=== PATIENT | female | born 1975 | race Caucasian/White ===

== ENCOUNTER → 2020-08-24 09:12 | Outpatient (BNVA) | payer BC, SELFPAY | PROVIDERS: PCP Internal Medicine Medical Oncology; Visit Provider Surgery | DX: Z76.89 Persons encountering health services in other specified circumstances (principal) ==

== ENCOUNTER 2023-03-19 15:58 | Outpatient (REF) | payer BC, SELFPAY | END 2023-03-19 15:59 | disposition home or self-care (01) | LOC: HO.MAMMO 15:58 | PROVIDERS: PCP Internal Medicine Medical Oncology; Visit Provider Internal Medicine Medical Oncology | DX: Z13.89 Encounter for screening for other disorder (principal) ==

== ENCOUNTER → 2023-04-03 15:00 | Outpatient (BNV) | payer OTHER, SELFPAY | PROVIDERS: PCP Internal Medicine Medical Oncology; Visit Provider Radiology Diagnostic Radiology | DX: R22.32 Localized swelling, mass and lump, left upper limb (principal) | CPT/HCPCS: 76642; 77066 ==

== ENCOUNTER 2023-04-03 15:02 | Outpatient (REF) | payer OTHER, SELFPAY ==
--- NOTE | ~2023-04-03 | MM_ITS ---
EXAMINATION: MM DIAGNOSTIC DIGITAL BREAST TOMOSYNTHESIS, BILATERAL US BREAST LIMITED, LEFT MAMMOGRAPHY: CLINICAL INFORMATION: Palpable left axillary mass. History of left axillary lipoma removed in the past. The lifetime risk of breast cancer based on the Tyrer-Cuzick Model is 11.2%. COMPARISON: Mammography: This study is compared with multiple prior exams dating back to 2016. TECHNIQUE: Digital breast tomosynthesis is performed in both the craniocaudal and mediolateral oblique views along with computer-aided detection (CAD). Synthesized 2D images are generated from the tomosynthesis. A full lateral view of the left breast and spot compression of the lung in the MLO and CC projections. FINDINGS: There are scattered areas of fibroglandular density (ACR BI-RADS breast composition Category b). In the area of clinical concern lower left axilla, laterally, there is a low-density focal asymmetry which is the appearance of contiguous lymph nodes. It is well-circumscribed and has no associated suspicious mammographic findings. There are no mammographic signs of malignancy breast. ULTRASOUND: CLINICAL INFORMATION: Palpable left axillary mass. COMPARISON: This study is compared with prior exams dating back to 2016. TECHNIQUE: Targeted sonographic evaluation was performed using a high frequency linear transducer. Selected archived documentation. FINDINGS: LEFT BREAST: In the area of clinical concern, in the 2:00 region 12 cm from the nipple in the left axilla, there is a 23 mm x 8 mm x 23 mm area of lymphoid tissue. This has the appearance of a few contiguous lymph nodes. The cortical echotexture is normal. The cortical thickness is also normal. The fatty hilum the node is preserved. The patient denies recent vaccination or any other systemic acute or chronic illness. THE PATIENT HAS In prior ultrasounds of this region, there were no suspicious findings. MM/MM tomosynthesis diagnostic BI IMPRESSION: Mammographic signs of malignancy in either breast. Palpable left axillary esther tissue which does not appear pathologic by mammography or sonography. Nonetheless, since this is a newly palpable finding, it would be most helpful to evaluate the patient again with left axillary sonography 3 months to document lack of significant change. The patient was also informed to return to her referring physician should she perceive this lump to enlarge in the future. The findings and recommendations have been relayed to the patient by the interpreting radiologist. OVERALL ASSESSMENT: Mammography: BI-RADS 3 - Probably benign finding(s) - 6 month follow-up suggested Ultrasound: BI-RADS 3 - Probably benign finding(s) - 6 month follow-up suggested RECOMMENDATION: 1-3 Months F/U A 3 MONTH FOLLOW-UP ULTRASOUND OF THE LEFT AXILLA IS RECOMMENDED. This patient's information was entered into a reminder system with a target due date for their next mammogram.
== END 2023-04-03 15:03 | disposition home or self-care (01) ==
LOC: HO.MAMMO 15:02
PROVIDERS: PCP Internal Medicine Medical Oncology; Visit Provider Internal Medicine Medical Oncology
DX: N63.32 Unspecified lump in axillary tail of the left breast (principal)
CPT/HCPCS: 76642; 77062; 77066

== ENCOUNTER 2023-05-24 13:32 | Outpatient (AMB) | payer OTHER, SELFPAY ==
--- NOTE | 2023-05-24 13:34 | A.OFFVIS_ITS ---
Intake Vital Signs 3 05/24/23 13:46 Height 5 ft 4 in Weight 115 lb BMI 19.7 BP 108/70 Blood Pressure Location Lt brachial Position Sitting Intake Visit Reasons: Black pigmented lesion left ankle-discuss brst MR Intake Note: Patient is seen in office for evaluation and treatment of left breast and left ankle pigmentation. Patient c/o: had breast MRI and was told her lymph nodes are inflamed, has a left breast lump near the axilla, no pain, tender comes and goes, had lump in the past bx (benign), no prior breast surgeries, yes to breast feeding no complications, fm hx breast cancer. Left ankle lump dark color increase/decrease, denies pain, discharge, onset 6 months Synthetic Department Supervisor Required: No Accompanied by: Self / Same As Patient Allergies trazodone Allergy (Unknown, Verified 05/24/23 13:42) insomnia, nightmares Medication List - Last Reconciled 05/24/23 by Tristen Serna MD bupropion HCl mg PO HPI HPI Comments 2 History of Present Illness0 Details 47-year-old female patient presenting fo r evaluation of a palpable mass in the left axilla. She reports a previous history of an excisional biopsy of a palpable mass by Dr. Martinez several years ago which was a lipoma. The lump is occasionally tender especially during her menstrual cycle. A recent mammogram and ultrasound performed on 04/03/2023 revealed axillary esther tissue corresponding to the palpable lesion. This was felt to be low suspicion for malignancy and a follow-up in 6 months recommended (BI-RADS 3). Subsequent breast MRI performed at [facility] on 05/01/2023 revealed thickened skin within the axilla corresponding to the site of clinical interest and most consistent with cellulitis. There were several underlying lymph nodes demonstrating increased enhancement but with normal size and morphology. Their appearance is suspicious for inflammatory reaction. (BI-RADS 2). She reports a family history of breast cancer in a paternal aunt. [facility] Medical History GERD (gastroesophageal reflux disease) Surgical History History of cervical discectomy (~2010) H/O left breast biopsy (~08/2016) Family History Maternal Aunt History of lung cancer Paternal Aunt History of breast cancer Paternal Grandfather History of lung cancer Social History Alcohol intake: current Alcohol intake frequency: holidays/special occasions only Alcohol type: wine Patient Tobacco Use Status: Never used Tobacco Review of Systems Const All systems reviewed & are unremarkable except as noted in HPI and below Denies chills, Denies fever(s), Denies headache(s), Denies poor appetite and Denies weakness ENT Denies headache(s) Card Denies chest pain, Denies irregular heart rhythm, Denies palpitations and Denies dyspnea Resp Denies cough, Denies excessive phlegm production and Denies dyspnea GI Denies abdominal pain, Denies bloating, Denies change in bowel habits, Denies constipation, Denies heartburn, Denies diarrhea, Denies nausea and Denies vomiting Denies urinary frequency and Reports nipple discharge Musc Denies back pain, Denies muscle weakness and Denies numbness Skin/Breast Denies breast skin changes, Reports breast pain, Reports breast mass, Denies changing lesions, Reports nipple discharge and Denies unusual bruising Neuro Denies headache(s), Denies numbness, Denies paresthesias and Denies weakness Psych Denies anxiety and Denies depression Endo Denies palpitations Humberto/Lymph Denies lymphadenopathy Physical Exam Vital Signs: Last Vital Signs BP 108/70 05/24/23 13:46 BMI result Body Mass Index 19.7 Const General: cooperative and no acute distress Nutritional Appearance: well nourished Orientation/consciousness: patient oriented x3 Limitations: no limitations HEENT Head: Yes normocephalic and Yes atraumatic Ears: hearing grossly normal bilaterally Chest Other: Left breast: No skin change, no nipple retraction, no nipple discharge, no palpable mass, axilla as noted below. Right breast: No skin change, no nipple retraction, no nipple discharge, no palpable mass, no enlarged lymph nodes Chest/axillae images: 2 1. Palpable nodule, possibly lymph node measuring approximately 1.5-2 cm in diameter. No overlying skin changes appreciated. Nontender to palpation. No other adenopathy is appreciated. Resp Effort & Inspection: normal respiratory effort, no audible wheezes, no cough and no respiratory distress Cardio Jugular venous distension: no JVD GI Inspection: Yes normal to inspection Skin Other: Warm, dry, no rash Neuro General: patient oriented x3 Extrem Other: Left medial lower leg with a 3 mm black and slightly raised cutaneous lesion, with symmetrical margins, no ulceration or bleeding identified. General: Yes no clubbing, cyanosis or edema Ankle/foot/toe images: 2 1. Site of melanotic lesion left leg Assessment & Plan Assessment & Plan (1) Left breast mass: Code(s): N63.20 - Unspecified lump in the left breast, unspecified quadrant Qualifiers: Breast mass location: axillary tail Qualified Code(s): N63.32 - Unspecified lump in axillary tail of the left breast (2) Nevus of left lower leg: Code(s): D22.72 - Melanocytic nevi of left lower limb, including hip Plan 47-year-old female patient presenting with a palpable mass in the left axilla with imaging suggestive of lymph nodes in the left axilla. On examination the patient is found to have a 2 cm mobile mass extending into the axilla possibly due to a breast mass or enlarged lymph node. I recommended excision of the palpable breast mass as the safest option given the size of the lesion. In addition she has a melanotic lesion located in the lower left leg just above the medial malleolus. The lesion seems to have increased in size, albeit slowly. I recommended excision of this lesion as well. This could be performed at the same time of her breast surgery. After discussion of the procedure, risks and alternatives, she consents to the left breast lumpectomy and excision of melanotic lesion of left leg. She will be scheduled as a short-stay surgery. Coding Level of Care Code New Pt Level 4 (41006) Diagnoses Mass of axillary tail of left breast N63.32 Breast mass location: axillary tail Nevus of left lower leg D22.72
[2023-05-24 13:46] VITALS: BP 108/70; BMI 19.7
== END 2023-05-24 14:04 | disposition home or self-care (01) ==
PROVIDERS: PCP Internal Medicine Medical Oncology; Referring Provider Internal Medicine Medical Oncology; Visit Provider Surgery
DX: N63.32 Unspecified lump in axillary tail of the left breast (principal); D22.72 Melanocytic nevi of left lower limb, including hip
CPT/HCPCS: 99204

== ENCOUNTER → 2023-05-24 13:32 | Outpatient (BNVA) | payer OTHER, SELFPAY | PROVIDERS: PCP Internal Medicine Medical Oncology; Referring Provider Internal Medicine Medical Oncology; Visit Provider Surgery ==

== ENCOUNTER 2023-06-25 07:05 | Outpatient (REF) | payer OTHER, SELFPAY ==
[2023-06-25 07:13] LABS: MANUAL DIFF FLAG NO
[2023-06-25 08:43] LABS: Basophils Absolute Auto 0.1 X10*3/uL (0.0-0.2); Basophils Percent Auto 1.3 % (0-2); Eosinophils Absolute Auto 0.2 X10*3/uL (0.0-0.4); Eosinophils Percent Auto 2.4 % (0-4); Hematocrit 43.5 % (37.0-47.0); Hemoglobin 14.8 g/dl (12.0-16.0); Imm Gran Abs Auto 0.02 X10*3/uL (0.00-0.03); Imm Gran Pct Auto 0.3 % (0.0-0.4); Lymphocytes Absolute Auto 2.1 X10*3/uL (1.2-4.9); Lymphocytes Percent Auto 34.5 % (20-40); Mean Corpuscular Hemoglobin 31.8 pg (27.0-33.0); Mean Corpuscular Volume 93.3 fL (80.0-98.0); Monocytes Absolute Auto 0.5 X10*3/uL (0.1-1.2); Monocytes Percent Auto 7.6 % (2-11); Neutrophils Absolute Auto 3.3 x10*3/uL (2.0-8.3); Neutrophils Percent Auto 53.9 % (45-73); Platelet Count 277 X10*3/uL (160-400); Red Blood Count 4.66 X10*6/uL (4.20-5.50); Red Cell Distribution Width 12.2 % (11.0-16.0); White Blood Count 6.2 X10*3/uL (4.8-10.8)
[2023-06-25 09:18] LABS: Erythrocyte Sedimentation Rate 2 MM/HR (0-20)
[2023-06-25 09:19] LABS: Alanine Aminotransferase 18 U/L (0-31); Alkaline Phosphatase 44 U/L (39-117); Anion Gap 13 (12-20); Aspartate Amino Transferase 18 U/L (5-31); Bilirubin Total 0.6 mg/dL (0.0-1.0); Blood Urea Nitrogen 6 mg/dL (9-16); Calcium 8.8 mg/dL (8.4-10.2); Carbon Dioxide 24 mmol/L (22-29); Chloride 109 mmol/L (96-108); Cholesterol 156 mg/dL (<200); Estimated Glomerular Filt Rate > 60; Glucose Fasting 121 mg/dL (60-99); HDL Cholesterol 63 mg/dL (>40); LDL Cholesterol Calculated 81 mg/dL (<100); Potassium 3.9 mmol/L (3.3-5.1); Sodium 142 mmol/L (135-145); Total Protein 6.3 g/dL (6.5-8.0); Triglycerides 63 mg/dL (<150)
[2023-06-25 09:25] LABS: Vitamin D 25-OH Total 43.8 ng/mL (>30)
== END 2023-06-25 07:06 | disposition home or self-care (01) ==
LOC: HO.LAB 07:05
PROVIDERS: PCP Internal Medicine Medical Oncology; Visit Provider Internal Medicine Medical Oncology
DX: G47.00 Insomnia, unspecified (principal); E55.9 Vitamin D deficiency, unspecified; R73.03 Prediabetes; R73.9 Hyperglycemia, unspecified
CPT/HCPCS: 36415; 80053; 80061; 82306; 85025; 85652

== ENCOUNTER 2023-06-25 07:17 | Day surgery (SDC) | payer OTHER, SELFPAY ==
[2023-06-21 07:42] VITALS: BMI 20.9
[2023-06-25] VITALS (8 sets, daily range): BP systolic 99–111; BP diastolic 67–79; PULSE 67–74; RESP 15–22; TEMP 36.6–37.1; O2SAT 98–100
[2023-06-25 08:01] LABS: UPreg QC Valid YES; Urine Pregnancy NEGATIVE (NEGATIVE)
[2023-06-25] MEDS: Lactated Ringers 1,000 ML 100 ML IVCONT (08:19)
--- NOTE | 2023-06-25 08:30 | HO.ANESPROP2 ---
HPI - Anesthesia Eval Consult details Narrative: Breast mass PMFSH Active Problems Active Problems: All Active Problems (Updated 06/25/23 @ 07:54 by Denae Chacon, RN) Nevus of left lower leg (Acute) Left breast mass (Acute) Past Medical History Medical History (Updated 06/25/23 @ 07:54 by Dneae Chacon, RN) Depression Uterine polyp Venous insufficiency of both lower extremities Peripheral venous insufficiency Varicose vein of leg 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, cervical History of torn meniscus of left knee IBS (irritable bowel syndrome) GERD (gastroesophageal reflux disease) Family History Family History Maternal Aunt History of lung cancer Paternal Aunt History of breast cancer Paternal Grandfather History of lung cancer Family history of problems with anesthesia: No Surgical History Surgical History History of cervical discectomy (~2010) H/O left breast biopsy (~08/2016) History of Problems with Anesthesia: No Social History Social History Alcohol intake: current Alcohol intake frequency: holidays/special occasions only Alcohol type: wine Patient Tobacco Use Status: Never used Tobacco Use of substances other than those prescribed or required for medical reasons: No Are you DNR?: No Advance Directives: No Advance Directives Information Provided: Yes Meds Allergies Allergy/AdvReac Type Severity Reaction Status Date / Time trazodone AdvReac Unknown insomnia, Verified 06/25/23 07:55 nightmares tramadol AdvReac Nausea and Verified 06/25/23 07:55 Vomiting Active Medications: Current Medications Lactated Ringer's (Lr) 1,000 mls @ 100 mls/hr IVCONT .Q10H NAOMI Last Admin: 06/25/23 08:19 Dose: 100 mls/hr Home Medications Medication Instructions Recorded Confirmed Last Taken Type bupropion HCl 100 mg tablet,12 hr 100 mg PO BID 08/24/20 06/21/23 06/25/23 05:00 History sustained-release coenzyme Q10 30 mg capsule (Co mg PO DAILY 06/21/23 Unknown History Q-10) multivitamin 1 tab PO DAILY 06/21/23 06/21/23 Unknown History omega 4-zgk-wvo-fish oil 60 mg-90 1 cap PO DAILY 06/21/23 06/21/23 06/17/23 History mg-500 mg capsule (Fish Oil) Exam Exam Date and Time: June 25, 2023 0830 Height,Weight and Vital Signs: Height 5 ft 3 in Weight 53.524 kg Last Vital Signs Temp 98.7 F 06/25/23 08:10 Pulse 74 06/25/23 08:10 Resp 15 06/25/23 08:10 BP 111/72 06/25/23 08:10 Pulse Ox 100 06/25/23 08:10 O2 Del Method Room Air 06/25/23 08:10 Pertinent Lab Results Pertinent Lab Results: Laboratory Tests 06/25/23 07:50 Urine Test NEGATIVE Airway Mallampati Class: II Neck ROM: Full Heart: rrr Lungs: cta Assessment and Plan Assessment Anesthesia Assessment: Anesthesia Plan Discussed and Chart Reviewed Final Anesthetic Review Family History of Problems with Anesthesia: No History of Problems with Anesthesia: No NPO: Yes ASA Class: II Final Preanesthetic Review: No Changes in Pt Med Stat, Meds/Allgs Chart Reviewed, Consent Obtained/Reviewed and Anes Risks/Benef Reviewed Patient Risk: Low Procedure Risk: Intermediate Anesthetic Plan Anesthetic Plan: GA (PONV) and Agree w/ Assess. and Plan Disposition: Standard PACU
--- NOTE | 2023-06-25 08:53 | P.HPSUR_ITS ---
Pre-Procedural Eval Section A Date of Service: 06/25/23 The patient is an INPATIENT: No Changes since office visit: Yes Patient answered all questions; No Cold of Flu in the past 2 weeks, No New Medical Problems and No Changes in Medication The History & Physical has been completed within 30 days and I have reviewed it.: No Section B Chief Complaint: Unspecified lump in axillary tail of the left pam Details of Present Illness: No changes from previous evaluation. Relevant Family History (Specify if Yes): No Relevant Social History: None Present Medications: see Short Stay Collaborative assessment Medical History: No relevant PMH History of Previous Operations: Relevant previous surgery/procedure and date(s) ( Previous right axillary lipoma excision) Allergies: Allergies Allergy/AdvReac Type Severity Reaction Status Date / Time trazodone AdvReac Unknown insomnia, Verified 06/25/23 07:55 nightmares tramadol AdvReac Nausea and Verified 06/25/23 07:55 Vomiting Review of Systems Sugical H&P ROS: Negative: Constitution, Cardiovascular, Respiratory, Neurological, Psychiatric, Hem-Onc, Allergic/Immunologic, Gastrointestinal, Genitourinary, Musculoskeletal, Integumentary, Endocrine and Eyes/Ears/Nose/Throat Exam Surgical H&P Exam: Normal: HEENT, Normal: Heart, Normal: Lungs, Normal: Ex tremities, Normal: Abdomen, Normal: Skin and Normal: Neurological Plan Diagnosis/Plan: Unchanged I have reviewed the history and physical and performed a pertinent physical examination on my patient. No changes have occurred unless specified. Time Spent With Patient Time: Total time managing care of this patient today ____ minutes.
--- NOTE | 2023-06-25 09:37 | W.PM.OPN ---
Operative Note Operative Note Date of Service: 06/25/23 Narrative: Preoperative diagnosis: left breast lump, melanotic lesion left lower leg Postoperative diagnosis: same Procedure: left breast lumpectomy, excision melanotic lesion left lower leg Surgeon: Tristen Serna MD Computer Game Designer: Bette Mendez PA-C Anesthesia: general LMA Indications for procedure: 48-year-old female patient with a previous history of a lipoma in the left axilla now presenting with a palpable mass possible lymphadenopathy in the left axilla. She was also noted to have a melanotic lesion measuring approximately 4 mm in diameter in the medial left lower leg just above the ankle. She has requested excision of both lesions. Operative findings: Mass measuring approximately 2 cm at the tail of the left breast extending into the axilla, possible fibroadenoma, no lymphadenopathy Specimen: left breast mass, melanotic lesion left leg Estimated blood loss: 2 mL Complications: none Procedure details: The patient was brought to the OR placed in a supine position. After administering general anesthesia the patient's left breast and axilla were prepped with ChloraPrep and draped in a sterile fashion. A surgical time-out was called the consent confirmed. Patient received preoperative antibiotics and Venodyne boots were in place. Local anesthesia was then infiltrated transverse fashion over the palpable mass. Incision was then created with a scalpel carried out through subcutaneous tissue. The mass was then grasped with an Allis clamp. Electrocautery was then used to dissect the mass from the surrounding breast tissue. The lesion was passed off the table and sent to pathology for further examination. Hemostasis was assured using electrocautery. The breast tissue was then reapproximated using interrupted 3-0 Polysorb sutures. Dermis was reapproximated using interrupted 3-0 Polysorb sutures. Skin was closed using a running subcuticular 4-0 Polysorb suture. Steri-Strips, 2 x 2 gauze and Tegaderm were then applied. Attention was then directed to the left medial lower leg were a melanotic lesion was identified by the patient in excision requested. Skin was prepped with Betadine and draped in a sterile fashion. Local anesthesia was then infiltrated around the lesion. Elliptical incision was then created around the lesion with 2 mm margins. This carried out through subcutaneous tissue and around the entire lesion. Lesion was passed off the table sent to pathology for further examination. After assuring adequate hemostasis the skin was closed using a 4-0 nylon suture. Sterile dressings consisting of 2 x 2 gauze and Tegaderm were then applied. The patient tolerated the procedure well. Sponge, instrument, and needle counts reported as correct. The patient was transferred to PACU in stable condition.
== END 2023-06-25 12:13 | disposition home or self-care (01) ==
PROVIDERS: Nurse Practitioner; PCP Internal Medicine Medical Oncology; Visit Provider Surgery
PROC: (CPT 19301; principal; 2023-06-25 09:10)
PROC: (CPT 19301; 2023-06-25 09:10)
DX: N63.32 Unspecified lump in axillary tail of the left breast (principal); N64.89 Other specified disorders of breast; N60.32 Fibrosclerosis of left breast; N60.82 Other benign mammary dysplasias of left breast; D22.72 Melanocytic nevi of left lower limb, including hip; I87.2 Venous insufficiency (chronic) (peripheral); G93.5 Compression of brain; Z79.899 Other long term (current) drug therapy; Z88.8 Allergy status to other drugs, medicaments and biological substances
CPT/HCPCS: 19301; 11406; 81025; 88305; 88307; J0131; J0690; J1100; J2405; J2795; J3010

== ENCOUNTER → 2023-06-25 07:17 | Outpatient (BNV) | payer OTHER, SELFPAY | PROVIDERS: PCP Internal Medicine Medical Oncology; Visit Provider Surgery | DX: N63.32 Unspecified lump in axillary tail of the left breast (principal); D22.72 Melanocytic nevi of left lower limb, including hip | CPT/HCPCS: 11401; 19301 ==

== ENCOUNTER 2023-07-03 08:21 | Outpatient (AMB) | payer OTHER, SELFPAY ==
--- NOTE | 2023-07-03 08:41 | A.OFFVIS_ITS ---
Intake Vital Signs 07/03/23 08:52 Height 5 ft 4 in Weight 115 lb BMI 19.7 BP 108/70 Blood Pressure Location Lt brachial Position Sitting Intake Visit Reasons: S/P Lt axillary lumpectomy, Lt ankle lesion exc. Intake Note: Patient is seen in office for post op assessment post left breast lumpectomy & excision melanotic lesion left lower leg. Patient c/o: denies any concerns healing as expected Applications Development Analyst Required: No Accompanied by: Self / Same As Patient Allergies trazodone Adverse Reaction (Unknown, Verified 07/03/23 08:55) insomnia, nightmares tramadol Adverse Reaction (Verified 07/03/23 08:55) Nausea and Vomiting Medication List - Last Reconciled 07/03/23 by Tristen Serna MD bupropion HCl 100 mg PO BID coenzyme Q10 (Co Q-10) mg PO DAILY multivitamin 1 tab PO DAILY omega 1-krq-tmp-fish oil 60-90-500 mg (Fish Oil) 1 cap PO DAILY oxycodone 5 mg PO Q6H PRN HPI HPI Comments History of Present Illness Details Patient returns 1 week following excision of a left breast mass and left leg lesion. She tolerated the procedure well his returning for wound cora ck. She reports some thickness in the incision in the left axilla with a small amount of pain when pressed. She denies any redness or discharge. She denies any symptoms from the leg lesion excision site. [facility] Medical History (Updated 06/25/23 @ 07:54 by Denae Chacon RN) Depression Uterine polyp Venous insufficiency of both lower extremities Peripheral venous insufficiency Varicose vein of leg 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, cervical History of torn meniscus of left knee IBS (irritable bowel syndrome) GERD (gastroesophageal reflux disease) Surgical History History of surgery on lower extremity (06/25/23) History of lumpectomy of left breast (06/25/23) History of cervical discectomy (~2010) H/O left breast biopsy (~08/2016) Family History Maternal Aunt History of lung cancer Paternal Aunt History of breast cancer Paternal Grandfather History of lung cancer Social History Alcohol intake: current Alcohol intake frequency: holidays/special occasions only Alcohol type: wine Patient Tobacco Use Status: Never used Tobacco Physical Exam Vital Signs: Last Vital Signs BP 108/70 07/03/23 08:52 BMI result Body Mass Index 19.7 Chest Other: Excision site in left axilla is clean, dry, and intact without redness or discharge. There is an underlying healing ridge which is mildly tender to palpation. No other suspicious findings identified. Skin Other: Excision site left lower leg is clean and intact. A single suture was removed and the wounds found to be well healed. Assessment & Plan Assessment & Plan (1) Nevus of left lower leg: Code(s): D22.72 - Melanocytic nevi of left lower limb, including hip (2) Left breast mass: Code(s): N63.20 - Unspecified lump in the left breast, unspecified quadrant Qualifiers: Breast mass location: axillary tail Qualified Code(s): N63.32 - Unspec ified lump in axillary tail of the left breast Plan 40-year-old female status post excision of a left breast mass in the axilla and excision of a skin lesion left leg both of which were benign. She tolerated the procedure well and wounds are healing nicely. She should follow up as needed. Coding Level of Care Code Global (89397) Diagnoses Nevus of left lower leg D22.72 Mass of axillary tail of left breast N63.32 Breast mass location: axillary tail
[2023-07-03 08:52] VITALS: BP 108/70; BMI 19.7
== END 2023-07-03 08:56 | disposition home or self-care (01) ==
PROVIDERS: PCP Internal Medicine Medical Oncology; Visit Provider Surgery
DX: D22.72 Melanocytic nevi of left lower limb, including hip (principal); N63.32 Unspecified lump in axillary tail of the left breast
CPT/HCPCS: 99024

== ENCOUNTER → 2023-07-03 08:21 | Outpatient (BNVA) | payer OTHER, SELFPAY | PROVIDERS: PCP Internal Medicine Medical Oncology; Visit Provider Surgery ==

== ENCOUNTER 2023-07-20 17:34 | Outpatient (REF) | payer OTHER, SELFPAY ==
--- NOTE | ~2023-07-20 | MR_ITS ---
EXAMINATION: MR CERVICAL SPINE WITHOUT CONTRAST CLINICAL INFORMATION: Right neck pain with radiation into the right upper extremity, prior surgery. COMPARISON: MRI cervical spine 06/10/2018 TECHNIQUE: MRI of the cervical spine was obtained using routine sequences without contrast. FINDINGS: Straightening of the normal cervical lordosis with grade 1 anterolisthesis of C3-C4 and trace retrolisthesis of C4-C5. Cervical vertebral body heights are maintained. No expansile or destructive osseous lesion. There is prominence of the central canal extending from approximately the level of C4-C5 through C7-T1, not significantly changed compared to the prior examination. Partially visualized thoracic spinal cord syrinx on sagittal sequences measuring up to 3 mm in AP diameter of the partially visualized aspect. Prior anterior cervical discectomy and fusion at C5-C6. Again seen are low-lying cerebellar tonsils, terminating up to 7 mm below the foramen magnum. C2-C3: No significant spinal canal or neural foraminal stenosis. C3-C4: Small disc osteophyte complex without significant spinal canal stenosis. Right greater than left uncovertebral arthropathy with mild to moderate right neural foraminal narrowing. The left neural foramen is patent. C4-C5: Disc osteophyte complex indents the ventral thecal sac without significant associated spinal canal stenosis. There is uncovertebral arthropathy with mild narrowing of the right neural foramen. C5-C6: Anterior cervical discectomy and fusion. No significant spinal canal or neural foraminal stenosis. C6-C7: Eccentric right disc osteophyte complex without significant spinal canal stenosis. There is mild narrowing of the right neural foramen appears comparable to the prior examination. C7-T1: Facet arthropathy. No significant spinal canal or neural foraminal stenosis. MR/MR cervical spine wo con IMPRESSION: There is a partially visualized thoracic spinal cord syrinx beginning at the level of T5 and extending outside the [id number] of this examination. Dedicated thoracic spine MRI with and without contrast is recommended to evaluate syrinx extent. Stable trace dilatation of the central canal in the cervical spine. Redemonstrated low-lying cerebellar tonsils terminating approximately 7 mm below the foramen magnum. Prior anterior cervical discectomy and fusion at C5-C6 with no significant interval change in multilevel degenerative disc disease of the cervical spine as described above. No high-grade spinal canal or neural foraminal stenosis. Findings to be called to the ordering clinician by a [facility] Physician Aids Nurse.
== END 2023-07-20 17:35 | disposition home or self-care (01) ==
LOC: HO.MRI 17:34
PROVIDERS: PCP Internal Medicine Medical Oncology; Visit Provider Student in an Organized Health Care Education/Training Program
DX: M54.12 Radiculopathy, cervical region (principal)
CPT/HCPCS: 72141

== ENCOUNTER 2023-08-08 09:32 | Outpatient (REF) | payer OTHER, SELFPAY ==
--- NOTE | ~2023-08-08 | MR_ITS ---
EXAMINATION: MR THORACIC SPINE WITHOUT AND WITH CONTRAST CLINICAL INFORMATION: Delineate extent of spinal cord syrinx. COMPARISON: MRI scans of the cervical spine 07/20/2023 and 06/10/2018. TECHNIQUE: MRI of the thoracic spine was obtained using routine sequences with and without contrast. Intravenous contrast: Gadavist 5 mL. FINDINGS: VERTEBRAL BODIES AND PARASPINAL STRUCTURES: There is mild dextroscoliosis with the apex at T10. There is multilevel narrowing of intervertebral disc height which is most prominent at T9-T10 and T10-T11. There are Schmorl's nodes in the superior endplate of T11 and at L1-L2. Vertebral body heights are maintained, and no fractures are demonstrated. There is a small focus of increased T1 and T2 signal in the superior body of T12, most consistent with a hemangioma. There is no abnormal osseous enhancement, and marrow signal is homogenous. On the localizer images the study redemonstrates sequelae of the ACDF at C5-C6 with reversal of the normal cervical lordosis. The paravertebral and visualized posterior thoracic and superior retroperitoneal structures are unremarkable. The conus is at the level of T12-L1. The study redemonstrates a septated syrinx extending from the mid body of T5 caudad to the mid body of T9. It is most prominent at the level of T7 with caliber of 5 mm. Elsewhere, spinal cord signal appears normal and there is no abnormal enhancement of the cord or leptomeninges. SPINAL LEVELS: C7-T1 through T8-T9: Posterior disc contours are normal and there is no compression of the spinal cord or central stenosis. The neural foramina appear patent. T9-T10: There is mild bilateral facet arthropathy. There is a small left paracentral disc protrusion without mass effect on the thecal sac and there is no central stenosis, cord compression or foraminal narrowing. T10-T11: There is mild bilateral facet arthropathy. There is a posterior disc protrusion in the midline with minimal distortion the ventral thecal sac. There is no central stenosis or cord compression, and the neural foramina are patent bilaterally. T11-T12 and T12-L1: Posterior disc contours are normal and there is no compression of the spinal cord or central stenosis. The neural foramina appear patent. MR/MR thoracic spine wo/w con IMPRESSION: 1. The study redemonstrates a septated syrinx in the mid thoracic spinal cord as described above, most prominent at the level of T7. 2. There are no acute fractures or subluxations. There is no abnormal osseous enhancement. 3. There are mild spondylitic and facet arthropathic changes as described above. There is no spinal cord compression or central stenosis. There are no masses within the spinal cord and there is no abnormal enhancement.
[2023-08-08] MEDS: gadobutroL 7.5 ML VIAL IVPUSH (10:38)
== END 2023-08-08 09:33 | disposition home or self-care (01) ==
LOC: HO.MRI 09:32
PROVIDERS: PCP Internal Medicine Medical Oncology; Visit Provider Student in an Organized Health Care Education/Training Program
DX: M54.6 Pain in thoracic spine (principal); G95.0 Syringomyelia and syringobulbia
CPT/HCPCS: 72157; A9585

== ENCOUNTER 2023-09-28 09:19 | Outpatient (REF) | payer OTHER, SELFPAY ==
[2023-09-28 10:45] LABS: Alanine Aminotransferase 17 U/L (0-31); Albumin Level 4.1 g/dL (3.5-5.0); Alkaline Phosphatase 47 U/L (39-117); Anion Gap 11 (12-20); Aspartate Amino Transferase 17 U/L (5-31); Bilirubin Total 0.7 mg/dL (0.0-1.0); Blood Urea Nitrogen 10 mg/dL (9-16); Calcium 8.6 mg/dL (8.4-10.2); Carbon Dioxide 28 mmol/L (22-29); Chloride 104 mmol/L (96-108); Cholesterol 167 mg/dL (<200); Estimated Glomerular Filt Rate > 60; Glucose Fasting 103 mg/dL (60-99); HDL Cholesterol 65 mg/dL (>40); LDL Cholesterol Calculated 85 mg/dL (<100); Potassium 4.3 mmol/L (3.3-5.1); Sodium 139 mmol/L (135-145); Total Protein 6.4 g/dL (6.5-8.0); Triglycerides 89 mg/dL (<150)
[2023-09-28 10:56] LABS: Estimated Average Glucose 105 mg/dL; Hemoglobin A1c % 5.3 % (<6.0)
== END 2023-09-28 09:20 | disposition home or self-care (01) ==
LOC: HO.LAB 09:19
PROVIDERS: PCP Internal Medicine Medical Oncology; Visit Provider Internal Medicine Medical Oncology
DX: R73.03 Prediabetes (principal); R63.4 Abnormal weight loss
CPT/HCPCS: 36415; 80053; 80061; 83036

== ENCOUNTER → 2024-02-12 10:31 | Outpatient (REF) | payer OTHER, SELFPAY ==
--- NOTE | 2024-02-12 10:40 | CA_ITS ---
Acquisition Time: 2024-02-12 11:16:25 Total Exercise Time: 00:12:00 Test Indications: HTN Medications: SEE H Protocol: FACUNDO Max HR: 162 BPM 94% of Pred: 172 BPM Max BP: 172/094 mmHG Max Work Load: 13.4 METS Exercise stress test with exercise 12 min of Facundo protocol, achieving 87% MPHR, without anginal symptoms, with one PVC, with normotensive response to exercise, without EKG changes meeting criteria for ischemia. Test reviewed with Dr Haile. Referred By: Seun Edwards Overread By: SAMARIA JONES
--- NOTE | 2024-02-12 10:41 | HM_ITS ---
Conclusion: 1. Patient was monitored for total period of 6 days and 23 hours 2. Baseline was normal sinus rhythm with average heart rate of 84 beats per minute 3. Rare PACs noted 4. Patient marked the counter 7 times with reported symptoms of dizziness or palpitations correlating with sinus rhythm and sinus tachycardia MTDD
== END ==
LOC: HO.CARD 10:31
PROVIDERS: PCP Internal Medicine Medical Oncology; Visit Provider Internal Medicine Medical Oncology
DX: I10 Essential (primary) hypertension (principal); R07.9 Chest pain, unspecified
CPT/HCPCS: 93017; 93242

== ENCOUNTER → 2024-02-12 10:40 | Outpatient (BNV) | payer OTHER, SELFPAY | PROVIDERS: PCP Internal Medicine Medical Oncology; Visit Provider Nurse Practitioner Family | DX: I49.1 Atrial premature depolarization (principal); R00.0 Tachycardia, unspecified | CPT/HCPCS: 93016; 93018; 93244 ==

== ENCOUNTER 2024-03-11 08:59 | Outpatient (REF) | payer OTHER, SELFPAY ==
--- NOTE | ~2024-03-11 | US_ITS ---
EXAMINATION: US ABDOMEN COMPLETE CLINICAL INFORMATION: 28-year-old female with abdominal pain. COMPARISON: CT abdomen from 10/15/2014 and ultrasound from 08/12/2013 TECHNIQUE: Real-time imaging of the abdominal viscera. FINDINGS: PANCREAS: Normal. ABDOMINAL AORTA: The proximal, mid, and distal segments are normal in caliber. INFERIOR VENA CAVA: Visualized portions are normal. LIVER: Normal. The liver is normal in size. The liver contour is normal. Parenchymal echogenicity is normal. No focal hepatic lesion. There is no intrahepatic biliary duct dilatation seen. GALLBLADDER: Normal. The gallbladder is physiologically distended without evidence of stones, sludge, polyps, wall thickening or pericholecystic fluid. COMMON BILE DUCT: Normal in caliber measuring 0.2 cm in diameter. RIGHT KIDNEY: Normal. No hydronephrosis. No renal calculi or focal parenchymal lesions. The kidney measures 10.8 cm in maximum dimension. LEFT KIDNEY: Normal. No hydronephrosis. No renal calculi or focal parenchymal lesions. The kidney measures 11.8 cm in maximum dimension. SPLEEN: Normal. The spleen measures 10.0 cm in maximum dimension. FREE FLUID: None. US/US abdomen complete IMPRESSION: Normal study.
== END 2024-03-11 09:00 | disposition home or self-care (01) ==
LOC: HO.US 08:59
PROVIDERS: PCP Internal Medicine Medical Oncology; Visit Provider Internal Medicine Medical Oncology
DX: R10.9 Unspecified abdominal pain (principal)
CPT/HCPCS: 76700

== ENCOUNTER 2024-04-21 08:08 | Day surgery (SDC) | payer OTHER, SELFPAY ==
--- NOTE | 2024-04-21 07:47 | MHC.SHP ---
Pre-Procedural Eval Section A - 24 Hr Update-Section A only Date of Service: 04/21/24 The patient is an INPATIENT: No The patient has been examined within 24 hours of the surgical procedure. The History & Physical has been completed within 30 days and I have reviewed it.: No Section B - Complete if H&P > 30 days Chief Complaint: Colon cancer screening, IBS Relevant Family History (Specify if Yes): No Relevant Social History: None Present Medications: see Short Stay Collaborative assessment Medical History: Significant History (GERD, left breast mass, GERD, IBS, Chiari malformation) History of Previous Operations: Relevant previous surgery/procedure and date(s) (H/O left breast biopsy History of cervical discectomy (~2010)) Allergies: Allergies Allergy/AdvReac Type Severity Reaction Status Date / Time trazodone AdvReac Unknown insomnia, Verified 07/03/23 08:55 nightmares tramadol AdvReac Nausea and Verified 07/03/23 08:55 Vomiting Review of Systems Sugical H&P ROS: Negative: Constitution, Cardiovascular and Respiratory and Yes, Specify: Gastrointestinal (IBS) Exam Surgical H&P Exam: Normal: Heart and Normal: Lungs Plan Diagnosis/Plan: Change (Proceed with colonoscopy - direct access) I have reviewed the history and physical and performed a pertinent physical examination on my patient. No changes have occurred unless specified. Time Spent With Patient Time: Total time managing care of this patient today ____ minutes.
--- NOTE | 2024-04-21 08:47 | HO.ANESPROP2 ---
[facility] Active Problems Active Problems: All Active Problems Nevus of left lower leg (Acute) Left breast mass (Acute) Past Medical History Medical History (Updated 06/25/23 @ 07:54 by Denae Chacon RN) Depression Uterine polyp Venous insufficiency of both lower extremities Peripheral venous insufficiency Varicose vein of leg 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, cervical History of torn meniscus of left knee IBS (irritable bowel syndrome) GERD (gastroesophageal reflux disease) Family History Family History Maternal Aunt History of lung cancer Paternal Aunt History of breast cancer Paternal Grandfather History of lung cancer Family history of problems with anesthesia: No Surgical History Surgical History History of surgery on lower extremity (06/25/23) History of lumpectomy of left breast (06/25/23) History of cervical discectomy (~2010) H/O left breast biopsy (~08/2016) History of Problems with Anesthesia: No Social History Social History Alcohol intake: current Alcohol intake frequency: holidays/special occasions only Alcohol type: wine Patient Tobacco Use Status: Never used Tobacco Meds Allergies Allergy/AdvReac Type Severity Reaction Status Date / Time trazodone AdvReac Unknown insomnia, Verified 07/03/23 08:55 nightmares tramadol AdvReac Nausea and Verified 07/03/23 08:55 Vomiting Active Medications: Current Medications Lactated Ringer's (Lr) 1,000 mls @ 50 mls/hr IVCONT .Q20H [facility] Home Medications ?Medication ?Instructions ?Recorded ?Confirmed ?Last Taken ?Type bupropion HCl 100 mg tablet,12 hr 100 mg PO BID 08/24/20 07/03/23 06/25/23 05:00 History sustained-release coenzyme Q10 30 mg capsule (Co mg PO DAILY 06/21/23 07/03/23 Unknown History Q-10) multivitamin 1 tab PO DAILY 06/21/23 07/03/23 Unknown History omega 0-fzw-dhk-fish oil 60 mg-90 1 cap PO DAILY 06/21/23 07/03/23 06/17/23 History mg-500 mg capsule (Fish Oil) Exam Airway Mallampati Class: II TM Dist: >3cm Neck ROM: Full Heart: rrr Lungs: cta Assessment and Plan Assessment Anesthesia Assessment: Anesthesia Plan Discussed and Chart Reviewed Final Anesthetic Review Family History of Problems with Anesthesia: No History of Problems with Anesthesia: No NPO: Yes ASA Class: II Final Preanesthetic Review: No Changes in Pt Med Stat, Meds/Allgs Chart Reviewed and Consent Obtained/Reviewed Patient Risk: Low Procedure Risk: Low Anesthetic Plan Anesthetic Plan: MAC: Disposition: Standard PACU
[2024-04-21 08:58] LABS: UPreg QC Valid YES; Urine Pregnancy NEGATIVE (NEGATIVE)
[2024-04-21 09:03] VITALS: BMI 18.9
[2024-04-21 09:05] VITALS: BP 127/90; PULSE 81; RESP 18; TEMP 36.4; O2SAT 100
[2024-04-21] MEDS: Lactated Ringers 1,000 ML 50 ML IVCONT (09:18)
[2024-04-21 10:00] VITALS: BP 120/84; PULSE 79; RESP 16; TEMP 36.1; O2SAT 100
--- NOTE | 2024-04-21 10:03 | HO.OPN-COLON ---
Colonoscopy Operative Note Operative Note Date of Service: 04/21/24 Narrative: COLONOSCOPY TILL CECUM WITH BIOPSIES AND SNARE POLYPECTOMY Pre-op diagnosis: Colon cancer screening (First colonoscopy). Post-op diagnosis:? colon polyps, melanosis coli Endoscopist:? Abraham Barraza MD Anesthesia:?MAC Consent: Indications for the procedure and potential complications of bleeding, perforation, reaction to medications and missed diagnosis were discussed with the patient and informed consent was obtained. Instrument: Olympus PCF H 190 L variable stiffness pediatric colonoscope Monitoring: Vital signs and clinical assessment, intermittent blood pressure monitoring, continuous EKG monitoring, Pulse oximetry and Carbon Dioxide monitoring were done throughout the procedure. Please see anesthesia flowsheet. Colon withdrawl time was 22 minutes. Procedure: The patient was placed in the left lateral decubitis position and pre-procedure medications were administered. After a digital rectal examination of the ano-rectum, the video colonoscope was inserted into the rectum and advanced through the colon to the cecum. The colonoscope was slowly withdrawn in a retrograde panoramic fashion and the colon mucosa was carefully examined including a retroflexed view of the rectum. Findings and interventions are described below. Procedure Difficulty: Colon was long and tortuous and there was some loop formation Findings: Terminal Ileum: Not evaluated Cecum: Mild diffuse melanosis coli throughout the entire colon Ascending Colon: A 2-3 mm diminutive appearing polyp in the distal ascending colon - removed with a cold biopsy. Mild diffuse melanosis coli throughout the entire colon Random biopsies were obtained from the right colon. Transverse Colon: Mild diffuse melanosis coli throughout the entire colon Descending Colon: Mild diffuse melanosis coli throughout the entire colon Sigmoid Colon: A 6-7 mm sessile polyp - removed with a cold snare. Mild diffuse melanosis coli throughout the entire colon Rectum: A 7-8 mm diminutive appearing polyp - removed with a cold snare. Ano-rectum: Normal Colon preparation: Excellent, after some irrigation. [place] Bowel Preparation Scale Right colon; 3 Transverse colon: 3 Left colon; 3 (0 = Unprepared colon segment with mucosa not seen due to solid stool that cannot be cleared. 1 = Portion of mucosa of the colon segment seen, but other areas of the colon segment not well seen due to staining, residual stool and/or opaque liquid. 2 = Minor amount of residual staining, small fragments of stool and/or opaque liquid, but mucosa of colon segment seen well. 3 = Entire mucosa of colon segment seen well with no residual staining, small fragments of stool or opaque liquid) Impression and Post Procedure Diagnosis: Colonoscopy Findings: Three small polyps were removed Mild diffuse melanosis coli throughout the entire colon Random biopsies were obtained from the right colon. Plan: I will send a letter with biopsy results. Repeat Colonoscopy in 3 - 5 years if polyps are adenomatous and 10 year if polyps are hyperplastic. Above findings were reviewed with the patient and relevant handouts were given and the discharge area.
[2024-04-21 10:15] VITALS: BP 109/74; PULSE 71; RESP 18; TEMP 36.7; O2SAT 99
[2024-04-21 10:30] VITALS: BP 118/88; PULSE 66; RESP 18; TEMP 36.6; O2SAT 100
== END 2024-04-21 11:04 | disposition home or self-care (01) ==
PROVIDERS: Anesthesiology; PCP Internal Medicine Medical Oncology; Visit Provider Internal Medicine Gastroenterology
PROC: 0DJD8ZZ Inspection of Lower Intestinal Tract, Via Natural or Artificial Opening Endoscopic (ICD-10-PCS; CPT 45378; principal; 2024-04-21 09:20)
DX: Z12.11 Encounter for screening for malignant neoplasm of colon (principal); D12.5 Benign neoplasm of sigmoid colon; K63.5 Polyp of colon; K62.1 Rectal polyp; K58.9 Irritable bowel syndrome, unspecified; K63.89 Other specified diseases of intestine; G93.5 Compression of brain; K21.9 Gastro-esophageal reflux disease without esophagitis; Z79.899 Other long term (current) drug therapy; Z88.8 Allergy status to other drugs, medicaments and biological substances; Z98.890 Other specified postprocedural states
CPT/HCPCS: 45385; 45380; 81025; 88305; J2704

== ENCOUNTER → 2024-04-21 08:08 | Outpatient (BNV) | payer OTHER, SELFPAY | PROVIDERS: PCP Internal Medicine Medical Oncology; Visit Provider Internal Medicine Gastroenterology | DX: Z12.11 Encounter for screening for malignant neoplasm of colon (principal); K63.89 Other specified diseases of intestine; K63.5 Polyp of colon | CPT/HCPCS: 45380; 45385 ==

== ENCOUNTER 2024-05-06 15:10 | Outpatient (AMB) | payer OTHER, SELFPAY ==
--- NOTE | 2024-05-06 15:17 | MHC.OFFVIS ---
Intake Visit Reasons: renal pelvic stone Allergies trazodone Adverse Reaction (Unknown, Verified 07/03/23 08:55) insomnia, nightmares tramadol Adverse Reaction (Verified 07/03/23 08:55) Nausea and Vomiting HPI Comments Details: Feeling of incomplete bladder emptying Occasional leakage [facility] Medical History Depression Uterine polyp Venous insufficiency of both lower extremities Peripheral venous insufficiency Varicose vein of leg 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, cervical History of torn meniscus of left knee IBS (irritable bowel syndrome) GERD (gastroesophageal reflux disease) Surgical History History of surgery on lower extremity (06/25/23) History of lumpectomy of left breast (06/25/23) History of cervical discectomy (~2010) H/O left breast biopsy (~08/2016) Family History Maternal Aunt History of lung cancer Paternal Aunt History of breast cancer Paternal Grandfather History of lung cancer Social History Alcohol intake: current Alcohol intake frequency: holidays/special occasions only Alcohol type: wine Patient Tobacco Use Status: Never used Tobacco Coding
--- NOTE | 2024-05-06 15:26 | A.OFFVIS_ITS ---
Intake Visit Reasons: Incomplete Emptying of Bladder Intake Note: New patient is present for Incomplete emptying of Bladder Has not tried any medications for bladder Denies any history of UTI or Kidney Infections Reports that Grandfather has hx of Bladder Ca Manager Hospice Required: No Accompanied by: Self / Same As Patient Allergies trazodone Adverse Reaction (Unknown, Verified 07/03/23 08:55) insomnia, nightmares tramadol Adverse Reaction (Verified 07/03/23 08:55) Nausea and Vomiting Referred by: Seun Edwards MD HPI Comments Details: Pippa is a pleasant female. She is a patient of Dr. Edwards. She is seen for the following urologic conditions - stress incontinence Stress Incontinence Mild leakage during exercise 3 vaginal births 1 prolonged Had associated urgency and frequency which has substantially improved with Linzess for constipation Does have some concerns since she does not have strong urge to go even though her bladder is full PVR 0 Discussed conservative therapy Recommend Kegel exercises and vaginal weights Follow-up Dr. Hdz for assessment [facility] Medical History Depression Uterine polyp Venous insufficiency of both lower extremities Peripheral venous insufficiency Varicose vein of leg 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, cervical History of torn meniscus of left knee IBS (irritable bowel syndrome) GERD (gastroesophageal reflux disease) Surgical History History of surgery on lower extremity (06/25/23) History of lumpectomy of left breast (06/25/23) History of cervical discectomy (~2010) H/O left breast biopsy (~08/2016) Family History Maternal Aunt History of lung cancer Paternal Aunt History of breast cancer Paternal Grandfather History of lung cancer Social History Alcohol intake: current Alcohol intake frequency: holidays/special occasions only Alcohol type: wine Patient Tobacco Use Status: Never used Tobacco Review of Systems Const Denies chills and Denies fever(s) Card Reports no additional complaints and Denies syncope Resp Denies cough GI Denies abdominal pain and Denies heartburn Reports as per HPI and Denies change in libido Neuro Denies syncope Psych Denies change in libido Endo Denies change in libido Physical Exam Const General: cooperative, healthy appearing, comfortable and no acute distress Orientation/consciousness: patient oriented x3 HEENT Face and sinus: Yes normal facial exam Mouth: moist mucous membranes Neck Neck: Yes normal visual inspection, Yes full ROM and Yes trachea midline Chest Chest palpation & inspection: normal inspection of the chest Resp Effort & Inspection: normal respiratory effort, able to speak in complete sentences and no respiratory distress GI Inspection: Yes normal to inspection Back/Spine/Pelvis Cervical Spine: normal cervical lordosis Thoracic/Lumbar Spine: thoracic and lumbar spine normal to inspection Skin General skin exam: no rashes or lesions noted Neuro General: patient oriented x3, gait normal, tone normal and moves all extremities Extrem General: Yes normal to inspection and Yes capillary refill normal Assessment & Plan Assessment & Plan (1) Stress incontinence: Code(s): N39.3 - Stress incontinence (female) (male) Category: Medical Plan Three-month follow-up Orders: Orders AMB Post Void Residual by ultrasound Today R39.14 - Feeling of incomplete bladder emptying Patient Instructions: Imaging studies, laboratory and physical exam results were discussed and reviewed in detail. No major barriers to patient understanding were identified. An opportunity to ask questions regarding the treatment plan was provided. All questions were answered. The patient expressed understanding and agreement with the above treatment plan. The patient is aware they should contact our office by phone for worsening of their current condition or the appearance of new urologic symptoms. Compliance is encouraged with any medications and followup testing that is ordered. It is a privilege to participate in the urologic care of your patient. If you h ave any questions or concerns regarding treatment for the above conditions, or other urologic issues, please do not hesitate to contact me. The office telephone contact is [phone]. This note is constructed using voice recognition software. While every effort has been made to ensure accuracy professor of psychiatry errors may have been included. Yours sincerely, Dr Panchito Rodriguez MD, [facility], [place] - Urology Providers of Expert, Compassionate Care for the Genitourinary System Coding Level of Care Code New Pt Level 3 (55711) Diagnoses Stress incontinence N39.3
== END 2024-05-06 16:11 | disposition home or self-care (01) ==
PROVIDERS: PCP Internal Medicine Medical Oncology; Visit Provider Urology
DX: N39.3 Stress incontinence (female) (male) (principal)
CPT/HCPCS: 99203

== ENCOUNTER → 2024-05-06 15:10 | Outpatient (BNVA) | payer OTHER, SELFPAY | PROVIDERS: PCP Internal Medicine Medical Oncology; Visit Provider Urology ==

== ENCOUNTER 2024-05-30 11:28 | Outpatient (AMB) | payer OTHER, SELFPAY ==
--- NOTE | 2024-05-30 11:30 | MHC.OFFVIS ---
Vital Signs 05/30/24 11:31 Height 5 ft 4 in Weight 108 lb BMI 18.5 BP 119/78 Blood Pressure Location Lt brachial Position Sitting Respiration 15 Pulse 80 Pulse Source Pulse Oximeter Intake Visit Reasons: Chiari l malformation Allergies trazodone Adverse Reaction (Unknown, Verified 05/30/24 11:32) insomnia, nightmares tramadol Adverse Reaction (Verified 05/30/24 11:32) Nausea and Vomiting Medication List - Last Reconciled 05/30/24 by Abbey Willett LPN bupropion HCl SR 100 mg PO BID coenzyme Q10 (Co Q-10) mg PO DAILY multivitamin 1 tab PO DAILY omega 4-cfj-uwi-fish oil 60-90-500 mg (Fish Oil) 1 cap PO DAILY HPI HPI Chiari l malformation: Details: 48-year-old female who presents today to the office for Chiari I malformation. She has a long-standing history of chronic neck and shoulder pain associated with headaches. She had neck surgery in 2008 for hurting in the disc at C5-6. She underwent an ACDF. Her pain returned to her arms and neck. It is described as aching, burning, stabbing pain that radiates up towards her occipital region as well as her shoulders and shoulder blades. She experiences icy-cold sensations with bright red coloration. She reports pain in her upper arms and elbow when lying down flat. The pain is 5-6/10 in intensity. Her pain is worse when she first wakes up in the morning and 3-4/10 after a few hours after getting up. She wakes up with headaches and stiffness. She sleeps about 12 hours a day. She sleeps on her sides. 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 She is unable to sleep normally. She is taking Flexeril 10 milligrams four times as needed. She does some workouts at home and is trying to lose some weight. She received TPI at [facility] Medical History Depression Uterine polyp Venous insufficiency of both lower extremities Peripheral venous insufficiency Varicose vein of leg 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, cervical History of torn meniscus of left knee IBS (irritable bowel syndrome) GERD (gastroesophageal reflux disease) Surgical History History of surgery on lower extremity (06/25/23) History of lumpectomy of left breast (06/25/23) History of cervical discectomy (~2010) H/O left breast biopsy (~08/2016) Family History Maternal Aunt History of lung cancer Paternal Aunt History of breast cancer Paternal Grandfather History of lung cancer Social History Alcohol intake: current Alcohol intake frequency: holidays/special occasions only Alcohol type: wine Patient Tobacco Use Status: Never used Tobacco Review of Systems Const All systems reviewed & are unremarkable except as noted in HPI and below Physical Exam Vital Signs: Last Vital Signs Pulse 80 05/30/24 11:31 Resp 15 05/30/24 11:31 BP 119/78 05/30/24 11:31 BMI result Body Mass Index 18.5 General: Appears afebrile. Alert and oriented. Mood and affect appropriate. Follows and participates in conversation appropriately. Respiratory effort is unlabored. Able to transition from sit to stand unassisted. Ambulates with bilaterally normal heel strike and toe off. Cervical ROM is limited. Lateral bending is intact. Forward?flexion?and?extension?both?reproduces pain. Results Reviewed Results Reviewed: No imaging is available for review. Assessment & Plan Assessment & Plan (1) Cervical radiculitis: Code(s): M54.12 - Radiculopathy, cervical region Category: Medical (2) Postlaminectomy syndrome of cervical region: Code(s): M96.1 - Postlaminectomy syndrome, not elsewhere classified Category: Medical Plan Discussed epidural steroid injection vs. peripheral nerve stimulator vs. spinal cord stimulator as possible treatment options. I will schedule her for a left interlaminar C6-7 parasaggital epidural steroid injection. Discussed the risks and benefits of the procedure with the patient in detail. All questions were answered. The patient is on board with the plan. I emphasized stretching and strengthening activities, physical therapy exercises, Pilates, and traction exercises, as well as keeping good sleep hygiene and posture with proper support. I also discussed using cervical traction pillows. We can also potentially try peripheral nerve stimulators for spondylodic pain and eventually, if needed, cervical spinal cord stimulators.? Justification for interventional therapy: ? Patient with average pain > 6/10 ? Patient has exhausted conservative therapy physical therapy, Yoga, TENS units, trigger point injection. ? Patient continuing home exercise program . Patient has a good understanding of their pain condition and has appropriate mental and social support. Scribed for Dr. Marion by Sergio Mcgill, certified medical aide, on 05/30/2024. I, Dr. Marion, have personally reviewed and agree with the information entered by the scribe. Coding Level of Care Code New Pt Level 4 (35176) Diagnoses Cervical radiculitis M54.12 Postlaminectomy syndrome of cervical region M96.1
[2024-05-30 11:31] VITALS: BP 119/78; PULSE 80; RESP 15; BMI 18.5
== END 2024-05-30 11:53 | disposition home or self-care (01) ==
PROVIDERS: PCP Internal Medicine Medical Oncology; Visit Provider Internal Medicine
DX: M54.12 Radiculopathy, cervical region (principal); M96.1 Postlaminectomy syndrome, not elsewhere classified
CPT/HCPCS: 99204

== ENCOUNTER → 2024-05-30 11:28 | Outpatient (BNVA) | payer OTHER, SELFPAY | PROVIDERS: PCP Internal Medicine Medical Oncology; Visit Provider Internal Medicine ==

== ENCOUNTER 2024-06-12 06:05 | Outpatient (REF) | payer OTHER, SELFPAY | END 2024-06-12 06:06 | disposition home or self-care (01) | LOC: CF 06:05 | PROVIDERS: Visit Provider Internal Medicine | DX: M96.1 Postlaminectomy syndrome, not elsewhere classified (principal); M54.12 Radiculopathy, cervical region | CPT/HCPCS: 62321; J1100; J2003; Q9967 ==

== ENCOUNTER 2024-06-12 10:51 | Outpatient (AMB) | payer OTHER, SELFPAY ==
--- NOTE | 2024-06-12 10:56 | A.OFFVIS_ITS ---
Vital Signs 06/12/24 11:04 06/12/24 11:54 BP 117/84 106/79 Blood Pressure Location Lt brachial Lt brachial Position Sitting Sitting Pulse 76 84 Pulse Source Pulse Oximeter Pulse Oximeter Pulse Oximetry (%) 100 100 Oxygen Delivery Method Room Air Room Air Intake Visit Reasons: Left C6-C7 interlaminar parasagittal RAZA Allergies trazodone Adverse Reaction (Unknown, Verified 05/30/24 11:32) insomnia, nightmares tramadol Adverse Reaction (Verified 05/30/24 11:32) Nausea and Vomiting HPI HPI Left C6-C7 interlaminar parasagittal RAZA: Details: Patient presents for scheduled procedure. Denies any recent cough, cold, infection, fever or other significant changes in medical history since last office visit. [facility] Medical History Depression Uterine polyp Venous insufficiency of both lower extremities Peripheral venous insufficiency Varicose vein of leg 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, cervical History of torn meniscus of left knee IBS (irritable bowel syndrome) GERD (gastroesophageal reflux disease) Surgical History History of surgery on lower extremity (06/25/23) History of lumpectomy of left breast (06/25/23) History of cervical discectomy (~2010) H/O left breast biopsy (~08/2016) Family History Maternal Aunt History of lung cancer Paternal Aunt History of breast cancer Paternal Grandfather History of lung cancer Social History Alcohol intake: current Alcohol intake frequency: holidays/special occasions only Alcohol type: wine Patient Tobacco Use Status: Never used Tobacco Physical Exam Vital Signs: Last Vital Signs Pulse 84 06/12/24 11:54 BP 106/79 06/12/24 11:54 Pulse Ox 100 06/12/24 11:54 Oxygen Delivery Method Room Air 06/12/24 11:54 Office Procedures Joint Injection/Aspiration Joint Injection/Aspiration Details: Interlaminar epidural steroid injection, C6/7, Left parasaggital After obtaining written consent, pre-procedure blood pressure and heart rate were stable and recorded in the nursing record. The patient was placed in the prone position. The cervicothoracic area was widely prepped with chloraprep and draped in sterile fashion. Fluoroscopic guidance was used to identify the desired interlaminar space and for needle placement. Subcutaneous 0.5% lidocaine was used to anesthetize the skin overlying the target. A 20-gauge Licea needle was advanced to the epidural space using loss of resistance to contrast technique under fluoroscopic AP and contralateral oblique views. There was no evidence of heme or CSF and no paresthesias were elicited with needle placement. Confirmation of epidural needle placement was performed with 1cc of omnipaque 180. Next 3 ml 0.5% lidocaine mixed with 10 mg dexamethasone was administered epidurally with no pain elicited on injection. The needle tract tubing was then cleared with 1 ml of 0.5% lidocaine. The needle was removed, skin cleansed and a sterile bandage was applied. The patient tolerated the procedure well and no complications were encountered. Following the procedure the patient's vital signs were stable. The patient was discharged home in good condition with post-procedural instructions. Time Out: Immediately prior to the procedure, the following was verbally confirmed that there is a signed consent form and that the correct patient, planned procedure, site and side are consistent with documentation and that necessary equipment and/or blood products are available prior to the start of the case. Complications: none EBL: <2 cc Coding 72741 - Cervical Epidural/Interlaminar with fluoroscopy Procedure code (CPT) selection complete Assessment & Plan Assessment & Plan (1) Cervical radiculitis: Code(s): M54.12 - Radiculopathy, cervical region Category: Medical Plan Patient is status post left parasagittal interlaminar C6-7 RAZA. Patient tolerated procedure well and was discharged home in stable condition with discharge instructions. All questions were answered. We will follow-up via telephone or in clinic to assess response to therapy. A follow-up appointment was made during today's visit. Orders: Orders FL guidance in treatment room Today M96.1 - Postlaminectomy syndrome, not elsewhere classified Coding Level of Care Code Procedure Only Diagnoses Cervical radiculitis M54.12 CPT Codes Coding - Joint 10: 88152 - Cervical Epidural/Interlaminar with fluoroscopy ([id number])
[2024-06-12 11:04] VITALS: BP 117/84; PULSE 76; O2SAT 100
[2024-06-12 11:54] VITALS: BP 106/79; PULSE 84; O2SAT 100
== END 2024-06-12 11:54 | disposition home or self-care (01) ==
LOC: HO.PMCPRC 10:51
PROVIDERS: PCP Internal Medicine Medical Oncology; Visit Provider Internal Medicine
DX: M54.12 Radiculopathy, cervical region (principal)
CPT/HCPCS: 62321

== ENCOUNTER 2024-07-11 09:41 | Outpatient (AMB) | payer OTHER, SELFPAY ==
--- NOTE | 2024-07-11 09:46 | MHC.OFFVIS ---
Vital Signs 07/11/24 09:48 Height 5 ft 4 in Weight 108 lb BMI 18.5 BP 126/83 Blood Pressure Location Lt brachial Position Sitting Respiration 15 Pulse 79 Pulse Source Pulse Oximeter Temp 92 F L Pulse Oximetry (%) 97 Oxygen Delivery Method Room Air Intake Visit Reasons: s/p Left C6-C7 interlaminar RAZA Allergies trazodone Adverse Reaction (Unknown, Verified 07/11/24 09:49) insomnia, nightmares tramadol Adverse Reaction (Verified 07/11/24 09:49) Nausea and Vomiting Medication List - Last Reconciled 07/11/24 by Abbey Willett LPN bupropion HCl SR 100 mg PO BID coenzyme Q10 (Co Q-10) mg PO DAILY multivitamin 1 tab PO DAILY omega 0-cjx-rrz-fish oil 60-90-500 mg (Fish Oil) 1 cap PO DAILY HPI HPI s/p Left C6-C7 interlaminar RAZA: Details: 49-year-old female who presents today to the office for status post left C6-C7 interlaminar epidural steroid injection. She reports resolution of her radicular pain down the arms. She continues to have axial neck pain mostly centered in her lower cervical, trapezius and anterior neck region. She reports neck pain that is bothersome with turning sideways. She describes her pain as aching and pressure. She reports pain in her arms and elbows when lying down on the bed. She woke up this morning at 3 AM and took muscle relaxant. She is amenable to try a long-term treatment option.? Past procedures 06/12/24: Interlaminar epidural steroid injection, C6/7, Left parasaggital: Resolution of arm symptoms, persistent axial neck pain [facility] Medical History Depression Uterine polyp Venous insufficiency of both lower extremities Peripheral venous insufficiency Varicose vein of leg 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, cervical History of torn meniscus of left knee IBS (irritable bowel syndrome) GERD (gastroesophageal reflux disease) Surgical History History of surgery on lower extremity (06/25/23) History of lumpectomy of left breast (06/25/23) History of cervical discectomy (~2010) H/O left breast biopsy (~08/2016) Family History Maternal Aunt History of lung cancer Paternal Aunt History of breast cancer Paternal Grandfather History of lung cancer Social History Alcohol intake: current Alcohol intake frequency: holidays/special occasions only Alcohol type: wine Patient Tobacco Use Status: Never used Tobacco Review of Systems Const All systems reviewed & are unremarkable except as noted in HPI and below Physical Exam Vital Signs: Last Vital Signs Temp 92 F L 07/11/24 09:48 Pulse 79 07/11/24 09:48 Resp 15 07/11/24 09:48 BP 126/83 07/11/24 09:48 Pulse Ox 97 07/11/24 09:48 Oxygen Delivery Method Room Air 07/11/24 09:48 BMI result Body Mass Index 18.5 General: Appears afebrile. Alert and oriented. Mood and affect appropriate. Follows and participates in conversation appropriately. Respiratory effort is unlabored. Able to transition from sit to stand unassisted. Ambulates with bilaterally normal heel strike and toe off. Results Reviewed Results Reviewed: No imaging is available for review. Assessment & Plan Assessment & Plan (1) Postlaminectomy syndrome of cervical region: Code(s): M96.1 - Postlaminectomy syndrome, not elsewhere classified Category: Medical (2) Cervical spondylosis: Code(s): M47.812 - Spondylosis without myelopathy or radiculopathy, cervical region Category: Medical (3) Chronic neck pain: Code(s): M54.2 - Cervicalgia; G89.29 - Other chronic pain Category: Medical Plan She has had an adequate relief over the injection with the resolution of her radicular symptoms but continuing axial neck pain. We discussed trial of temporary cervical medial branch nerve stimulation for cervical post laminectomy syndrome related neck pain. I provided her with a brochure and discussed risks and benefits of the procedure. The patient is in agreement. We will schedule her for a left C4 versus C5 medial branch nerve stimulator placement. Discussed the risks and benefits of the procedure with the patient in detail. All questions were answered. The patient is on board with the plan. Justification for interventional therapy: ? Patient with average pain > 6/10 ? Patient has exhausted conservative therapy RAZA and oral medications. ? Patient unable to tolerate physical therapy due to pain. . Patient has a good understanding of their pain condition and has appropriate mental and social support. Scribed for Dr. Marion by Sergio Mcgill, medical research associate, on 07/11/2024. I, Dr. Marion, have personally reviewed and agree with the information entered by the scribe. Coding Level of Care Code Est Pt Level 3 (81856) Diagnoses Postlaminectomy syndrome of cervical region M96.1 Cervical spondylosis M47.812 Chronic neck pain M54.2; G89.29
[2024-07-11 09:48] VITALS: BP 126/83; PULSE 79; RESP 15; TEMP 33.3; O2SAT 97; BMI 18.5
== END 2024-07-11 09:54 | disposition home or self-care (01) ==
PROVIDERS: PCP Internal Medicine Medical Oncology; Visit Provider Internal Medicine
DX: M96.1 Postlaminectomy syndrome, not elsewhere classified (principal); M47.812 Spondylosis without myelopathy or radiculopathy, cervical region; M54.2 Cervicalgia; G89.29 Other chronic pain
CPT/HCPCS: 99213

== ENCOUNTER → 2024-07-11 09:41 | Outpatient (BNVA) | payer OTHER, SELFPAY | PROVIDERS: PCP Internal Medicine Medical Oncology; Visit Provider Internal Medicine ==

== ENCOUNTER 2024-08-04 14:10 | Outpatient (AMB) | payer OTHER, SELFPAY ==
--- NOTE | 2024-08-03 21:43 | A.OFFVIS_ITS ---
Intake Visit Reasons: 3 month/PVR Intake Note: Patient is present for follow up 3 month PVR, Stress incontinence Urology Med: none Antibiotic Allergy: none Blood Thinner: none Todays PVR:0 mL Engagement Specialist Required: No Accompanied by: Self / Same As Patient Allergies trazodone Adverse Reaction (Unknown, Verified 07/11/24 09:49) insomnia, nightmares tramadol Adverse Reaction (Verified 07/11/24 09:49) Nausea and Vomiting HPI Comments Details: 08/03/24--seen by Dr. Rodriguez 05/06/2024 who discussed Kegel exercises and vaginal weights and she is here for follow-up to evaluate improvement in symptoms and discuss other options as needed. Pippa states that she did order the vaginal weight is but was not able to even hold the 1st weight. She complains of le akage associated with activities including exercising in the morning as well as she sometimes gets a strong urge and will feel a sensation of bladder pressure. Discussed that there are many therapies for treatment of urinary incontinence based on etiology bladder spasms versus pelvic floor weakness and sometimes there is mixed picture. Starting conservatively with pelvic floor physical therapy, is recommended, I will schedule urodynamics for further evaluation. Review of diagnostics: Abd us 03/11/24- no acute finding, kidneys within normal limits. Review of chart: 05/06/24--Pippa is a pleasant female. She is a patient of Dr. Edwards. She is seen for the following urologic conditions - stress incontinence Stress Incontinence Mild leakage during exercise 3 vaginal births 1 prolonged Had associated urgency and frequency which has substantially improved with Linzess for constipation Does have some concerns since she does not have strong urge to go even though her bladder is full PVR 0-- Discussed conservative therapy Recommend Kegel exercises and vaginal weights Follow-up Dr. Angulo for assessment [facility] Medical History Depression Uterine polyp Venous insufficiency of both lower extremities Peripheral venous insufficiency Varicose vein of leg 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, cervical History of torn meniscus of left knee IBS (irritable bowel syndrome) GERD (gastroesophageal reflux disease) Surgical History History of surgery on lower extremity (06/25/23) History of lumpectomy of left breast (06/25/23) History of cervical discectomy (~2010) H/O left breast biopsy (~08/2016) Family History Maternal Aunt History of lung cancer Paternal Aunt History of breast cancer Paternal Grandfather History of lung cancer Social History Alcohol intake: current Alcohol intake frequency: holidays/special occasions only Alcohol type: wine Patient Tobacco Use Status: Never used Tobacco Review of Systems Const All systems reviewed & are unremarkable except as noted in HPI and below Reports no additional complaints Eyes Reports no additional complaints ENT Reports no additional complaints Card Reports no additional complaints Resp Reports no additional complaints GI Reports no additional complaints Reports as per HPI Musc Reports no additional complaints Skin/Breast Reports system reviewed and no additional complaints, except as documented Neuro Reports no additional complaints Psych Reports no additional complaints Endo Reports no additional complaints Humberto/Lymph Reports no additional complaints Aller/Immun Reports no additional complaints Office Procedures Post Void Residual Post Residual Void Post Void Residual (PVR): 0 21018-Tccn Void Residual by ultrasound Results AMB Urinalysis, Automated UA Leukoctes 0 Charles/uL Last Edit by Christina Lake CMA on 08/04/24 14:38 UA Nitrite Negative Last Edit by Christina Lake CMA on 08/04/24 14:38 UA Urobilinogen 0.2 mg/dL Last Edit by Christina Lake CMA on 08/04/24 14:3 8 UA Protein 0 mg/dL Last Edit by Christina Lake CMA on 08/04/24 14:38 UA pH 6.0 Last Edit by Christina Lake CMA on 08/04/24 14:38 UA Blood 0 Amador/uL Last Edit by Christina Lake CMA on 08/04/24 14:38 UA Specific Mylo 1.010 Last Edit by Christina Lake CMA on 08/04/24 14: 38 UA Ketone Negative Last Edit by Christina Lake CMA on 08/04/24 14:38 UA Bilirubin 0 mg/dL Last Edit by Christina Lake CMA on 08/04/24 14:38 UA Glucose 0 mg/dL Last Edit by Christina Lake CMA on 08/04/24 14:38 Results Reviewed Results Reviewed: Laboratory Last Values Urine pH (Auto) 6.0 08/04/24 14:28 Specific Mylo (Auto) 1.010 08/04/24 14:28 Urine Protein (Auto) 0 mg/dL 08/04/24 14:28 Glucose (UA)(Auto) 0 mg/dL 08/04/24 14:28 Urine Ketones (Auto) Negative 08/04/24 14:28 Urine Blood (Auto) 0 Amador/uL 08/04/24 14:28 Urine Nitrite (Auto) Negative 08/04/24 14:28 Urine Bilirubin (Auto) 0 mg/dL 08/04/24 14:28 Urine Urobilinogen (Auto) 0.2 mg/dL 08/04/24 14:28 Leukocyte Esterase (Auto) 0 Charles/uL 08/04/24 14:28 Date of Service: 03/11/24 US ABDOMEN COMPLETE CLINICAL INFORMATION: 28-year-old female with abdominal pain. COMPARISON: CT abdomen from 10/15/2014 and ultrasound from 08/12/2013 TECHNIQUE: Real-time imaging of the abdominal viscera. FINDINGS: PANCREAS: Normal. ABDOMINAL AORTA: The proximal, mid, and distal segments are normal in caliber. INFERIOR VENA CAVA: Visualized portions are normal. LIVER: Normal. The liver is normal in size. The liver contour is normal. Parenchymal echogenicity is normal. No focal hepatic lesion. There is no intrahepatic biliary duct dilatation seen. GALLBLADDER: Normal. The gallbladder is physiologically distended without evidence of stones, sludge, polyps, wall thickening or pericholecystic fluid. COMMON BILE DUCT: Normal in caliber measuring 0.2 cm in diameter. RIGHT KIDNEY: Normal. No hydronephrosis. No renal calculi or focal parenchymal lesions. The kidney measures 10.8 cm in maximum dimension. LEFT KIDNEY: Normal. No hydronephrosis. No renal calculi or focal parenchymal lesions. The kidney measures 11.8 cm in maximum dimension. SPLEEN: Normal. The spleen measures 10.0 cm in maximum dimension. FREE FLUID: None. IMPRESSION: Normal study. Assessment & Plan Assessment & Plan (1) Urinary incontinence: Code(s): R32 - Unspecified urinary incontinence Category: Medical (2) Sensation of pressure in bladder area: Code(s): R39.89 - Other symptoms and signs involving the genitourinary system Category: Medical (3) Urinary urgency: Code(s): R39.15 - Urgency of urination Category: Medical Plan Schedule urodynamics Orders: Orders AMB Urinalysis Automated Today Z13.9 - Encounter for screening, unspecified AMB Post Void Residual by ultrasound Today N39.3 - Stress incontinence (female) (male) Patient Instructions: The patient had an opportunity to ask questions regarding treatment plan. The patient expressed understanding and agreement with the above treatment plan. The patient is aware they should contact our office by phone for worsening of their current condition or the appearance of new symptoms. Compliance is encouraged with any medications and followup testing that is ordered. It is a privilege to be allowed the opportunity to participate in the urologic care of your patient. If you have any questions or concerns regarding treatment for the above conditions please do not hesitate to contact me. The office telephone contact is [phone]. This note is constructed in part using voice recognition software. While every effort has been made to ensure accuracy computer help desk representative errors may have been included. Yours sincerely, James Tapia MD Coding Level of Care Code Est Pt Level 4 (67221) Diagnoses Urinary incontinence R32 Sensation of pressure in bladder area R39.89 Urinary urgency R39.15 CPT Codes Post Residual Void - PVR CPT Code: 60465-Jach Void Residual by ultrasound ([id number])
--- OUTSIDE RECORDS SUMMARY | 2024-08-06 16:03 | XMS_ITS ---
Author Organization Seun Edwards III, MD Address [address] [place] [address] Care Team Providers Care Antenna Design Engineer Name Role Phone Seun Edwards Primary Care Provider [phone] Medications Medication SIG (Take, Route, Frequency, Duration) Notes Start Date End Date Status Cyclobenzaprine HCl 10 MG 1 tablet Orall y 3 times a day for neck pain and muscle spasm for 15 days 08/02/2024 11/15/2024 Active Social History Sex Assigned At : Social History Observation Description Sex Assigned At Female Encounters Encounter Location Date Provider Diagnosis Seun Edwards III, MD [address] [place] [address] [place] [address] 08/02/2024 Seun Edwards Plan Of Treatment Medication Medication Name Sig Start Date Stop Date Notes Cyclobenzaprine HCl 10 MG 1 tablet Orall y 3 times a day for neck pain and muscle spasm for 15 days 08/02/2024 11/15/2024 Next Appt Details Provider Name:Seun Edwards, 08/15/2024 02:45:00 PM, [address] [place] [address] [place], [address], Provider Name:Seun Edwards, 04/24/2025 04:00:00 PM, [address] [place] [address] [place], [address], Progress Notes * Mariya MARTINEZly ADOB:[birth year] (49 yo F)Acc No.[id number]:08/02/2024 Patient:?Pippa MARTINEZ :1975???Age:49 Y???Sex:Female Address:[address] [place] [id number] * Refills? Start Cyclobenzaprine HCl Tablet, 10 MG, Orally, 45 Tablet, 1 tablet, 3 times a day for neck pain and muscle spasm, 15 days, Refills=6 * true * Date:? Generated for Maria Luz fitzgerald/Tao/Joseitting on:?08/06/2024 04:03 PM EST
--- OUTSIDE RECORDS SUMMARY | 2024-08-06 16:03 | XMS_ITS ---
Author Organization Seun Edwards III, MD Address [address] [place] [address] [place] [address] Care Team Providers Care Chief Guard Name Role Phone Seun Edwards Primary Care Provider [phone] REASON FOR VISIT Follow up Social History Sex Assigned At : Social History Observation Description Sex Assigned At Female Encounters Encounter Location Date Provider Diagnosis Seun Edwards III, MD [address] [place] [address] [place] [address] 05/23/2024 Seun Edwards Plan Of Treatment Next Appt Details Provider Name:Seun Edwards, 08/15/2024 02:45:00 PM, [address] [place] [address] [place], [address], Provider Name:Seun Edwards, 04/24/2025 04:00:00 PM, [address] [place] [address] [place], [address], Progress Notes * Pippa MARTINEZ ADOB:[birth year] (49 yo F)Acc No.[id number]:05/23/2024 Progress Notes Patient:?Pippa MARTINEZ Provider:?Seun Edwards MD :1975???Age:48 Y???Sex:Female D ate:05/23/2024 Address:[id number] Subjective: * Chief Complaints: * ???1. Follow up. * Medical History:? Objective: * Vitals:? Assessment: Plan: * Treatment: * Images: * The named appointment provid er may or may not be the originator of this progress note, and it is not deemed complete until electronically signed by the appointment provider. Sign off status: Pending * Provider:?Seun Edwards MD Date:?04/28 Generated for Maria Luz fitzgerald/Tao/Viviansmitting on:?08/06/2024 04:03 PM EST
--- OUTSIDE RECORDS SUMMARY | 2024-08-06 16:03 | XMS_ITS ---
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 Agent Name Role Phone Seun Edwards Primary Care Provider Allergies Allergen (clinical drug ingredient) Drug/Non Drug Allergy documented on EMR Reaction Allergy Type Onset Date Status No Known Drug Allergy Unknown Drug Allergy Active trazodone Trazodone night terrors Drug Allergy Act montse tramadol Tramadol nausea, vomiting Drug Allergy Active REASON FOR VISIT Worsening neck pain, Syrinx cervical spine, Syringomyelia, Chiari I malformation Medications Medication SIG (Take, Route, Frequency, Duration) Notes Start Date End Date Status Flexeril Active Cyclobenzaprine HCl 10 MG as directed Or ally three times a day 05/13/2024 Active dexAMETHasone 1 MG 1 tablet Orally twic e a day for 7 days 07/31/2024 Active Fish Oil 1 capsule Orally Onc e a day Active Senna Laxative 8.6 MG 2 tablets at bedti me as needed Orally Once a day Active buPROPion HCl ER (SR) 100 MG 1 tablet in the morning Orally Once a day 02/20/2024 Active Cyclobenzaprine HCl 10 MG 1 tablet at be dtime as needed Orally 3 times a day 02/20/2024 Active Wellbutrin SR 150 MG 1 tablet in the mor marily Orally Once a day 10/05/2023 Active CoQ-10 Active Multivitamin Orally Active Linzess 145 MCG 1 capsule at least 3 0 minutes before the first meal of the day on an empty stomach Orally Once a day 03/07/2024 Active Social History Tobacco Use: Social History Observation Description Date Details (start date - stop date) Never Smoker NA - NA Sex Assigned At : Social History Observation Description Sex Assigned At Female Tobacco Use/Smoking Question Answer Notes Patient is a nonsmoker Additional Findings: Tobacco Non-User Aggressive non-smoker Vital Signs Temperature 98.8 degrees Fahrenheit 07/31/20 24 Blood pressure systolic 112 mm Hg 07/31/20 24 Blood pressure diastolic 88 mm Hg 024 Heart Rate 82 /min 07/31/2024 Height 63 in 07/31/2024 Weight 109 lbs 07/31/2024 BMI 19.31 kg/m2 07/31/2024 Encounters Encounter Location Date Provider Diagnosis Seun Edwards III, MD [address] [place] [address] [address] [place]ERA, MARGOTH [id number] 07/31/2024 Seun Edwards Chiari I malformatio n G93.5 ; 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 ; Gastro-esophageal reflux disease without esophagitis K21.9 ; Other irritable bowel syndrome K58.8 ; Insomnia G47.00 ; Chronic constipation K59.09 and Underweight R63.6 Assessments Encounter Date Diagnosis (ICD Code) Assessment Notes Treatment Notes Treatment Clinical Notes 07/31/2024 Chiari I malformation (ICD-10 - G93.5) The pain has worsened lately. She has seen her neurosurgeon, Dr. Islas, Who has offered to do a cervical laminectomy. She is uncertain about this and has declined that procedure so far. The pain management service has recommended a neurostimulator and she has an appointment to have a temporary wire inserted. 07/31/2024 Syringomyelia and syringobulbia (ICD-10 - G95.0) She is going to have the neurostimulator. Her neurosurgeon has agreed to do a laminectomy of all else fails. 07/31/2024 Gastro-esophageal reflux disease without esophagitis (ICD-10 - K21.9) Her reflux is somewhat aggravated by the but she is finding it tolerable. 07/31/2024 Other irritable bowel syndrome (ICD-10 - K58.8) She occasionally has abdominal discomfort from the IBS but this is become a minor problem in daily life. 07/31/2024 Insomnia (ICD-10 - G47.00) She has chronic difficulty sleeping, but lately has been doing well. No change in the pattern of her sleep has been noted lately. 07/31/2024 Chronic constipation (ICD-10 - K59.09) She is doing well with the linzess. 07/31/2024 Underweight (ICD-10 - R63.6) She is underweight with a body mass index of 19. Her weight is been stable since March of this year. We have discussed her weight and her nutrition and her diet. She was encouraged not to lose weight further and to consume 3 nourishing meals a day. Plan Of Treatment Medication Medication Name Sig Start Date Stop Date Notes Flexeril Cyclobenzaprine HCl 10 MG as directed Or ally three times a day 05/13/2024 dexAMETHasone 1 MG 1 tablet Orally twic e a day for 7 days 07/31/2024 Fish Oil 1 capsule Orally Once a day Senna Laxative 8.6 MG 2 tablets at bedti me as needed Orally Once a day buPROPion HCl ER (SR) 100 MG 1 tablet in the morning Orally Once a day 02/20/2024 Cyclobenzaprine HCl 10 MG 1 tablet at be dtime as needed Orally 3 times a day 02/20/2024 Wellbutrin SR 150 MG 1 tablet in the mor marily Orally Once a day 10/05/2023 CoQ-10 Multivitamin Orally Linzess 145 MCG 1 capsule at least 3 0 minutes before the first meal of the day on an empty stomach Orally Once a day 03/07/2024 Next Appt Details Follow Up: 2 Weeks, Next Gilma rsday, Reason: Telehealth, To discuss the patient's condition after seeing the pain specialist. Provider Name:Seun Edwards, 08/15/2024 02:45:00 PM, [address] [place] [address] [address], [place], [id number], Provider Name:Seun Edwards, 04/24/2025 04:00:00 PM, [address] [place] [address] [address], [place], [id number], Progress Notes * Pippa MARTINEZ ADOB:[birth year] (49 yo F)Acc No.[id number]:07/31/2024 Progress Notes Patient:?Pippa MARTINEZ Provider:?Seun Edwards MD :1975???Age:49 Y???Sex:Female D ate:07/31/2024 Address:[address] [place], [place] [id number] Subjective: * Chief Complaints: * ???Worsening neck painSyrinx cervical spineSyringomyeliaChiari I malformation * HPI: ???COVID-19 Screening:?Questions?Have you experienced fever, chills, cough, sore throat, shortness of breath, difficulty breathing, muscle aches, loss of taste or smell??No ?Have you been exposed to the virus within the last 10 days??No ?Have you travelled internationally in the last 10 days??No ?Have you been exposed to COVID-19 in the past??No ???:? The patient, a 49-year-old female, reported experiencing neck pain and stiffness that began on a Sunday. The pain was severe enough to limit her ability to turn her head to the left. The patient also reported discomfort in her armpit and noticed a distinctive vein. The pain was constant and seemed to worsen when she turned her head. She also reported feeling dizzy. The patient had been prescribed muscle relaxers, which she had been taking up to three times a day, but they did not seem to alleviate her symptoms. She had seen Doctor Roshan, who had recommended surgery, but she had decided to hold off as the surgery was not guaranteed to alleviate all her pain. The patient was scheduled to have a simulator placed by another doctor the following week. She also reported having a headache, which was located behind her eyes and on the right side. The patient also mentioned that she had started acupuncture, which initially made her feel good, but she developed a headache two days later. * ROS:?General/Constitutional:?pain?Severe neck pain.?Chills?denies.?Fatigue?admits.?Fever?denies.?Admits?Headache.?ENT:?Decreased hearing?denies.?Respiratory:?Cough?denies.?Cardiovascular:?Chest pain with exertion?denies.?Dyspnea on exertion?denies.?Shortness of breath?denies.?Gastrointestinal:?Constipation?occasional.?Decreased appetite?that is associated with weight loss.?Diarrhea?denies.?Heartburn?denies.?Nausea?denies.?Rectal bleeding?denies.?Vomiting?denies.?Hematology:?bruising?denies.?petechiae?denies.?Swollen glands?none have been noted.?Genitourinary:?Frequent urination?denies.?Musculoskeletal:?Muscle aches?denies.?Painful joints?denies.?Sciatica?denies.?Weakness?denies.?Skin:?Itching?denies.?Rash?denies.?Skin lesion(s)?denies.?Neurologic:?Difficulty speaking?denies.?Dizziness?denies.?Headache?that is chronic.?Low back pain?denies.?Psychiatric:?Depressed mood?denies.? * Medical History:? * Surgical History:?endovenous laser ablation lower extremity veins 2015biopsy mass upper outer left breast, benign, , [facility] 08/2016left breast lumopectomy by Dr Serna 06/26/2023olonoscopy Dr. Barraza 04/21/2024No history * Hospitalization/Major Diagno stic Procedure:?No history * Family History:?Father: aliv e 56 yrs, hypertension, diagnosed with HTN.?Mother: alive 56 yrs, SVT, Hyperthyroidism, [place], diagnosed with CVD.?Paternal Grand Father: 72 yrs, lung cancer, diagnosed with Cancer.?Maternal Grand Mother: alive, alzheimer.?1 sister(s) - healthy. 1 son(s) , 2 daughter(s) - healthy. .? There is no history of breast cancer on her mother's side. 2 of her father's sisters had breast cancer in the past in [place]. 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 * Medications:?TakingLinzess 1 45 MCG Capsule 1 capsule at least 30 minutes before the first meal of the day on an empty stomach Orally Once a day buPROPion HCl ER (SR) 100 MG Tablet Extended Release 12 Hour 1 tablet in the morning Orally Once a day Cyclobenzaprine HCl 10 MG Tablet 1 tablet at bedtime as needed Orally 3 times a day Wellbutrin SR 150 MG Tablet Extended Release 12 Hour 1 tablet in the morning Orally Once a day CoQ-10 Multivitamin Orally Fish Oil Capsule 1 capsule Orally Once a day Senna Laxative 8.6 MG Tablet 2 tablets at bedtime as needed Orally Once a day Flexeril Cyclobenzaprine HCl 10 MG Tablet as directed Orally three times a day , stop date 09/10/2024Medication List reviewed and reconciled with the patientTaking Linzess 145 MCG Capsule 1 capsule at least 30 minutes before the first meal of the day on an empty stomach Orally Once a day Taking buPROPion HCl ER (SR) 100 MG Tablet Extended Release 12 Hour 1 tablet in the morning Orally Once a day Taking Cyclobenzaprine HCl 10 MG Tablet 1 tablet at bedtime as needed Orally 3 times a day Taking Wellbutrin SR 150 MG Tablet Extended Release 12 Hour 1 tablet in the morning Orally Once a day Taking CoQ-10 Taking Multivitamin Orally Taking Fish Oil Capsule 1 capsule Orally Once a day Taking Senna Laxative 8.6 MG Tablet 2 tablets at bedtime as needed Orally Once a day Taking Flexeril Taking Cyclobenzaprine HCl 10 MG Tablet as directed Orally three times a day , stop date 09/10/2024Medication List reviewed and reconciled with the patient * Allergies:?No Known Drug All ergyTramadol: nausea, vomitingTrazodone: night terrorsno[Allergies Verified] Objective: * Vitals:?Ht: 63, Wt: 109, BMI :19.31, BP: 112/88, HR: 82, Temp: 98.8, Ht-cm: 160.02, Wt-k.44. * Examination: ???General Examination: ?GENERAL APPEARANCE:?pleasant, well nourished, well developed, in no acute distress, calm and relaxed, underweight, woman.?HEAD:?atraumatic, normocephalic.?EYES:?eomi, perrla, anicteric, conjugate.?EARS:?normal.?NOSE:?septum intact.?ORAL CAVITY:?normal, unremarkable.?NECK/THYROID:?no jugular venous distention, no carotid bruit, thyroid normal, [place] range of motion all directions, decreased range of motion.?LYMPH NODES:?no enlarged lymph nodes,spleen normal.?SKIN:?no suspicious lesions, anicteric.?HEART:?no clicks, gallops, murmurs, or rubs, regular rhythm, S1, S2 normal, no s3, or vascular bruits.?LUNGS:?clear to auscultation .?BREASTS:?Not examined.?ABDOMEN:?bowel sounds normal, no ascites, no organomegaly, no mass, Underweight.?RECTAL EXAM:?not examined.?MUSCULOSKELETAL:?extremities unremarkable, no clubbing, cyanosis or edema.?PERIPHERAL PULSES:?normal.?NEUROLOGIC:?alert and oriented, cranial nerves 2-12 grossly intact, deep tendon reflexes 2+ symmetrical, motor strength normal upper and lower extremities, sensory exam intact.?PSYCH:?alert, oriented.? Assessment: * Assessment: 1.?Chiari I malformation - G 93.5 (Primary)???Notes :The pain has worsened lately.? She has seen her neurosurgeon, Dr. Islas, Who has offered to do a cervical laminectomy.? She is uncertain about this and has declined that procedure so far. The pain management service has recommended a neurostimulator and she has an appointment to have a temporary wire inserted.???2.?Syringomyelia and syringobulbia - G95.0???Notes :She is going to have the neurostimulator.? Her neurosurgeon has agreed to do a laminectomy of all else fails.???3.?Gastro- esophageal reflux disease without esophagitis - K21.9???Notes :Her reflux is somewhat aggravated by the but she is finding it tolerable.???4.?Other irritable bowel syndrome - K58.8???Notes :She occasionally has abdominal discomfort from the IBS but this is become a minor problem in daily life.???5.?Insomnia - G47.00???Notes :She has chronic difficulty sleeping, but lately has been doing well. No change in the pattern of her sleep has been noted lately.???6.?Chronic constipation - K59.09???Notes :She is doing well with the linzess.???7.?Underweight - R63.6???Notes :She is underweight with a body mass index of 19.? Her weight is been stable since March of this year.? We have discussed her weight and her nutrition and her diet.? She was encouraged not to lose weight further and to consume 3 nourishing meals a day.??? Plan: * Treatment: * Procedure Codes:? * Preventive Medicine:? ??Counseling:?Care goal follow-up plan:?Counseling for abnormal BMI given?Yes ?Below Normal BMI Follow-up?Dietary education for weight gain, Dietary management education, guidance, and counseling * Follow Up:?2 Weeks, Next Gilma rsday (Reason: Telehealth, To discuss the patient's condition after seeing the pain specialist.) * Images: * Sign off status: Completed true * Provider:?Seun Edwards MD Date:?12/2023 Generated for Printi ng/Mernag/eTransmitting on:?08/06/2024 04:03 PM EST History and Physical Notes * HPI (History of Present Illness) Category Sub-Category Detail Notes COVID-19 Screening Questions Have you had any new onset fever, chills, cough, congestion, sore throat, shortness of breath, muscle aches?: No Have you been exposed to the virus withi n the last 10 days?: No Have you travelled internationally in last 10 days?: No Have you been exposed to COVID-19 in the past?: No Examination Category Sub-Category Detail Notes General Examination GENERAL APPEARANCE: pleasant , well nourished, well developed, in no acute distress, calm and relaxed, underweight, woman HEAD: atraumatic, normocep halic EYES: eomi, perrla, anicte skyla, conjugate EARS: normal NOSE: septum intact NECK/THYROID: no jugular venous di stention, no carotid bruit, thyroid normal, [place] range of motion all directions, decreased range of motion HEART: no clicks, gallops, murmurs, or rubs, regular rhythm, S1, S2 normal, no s3, or vascular bruits LUNGS: clear to auscultatio n ABDOMEN: bowel sounds normal, no ascites, no organomegaly, no mass, Underweight NEUROLOGIC: alert and oriented, cranial nerves 2-12 grossly intact, deep tendon reflexes 2+ symmetrical, motor strength normal upper and lower extremities, sensory exam intact SKIN: no suspicious lesion s, anicteric PERIPHERAL PULSES: normal BREASTS: Not examined MUSCULOSKELETAL: extremities unremark able, no clubbing, cyanosis or edema LYMPH NODES: no enlarged lymph no beatriz,spleen normal RECTAL EXAM: not examined PSYCH: alert, oriented ORAL CAVITY: normal, unremarkable
--- OUTSIDE RECORDS SUMMARY | 2024-08-06 16:04 | XMS_ITS | Patient Health Record ---
Author Organization Seun Edwards III, MD Address [address] [place] [address] [place] [address] Care Team Providers Care Scarf Gluer Name Role Phone Seun Edwards Primary Care Provider [phone] Allergies Allergen (clinical drug ingredient) Drug/Non Drug Allergy documented on EMR Reaction Allergy Type Onset Date Status No Known Drug Allergy Unknown Drug Allergy Active trazodone Trazodone night terrors Drug Allergy Act montse tramadol Tramadol nausea, vomiting Drug Allergy Active Results Component Value Reference Range Notes MR thoracic spine wo/w con Reviewed date:09/30/2023 07:59:16 AM Interpretation: Performing Lab: Notes/Report: [address] [address] Magnetic Resonance Report Signed Patient: Pippa Martinez MR#: [id number] : 1975 Acct:[id number] Age/Sex: 48 / F ADM Date: 08/08/23 Loc: HO.MRI Attending Dr: Tomasa Méndez DO Ordering Physician: Tomasa Méndez DO Date of Service: 08/08/23 Procedure(s): MR thoracic spine wo/w con Accession Number(s): [id number] cc: Seun Edwards MD; Tomasa Méndez DO EXAMINATION: MR THORACIC SPINE WITHOUT AND WITH CONTRAST CLINICAL INFORMATION: Delineate extent of spinal cord syrinx. COMPARISON: MRI scans of the cervical spine 07/20/2023 and 06/10/2018. TECHNIQUE: MRI of the thoracic spine was obtained using routine sequences with and without contrast. Intravenous contrast: Gadavist 5 mL. FINDINGS: VERTEBRAL BODIES AND PARASPINAL STRUCTURES: There is mild dextroscoliosis with the apex at T10. There is multilevel narrowing of intervertebral disc height which is most prominent at T9-T10 and T10-T11. There are Schmorl's nodes in the superior endplate of T11 and at L1-L2. Vertebral body heights are maintained, and no fractures are demonstrated. There is a small focus of increased T1 and T2 signal in the superior body of T12, most consistent with a hemangioma. There is no abnormal osseous enhancement, and marrow signal is homogenous. On the localizer images the study redemonstrates sequelae of the ACDF at C5-C6 with reversal of the normal cervical lordosis. The paravertebral and visualized posterior thoracic and superior retroperitoneal structures are unremarkable. The conus is at the level of T12-L1. The study redemonstrates a septated syrinx extending from the mid body of T5 caudad to the mid body of T9. It is most prominent at the level of T7 with caliber of 5 mm. Elsewhere, spinal cord signal appears normal and there is no abnormal enhancement of the cord or leptomeninges. SPINAL LEVELS: C7-T1 through T8-T9: Posterior disc contours are normal and there is no compression of the spinal cord or central stenosis. The neural foramina appear patent. T9-T10: There is mild bilateral facet arthropathy. There is a small left paracentral disc protrusion without mass effect on the thecal sac and there is no central stenosis, cord compression or foraminal narrowing. T10-T11: There is mild bilateral facet arthropathy. There is a posterior disc protrusion in the midline with minimal distortion the ventral thecal sac. There is no central stenosis or cord compression, and the neural foramina are patent bilaterally. T11-T12 and T12-L1: Posterior disc contours are normal and there is no compression of the spinal cord or central stenosis. The neural foramina appear patent. MR/MR thoracic spine wo/w con IMPRESSION: 1. The study redemonstrates a septated syrinx in the mid thoracic spinal cord as described above, most prominent at the level of T7. 2. There are no acute fractures or subluxations. There is no abnormal osseous enhancement. 3. There are mild spondylitic and facet arthropathic changes as described above. There is no spinal cord compression or central stenosis. There are no masses within the spinal cord and there is no abnormal enhancement. Dictated By: ROSANNE DOLL MD Signed By: <Electronically signed by ROSANNE DOLL MD in OV> 08/11/23 1421 DD/ 1025 TD/TT: Vp Rheumatology: JOSH [address] [address] Magnetic Resonance Report Signed Patient: Pippa Martinez MR#: [id number] : 1975 Acct:[id number] Age/Sex: 48 / F ADM Date: 08/08/23 Loc: HO.MRI Attending Dr: Ronaldo Méndez DO Ordering Physician: Tomasa Méndez DO Date of Service: 08/08/23 Procedure(s): MR thoracic spine wo/w con Accession Number(s): [id number] cc: Seun Edwards MD; Tomasa Méndez DO EXAMINATION: MR THORACIC SPINE WITHOUT AND WITH CONTRAST CLINICAL INFORMATION: Delineate extent of spinal cord syrinx. COMPARISON: MRI scans of the cervical spine 07/20/2023 and 06/10/2018. TECHNIQUE: MRI of the thoracic spine was obtained using routine sequences with and without contrast. Intravenous contrast: Gadavist 5 mL. FINDINGS: VERTEBRAL BODIES AND PARASPINAL STRUCTURES: There is mild dextroscoliosis with the apex at T10. There is multilevel narrowing of intervertebral disc height which is most prominent at T9-T10 and T10-T11. There are Schmorl's nodes in the superior endplate of T11 and at L1-L2. Vertebral body heights are maintained, and no fractures are demonstrated. There is a small focus of increased T1 and T2 signal in the superior body of T12, most consistent with a hemangioma. There is no abnormal osseous enhancement, and marrow signal is homogenous. On the localizer images the study redemonstrates sequelae of the ACDF at C5-C6 with reversal of the normal cervical lordosis. The paravertebral and visualized poste rior thoracic and superior retroperitoneal structures are unremarkable. The conus is at the level of T12-L1. The study redemonstrates a septated syrinx extending from the mid body of T5 caudad to the mid body of T9. It is mo st prominent at the level of T7 with caliber of 5 mm. Elsewhere, spina l cord signal appears normal and there is no abnormal enhancement of the cord or leptomeninges. SPINAL LEVELS: C7-T1 through T8-T9: Posterior disc contours are normal and there is no compression of the spinal cord or central stenosis. The neural foramina appear patent. T9-T10: There is mil d bilateral facet arthropathy. There is a small left paracentral dis c protrusion without mass effect on the thecal sac and there is no cent ral stenosis, cord compression or foraminal narrowing. T10-T11: There is mi ld bilateral facet arthropathy. There is a posterior disc protrusion in the midline with minimal distortion the ventral thecal sac. There is no central stenosis or cord compression, and the neural amy racheal are patent bilaterally. T11-T12 and T12-L1: Posterior disc contours are normal and there is no compression of the spinal cord or central stenosis. The neural foramina appear patent. M R/MR thoracic spine wo/w con IMPRESSION: 1. The study redemonstrates a septated syrinx in the mid thoracic spinal cord as descr ibed above, most prominent at the level of T7. 2. There are no acut e fractures or subluxations. There is no abnormal osseous enhancement. 3. There are mild spondylitic and facet arthropathic changes as described above. The re is no spinal cord compression or central stenosis. There are no masses within the spinal cord and there is no abnormal enhancement. Dictated By: MARISA DOLL MD Signed By: <Electronically signed by ROSANNE DOLL MD in OV> 08/11/23 1421 DD/ 1025 TD/TT: Bevel Operator ist: [facility]. Panel Fa st Reviewed date:09/30/2023 07:59:16 AM Interpretation: Performing Lab:[facility], [address] [place] [phone] Notes/Report: Sodium 139 135-145 mmol/L Potassium 4.3 3.3-5.1 mmol/L Chloride 104 96-108 mmol/L Carbon Dioxide 28 22-29 mmol/L Anion Gap 11 12-20 Blood Urea Nitrogen 10 9-16 mg/dL Creatinine 0.88 0.5-1.4 mg/dL Estimated Glomerular Filt Rate > 60 NOTE: For -[place] individuals, multiply the result by 1.210. Chronic Kidney Disease: Estimated GFR < 60 mL/min/1.73m2 Severe Kidney Disease: Estimated GFR < 15 mL/min/1.73m2 Glucose Fasting 103 60-99 mg/dL A fasting glucose from 100-125 mg/dl is considered impaired (pre-diabetes). Calcium 8.6 8.4-10.2 mg/dL Bilirubin Total 0.7 0.0-1.0 mg/dL Aspartate Amino Transferase 17 5-31 U/L Alanine Aminotransferase 17 0-31 U/L Total Protein 6.4 6.5-8.0 g/dL Albumin Level 4.1 3.5-5.0 g/dL Alkaline Phosphatase 47 39-117 U/L Lipid Panel Reviewed date:09/30/2023 07:59:16 AM Interpretation: Performing Lab:[address] [address] Notes/Report: Triglycerides 89 <150 mg/dL Desirable Triglyceride: less than 150 mg/dL Borderline High Triglyceride 150-199 mg/dL High Triglyceride: 200-499 mg/dL Very High Triglyceride: greater than or equal to 5OO mg/dL Cholesterol 167 <200 mg/dL Desirable Cholesterol: less than 200 mg/dL Borderline High Cholesterol: 200-239 mg/dL High Cholesterol: greater than 239 mg/dL LDL Cholesterol Calculated 85 <100 mg/dL Desirable LDL: less than 100 mg/dL Near Optimal/Above Optimal LDL: 110-129 mg/dL Borderline High LDL: 130-159 mg/dL High LDL: 160-189 mg/dL Very High LDL: greater than or equal to 190 mg/dL HDL Cholesterol 65 >40 mg/dL Desirable HDL: greater than 40 mg/dL Note: This HDL assay may give artificially low results in patients with liver disease. Hemoglobin A1c Reviewed date:09/30/2023 07:59:16 AM Interpretation: Performing Lab:[address] [address] Notes/Report: Hemoglobin A1c % 5.3 <6.0 % Hemoglobin A1C Reference Range Adults: 4.8 - 6.0 % Non diabetic: < 6.0 % Goal: < 7.0 % Additional Action Suggested: > 8.0 % Note: Hemoglobin A1c results are invalid for patients with abnormal amounts of HbF. Blood transfusions may impact the HbA1c concentration in the patient sample. Estimated Average Glucose 105 eAG = Estimated average glucose which is %A1C expressed as average glucose, using the formula of the A3J-Dbzkodu Average Glucose study (ADAG), Diabetes Care, Vol.31,#8, Mar. 2007 US abdomen complete Reviewed date:04/21/2024 12:03:49 PM Interpretation: Performing Lab: Notes/Report: [address] [address] Ultrasound Report Signed Patient: Pippa Martinez MR#: [id number] : 1975 Acct:[id number] Age/Sex: 48 / F ADM Date: 03/11/24 Loc: HO.US Attending Dr: Seun Edwards MD Ordering Physician: Seun Edwards MD Date of Service: 03/11/24 Procedure(s): US abdomen complete Accession Number(s): [id number] cc: Seun Edwards MD EXAMINATION: US ABDOMEN COMPLETE CLINICAL INFORMATION: 28-year-old female with abdominal pain. COMPARISON: CT abdomen from 10/15/2014 and ultrasound from 08/12/2013 TECHNIQUE: Real-time imaging of the abdominal viscera. FINDINGS: PANCREAS: Normal. ABDOMINAL AORTA: The proximal, mid, and distal segments are normal in caliber. INFERIOR VENA CAVA: Visualized portions are normal. LIVER: Normal. The liver is normal in size. The liver contour is normal. Parenchymal echogenicity is normal. No focal hepatic lesion. There is no intrahepatic biliary duct dilatation seen. GALLBLADDER: Normal. The gallbladder is physiologically distended without evidence of stones, sludge, polyps, wall thickening or pericholecystic fluid. COMMON BILE DUCT: Normal in caliber measuring 0.2 cm in diameter. RIGHT KIDNEY: Normal. No hydronephrosis. No renal calculi or focal parenchymal lesions. The kidney measures 10.8 cm in maximum dimension. LEFT KIDNEY: Normal. No hydronephrosis. No renal calculi or focal parenchymal lesions. The kidney measures 11.8 cm in maximum dimension. SPLEEN: Normal. The spleen measures 10.0 cm in maximum dimension. FREE FLUID: None. US/US abdomen complete IMPRESSION: Normal study. Dictated By: Geovanny Carballo MD Signed By: <Electronically signed by Geovanny Carballo MD in OV> 03/11/24 1023 DD/ 0924 TD/TT: Vp Rheumatology: [place] [address] Ultrasound Report Signed Patient: Pippa Martinez MR#: [id number] : 1975 Acct:[id number] Age/Sex: 48 / F ADM Date: 03/11/24 Loc: HO.US Attending Dr: Seun Edwards MD Ordering Physician: Seun Edwards MD Date of Service: 03/11/24 Procedure(s): US abd omen complete Accession Number(s): [id number] cc: Seun Edwards MD EXAMINATION: US ABDOMEN COMPLETE CLINICAL INFORMATION: 28-year-old female w ith abdominal pain. COMPARISON: CT abdomen from 10/15/2014 and ultrasound from 08/12/2013 TECHNIQUE: Real-time imaging of the abdominal viscera. FINDINGS: PANCREAS: Normal. ABDOMINAL AORTA: The proximal, mid, and distal segments are normal in caliber. INFERIOR VENA CAVA: Visualized portions are normal. LIVER: Normal. The l iver is normal in size. The liver contour is normal. Parenchymal echogenicity is normal. No focal hepatic lesion. There is no intrahep atic biliary duct dilatation seen. GALLBLADDER: Normal. The gallbladder is physiologically distended without evidence of stones, sludge, polyps, wall thickening or pericholecystic fluid. COMMON BILE DUCT: No rmal in caliber measuring 0.2 cm in diameter. RIGHT KIDNEY: Normal . No hydronephrosis. No renal calculi or focal parenchymal lesions. The kidney measures 10.8 cm in maximum dimension. LEFT KIDNEY: Normal. No hydronephrosis. No renal calculi or focal parenchymal lesions. The kidney measures 11.8 cm in maximum dimension. SPLEEN: Normal. The spleen measures 10.0 cm in maximum dimension. FREE FLUID: None. U S/US abdomen complete IMPRESSION: Normal study. Dictated By: Geovanny Carballo MD Signed By: <Electronically signed by Geovanny Carballo MD in OV> 03/11/24 1023 DD/ 3 TD/TT: Vp Rheumatology: Ignacio Lara Test Reviewed date:04/21/2024 12:03:49 PM Interpretation: Performing Lab:[facility], [address] [place] [phone] Notes/Report: Urine NEGATIVE NEGATIVE This test was developed to detect early . False negative results may occur after the 5th - 7th week of when using this test method. If clinically indicated, consider a serum hCG. Pathology Reviewed date:04/23/2024 11:10:52 AM Interpretation: Performing Lab:[facility], [address] [place] [phone] Notes/Report: ---- Name: Nico Martinez Daquan Age/Sex: 48/F : 1975 Unit#: [id number] Attend Dr: Abraham Barraza MD Re04/21/24 Status : [facility] Location: [facility] Disch: ---- SPEC : [id number] RECD : 04/21/24 STATUS: KATJA LOPEZ NUM: [id number] DARSHAN: 04/21/[address] [facility] [address]: Abraham Barraza MD ENTERED: 04/21/24-10 37 SP TYPE: Surgical OTHR DR: Seun Edwards MD ORDERED: HE Stain/12 , Gross Micro L4/4 Diagnosis A. Colon, ascending, polypectomy: Colonic mucosa with mild surface hyperplastic changes. B. Colon, right, bio psy: Melanosis coli; otherwise colonic mucosa within normal limits. C. Colon, sigmoid, polypectomy: Tubular adenoma; negative for high-grade dysplasia or carcinoma. D. Rectum, polypecto my: Hyperplastic mucosal polyp. Clinical History Pre-Op Dx: Screening Post-Op Dx: Colon polyps, melanosis coli Microscopic Description A-D. Microscopic sections reviewed. Material Received A. Ascending colon polyp B. Right colon bx's, r/o melanosis coli C. Sigmoid polyp D. Rectal polyp Gross Description Received in 4 parts. A. Received in forma [employer] labeled ?ascending colon polyp? is a fragment of pink white soft tissue measuring 0.4 cm in greatest dimension which is wrapped in lens paper and entirely submitted for microscopic examination, 1 piece in cassette A. B. Received in forma [employer] labeled ?right colon biopsies, R/O melanosis coli? are 2 fragments of pink white soft tissue measuring 0.3 and 0.3 cm in greatest dimension which are wrapped in lens paper and entirely submitted for microscopic examination, 2 pieces in cassette B. C. Received in forma [employer] labeled ?sigmoid polyp? are 2 fragments of translucent, lowe-white soft tissue measurin g 0.4 and 0.5 cm in greatest dimension which are wrapped in lens paper and entirely submitt ed for microscopic examination, 2 pieces in cassette C. CONTINUED ON NEXT PAGE ---- Name: Nico Martinez constance A Age/Sex: 48/F : 1975 Unit#: [id number] Attend Dr: Abraham Barraza MD Re04/21/24 Status : [facility] Location: HO.SSS Disch: ---- SPEC : [id number] RECD : 04/21/24 STATUS: KATJA LOPEZ NUM: [id number] DARSHAN: 04/21/[address] [facility] [address]: Abraham Barraza MD ENTERED: 04/21/24 SP TYPE: Surgical OTHR DR: Seun Edwards MD ORDERED: HE Stain/ , Gross Micro L4/4 Gross Description (Continued) D. Received in forma [employer] labeled ?rectal polyp? is a fragment of translucent, lowe-white soft tissue measuring 0.5 cm in greatest dimension which is wrapped in lens paper and entirely submitted for microscopic examination, 1 piece in cassette D. [facility] Copies To: Seun Edwards MD [address] [facility] [address] [place], [place] [id number] Abraham Barraza MD [facility] [address] [place] [address] ---- Signed (signature on file) Scooter Knott MD 04/22/24 1210 ---- END OF REPORT Reason For Referral Reason Consult and Treat Diagnosis 1 History of IBS (Z87. 19) Diagnosis 2 Other cervical disc displacement, unspecified cervical region (M50.20) Referral Organization Seun Edwards III, MD Referring Provider First Name Seun Referring Provider Last Name Jerry Referring Provider Speciality Internal edicine Referred Provider Link Finney Referred Provider Specialty Neurology General Notes Rachel Cohen 2022 04:56:28 PM EST > Patient will call and schedule appointment herself and will call the office to inform us of when her appointment is.Malvin Melianet [facility] 08/13/2023 02:19:59 PM > Referral Faxed Referral Priority Routine Referral Appointment Date 08/29/2023 Reason Consult and Treat Ph ysical Therapy Injections Diagnosis 1 Buttock pain (M79.18 ) Referral Organization Seun Edwards III, MD Referring Provider First Name Seun Referring Provider Last Name Jerry Referring Provider Speciality Internal edicine Referred Provider [facility] Referred Provider Specialty Physical Med icine General Notes Rachel Cohen 2023 09:10:56 AM EDT > Faxed with referral and progress note. Noel Amber 03/06/2024 11:52:15 AM EDT > Patient had an appointment and canceled. Referral Priority Routine Referral Appointment Date 03/03/2024 Reason Consult and Treat In continence Incomplete Bladder Emptying Diagnosis 1 Unspecified urinary incontinence (R32) Referral Organization Seun Edwards III, MD Referring Provider First Name Seun Referring Provider Last Name Jerry Referring Provider Speciality Internal edicine Referred Provider Panchito Rodriguez ([place]) Referred Provider Specialty Urology General Notes Rachel Cohen 2023 03:24:22 PM EDT > Referral Faxed with Progress Note Referral Priority Routine Referral Appointment Date 05/06/2024 Reason Consult and Treat Chiari Syndrome with Worsening pain Diagnosis 1 Chiari I malformatio n (G93.5) Referral Organization Seun Edwards III, MD Referring Provider First Name Seun Referring Provider Last Name Jerry Referring Provider Speciality Internal M edicine Referred Provider THALIA ISLAS Referred Provider Specialty Neurological Surgery General Notes Rachel Cohen 2023 03:04:11 PM EDT > faxed with referral and progress note. Referral Priority Routine Referral Appointment Date 06/05/2024 Reason Consult and Treat Prefer Dr. Marion Chiari Syndrome with Worsening Pain Diagnosis 1 Chiari I malformatio n (G93.5) Referral Organization Seun Edwards III, MD Referring Provider First Name Seun Referring Provider Last Name Jerry Referring Provider Speciality Internal M edicine Referred Provider [facility], Pain Management Referred Provider Specialty Pain Medicin e General Notes Rachel Cohen 2023 03:03:44 PM EDT > Faxed referral and progress note. Referral Priority Routine Referral Appointment Date 05/30/2024 Medications Medication SIG (Take, Route, Frequency, Duration) Notes Start Date End Date Status Cyclobenzaprine HCl 10 MG 1 tablet Orall y 3 times a day for neck pain and muscle spasm for 15 days 08/02/2024 11/15/2024 Active Flexeril Active Cyclobenzaprine HCl 10 MG as directed Or ally three times a day 05/13/2024 Active Linzess 145 MCG 1 capsule at least 3 0 minutes before the first meal of the day on an empty stomach Orally Once a day 03/07/2024 Active buPROPion HCl ER (SR) 100 MG 1 tablet in the morning Orally Once a day 02/20/2024 Active dexAMETHasone 1 MG 1 tablet Orally twic e a day for 7 days 07/31/2024 Active Cyclobenzaprine HCl 10 MG 1 tablet at be dtime as needed Orally 3 times a day 02/20/2024 Active Wellbutrin SR 150 MG 1 tablet in the morning Orally Once a day 10/05/2023 Active CoQ-10 Active Multivitamin Orally Active Fish Oil 1 capsule Orally Onc e a day Active Senna Laxative 8.6 MG 2 tablets at bedti me as needed Orally Once a day Active Immunizations Vaccine Route Administration Date Status Comme nts Influenza Unknown 06/20/2013 Administered Social History Tobacco Use: Social History Observation Description Date Details (start date - stop date) Never Smoker NA - NA Sex Assigned At : Social History Observation Description Sex Assigned At Female Tobacco Use/Smoking Question Answer Notes Patient is a nonsmoker Additional Findings: Tobacco Non-User Aggressive non-smoker Alcohol Screen Question Answer Notes Did you have a drink containing alcohol in the p ast year? No Points 0 Interpretation Negative Problems Problem Type SNOMED Code ICD Code Onset Dates Problem Status W/U Status Risk Notes Problem Headache (16586723) Headache (R51) Active confirmed Her headac hes originate in the Chiari malformation. They have worsened lately. She has been referred back to neurosurgery for opinion and to pain management to consider analgesic procedures. Problem Syringomyelia and syringobulbia (674100960) Syringomyelia and syringobulbia (G95.0) Active confirmed She is going to have the neurostimulator. Her neurosurgeon has agreed to do a laminectomy of all else fails. Problem Gastro-esophagea l reflux disease without esophagitis (559178597) Gastro-esophage al reflux disease without esophagitis (K21.9) Active confirmed Her reflux is somewhat aggravated by the but she is finding it tolerable. Problem Displacement of cervical intervertebral disc without myelopathy (91083694) Other cervical disc displacement, unspecified cervical region (M50.20) Active confirmed The discomfort is much improved. We're waiting for the MRI report. Problem 608713491 Chiari I malformation (G93.5) Active confirmed The pain has worsened lately. She has seen her neurosurgeon, Dr. Islas, Who has offered to do a cervical laminectomy. She is uncertain about this and has declined that procedure so far. The pain management service has recommended a neurostimulator and she has an appointment to have a temporary wire inserted. Problem 310928219 Insomnia (G47.00) Active confirmed She has chronic difficulty sleeping, but lately has been doing well. No change in the pattern of her sleep has been noted lately. Problem History of irritable bowel syndrome (29002225710486) History of IBS (Z87.19) Active confirmed His abdominal pain is resolved at this time. She is quite comfortable in her daily life. Problem Venous insufficiency of leg (disorder) (845417655) Venous insufficiency (I87.2) Active confirmed An endovascular procedure to relieve the discomfort is being planned. Problem Irritable bowel syndrome (43230224) Other irritable bowel syndrome (K58.8) Active confirmed She occasionall y has abdominal discomfort from the IBS but this is become a minor problem in daily life. Problem 031445008 Chronic constipation (K59.09) Active confirmed She is doing well with the linzess. Problem 011295437 Recent weight loss (R63.4) Active confirmed One year ago gene sher weighed 118 pounds. During the year she reached 120 pounds. Since then she has lost 9 pounds now weighing 109. She is technically underweight with a body mass index of 19.3.She says this is because she is working long hours and often skips meals. She denies feeling any more depressed than at any other time. Her weight will be observed. We discussed diet and nutrition today. She will consume 3 meals a day. Vital Signs Heart Rate 82 /min 07/31/2024 Temperature 98.8 degrees Fahrenheit 07/31/2024 Blood pressure diastolic 88 mm Hg 07/31/2024 Height 63 in 07/31/2024 Blood pressure systolic 112 mm Hg 07/31/2024 Weight 109 lbs 07/31/2024 BMI 19.31 kg/m2 07/31/2024 Encounters Encounter Location Date Provider Diagnosis Seun Edwards III, MD [address] [place] [place] [address] [place] [address] 08/08/2023 Seun Edwards Headache R51 ; Pre-diabetes R73.03 ; Weight loss R63.4 ; Colon cancer screening Z12.11 ; Insomnia G47.00 ; History of IBS Z87.19 ; Gastro-esophageal reflux disease without esophagitis K21.9 and 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 Seun Edwards III, MD [address] [place] [address] [place] [address] 10/17/2023 Seun Edwards Headache R51 ; Insom vincent G47.00 ; History of IBS Z87.19 ; Venous insufficiency I87.2 ; Gastro-esophageal reflux disease without esophagitis K21.9 ; 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 and 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 Seun Edwards III, MD [address] [place] [address] [place] [address] 11/16/2023 Seun Edwards Headache R51 ; Insom vincent G47.00 ; History of IBS Z87.19 ; Gastro-esophageal reflux disease without esophagitis K21.9 and 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 Seun Edwards III, MD [address] [place] [address] [place] [address] 01/11/2024 Seun Edwards Headache R51 ; Piriformis muscle pain M79.18 ; Gastro-esophageal reflux disease without esophagitis K21.9 ; 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 and 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 Seun Edwards III, MD [address] [place] [address] [place] [address] 01/29/2024 Seun Edwards Headache R51 ; Weigh t loss R63.4 ; Hypertension I10 ; Gastro-esophageal reflux disease without esophagitis K21.9 ; Other irritable bowel syndrome K58.8 and 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 Seun Edwards III, MD [address] [place] [address] [place] [address] 03/07/2024 Seun Edwards Headache R51 ; Abdominal pain R10.9 ; Insomnia G47.00 ; History of IBS Z87.19 ; Other irritable bowel syndrome K58.8 ; Gastro-esophageal reflux disease without esophagitis K21.9 ; 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 and 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 Seun Edwards III, MD [address] [place] [address] [place] [address] 04/22/2024 Seun Edwards Headache R51 ; Chiar i I malformation G93.5 ; 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 ; Gastro-esophageal reflux disease without esophagitis K21.9 ; Insomnia G47.00 ; History of IBS Z87.19 ; Chronic constipation K59.09 and Recent weight loss R63.4 Seun Edwards III, MD [address] [place] [address] [place] [address] 07/31/2024 Seun Edwards Chiari I malformatio n G93.5 ; 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 ; Gastro-esophageal reflux disease without esophagitis K21.9 ; Other irritable bowel syndrome K58.8 ; Insomnia G47.00 ; Chronic constipation K59.09 and Underweight R63.6 Seun Edwards III, MD [address] [place] [address] [place] [address] 10/05/2023 Seun Edwards III, MD [address] [facility] [place] [address] 02/04/2024 Seun Edwards Chest pain R07.9 Seun Edwards III, MD [address] [place] [address] [place] [address] 02/20/2024 Seun Edwards III, MD [address] [place] [address] [place] [address] 02/20/2024 Seun Edwards III, MD [address] [place] [address] [place] [address] 03/26/2024 Seun Edwards Headache R51 Seun Edwards III, MD [address] [place] [address] [place] [address] 05/13/2024 Seun Edwards Headache R51 Seun Edwards III, MD [address] [place] [address] [place] [address] 08/02/2024 Seun Edwards III, MD [address] [place] [address] [place] [address] 10/05/2023 Seun Edwards Assessments Encounter Date Diagnosis (ICD Code) Assessment Notes Treatment Notes Treatment Clinical Notes 08/08/2023 Headache (ICD-10 - R51) She continues to work full-time with the neck pain and headaches. I will forward the MRI results to her neurosurgeon. I will review the old studies to see if thethoracic syrinx is stable. 08/08/2023 Pre-diabetes (ICD-10 - R73.03) Blood sugars are slightly elevated but not in diabetic range. I have requested a hemoglobin A1c. 10/17/2023 Headache (ICD-10 - R51) She continues to work full-time with the neck pain and headaches. I will forward the MRI results to her neurosurgeon. I will review the old studies to see if thethoracic syrinx is stable. 10/17/2023 Insomnia (ICD-10 - G47.00) She has chronic difficulty sleeping, but lately has been doing well. No change in the pattern of her sleep has been noted lately. 11/16/2023 Headache (ICD-10 - R51) She continues to work full-time with the neck pain and headaches. I will forward the MRI results to her neurosurgeon. I will review the old studies to see if thethoracic syrinx is stable. 11/16/2023 Insomnia (ICD-10 - G47.00) She has chronic difficulty sleeping, but lately has been doing well. No change in the pattern of her sleep has been noted lately. 01/11/2024 Headache (ICD-10 - R51) She continues to work full-time with the neck pain and headaches. I will forward the MRI results to her neurosurgeon. I will review the old studies to see if thethoracic syrinx is stable. 01/11/2024 Piriformis muscle pain (ICD-10 - M79.18) Use heat and rest and ibuprofen. It does not resolve by the next visit she will be referred to orthopedics for physical therapy 01/29/2024 Weight loss (ICD-10 - R63.4) Her weight is stable with a body mass index of 20. We discussed nutrition at length today. 01/29/2024 Headache (ICD-10 - R51) She continues to work full-time with the neck pain and headaches. I will forward the MRI results to her neurosurgeon. I will review the old studies to see if thethoracic syrinx is stable. 03/07/2024 Abdominal pain (ICD-10 - R10.9) He has recently experienced a sharp pain in the epigastric area lasting for a few minutes a couple of times a day. I have suggested that when she sees the surfacer in the near future she suggested an endoscopy in addition to the colonoscopy. She was continued on gastrica mobilization. The examination was unremarkable. On examination today her aorta was prominent and I've ordered an ultrasound to evaluate it as well as the gallbladder. 03/07/2024 Headache (ICD-10 - R51) Her headaches have improved somewhat since her last visit there only occasional now. 04/22/2024 Headache (ICD-10 - R51) Her headaches originate in the Chiari malformation. They have worsened lately. She has been referred back to neurosurgery for opinion and to pain management to consider analgesic procedures. 04/22/2024 Chiari I malformation (ICD-10 - G93.5) She reports the pain to range of motion of the cervical spine is much improved with current medications, which were continued. 07/31/2024 Syringomyelia and syringobulbia (ICD-10 - G95.0) She is going to have the neurostimulator. Her neurosurgeon has agreed to do a laminectomy of all else fails. 07/31/2024 Chiari I malformation (ICD-10 - G93.5) The pain has worsened lately. She has seen her neurosurgeon, Dr. Islas, Who has offered to do a cervical laminectomy. She is uncertain about this and has declined that procedure so far. The pain management service has recommended a neurostimulator and she has an appointment to have a temporary wire inserted. 03/26/2024 Headache (ICD-10 - R51) Her headaches have improved somewhat since her last visit there only occasional now. 05/13/2024 Headache (ICD-10 - R51) Her headaches originate in the Chiari malformation. They have worsened lately. She has been referred back to neurosurgery for opinion and to pain management to consider analgesic procedures. 08/08/2023 Weight loss (ICD-10 - R63.4) Her weight has beeen stable lately. Her appetite is good. This will be followed. 10/17/2023 History of IBS (ICD-10 - Z87.19) His abdominal pain is resolved at this time. She is quite comfortable in her daily life. 11/16/2023 History of IBS (ICD-10 - Z87.19) His abdominal pain is resolved at this time. She is quite comfortable in her daily life. 01/11/2024 Gastro-esophageal reflux disease without esophagitis (ICD-10 - K21.9) Her reflux is somewhat aggravated by the but she is finding it tolerable. 01/29/2024 Hypertension (ICD-10 - I10) She was given an appointment to return to the office to measure her blood pressure. 03/07/2024 Insomnia (ICD-10 - G47.00) She has chronic difficulty sleeping, but lately has been doing well. No change in the pattern of her sleep has been noted lately. 04/22/2024 Syringomyelia and syringobulbia (ICD-10 - G95.0) I have asked her reevaluation by neurosurgery. 07/31/2024 Gastro-esophageal reflux disease without esophagitis (ICD-10 - K21.9) Her reflux is somewhat aggravated by the but she is finding it tolerable. 02/04/2024 Chest pain (ICD-10 - R07.9) 08/08/2023 Colon cancer screening (ICD-10 - Z12.11) Colonoscopy has been scheduled with the gastroenterology department at [facility].. 10/17/2023 Venous insufficiency (ICD-10 - I87.2) An endovascular procedure to relieve the discomfort is being planned. 11/16/2023 Gastro-esophageal reflux disease without esophagitis (ICD-10 - K21.9) Her reflux is somewhat aggravated by the but she is finding it tolerable. 01/11/2024 Chiari I malformation (ICD-10 - G93.5) She reports the pain to range of motion of the cervical spine is much improved with current medications, which were continued. 01/29/2024 Gastro-esophageal reflux disease without esophagitis (ICD-10 - K21.9) Her reflux is somewhat aggravated by the but she is finding it tolerable. 03/07/2024 History of IBS (ICD-10 - Z87.19) His abdominal pain is resolved at this time. She is quite comfortable in her daily life. 04/22/2024 Gastro-esophageal reflux disease without esophagitis (ICD-10 - K21.9) Her reflux is somewhat aggravated by the but she is finding it tolerable. 07/31/2024 Other irritable bowel syndrome (ICD-10 - K58.8) She occasionally has abdominal discomfort from the IBS but this is become a minor problem in daily life. 08/08/2023 Insomnia (ICD-10 - G47.00) She has chronic difficulty sleeping, but lately has been doing well. No change in the pattern of her sleep has been noted lately. 10/17/2023 Gastro-esophageal reflux disease without esophagitis (ICD-10 - K21.9) Her reflux is somewhat aggravated by the but she is finding it tolerable. 11/16/2023 Chiari I malformation (ICD-10 - G93.5) She reports the pain to range of motion of the cervical spine is much improved with current medications, which were continued. 01/11/2024 Syringomyelia and syringobulbia (ICD-10 - G95.0) I have asked her reevaluation by neurosurgery. 01/29/2024 Other irritable bowel syndrome (ICD-10 - K58.8) She occasionally has abdominal discomfort from the IBS but this is become a minor problem in daily life. 03/07/2024 Other irritable bowel syndrome (ICD-10 - K58.8) She occasionally has abdominal discomfort from the IBS but this is become a minor problem in daily life. 04/22/2024 Insomnia (ICD-10 - G47.00) She has chronic difficulty sleeping, but lately has been doing well. No change in the pattern of her sleep has been noted lately. 07/31/2024 Insomnia (ICD-10 - G47.00) She has chronic difficulty sleeping, but lately has been doing well. No change in the pattern of her sleep has been noted lately. 08/08/2023 History of IBS (ICD-10 - Z87.19) His abdominal pain is resolved at this time. She is quite comfortable in her daily life. 10/17/2023 Chiari I malformation (ICD-10 - G93.5) She reports the pain to range of motion of the cervical spine is much improved with current medications, which were continued. 01/29/2024 Chiari I malformation (ICD-10 - G93.5) She reports the pain to range of motion of the cervical spine is much improved with current medications, which were continued. 03/07/2024 Gastro-esophageal reflux disease without esophagitis (ICD-10 - K21.9) Her reflux is somewhat aggravated by the but she is finding it tolerable. 04/22/2024 History of IBS (ICD-10 - Z87.19) His abdominal pain is resolved at this time. She is quite comfortable in her daily life. 07/31/2024 Chronic constipation (ICD-10 - K59.09) She is doing well with the linzess. 08/08/2023 Gastro-esophageal reflux disease without esophagitis (ICD-10 - K21.9) Her reflux is somewhat aggravated by the but she is finding it tolerable. 10/17/2023 Syringomyelia and syringobulbia (ICD-10 - G95.0) I have asked her reevaluation by neurosurgery. 03/07/2024 Chiari I malformation (ICD-10 - G93.5) She reports the pain to range of motion of the cervical spine is much improved with current medications, which were continued. 04/22/2024 Chronic constipation (ICD-10 - K59.09) She is [...] to consume 3 nourishing meals a day. 08/08/2023 Chiari I malformation (ICD-10 - G93.5) She reports the pain to range of motion of the cervical spine is much improved with current medications, which were continued. 03/07/2024 Syringomyelia and syringobulbia (ICD-10 - G95.0) I have asked her reevaluation by neurosurgery. 04/22/2024 Recent weight loss (ICD-10 - R63.4) One year ago she weighed 118 pounds. During the year she reached 120 pounds. Since then she has lost 9 pounds now weighing 109. She is technically underweight with a body mass index of 19.3.She says this is because she is working long hours and often skips meals. She denies feeling any more depressed than at any other time. Her weight will be observed. We discussed diet and nutrition today. She will consume 3 meals a day. 10/05/2023 Other CancelRx Response got Denied on 2024-02-21 07:58:28 for 'buPROPion HCl ER (SR) 100 MG Tablet Extended Release 12 Hour'Pharmacy Notes: other 02/20/2024 Other CancelRx Response got Denied on 2024-02-21 07:58:28 for 'Cyclobenzapri ne HCl 10 MG Tablet'Pharmac y Notes: other CancelRx Response got Denied on 2024-02-21 07:58:28 for 'Fluconazole 100 MG Tablet'Pharmac y Notes: other Plan Of Treatment Pending Test Test Name Order Date PROFILE, FASTING (COMPREHENSIVE METABOLI C) 01/29/2024 PROFILE, FASTING (COMPREHENSIVE METABOLI C) 08/08/2023 PROFILE, FASTING (COMPREHENSIVE METABOLI C) 06/01/2023 PROFILE, RANDOM (COMPREHENSIVE METABOLIC ) 06/21/2022 LIPID PANEL 06/01/2023 FREE T4 (FT4) 06/21/2022 TSH (THYROID STIMULATING HORMONE) 2021 CBC w DIFF 06/21/2022 SED RATE (ESR) 06/01/2023 MRI BREAST BILATERAL 04/18/2023 US ABD 03/07/2024 Stress Test 01/29/2024 CBC WITH AUTO DIFF 06/01/2023 CBC WITH AUTO DIFF 01/29/2024 COLOGUARD 08/08/2023 Lipid Panel 01/29/2024 Lipid Panel 08/08/2023 Vitamin D 25-OH Total 06/01/2023 Thyroid Peroxidase Antibodies 06/21/2022 Hemoglobin A1c 08/08/2023 Hemoglobin A1c 01/29/2024 ECG 7 day holter monitor 01/29/2024 ECG 7 day holter monitor 02/04/2024 Next Appt Details Provider Name:Seun Edwards, 08/15/2024 02:45:00 PM, [address] [place] [address] [address], [place], [address], Provider Name:Seun Edwards, 04/24/2025 04:00:00 PM, [address] [place] [address] [address] [place], [place], [address], Insurance Providers Payer Name Payer Address Payer Phone Subscriber Number Group Number Insured Name Patient Relationship to Insured Coverage Start Date Coverage End Date [employer] [place] [address] [address] [place] [address] [id number] Pippa Martinez Self - patient is the insured Medical (General) History Medical History History ICD Code Irritable bowel syndrome 564.1 GERD (gastroesophageal reflux disease) 5 30.81 History of torn meniscus of left knee V1 3.59 HNP (herniated nucleus pulposus), cervic al 722.0 Chiari I malformation 348.4 Varicose veins of lower extremity 454.9 Peripheral venous insufficiency 459.81 FH: blood disorder V18.3 venous insufficiency lower extremities Surgical History Surgery Date(Month/Year) endovenous laser ablation lower extremit y veins 2014 biopsy mass upper outer left breast, benign, , [facility] 08/2016 left breast lumopectomy by Dr Serna [address] Barraza 04/21/2024 No history Hospitalization History Reason Date(Month/Year) No history
== END 2024-08-04 15:02 | disposition home or self-care (01) ==
PROVIDERS: PCP Internal Medicine Medical Oncology; Visit Provider Urology
DX: R32 Unspecified urinary incontinence (principal); R39.89 Other symptoms and signs involving the genitourinary system; R39.15 Urgency of urination; Z13.9 Encounter for screening, unspecified
CPT/HCPCS: 99214

== ENCOUNTER → 2024-08-04 14:10 | Outpatient (BNVA) | payer OTHER, SELFPAY | PROVIDERS: PCP Internal Medicine Medical Oncology; Visit Provider Urology | DX: R32 Unspecified urinary incontinence (principal); R39.89 Other symptoms and signs involving the genitourinary system; R39.15 Urgency of urination | CPT/HCPCS: 51798; 81003 ==

== ENCOUNTER 2024-10-08 14:06 | Outpatient (REF) | payer OTHER, SELFPAY ==
[2024-10-08 14:55] LABS: Appearance Urine Clear; Color Urine Yellow; Glucose Urine UA Negative (Negative); Leukocyte Esterase Urine Small (1+) (Negative); Nitrite Urine Negative (Negative); PH 6.5 (5.0-9.0); Specific Gravity - Urine <= 1.005 (1.005-1.025); UMIC TRIGGER UA YES; Urine Blood Negative (Negative); Urine Ketones Negative (Negative); Urine Protein Negative (Neg-Trace)
[2024-10-08 15:08] LABS: Bacteria Urine None Seen (None Seen); Hyaline Casts Urine 0-2 /LPF (0-2); RBC Urine 0-2 /HPF (0-2); Squamous Epithelial Cell Urine 0-2 /HPF (0-2); WBC Urine 0-5 /HPF (0-5)
--- OUTSIDE RECORDS SUMMARY | 2024-10-08 15:30 | XMS_ITS ---
Author Organization Seun dEwards III, MD Address [address] [place] [address] [place] [address] Care Team Providers Care Er Manager Name Role Phone Seun Edwards Primary Care Provider [phone] Allergies Allergen (clinical drug ingredient) Drug/Non Drug Allergy documented on EMR Reaction Allergy Type Onset Date Status No Known Drug Allergy Unknown Drug Allergy Active trazodone Trazodone night terrors Drug Allergy Act montse tramadol Tramadol nausea, vomiting Drug Allergy Active REASON FOR VISIT Telehealth Medications Medication SIG (Take, Route, Frequency, Duration) Notes Start Date End Date Status Cyclobenzaprine HCl 10 MG as directed Or ally three times a day 05/13/2024 Active buPROPion HCl ER (SR) 100 MG 1 tablet in the morning Orally Once a day 02/20/2024 Active Cyclobenzaprine HCl 10 MG 1 tablet Orall y 3 times a day for neck pain and muscle spasm 08/02/2024 Active dexAMETHasone 1 MG 1 tablet Orally twic e a day 07/31/2024 Active Linzess 145 MCG 1 capsule at least 3 0 minutes before the first meal of the day on an empty stomach Orally Once a day 03/07/2024 Active Senna Laxative 8.6 MG 2 tablets at bedti me as needed Orally Once a day Active Flexeril Active Multivitamin Orally Active Fish Oil 1 capsule Orally Onc e a day Active CoQ-10 Active Cyclobenzaprine HCl 10 MG 1 tablet at be dtime as needed Orally 3 times a day 02/20/2024 Active Wellbutrin SR 150 MG 1 tablet in the mor marily Orally Once a day 10/05/2023 Active Social History Tobacco Use: Social History Observation Description Date Details (start date - stop date) Never Smoker NA - NA Sex Assigned At : Social History Observation Description Sex Assigned At Female Tobacco Use/Smoking Question Answer Notes Patient is a nonsmoker Additional Findings: Tobacco Non-User Aggressive non-smoker Vital Signs Height 63 in 08/15/2024 Weight 109 lbs 08/15/2024 BMI 19.31 kg/m2 08/15/2024 Encounters Encounter Location Date Provider Diagnosis Seun Edwards III, MD [address] [place] [address] [address] [place], MARGOTH [address] 08/15/2024 Seun Edwards 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 Her neurosurgeon has agreed to do a laminectomy of all else fails. 08/15/2024 Chiari I malformation (ICD-10 - G93.5) The pain has worsened lately. She has seen her neurosurgeon, Dr. Islas, Who has offered to do a cervical laminectomy. She is uncertain about this and has declined that procedure so far. The pain management service has recommended a neurostimulator and she has an appointment to have a temporary wire inserted. 08/15/2024 Insomnia (ICD-10 - G47.00) She has chronic difficulty sleeping, but lately has been doing well. No change in the pattern of her sleep has been noted lately. 08/15/2024 Headache (ICD-10 - R51) Her headaches originate in the Chiari malformation. They have worsened lately. She has been referred back to neurosurgery for opinion and to pain management to consider analgesic procedures. 08/15/2024 Gastro-esophageal reflux disease without esophagitis (ICD-10 - K21.9) Her reflux is somewhat aggravated by the but she is finding it tolerable. 08/15/2024 Weight loss (ICD-10 - R63.4) Her weight is stable with a body mass index of 19. We discussed nutrition at length today. Plan Of Treatment Medication Medication Name Sig Start Date Stop Date Notes Cyclobenzaprine HCl 10 MG as directed Or ally three times a day 05/13/2024 buPROPion HCl ER (SR) 100 MG 1 tablet in the morning Orally Once a day 02/20/2024 Cyclobenzaprine HCl 10 MG 1 tablet Orall y 3 times a day for neck pain and muscle spasm 08/02/2024 dexAMETHasone 1 MG 1 tablet Orally twice a day 07/31/2024 Linzess 145 MCG 1 capsule at least 3 0 minutes before the first meal of the day on an empty stomach Orally Once a day 03/07/2024 Senna Laxative 8.6 MG 2 tablets at bedti me as needed Orally Once a day Flexeril Multivitamin Orally Fish Oil 1 capsule Orally Once a day CoQ-10 Cyclobenzaprine HCl 10 MG 1 tablet at be dtime as needed Orally 3 times a day 02/20/2024 Wellbutrin SR 150 MG 1 tablet in the mor marily Orally Once a day 10/05/2023 Next Appt Details Follow Up: 4 Weeks, Four wee ks from now, Reason: Telehealth, To monitor the patient's condition and evaluate the effectiveness of the treatment. Provider Name:Seun Edwards, 04/24/2025 04:00:00 PM, [address] [place] [address], [address], Progress Notes * Pippa MARTINEZ ADOB:[birth year] (49 yo F)Acc No.[id number]:08/15/2024 Patient:?Pippa MARTINEZ Provider:?Seun Edwards MD :1975???Age:49 Y???Sex:Female D ate:08/15/2024 Address:[address] [place], [place] [id number] Subjective: * Chief Complaints: * ???Telehealth * HPI: ???:?Telehealth?Location of provider rendering services:?{...} [address] [facility] [address] ?Location of patient:?address listed in demographics for today's visit ?Patient identification confirmed using:?Name, ?Telehealth method:?Telephone only. Patient not visible to care provider. ?Consent:?Patient verbally consented to treatment, Patient verbally consented to billing insurance company, Patient informed of any privacy concerns related to method of visit ?Total time spent with patient (mins)?15 ?This telehealth visit took place over 15 minutes with the patient at home and me in my office.? She gave consent for billing. The patient, a 49-year-old female, has been experiencing chronic headaches for an extended period. The headaches are located behind her eyes and at the back of her head, where the neck and head meet. The pain is constant and has been present for at least three days prior to the consultation. The patient also reports feeling grumpy. She has been trying various treatments to alleviate her symptoms, including steroids and acupuncture. The patient reports that the acupuncture seems to be helping a little, and she experienced relief from her headache after her most recent session. However, she also notes that the relief is temporary. The patient's sleep has not improved, despite trying different pillows and mattresses. * ROS:?General/Constitutional:?pain?Neck and shoulders.?Chills?denies.?Fatigue?admits.?Fever?denies.?Admits?Headache.?ENT:?Decreased hearing?denies.?Respiratory:?Cough?denies.?Cardiovascular:?Chest pain with exertion?denies.?Dyspnea on exertion?denies.?Shortness of breath?denies.?Gastrointestinal:?Constipation?occasional.?Decreased appetite?denies.?Diarrhea?denies.?Heartburn?denies.?Nausea?denies.?Rectal bleeding?denies.?Vomiting?denies.?Hematology:?bruising?denies.?petechiae?denies.?Swollen glands?none have been noted.?Genitourinary:?Frequent urination?at night.?Musculoskeletal:?Muscle aches?denies.?Painful joints?denies.?Sciatica?denies.?Weakness?denies.?Skin:?Itching?denies.?Rash?denies.?Skin lesion(s)?denies.?Neurologic:?Difficulty speaking?denies.?Dizziness?denies.?Headache?denies.?Low back pain?denies.?Psychiatric:?Depressed mood?denies.? * Medical History:? * Surgical History:?endovenous laser ablation lower extremity veins 2015biopsy mass upper outer left breast, benign, , [facility] 08/2016left breast lumopectomy by Dr Serna 06/26/2023olonoscopy Dr. Barraza 04/21/2024No history * Hospitalization/Major Diagno stic Procedure:?No history * Family History:?Father: will sher 56 yrs, hypertension, diagnosed with HTN.?Mother: alive 56 yrs, SVT, Hyperthyroidism, [place], diagnosed with CVD.?Paternal Grand Father: 72 yrs, lung cancer, diagnosed with Cancer.?Maternal Grand Mother: alive, alzheimer.?1 sister(s) - healthy. 1 son(s) , 2 daughter(s) - healthy. .? There is no history of breast cancer on her mother's side. 2 of her father's sisters had breast cancer in the past in [place]. * Social History:?Tobacco Use:?Tobacco Use/Smoking?Patient is a?nonsmoker [...] as directed Orally three times a day dexAMETHasone 1 MG Tablet 1 tablet Orally twice a day Cyclobenzaprine HCl 10 MG Tablet 1 tablet Orally 3 times a day for neck pain and muscle spasm , stop date 11/15/2024Medication List reviewed and reconciled with the patientTaking [...] as directed Orally three times a day Taking dexAMETHasone 1 MG Tablet 1 tablet Orally twice a day Taking Cyclobenzaprine HCl 10 MG Tablet 1 tablet Orally 3 times a day for neck pain and muscle spasm , stop date 11/15/2024Medication List reviewed and reconciled with the patient * Allergies:?No Known Drug All ergyTramadol: nausea, vomitingTrazodone: night terrorsno[Allergies Verified] Objective: * Vitals:?Ht: 63, Wt: 109, BMI :19.31, Ht-cm: 160.02, Wt-k.44. Assessment: * Assessment: 1.?Syringomyelia and syringo bulbia - G95.0 (Primary)???Notes :She is going to have the neurostimulator. Her neurosurgeon has agreed to do a laminectomy of all else fails.???2.?Chiari I malformation - G93.5???Notes :The pain has worsened lately. She has seen her neurosurgeon, Dr. Islas, Who has offered to do a cervical laminectomy. She is uncertain about this and has declined that procedure so far. The pain management service has recommended a neurostimulator and she has an appointment to have a temporary wire inserted.???3.?Insomnia - G47.00???Notes :She has chronic difficulty sleeping, but lately has been doing well. No change in the pattern of her sleep has been noted lately.???4.?Headache - R51???Notes :Her headaches originate in the Chiari malformation. They have worsened lately. She has been referred back to neurosurgery for opinion and to pain management to consider analgesic procedures.???5.?Gastro-esophageal reflux disease without esophagitis - K21.9???Notes :Her reflux is somewhat aggravated by the but she is finding it tolerable.???6.?Weight loss - R63.4???Notes :Her weight is stable with a body mass index of 19. We discussed nutrition at length today.??? Plan: * Treatment: * Procedure Codes:?68515 PHONE E/M BY PHYS 11-20 MIN * Preventive Medicine:? ??Counseling:?Care goal follow-up plan:?Below Normal BMI Follow-up?Dietary education for weight gain, Dietary management education, guidance, and counseling, Feeding regime * Follow Up:?4 Weeks, Four wee ks from now (Reason: Telehealth, To monitor the patient's condition and evaluate the effectiveness of the treatment.) * Images: * Sign off status: Completed true * Provider:?Seun Edwards MD Date:?07/28 Generated for Maria Luz fitzgerald/Tao/eTransmitting on:?10/08/2024 03:30 PM EST History and Physical Notes * HPI (History of Present Illness) Category Sub-Category Detail Notes Telehealth Location of [facility] ider rendering services:: {...} [address] [facility] [address] Location of patient:: address listed in demographics for today's visit Patient identification confirmed using:: Name, Telehealth method:: Telephone only. Natalie ent not visible to care provider. Consent:: Patient verbally c onsented to treatment, Patient verbally consented to billing insurance company, Patient informed of any privacy concerns related to method of visit Total time spent with patient (mins): 15
--- OUTSIDE RECORDS SUMMARY | 2024-10-08 15:30 | XMS_ITS ---
Author Organization Seun Edwards III, MD Address [address] [place] [address] Care Team Providers Care Tube Washer Name Role Phone Seun Edwards Primary Care Provider REASON FOR VISIT Message Medications Medication SIG (Take, Route, Frequency, Duration) Notes Start Date End Date Status Wellbutrin SR 150 MG 1 tablet Orally onc e a day in the afternoon for 30 days 10/05/2023 Active buPROPion HCl ER (SR) 100 MG 1 tablet in the morning Orally Once a day for 30 days 02/20/2024 Active Social History Sex Assigned At : Social History Observation Description Sex Assigned At Female Encounters Encounter Location Date Provider Diagnosis Seun Edwards III, MD [address] [place] [address] [place] [address] 09/16/2024 Seun Edwards Plan Of Treatment Medication Medication Name Sig Start Date Stop Date Notes Wellbutrin SR 150 MG 1 tablet Orally onc e a day in the afternoon for 30 days 10/05/2023 buPROPion HCl ER (SR) 100 MG 1 tablet in the morning Orally Once a day for 30 days 02/20/2024 Next Appt Details Provider Name:Seun Edwards, 04/24/2025 04:00:00 PM, [address] [place] [address] [place], [address], Progress Notes * Pippa MARTINEZ ADOB:[birth year] (49 yo F)Acc No.[id number]:09/16/2024 Patient:?Pippa MARTINEZ :1975???Age:49 Y???Sex:Female Address:[address] [place] [address] * Refills? Refill buPROPion HCl ER (SR) Tablet Extended Release 12 Hour, 100 MG, Orally, 30, 1 tablet in the morning, Once a day, 30 days, Refills=11 Refill Wellbutrin SR Tablet Extended Release 12 Hour, 150 MG, Orally, 30, 1 tablet, once a day in the afternoon, 30 days, Refills=11 * true * Date:? Generated for Maria Luz fitzgerald/Tao/Joseitting on:?10/08/2024 03:29 PM EST
--- OUTSIDE RECORDS SUMMARY | 2024-10-08 15:30 | XMS_ITS ---
Author Organization Seun Edwards III, MD Address [address] [place] [address] [place] [address] Care Team Providers Care Rotary Shear Operator Name Role Phone Seun Edwards Primary Care [...] Status Wellbutrin SR 150 MG 1 tablet in the mor marily Orally Once a day 10/05/2023 Active Cyclobenzaprine HCl 10 MG 1 tablet at be dtime as needed Orally 3 times a day 02/20/2024 Active Fish Oil 1 capsule Orally Onc e a day Active CoQ-10 Active Multivitamin Orally Active buPROPion HCl ER (SR) 100 MG [...] stomach Orally Once a day 03/07/2024 Active Cyclobenzaprine HCl 10 MG as directed Or ally three times a day 05/13/2024 Active Flexeril Active Senna Laxative 8.6 MG 2 tablets at bedti me as needed Orally Once a day Active Social History Tobacco Use: Social History Observation Description Date Details (start date - stop date) Never Smoker NA - NA Sex Assigned At : Social History Observation Description Sex Assigned At Female Tobacco Use/Smoking Question Answer Notes Patient is a nonsmoker Additional Findings: Tobacco Non-User Aggressive non-smoker Encounters Encounter Location Date Provider Diagnosis Seun Edwards III, MD [address] [place] [address] [address] [place] [address] 09/12/2024 Seun Edwards Plan Of Treatment Medication Medication Name Sig Start Date Stop Date Notes Wellbutrin SR 150 MG 1 tablet in the mor marily Orally Once a day 10/05/2023 Cyclobenzaprine HCl 10 MG 1 tablet at be dtime as needed Orally 3 times a day 02/20/2024 Fish Oil 1 capsule Orally Once a day CoQ-10 Multivitamin Orally buPROPion HCl ER (SR) 100 MG 1 [...] empty stomach Orally Once a day 03/07/2024 Cyclobenzaprine HCl 10 MG as directed Or ally three times a day 05/13/2024 Flexeril Senna Laxative 8.6 MG 2 tablets at bedti me as needed Orally Once a day Next Appt Details Provider Name:Seun Edwards, 04/24/2025 04:00:00 PM, [address] [place] [address] [address], [place], [address], Progress Notes * Pippa MARTINEZ ADOB:[birth year] (49 yo F)Acc No.[id number]:09/12/2024 Patient:?Pippa MARTINEZ Provider:?Seun Edwards MD :1975???Age:49 Y???Sex:Female D ate:09/12/2024 Address:[address] [place], [id number] Subjective: * Chief Complaints: * ???1. Telehealth. * HPI: ???:?Telehealth?Location of provider rendering services:?{...} [address] [facility] [address] ?Location of patient:?address listed in demographics for today's visit ?Patient identification confirmed using:?Name, ?Telehealth method:?Telephone only. Patient not visible to care provider. ?Consent:?Patient verbally consented to treatment, Patient verbally consented to billing insurance company, Patient informed of any privacy concerns related to method of visit ?Total time spent with patient (mins)?15 * ROS:?General/Constitutional:?pain?only normal aches and pains.?Chills?denies.?Fatigue?admits.?Fever?denies.?ENT:?Decreased hearing?denies.?Respiratory:?Cough?denies.?Cardiovascular:?Chest pain with exertion?denies.?Dyspnea on exertion?denies.?Shortness of breath?denies.?Gastrointestinal:?Constipation?denies.?Decreased appetite?denies.?Diarrhea?denies.?Heartburn?denies.?Nausea?denies.?Rectal bleeding?denies.?Vomiting?denies.?Hematology:?bruising?denies.?petechiae?denies.?Swollen glands?none have been noted.?Genitourinary:?Frequent urination?denies.?Musculoskeletal:?Muscle aches?denies.?Painful joints?denies.?Sciatica?denies.?Weakness?denies.?Skin:?Itching?denies.?Rash?denies.?Skin lesion(s)?denies.?Neurologic:?Difficulty speaking?denies.?Dizziness?denies.?Headache?denies.?Low back pain?denies.?Psychiatric:?Depressed mood?denies.? * Medical History:?Irritable b owel syndrome, GERD (gastroesophageal reflux disease), History of torn meniscus of left knee, HNP (herniated nucleus pulposus), cervical, Chiari I malformation, Varicose veins of lower extremity, Peripheral venous insufficiency, FH: blood disorder, Venous insufficiency lower extremities. * Surgical History:?endovenous laser ablation lower extremity veins 2014, biopsy mass upper outer left breast, benign, , [facility] 08/2016, left breast lumopectomy by Dr Serna 06/26/2023, Colonoscopy Dr. Barraza 04/21/2024, No history . * Hospitalization/Major Diagno stic Procedure:?No history . * Family History:?Father: will sher 56 yrs, hypertension, diagnosed with HTN.?Mother: alive 56 yrs, SVT, Hyperthyroidism, [place], diagnosed with CVD.?Paternal Grand Father: 72 yrs, lung cancer, diagnosed with Cancer.?Maternal Grand Mother: alive, alzheimer.?1 sister(s) - healthy. 1 son(s) , 2 daughter(s) - healthy. .? There is no history of breast cancer on her mother's side. 2 of her father's sisters had breast cancer in the past in [place]. 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 * Medications:?Taking Cycloben zaprine HCl 10 MG Tablet 1 tablet Orally 3 times a day for neck pain and muscle spasm , Taking Linzess 145 MCG Capsule 1 capsule at least 30 minutes before the first meal of the day on an empty stomach Orally Once a day , Taking buPROPion HCl ER (SR) 100 MG Tablet Extended Release 12 Hour 1 tablet in the morning Orally Once a day , Taking Cyclobenzaprine HCl 10 MG Tablet 1 tablet at bedtime as needed Orally 3 times a day , Taking Wellbutrin SR 150 MG Tablet Extended Release 12 Hour 1 tablet in the morning Orally Once a day , Taking CoQ-10 , Taking Multivitamin Orally , Taking Fish Oil Capsule 1 capsule Orally Once a day , Taking Senna Laxative 8.6 MG Tablet 2 tablets at bedtime as needed Orally Once a day , Taking Flexeril , Taking Cyclobenzaprine HCl 10 MG Tablet as directed Orally three times a day , Taking dexAMETHasone 1 MG Tablet 1 tablet Orally twice a day , Medication List reviewed and reconciled with the patient * Allergies:?No Known Drug All ergy, Tramadol: nausea, vomiting, Trazodone: night terrors. Objective: * Vitals:? Assessment: Plan: * Treatment: * Images: * The named appointment provid er may or may not be the originator of this progress note, and it is not deemed complete until electronically signed by the appointment provider. Sign off status: Pending * Provider:?Seun Edwards MD Date:?08/27 Generated for Maria Luz fitzgerald/Tao/Manolo on:?10/08/2024 03:30 PM EST History and Physical Notes * HPI (History of Present Illness) Category Sub-Category Detail Notes Telehealth Location of [facility] rendering services:: {...} [address] [place] [address] [place] [address] Location of patient:: address listed in demographics [...]
== END 2024-10-08 14:07 | disposition home or self-care (01) ==
LOC: HO.LAB 14:06
PROVIDERS: PCP Internal Medicine Medical Oncology; Visit Provider Urology
DX: R39.15 Urgency of urination (principal); N39.3 Stress incontinence (female) (male)
CPT/HCPCS: 81001; 87086

== ENCOUNTER 2024-10-17 08:07 | Outpatient (AMB) | payer OTHER, SELFPAY ==
--- OUTSIDE RECORDS SUMMARY | 2024-10-17 08:12 | XMS_ITS ---
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 Provider Name:Seun Edwards, 04/24/2025 04:00:00 PM, [address] [place] [address], [address], Progress Notes * Pippa MARTINEZ ADOB:[birth year] (49 yo F)Acc No.[id number]:08/15/2024 Patient:?Pippa MARTINEZ Provider:?Seun Edwards MD :1975???Age:49 Y???Sex:Female D ate:08/15/2024 Address:[address] [place], [place] [id number] Subjective: * Chief Complaints: * ???Telehealth * HPI: ???:?Telehealth?Location of provider rendering services:?{...} [address] [facility] [address] ?Location of patient:?address listed in demographics for [...] mass upper outer left breast, benign, , [facility] 08/2016left breast lumopectomy by Dr Serna 06/26/2023olonoscopy Dr. Barraza 04/21/2024No history * Hospitalization/Major Diagno stic Procedure:?No history * Family History:?Father: will sher 56 yrs, hypertension, diagnosed with HTN.?Mother: alive 56 yrs, SVT, Hyperthyroidism, [place], diagnosed with CVD.?Paternal Grand Father: 72 yrs, lung cancer, diagnosed with Cancer.?Maternal Grand Mother: alive, alzheimer.?1 sister(s) - healthy. 1 son(s) , 2 daughter(s) - healthy. .? There is no history of breast cancer on her mother's side. 2 of her father's sisters had breast cancer in the past in [place]. * Social History:?Tobacco Use:?Tobacco Use/Smoking?Patient is a?nonsmoker [...] length today.??? Plan: * Treatment: * Procedure Codes:?14687 PHONE E/M BY PHYS 11-20 MIN * [...] MD Date:?07/28 Generated for Maria Luz fitzgerald/Tao/eTransmitting on:?10/17/2024 08:12 AM EST History and Physical Notes * HPI (History of Present Illness) Category Sub-Category Detail Notes [facility]...} [address] [facility] [address] Location of patient:: address listed in demographics [...]
--- OUTSIDE RECORDS SUMMARY | 2024-10-17 08:12 | XMS_ITS ---
Author Organization Seun Edwards III, MD Address [address] [place] [address] [place] [address] Care Team Providers Care Truck Cleaner Name Role Phone Seun Edwards Primary Care [...] Date Provider Diagnosis Seun Edwards III, MD [address] [place] [address] [address] [place] [address] 09/12/2024 Seun Edwards Plan Of Treatment Medication [...] Details Provider Name:Seun Edwards, 04/24/2025 04:00:00 PM, [address] [place] [address] [address], [place], [address], Progress Notes * Pippa MARTINEZ ADOB:[birth year] (49 yo F)Acc No.[id number]:09/12/2024 Patient:?Pippa MARTINEZ Provider:?Seun Edwards MD :1975???Age:49 Y???Sex:Female D ate:09/12/2024 Address:[address] [place], [id number] Subjective: * Chief Complaints: * ???1. Telehealth. * HPI: ???:?Telehealth?Location of provider rendering services:?{...} [address] [facility] [address] ?Location of patient:?address listed in demographics for [...] mass upper outer left breast, benign, , [facility] 08/2016, left breast lumopectomy by Dr Serna 06/26/2023, Colonoscopy Dr. Barraza 04/21/2024, No history . * Hospitalization/Major Diagno stic Procedure:?No history . * Family History:?Father: will sher 56 yrs, hypertension, diagnosed with HTN.?Mother: alive 56 yrs, SVT, Hyperthyroidism, CA, diagnosed with CVD.?Paternal Grand Father: 72 yrs, lung cancer, diagnosed with Cancer.?Maternal Grand Mother: alive, alzheimer.?1 sister(s) - healthy. 1 son(s) , 2 daughter(s) - healthy. .? There is no history of breast cancer on her mother's side. 2 of her father's sisters had breast cancer in the past in [place]. * Social History:?Tobacco Use:?Tobacco Use/Smoking?Patient is a?nonsmoker [...] MD Date:?08/27 Generated for Maria Luz fitzgerald/Tao/Manolo on:?10/17/2024 08:12 AM EST History and Physical Notes * HPI (History of Present Illness) Category Sub-Category Detail Notes Telehealth [facility]:: {...} [address] [place] [address] [place] [id number] Location of patient:: address listed in demographics [...]
--- OUTSIDE RECORDS SUMMARY | 2024-10-17 08:12 | XMS_ITS ---
Author Organization Seun Edwards III, MD Address [address] [place] [address] Care Team Providers Care Outdoor Emergency Care Technician Name Role Phone Seun Edwards Primary Care [...] Date Provider Diagnosis Seun Edwards III, MD [address] [place] [address] [place] [address] 09/16/2024 Seun Edwards Plan Of Treatment Medication Medication Name Sig Start Date Stop Date Notes Wellbutrin SR 150 MG 1 tablet Orally onc e a day in the afternoon for 30 days 10/05/2023 buPROPion HCl ER (SR) 100 MG 1 tablet in the morning Orally Once a day for 30 days 02/20/2024 Next Appt Details Provider Name:Seun Edwards, 04/24/2025 04:00:00 PM, [address] [place] [address] [place], [address], Progress Notes * Pippa MARTINEZ ADOB:[birth year] (49 yo F)Acc No.[id number]:09/16/2024 Patient:?Pippa MARTINEZ :1975???Age:49 Y???Sex:Female Address:[address] [place] [address] * Refills? Refill buPROPion HCl ER (SR) Tablet Extended Release 12 Hour, 100 MG, Orally, 30, 1 tablet in the morning, Once a day, 30 days, Refills=11 Refill Wellbutrin SR Tablet Extended Release 12 Hour, 150 MG, Orally, 30, 1 tablet, once a day in the afternoon, 30 days, Refills=11 * true * Date:? Generated for Maria Luz fitzgerald/Tao/Joseitting on:?10/17/2024 08:12 AM EST
--- OUTSIDE RECORDS SUMMARY | 2024-10-17 08:13 | XMS_ITS | Patient Health Record ---
Author Organization Seun Edwards III, MD Address [address] [place] [address] [place] [address] Care Team Providers Care Supervisor Beet End Name Role Phone Seun Edwards Primary Care Provider [phone] Allergies Allergen (clinical drug ingredient) Drug/Non Drug Allergy documented on EMR Reaction Allergy Type Onset Date Status No Known Drug Allergy Unknown Drug Allergy Active trazodone Trazodone night terrors Drug Allergy Act montse tramadol Tramadol nausea, vomiting Drug Allergy Active Results Component Value Reference Range Notes US abdomen complete Reviewed date:04/21/2024 12:03:49 PM Interpretation: Performing Lab: Notes/Report: [address] [address] Ultrasound Report Signed Patient: Pippa Packer MR#: [id number] : 1975 Acct:[id number] Age/Sex: 48 / F ADM Date: 03/11/24 Loc: HO.US Attending Dr: Seun Edwards MD Ordering Physician: Seun Edwards MD Date of Service: 03/11/24 Procedure(s): US abdomen complete Accession Number(s): [id number] cc: Seun Edwards MD EXAMINATION: US ABDOMEN [...] in OV> 03/11/24 1023 DD/ 0924 TD/TT: Fur Ironer: [place] [address] Ultrasound Report Signed Patient: Jong Packer MR#: [id number] : 1975 Acct:[id number] Age/Sex: 48 / F ADM Date: 03/11/24 Loc: HO.US Attending Dr: Seun Edwards MD Ordering Physician: Seun Edwards MD Date of Service: 03/11/24 Procedure(s): US abd omen complete Accession Number(s): [id number] cc: Seun Edwards MD EXAMINATION: US ABDOMEN COMPLETE CLINICAL INFORMATION: 28-year-old female w ith abdominal pain. COMPARISON: CT abdomen from 09/27 and ultrasound from 08/12/2013 TECHNIQUE: Real-time imaging [...] abdomen complete IMPRESSION: Normal study. Dictated By: Andrés Carballo MD Signed By: <Mumtaz santana signed by Geovanny Carballo MD in OV> 03/11/24 1023 DD/ 0924 TD/TT: Fur Ironer: Ur Preg Test Reviewed date:04/21/2024 12:03:49 PM Interpretation: Performing Lab:[facility], [address] [place] [phone] Notes/Report: Urine NEGATIVE NEGATIVE This test was developed to detect early . False negative results may occur after the 5th - 7th week of when using this test method. If clinically indicated, consider a serum hCG. Pathology Reviewed date:04/23/2024 11:10:52 AM Interpretation: Performing Lab:[facility], [address] [place] [address] Notes/Report: ------ Name: Nico Packer constance Moore Age/Sex: 48/F : 1975 Unit#: [id number] Attend Dr: Abraham Barraza MD Re04/21/24 Status : [facility] Location: [facility] Disch: ------ SPEC : [id number] RECD : 04/21/24 STATUS: KATJA LOPEZ NUM: [id number] DARSHAN: 04/21/[address] [facility] [address]: Abraham Barraza MD ENTERED: 04/21/24- 37 SP TYPE: Surgical OTHR DR: Seun [...] History Pre-Op Dx: Screening Post-Op Dx: Colon po lyps, melanosis coli Microscopic Description A-D. Microscopic sec tions reviewed. Material Received A. Ascending colon polyp B. Right colon bx's, r/o melanosis coli C. Sigmoid polyp D. Rectal polyp Gross Description Received in 4 parts. A. Received in forma cristal labeled ?ascending colon polyp? is a fragment of pink white soft tissue measuring 0.4 cm in greatest dimension which is wrapped in lens paper and entirely submitted for micros copic examination, 1 piece in cassette A. B. Received in forma cristal labeled ?right colon biopsies, R/O melanosis coli? are 2 fragments of pink white soft t issue measuring 0.3 and 0.3 cm in greatest dimension which are wrapped in lens paper and en tirely submitted for microscopic examination, 2 pieces in cassette B. C. Received in forma cristal labeled ?sigmoid polyp? are 2 fragments of translucent, loew-white soft tissue measurin g 0.4 and 0.5 cm in greatest dimension which are wrapped in lens paper and entirely submitt ed for microscopic examination, 2 pieces in cassette C. CONTINUED ON NEXT PAGE ------ Name: Nico Packer Age/Sex: 48/F : 1975 Unit#: [id number] Attend Dr: Abraham Barraza MD Re04/21/24 Status : [facility] Location: [facility] Disch: ------ SPEC : [id number] RECD : 04/21/24 STATUS: KATJA LOPEZ NUM: [id number] DARSHAN: 04/21/[address] [facility] [address]: Abraham Barraza MD ENTERED: 04/21/24- 37 SP TYPE: Surgical OTHR DR: Seun Edwards MD ORDERED: HE Stain/12 , Gross Micro L4/4 Gross Description (Continued) D. Received in forma cristal labeled ?rectal polyp? is a fragment of translucent, lowe-white soft tissue measuring 0.5 cm in greatest dimension which is wrapped in lens paper and entirely submitted for micros copic examination, 1 piece in cassette D. [facility] Copies To: Seun Edwards MD [address] [facility], [address] [place] [address] Abraham Barraza MD [facility] [address] [place] [address] ------ Signed (signature on file) Scooter Knott MD 04/22/24 1210 ------ END OF REPORT Urinalysis and Microscopic ( Not yet reviewed by provider) Interpretation: Performing Lab:[facility], [address] [place] [phone] Notes/Report: Color Urine Yellow Appearance Urine Clear PH 6.5 5.0-9.0 Glucose Urine UA Negative Negative mg/dL Urine Blood Negative Negative Specific [place] - Urine <= 1.005 1.005-1.025 Urine Protein Negative Neg-Trace mg/dL Urine Ketones Negative Negative mg/dL Nitrite Urine Negative Negative Leukocyte Esterase Urine Small (1+) Negative RBC Urine 0-2 0-2 /HPF WBC Urine 0-5 0-5 /HPF Squamous Epithelial Cell Urine 0-2 0-2 /HPF Bacteria Urine None Seen None Seen Hyaline Casts Urine 0-2 0-2 /LPF Urine Culture (Not yet revie wed by provider) Interpretation: Performing Lab:[facility], [address] [place] [phone] Notes/Report: Urine Culture Report Result Urine Culture 50,000 to 100,000 cfu/ml Urine Culture Mixed bacterial luis a characteristic of Urine Culture urogenital contamination. Reason For Referral Reason Consult and Treat Ph ysical Therapy Injections Diagnosis 1 Buttock pain (M79.18 ) Referral Organization Seun Edwards III, MD Referring Provider First Name Seun Referring Provider Last Name Edwards Referring Provider Speciality Internal edicine Referred Provider [facility] Referred Provider Specialty Physical Med icine General Notes Rachel Cohen 2023 09:10:56 AM EDT > Faxed with referral and progress note. , Rachel Cohen 03/06/2024 11:52:15 AM EDT > Patient had an appointment and canceled. Referral Priority Routine Referral Appointment Date 03/03/2024 Reason Consult and Treat In continence Incomplete Bladder Emptying Diagnosis 1 Unspecified urinary incontinence (R32) Referral Organization Seun Edwards III, MD Referring Provider First Name Seun Referring Provider Last Name Edwards Referring Provider Speciality Internal edicine Referred Provider Panchito Rodriguez ( [place]) Referred Provider Specialty Urology General Notes Racehl Cohen 2023 03:24:22 PM EDT > Referral Faxed with Progress Note Referral Priority Routine Referral Appointment Date 05/06/2024 Reason Consult and Treat Chiari Syndrome with Worsening pain Diagnosis 1 Chiari I malformatio n (G93.5) Referral Organization Seun Edwards III, MD Referring Provider First Name Seun Referring Provider Last Name Edwards Referring Provider [facility] Internal edicine Referred Provider THALIA ISLAS Referred Provider [...] First Name Seun Referring Provider Last Name Edwards [facility] Referred Provider [facility], Pain Management Referred Provider Specialty Pain Medicin e General Notes Rachel Cohen 2023 03:03:44 PM EDT > Faxed referral and progress note. Referral Priority Routine Referral Appointment Date 05/30/2024 Medications Medication SIG (Take, Route, Frequency, Duration) Notes Start Date End Date Status Cyclobenzaprine HCl 10 MG 1 tablet at be dtime as needed Orally 3 times a day 02/20/2024 Active Wellbutrin SR 150 MG 1 tablet Orally onc e a day in the afternoon for 30 days 10/05/2023 Active Cyclobenzaprine HCl 10 MG 1 tablet Orall y 3 times a day for neck pain and muscle spasm 08/02/2024 Active dexAMETHasone 1 MG 1 tablet Orally twic e a day 07/31/2024 Active buPROPion HCl ER (SR) 100 MG 1 tablet in the morning Orally Once a day for 30 days 02/20/2024 Active Linzess 145 MCG 1 capsule at least 3 0 minutes before the first meal of the day on an empty stomach Orally Once a day 03/07/2024 Active Flexeril Active Cyclobenzaprine HCl 10 MG as directed Or ally three times a day 05/13/2024 Active Fish Oil 1 capsule Orally Onc e a day Active Senna Laxative 8.6 MG 2 tablets at bedti me as needed Orally Once a day Active CoQ-10 Active Multivitamin Orally Active Immunizations Vaccine Route Administration Date Status [...] Status W/U Status Risk Notes Problem Headache (35053733) Headache (R51) Active confirmed Her headac hes originate in the Chiari malformation. They have worsened lately. She has been referred back to neurosurgery for opinion and to pain management to consider analgesic procedures. Problem Syringomyelia and syringobulbia (308210038) Syringomyelia and syringobulbia (G95.0) Active confirmed She is going to have the neurostimulator. Her neurosurgeon has agreed to do a laminectomy of all else fails. Problem Gastro-esophagea l reflux disease without esophagitis (980152895) Gastro-esophage al reflux disease without esophagitis (K21.9) Active confirmed Her reflux is somewhat aggravated by the but she is finding it tolerable. Problem Displacement of cervical intervertebral disc without myelopathy (48285627) Other cervical disc displacement, unspecified cervical region (M50.20) Active confirmed The discomfort is much improved. We're waiting for the MRI report. Problem 960679502 Chiari I malformation (G93.5) Active confirmed The pain has worsened lately. She has seen her neurosurgeon, Dr. Islas, Who has offered to do a cervical laminectomy. She is uncertain about this and has declined that procedure so far. The pain management service has recommended a neurostimulator and she has an appointment to have a temporary wire inserted. Problem 753352407 Insomnia (G47.00) Active confirmed She has chronic difficulty sleeping, but lately has been doing well. No change in the pattern of her sleep has been noted lately. Problem History of irritable bowel syndrome (66563523958706) History of IBS (Z87.19) Active confirmed His abdominal pain is resolved at this time. She is quite comfortable in her daily life. Problem Venous insufficiency of leg (disorder) (511997211) Venous insufficiency (I87.2) Active confirmed An endovascular procedure to relieve the discomfort is being planned. Problem Irritable bowel syndrome (38280795) Other irritable bowel syndrome (K58.8) Active confirmed She occasionall y has abdominal discomfort from the IBS but this is become a minor problem in daily life. Problem 281504730 Chronic constipation (K59.09) Active confirmed She is doing well with the linzess. Problem 975430054 Recent weight loss (R63.4) Active confirmed One [...] 88 mm Hg 07/31/2024 Height 63 in 08/15/2024 Blood pressure systolic 112 mm Hg 07/31/2024 Weight 109 lbs 08/15/2024 BMI 19.31 kg/m2 08/15/2024 Encounters Encounter Location Date Provider Diagnosis Seun Edwards III, MD [address] [place] [address] [place] [id number] 10/17/2023 Seun Edwards Headache R51 ; Insom vincent G47.00 ; History of IBS Z87.19 ; Venous insufficiency I87.2 ; Gastro-esophageal reflux disease without esophagitis K21.9 ; 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 and 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 Seun Edwards III, MD [address] [place] [address] [place] [id number] 11/16/2023 Seun Edwards Headache R51 ; Insom vincent G47.00 ; History of IBS Z87.19 ; Gastro-esophageal reflux disease without esophagitis K21.9 and 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 Seun Edwards III, MD [address] [place] [address] [place] [address] 01/11/2024 Seun Edwards Headache R51 ; Piriformis muscle pain M79.18 ; Gastro-esophageal reflux disease without esophagitis K21.9 ; 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 and 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 Seun Edwards III, MD [address] [place] [address] [place] [address] 01/29/2024 Seun Edwards Headache R51 ; Weigh t loss R63.4 ; Hypertension I10 ; Gastro-esophageal reflux disease without esophagitis K21.9 ; Other irritable bowel syndrome K58.8 and 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 Seun Edwards III, MD [address] [place] [address] [place] [address] 03/07/2024 Seun Edwards Headache R51 ; Abdominal pain R10.9 ; Insomnia G47.00 ; History of IBS Z87.19 ; Other irritable bowel syndrome K58.8 ; Gastro-esophageal reflux disease without esophagitis K21.9 ; 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 and 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 Seun Edwards III, MD [address] [place] [address] [place] [address] 04/22/2024 Seun Edwards Headache R51 ; Chiar i I malformation G93.5 ; 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 ; Gastro-esophageal reflux disease without esophagitis K21.9 ; Insomnia G47.00 ; History of IBS Z87.19 ; Chronic constipation K59.09 and Recent weight loss R63.4 Seun Edwards III, MD [address] [place] [address] [place] [address] 07/31/2024 Seun Edwards Chiari I malformatio n G93.5 ; 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 ; Gastro-esophageal reflux disease without esophagitis K21.9 ; Other irritable bowel syndrome K58.8 ; Insomnia G47.00 ; Chronic constipation K59.09 and Underweight R63.6 Seun Edwards III, MD [address] [place] [address] [place] [address] 08/15/2024 Seun Edwards 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 ; 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 ; Insomnia G47.00 ; Headache R51 ; Gastro-esophageal reflux disease without esophagitis K21.9 and Weight loss R63.4 Seun Edwards III, MD [address] [place] [address] [place] [address] 02/04/2024 Seun Edwards Chest pain R07.9 Seun Edwards III, MD [address] [place] [address] [place] [address] 02/20/2024 Seun Edwards III, MD [address] [place] [address] [place] [address] 02/20/2024 Seun Edwards III, MD [address] [place] [address] [place] [address] 03/26/2024 Seun Edwards Headache R51 Seun Ewdards III, MD [address] [place] [address] [place] [address] 05/13/2024 Seun Edwards Headache R51 Seun Edwards III, MD [address] [place] [address] [place] [address] 08/02/2024 Seun Edwards III, MD [address] [place] [address] [place] [address] 09/16/2024 Seun Edwards Assessments Encounter Date Diagnosis (ICD Code) Assessment Notes Treatment Notes Treatment Clinical Notes 10/17/2023 Headache (ICD-10 - R51) She continues [...] have suggested that when she sees the pcu rn in the near future she suggested an [...] to have a temporary wire inserted. 08/15/2024 Syringomyelia and syringobulbia (ICD-10 - G95.0) [...] to pain management to consider analgesic procedures. 10/17/2023 History of IBS (ICD-10 - Z87.19) [...] but she is finding it tolerable. 08/15/2024 Insomnia (ICD-10 - G47.00) She has chronic difficulty sleeping, but lately has been doing well. No change in the pattern of her sleep has been noted lately. 02/04/2024 Chest pain (ICD-10 - R07.9) 10/17/2023 Venous insufficiency (ICD-10 - I87.2) An [...] become a minor problem in daily life. 08/15/2024 Headache (ICD-10 - R51) Her headaches originate in the Chiari malformation. They have worsened lately. She has been referred back to neurosurgery for opinion and to pain management to consider analgesic procedures. 10/17/2023 Gastro-esophageal reflux disease without esophagitis (ICD-10 [...] her sleep has been noted lately. 08/15/2024 Gastro-esophageal reflux disease without esophagitis (ICD-10 - K21.9) Her reflux is somewhat aggravated by the but she is finding it tolerable. 10/17/2023 Chiari I malformation (ICD-10 - G93.5) [...] She is doing well with the linzess. 08/15/2024 Weight loss (ICD-10 - R63.4) Her weight is stable with a body mass index of 19. We discussed nutrition at length today. 10/17/2023 Syringomyelia and syringobulbia (ICD-10 - G95.0) [...] to consume 3 nourishing meals a day. 03/07/2024 Syringomyelia and syringobulbia (ICD-10 - G95.0) [...] She will consume 3 meals a day. 02/20/2024 Other CancelRx Response got Denied on [...] CBC WITH AUTO DIFF 01/29/2024 COLOGUARD 08/08/2023 Urinalysis and Microscopic 10/08/2024 Lipid Panel 01/29/2024 Lipid Panel 08/08/2023 Vitamin D 25-OH Total 06/01/2023 Thyroid Peroxidase Antibodies 06/21/2022 Urine Culture 10/08/2024 Hemoglobin A1c 08/08/2023 Hemoglobin A1c 01/29/2024 ECG 7 day holter monitor 01/29/2024 ECG 7 day holter monitor 02/04/2024 Next Appt Details Provider Name:Seun Edwards, 04/24/2025 04:00:00 PM, [address] [place] [address] , [address], [place], [address], Insurance Providers Payer Name Payer Address Payer Phone Subscriber Number Group Number Insured Name Patient Relationship to Insured Coverage Start Date Coverage End Date [employer] [address] [address] [place] [address] [phone] [id number] Pippa Packer Self - patient is the insured Medical [...] insufficiency lower extremities Surgical History Surgery Date(Month/Year) No history Colonoscopy Dr. Barraza 04/21/2024 left breast lumopectomy by Dr Serna 1 biopsy mass upper outer left breast, benign, , [facility] 08/2016 endovenous laser ablation lower extremit y veins 2014 Hospitalization History Reason Date(Month/Year) No history
--- NOTE | 2024-10-17 08:41 | MHC.OFFVIS ---
Intake Visit Reasons: Urodynamics Allergies trazodone Adverse Reaction (Unknown, Verified 07/11/24 09:49) insomnia, nightmares tramadol Adverse Reaction (Verified 07/11/24 09:49) Nausea and Vomiting Medication List - Last Reconciled 10/17/24 by James Tapia MD bupropion HCl SR 100 mg PO BID coenzyme Q10 (Co Q-10) mg PO DAILY multivitamin 1 tab PO DAILY omega 2-ggl-qle-fish oil 60-90-500 mg (Fish Oil) 1 cap PO DAILY phenazopyridine (Pyridium) 200 mg PO BID PRN HPI Comments Details: 10/17/24--Pippa is here for urodynamics. The patient has complaints of urinary incontinence associated with sneezing and exercising. C/o's of some urge symptoms. Interpretation: Uroflow parameters were within normal limits. During the filling phase there was normal sensation, strong desire was noted at 352 mL. The patient felt that she was at capacity at 400 mL. Leakage was observed during cough and valsalva stress. Findings consistent with ISD as primary cause of urinary leakage symptoms. EMG- Appropriate changes in the waveforms were noted through out the study. I have discussed sling procedures and bulking agents for treatment of JOSH. I have discussed the risks of bulking injection to the proximal urethra to include but not limited to urine retention requiring a penny catheter, need to repeat the procedure, hematuria, and urgency. Plan Bulkamid. 15 minutes spent in review of records pertaining to this visit and including yhok-ye-ophy discussion with the patient regarding therapies risks and limitations, the patient has a h/o Chiari malformation and states that she has noted some symptoms of needing to push while voiding. I have discussed that in the future this may contribute to voiding dysfunction. 08/03/24--seen by Dr. Rodriguez 05/06/2024 who discussed Kegel exercises and vaginal weights and she is here for follow-up to evaluate improvement in symptoms and discuss other options as needed. Pippa states that she did order the vaginal weight is but was not able to even hold the 1st weight. She complains of leakage associated with activities including exercising in the morning as well as she sometimes gets a strong urge and will feel a sensation of bladder pressure. Discussed that there are many therapies for treatment of urinary incontinence based on etiology bladder spasms versus pelvic floor weakness and sometimes there is mixed picture. Starting conservatively with pelvic floor physical therapy, is recommended, I will schedule urodynamics for further evaluation. Review of diagnostics: Abd us 03/11/24- no acute finding, kidneys within normal limits. [facility] Medical History (Updated 10/17/24 @ 10:26 by James Tapia MD) Depression Uterine polyp Venous insufficiency of both lower extremities Peripheral venous insufficiency Varicose vein of leg 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, cervical History of torn meniscus of left knee IBS (irritable bowel syndrome) GERD (gastroesophageal reflux disease) Surgical History History of surgery on lower extremity (06/25/23) History of lumpectomy of left breast (06/25/23) History of cervical discectomy (~2010) H/O left breast biopsy (~08/2016) Family History Maternal Aunt History of lung cancer Paternal Aunt History of breast cancer Paternal Grandfather History of lung cancer Social History Alcohol intake: current Alcohol intake frequency: holidays/special occasions only Alcohol type: wine Patient Tobacco Use Status: Never used Tobacco Review of Systems Const All systems reviewed & are unremarkable except as noted in HPI and below Reports no additional complaints Eyes Reports no additional complaints ENT Reports no additional complaints Card Reports no additional complaints Resp Reports no additional complaints GI Reports no additional complaints Reports as per HPI Musc Reports no additional complaints Skin/Breast Reports system reviewed and no additional complaints, except as documented Neuro Reports no additional complaints Psych Reports no additional complaints Endo Reports no additional complaints Humberto/Lymph Reports no additional complaints Aller/Immun Reports no additional complaints Office Procedures Urodynamic Studies Consent Discussed risk and benefit or proposed procedure with the patient. Information consent for procedure given to the patient. Discussed technical aspects, risks, benefits and alternatives in full. Addressed all of the patient's questions and concerns regarding the procedure. The patient demonstrated knowledge and understanding. They wish to proceed with this procedure. Preparation The patient was prepped in the usual manner. A montessori paraprofessional was present and in the room. Genitalia was prepped with betadine solution in a sterile manner. Procedure Complex Uroflow Complex uroflow performed by: James Tapia Maximum urinary flow rate (mL/second): 18 Voiding time (seconds): 21 Voided volume (mL): 128 Residual urine (mL): 0 Cystometrogram Vaginal/rectal catheter type: vaginal First sensation at (mL): 46 mL First desire at (mL): 70 mL Strong desire to void occured at (mL): 352 mL Strong desire detrussor pressure (cm H2O): 1.8(-) Maximum fill (mL): 400 mL Voided with max detrussor pressure of (cm H2O): 7.2 Maximum flow rate (mL/second): 13 mL/s Prep: The patient was prepped in the usual manner. A montessori paraprofessional was present and in the room. Genitalia was prepped with betadine solution in a sterile manner. 17627-Jbvcwswjdqvrmq w/ ENGRAVER HAND HARD METALS 28643-Rdkexcf-Nihrghrzimfd 09304-Wggi/Urinary Muscle Study 22003-Hhlup-Ipyzyodle Pressure Test Procedure code (CPT) selection complete Office Meds nitrofurantoin monohydrate/macrocrystals 100 mg capsule Performing Provider: James Tapia MD Performing [facility] [place] Administered by: Jan Lugo LPN on 10/17/24 08:41 Dose Route Admin Location Dispensed Lot Number Expiration Date NDC Plant Maintenance Manager 100 mg PO 1 cap Assessment & Plan Assessment & Plan (1) Chiari I malformation: Code(s): G93.5 - Compression of brain Category: Medical (2) Intrinsic sphincter deficiency (ISD): Code(s): N36.42 - Intrinsic sphincter deficiency (ISD) Category: Medical (3) SHERLEY (stress urinary incontinence, female): Code(s): N39.3 - Stress incontinence (female) (male) Category: Medical Plan pyridium prn urinary burning, Schedule Bulkamid Orders: Orders AMB Urodynamics Studies Today R32 - Unspecified urinary incontinence, R39.15 - Urgency of urination, R39.89 - Other symptoms and signs involving the genitourinary system Medications: New phenazopyridine (Pyridium) 200 mg PO BID PRN 8 tabs 0RF urinary burning Patient Instructions: The patient had an opportunity to ask questions regarding treatment plan. The patient expressed understanding and agreement with the above treatment plan. The patient is aware they should contact our office by phone for worsening of their current condition or the appearance of new symptoms. Compliance is encouraged with any medications and followup testing that is ordered. It is a privilege to be allowed the opportunity to participate in the urologic care of your patient. If you have any questions or concerns regarding treatment for the above conditions please do not hesitate to contact me. The office telephone contact is [phone]. This note is constructed in part using voice recognition software. While every effort has been made to ensure accuracy fishing tackle repairer errors may have been included. Yours sincerely, James Tapia MD Coding Level of Care Code Est Pt Level 4 (78569) Diagnoses 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 Intrinsic sphincter deficiency (ISD) N36.42 SHERLEY (stress urinary incontinence, female) N39.3 CPT Codes Urodynamic Studies - CPT: 40982-Fbgqnozozbkpyn w/ ENGRAVER HAND HARD METALS ([id number]) Urodynamic Studies - CPT: 13051-Oxtjbqf-Qzexntwkhueo ([id number]) Urodynamic Studies - CPT: 08360-Lktq/Urinary Muscle Study ([id number]) Urodynamic Studies - CPT: 66734-Nlaiv-Vatxdvoyr Pressure Test ([id number])
== END 2024-10-17 09:51 | disposition home or self-care (01) ==
PROVIDERS: PCP Internal Medicine Medical Oncology; Visit Provider Urology
DX: R39.15 Urgency of urination (principal); N39.3 Stress incontinence (female) (male); R39.89 Other symptoms and signs involving the genitourinary system; G93.5 Compression of brain; N36.42 Intrinsic sphincter deficiency (ISD)
CPT/HCPCS: 51728; 51741; 51784; 51797; 99214

== ENCOUNTER → 2024-10-17 08:07 | Outpatient (BNVA) | payer OTHER, SELFPAY | PROVIDERS: PCP Internal Medicine Medical Oncology; Visit Provider Urology | DX: N36.42 Intrinsic sphincter deficiency (ISD) (principal); N39.3 Stress incontinence (female) (male); G93.5 Compression of brain | CPT/HCPCS: 51728; 51741; 51784; 51797 ==

== ENCOUNTER 2024-12-09 11:12 | Day surgery (SDC) | payer OTHER, SELFPAY ==
--- OUTSIDE RECORDS SUMMARY | 2024-11-03 16:01 | XMS_ITS ---
Author Organization Seun Edwards III, MD Address [address] [place] [address] [place] [address] Care Team Providers Care Concrete Pipe Maker Name Role Phone Seun Edwards Primary Care [...] Provider Diagnosis Seun Edwards III, MD [address] [place] [address] [address] [place] [address] 09/12/2024 Seun Edwards Plan Of Treatment Medication [...] Provider Name:Seun Edwards, 04/24/2025 04:00:00 PM, [address] [place] [address] [address], [place], [address], Progress Notes * Pippa MARTINEZ ADOB:[birth year] (49 yo F)Acc No.[id number]:09/12/2024 Patient:?Pippa MARTINEZ Provider:?Seun Edwards MD :1975???Age:49 Y???Sex:Female D ate:09/12/2024 Address:[address] [place], [place] XO-[phone] Subjective: * Chief Complaints: * ???1. Telehealth. * HPI: ???:?Telehealth?Location of provider rendering services:?{...} [address] [facility] [address] ?Location of patient:?address listed in demographics for [...] mass upper outer left breast, benign, , [facility] 08/2016, left breast lumopectomy by Dr Serna [...] had breast cancer in the past in [place]. * Social History:?Tobacco Use:?Tobacco Use/Smoking?Patient is a?nonsmoker [...] MD Date:?08/27 Generated for Maria Luz fitzgerald/Tao/Manolo on:?11/03/2024 04:01 PM EDT History and Physical Notes * HPI (History of Present Illness) Category Sub-Category Detail Notes Telehealth Location of [facility] rendering services:: {...} [address] [place] [address] [place] [address] Location of patient:: address listed in demographics [...]
--- OUTSIDE RECORDS SUMMARY | 2024-11-03 16:01 | XMS_ITS ---
Author Organization Seun Edwards III, MD Address [address] [place] [address] Care Team Providers Care Driver Trainee Name Role Phone Seun Edwards Primary Care [...] Date Provider Diagnosis Seun Edwards III, MD [address] [place] [address] [place] [address] 09/16/2024 Seun Edwards Plan Of Treatment Medication Medication Name Sig Start Date Stop Date Notes Wellbutrin SR 150 MG 1 tablet Orally onc e a day in the afternoon for 30 days 10/05/2023 buPROPion HCl ER (SR) 100 MG 1 tablet in the morning Orally Once a day for 30 days 02/20/2024 Next Appt Details Provider Name:Seun Edwards, 04/24/2025 04:00:00 PM, [address] [place] [address] [place], [address], Progress Notes * Pippa MARTINEZ ADOB:[birth year] (49 yo F)Acc No.[id number]:09/16/2024 Patient:?Pippa MARTINEZ :1975???Age:49 Y???Sex:Female Address:[address] [place] [address] * Refills? Refill buPROPion HCl ER (SR) Tablet Extended Release 12 Hour, 100 MG, Orally, 30, 1 tablet in the morning, Once a day, 30 days, Refills=11 Refill Wellbutrin SR Tablet Extended Release 12 Hour, 150 MG, Orally, 30, 1 tablet, once a day in the afternoon, 30 days, Refills=11 * true * Date:? Generated for Maria Luz fitzgerald/Tao/Joseitting on:?11/03/2024 04:01 PM EDT
--- OUTSIDE RECORDS SUMMARY | 2024-11-03 16:02 | XMS_ITS ---
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 Provider Name:Seun Edwards, 04/24/2025 04:00:00 PM, [address] [place] [address], [address], Progress Notes * Pippa MARTINEZ ADOB:[birth year] (49 yo F)Acc No.[id number]:08/15/2024 Patient:?Pippa MARTINEZ Provider:?Seun Edwards MD :1975???Age:49 Y???Sex:Female D ate:08/15/2024 Address:[address] [place], [place] [address] Subjective: * Chief Complaints: * ???Telehealth * HPI: ???:?Telehealth?Location of provider rendering services:?{...} [address] [facility] [address] ?Location of patient:?address listed in demographics for [...] mass upper outer left breast, benign, , [facility] 08/2016left breast lumopectomy by Dr Serna 06/26/2023olonoscopy Dr. Barraza 04/21/2024No history * Hospitalization/Major Diagno stic Procedure:?No history * Family History:?Father: will sher 56 yrs, hypertension, diagnosed with HTN.?Mother: alive 56 yrs, SVT, Hyperthyroidism, ID, diagnosed with CVD.?Paternal Grand Father: 72 yrs, lung cancer, diagnosed with Cancer.?Maternal Grand Mother: alive, alzheimer.?1 sister(s) - healthy. 1 son(s) , 2 daughter(s) - healthy. .? There is no history of breast cancer on her mother's side. 2 of her father's sisters had breast cancer in the past in [place]. * Social History:?Tobacco Use:?Tobacco Use/Smoking?Patient is a?nonsmoker [...] length today.??? Plan: * Treatment: * Procedure Codes:?56594 PHONE E/M BY PHYS 11-20 MIN * [...] MD Date:?07/28 Generated for Maria Luz fitzgerald/Tao/eTransmitting on:?11/03/2024 04:01 PM EDT History and Physical Notes * HPI (History of Present Illness) Category Sub-Category Detail Notes Telehealth Location of [facility] ider rendering services:: {...} [address] [facility] [address] Location of patient:: address listed in demographics [...]
[2024-12-09 11:41] VITALS: BP 140/89; PULSE 89; RESP 18; TEMP 36.9; O2SAT 98
[2024-12-09 11:57] VITALS: BMI 18.9
[2024-12-09 12:07] LABS: UPreg QC Valid YES; Urine Pregnancy NEGATIVE (NEGATIVE)
--- NOTE | 2024-12-09 12:46 | P.CONAN_ITS ---
HPI - Anesthesia Eval Consult details Narrative: For cysto, Bulkamid PMFSH Active Problems Active Problems: All Active Problems SHERLEY (stress urinary incontinence, female) (Acute) Intrinsic sphincter deficiency (ISD) (Acute) Urinary urgency (Acute) Sensation of pressure in bladder area (Acute) Urinary incontinence (Acute) Chronic neck pain (Acute) Cervical spondylosis (Acute) Cervical radiculitis (Acute) Postlaminectomy syndrome of cervical region (Acute) Stress incontinence (Acute) Nevus of left lower leg (Acute) Left breast mass (Acute) Chiari I malformation (Acute) Past Medical History Medical History (Updated 12/05/24 @ 08:41 by Gina Jacobsen, RN) PONV (postoperative nausea and vomiting) Depression Uterine polyp Venous insufficiency of both lower extremities Peripheral venous insufficiency Varicose vein of leg 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, cervical History of torn meniscus of left knee IBS (irritable bowel syndrome) GERD (gastroesophageal reflux disease) Patient : No Family History Family History Maternal Aunt History of lung cancer Paternal Aunt History of breast cancer Paternal Grandfather History of lung cancer Family history of problems with anesthesia: No Surgical History Surgical History (Updated 12/05/24 @ 08:29 by Gina Jacobsen RN) H/O colonoscopy History of surgery on lower extremity (06/25/23) History of lumpectomy of left breast (06/25/23) History of cervical discectomy (~2010) H/O left breast biopsy (~08/2016) History of Problems with Anesthesia: Yes (PONV) Social History Social History Are you a primary college and career counselor to a significant other at home: No Do you presently have visiting nurse or other home services: No Alcohol intake: current Alcohol intake frequency: holidays/special occasions only Alcohol type: wine Patient Tobacco Use Status: Never used Tobacco Meds Allergies Allergy/AdvReac Type Severity Reaction Status Date / Time trazodone AdvReac Unknown insomnia, Verified 07/11/24 09:49 nightmares tramadol AdvReac Nausea and Verified 07/11/24 09:49 Vomiting Home Medications ?Medication ?Instructions ?Recorded ?Confirmed ?Last Taken ?Type bupropion HCl 100 mg tablet,12 hr 100 mg PO BID 08/24/20 12/05/24 12/09/24 Histo ry sustained-release multivitamin 1 tab PO DAILY 06/21/23 12/05/24 12/08/24 History Lactobacillus acidophilus 10 10,000 mmu cells PO DAILY 12/05/24 12/05/24 12/08/24 History billion cell capsule (Probiotic) cyclobenzaprine 10 mg tablet 10 mg PO BEDTIME 12/05/24 12/05/24 12/08/24 History linaclotide 145 mcg capsule 145 mcg PO DAILY PRN 12/05/24 12/05/24 12/07/24 History (Linzess) Gastrointestinal Spasms Or Cramping famotidine 20 mg tablet (Pepcid) 20 mg PO DAILY 12/09/24 12/09/24 12/08/24 History Exam Height,Weight and Vital Signs: Height 5 ft 4 in Weight 49.895 kg Last Vital Signs Temp 98.5 F 12/09/24 11:41 Pulse 89 12/09/24 11:41 Resp 18 12/09/24 11:41 BP 140/89 H 12/09/24 11:41 Pulse Ox 98 12/09/24 11:41 O2 Del Method Room Air 12/09/24 11:41 Pertinent Lab Results Pertinent Lab Results: Laboratory Tests 12/09/24 11:39 Urine Test NEGATIVE Airway Mallampati Class: I TM Dist: >3cm Neck ROM: Full Loose/Missing/Broken Teeth: No Heart: ok Lungs: ok Assessment and Plan Assessment Anesthesia Assessment: Anesthesia Plan Discussed and Chart Reviewed Final Anesthetic Review Family History of Problems with Anesthesia: No History of Problems with Anesthesia: Yes (PONV) NPO: Yes ASA Class: II Final Preanesthetic Review: No Changes in Pt Med Stat, Meds/Allgs Chart Reviewed, Consent Obtained/Reviewed and Anes Risks/Benef Reviewed Patient Risk: Intermediate Procedure Risk: Low Anesthetic Plan Anesthetic Plan: GA and Agree w/ Assess. and Plan Disposition: Standard PACU
--- NOTE | 2024-12-09 13:17 | W.PM.OPN ---
Operative Note Operative Note Date of Service: 12/09/24 Narrative: Preop diagnosis: Intrinsic sphincter deficiency Postop diagnosis: Intrinsic sphincter deficiency Procedure: Cystoscopy urethral bulking with bulkamid system at the proximal urethra Surgeon: Dr. James Tapia Details of procedure: The patient was brought into the operating room placed on the OR table in supine position IV sedation was administered. Antibiotics confirmed. The patient was placed in lithotomy position prepped and draped in the usual sterile fashion. Safety time-out was done. A 14 Albanian straight catheter was used to send urine for culture. 2% lidocaine jelly was inserted transurethrally [address] 22 fr cystoscope met with resistance, Nelly coronado used 18 fr to 24 fr. Using the 0 degree 11 cm cystoscope with the light cord in the 6 o'clock position, the bladder was filled with sterile water to 150 mL the bladder was visualized. With the sheath at the 5 o'clock position the needle was inserted to the 1 cm gerson and 0.5 mL of gel was injected there was good bulking noted. This was repeated on the 7 o'clock position. The 2nd needle was inserted into the sheath and an injection was done at the 2 o'clock position and again at the 11 o'clock position. There was bulking of the mucosa noted with good coaptation. The patient tolerated the procedure and was taken to recovery in stable condition. Complication: none EBL: minimal (<5 mL) Drains: none
--- NOTE | 2024-12-09 13:17 | MHC.SHP ---
Pre-Procedural Eval Section A - 24 Hr Update-Section A only Date of Service: 12/09/24 The patient is an INPATIENT: No Section B - Complete if H&P > 30 days Chief Complaint: Intrinsic sphincter deficiency (ISD),Stress incont Allergies: Allergies Allergy/AdvReac Type Severity Reaction Status Date / Time trazodone AdvReac Unknown insomnia, Verified 07/11/24 09:49 nightmares tramadol AdvReac Nausea and Verified 07/11/24 09:49 Vomiting Plan Diagnosis/Plan: Unchanged I have reviewed the history and physical and performed a pertinent physical examination on my patient. No changes have occurred unless specified. Cystoscopy. Bulkamid. Discussed risks to include but not limited to, blood in the urine, burning with urination, urgency, urinary retention, possible penny catheter.. Time Spent With Patient Time: Total time managing care of this patient today ____ minutes.
[2024-12-09] MEDS: ceFAZolin Sodium/Dextrose,Iso 2 GM/50 ML PIGGYBACK IV (13:26)
[2024-12-09 14:14] VITALS: BP 108/72; PULSE 81; RESP 18; TEMP 36.4; O2SAT 98
[2024-12-09 14:19] VITALS: BP 118/76; PULSE 80; RESP 18; O2SAT 100
[2024-12-09 14:24] VITALS: BP 102/72; PULSE 77; RESP 20; O2SAT 100
[2024-12-09 14:29] VITALS: BP 110/76; PULSE 77; RESP 20; O2SAT 100
[2024-12-09] MEDS: Phenazopyridine HCL 200 MG TABLET PO (14:34)
[2024-12-09] MEDS: Acetaminophen 325 MG TABLET 975 MG PO (14:36)
[2024-12-09 14:44] VITALS: BP 114/70; PULSE 76; RESP 20; TEMP 36.3; O2SAT 100
== END 2024-12-09 15:33 | disposition home or self-care (01) ==
PROVIDERS: Anesthesiology; PCP Internal Medicine Medical Oncology; Visit Provider Urology
PROC: (CPT 51715; principal; 2024-12-09 13:00)
DX: N36.42 Intrinsic sphincter deficiency (ISD) (principal); N39.3 Stress incontinence (female) (male); G93.5 Compression of brain; I87.2 Venous insufficiency (chronic) (peripheral); N84.0 Polyp of corpus uteri; K21.9 Gastro-esophageal reflux disease without esophagitis; K58.9 Irritable bowel syndrome, unspecified; F32.A Depression, unspecified; Z79.899 Other long term (current) drug therapy; Z88.8 Allergy status to other drugs, medicaments and biological substances; Z98.890 Other specified postprocedural states
CPT/HCPCS: 51715; 81025; 87086; J0690; J1885; J2003; J2405; J2704; J3010; L8606

== ENCOUNTER → 2024-12-09 11:12 | Outpatient (BNV) | payer OTHER, SELFPAY | PROVIDERS: PCP Internal Medicine Medical Oncology; Visit Provider Urology | DX: N36.42 Intrinsic sphincter deficiency (ISD) (principal) | CPT/HCPCS: 51715 ==

== ENCOUNTER → 2024-12-17 09:53 | Outpatient (BNVA) | payer OTHER, SELFPAY | PROVIDERS: PCP Internal Medicine Medical Oncology; Visit Provider Urology | DX: N36.42 Intrinsic sphincter deficiency (ISD) (principal); N39.3 Stress incontinence (female) (male) | CPT/HCPCS: 51798 ==

== ENCOUNTER 2024-12-25 08:33 | Outpatient (REF) | payer OTHER, SELFPAY ==
[2024-12-25 09:32] LABS: Appearance Urine Clear; Color Urine Yellow; Glucose Urine UA Negative (Negative); Leukocyte Esterase Urine Negative (Negative); Nitrite Urine Negative (Negative); Specific Gravity - Urine <= 1.005 (1.005-1.025); Urine Blood Negative (Negative); Urine Ketones Negative (Negative); Urine Protein Negative (Neg-Trace)
[2024-12-25 09:35] LABS: Bacteria Urine None Seen (None Seen); Hyaline Casts Urine 0-2 /LPF (0-2); RBC Urine 0-2 /HPF (0-2); Squamous Epithelial Cell Urine 0-2 /HPF (0-2); WBC Urine 0-5 /HPF (0-5)
== END 2024-12-25 08:34 | disposition home or self-care (01) ==
LOC: HO.LAB 08:33
PROVIDERS: Urology; PCP Internal Medicine Medical Oncology; Visit Provider Internal Medicine Medical Oncology
DX: R39.15 Urgency of urination (principal)
CPT/HCPCS: 81001; 87086

== ENCOUNTER 2025-01-09 15:20 | Outpatient (AMB) | payer OTHER, SELFPAY ==
--- OUTSIDE RECORDS SUMMARY | 2025-01-09 15:24 | XMS_ITS ---
Author Organization Seun Edwards III, MD Address [address] [place] [address] [place] [address] Care Team Providers Care Environmental Marketer Name Role Phone Seun Edwards Primary Care Provider REASON FOR VISIT Rx request Social History Sex Assigned At : Social History Observation Description Sex Assigned At Female Encounters Encounter Location Date Provider Diagnosis Seun Edwards III, MD [address] [place] [address] [place] [address] 11/21/2024 Seun Edwards Plan Of Treatment Next Appt Details Provider Name:Seun Edwards, 04/24/2025 04:00:00 PM, [address] [place] [address] [place], [phone], Progress Notes * Pippa MARTINEZ ADOB:[birth year] (49 yo F)Acc No.[id number]:11/21/2024 Patient:?Pippa MARTINEZ :1975???Age:49 Y???Sex:Female Address: [place] [address] * true * Date:? Generated for Printi ng/Faxing/eTransmitting on:?01/09/2025 03:24 PM EDT
--- OUTSIDE RECORDS SUMMARY | 2025-01-09 15:24 | XMS_ITS ---
Author Organization Seun Edwards III, MD Address [address] [place] [address] [place] [address] Care Team Providers Care Information Systems Security Officer Name Role Phone Seun Edwards Primary Care Provider Reason For Referral Reason Evaluate and Treat Routine Gynecological Examination Diagnosis 1 Routine gynecologica l examination (Z01.419) Referral Organization Seun Edwards III, MD Referring Provider First Name Seun Referring Provider Last Name Jerry Referring Provider Speciality Internal M edicine Referred Organization [facility] Alexandrea guzamn Referred Provider [facility] Referred Address [address] [place] [phone], Referred Provider Specialty OB - Gynecol ogy General Notes DRachel 11/24/2024 04:39:14 PM > Referral faxed Referral Priority Routine REASON FOR VISIT Referral Social History Sex Assigned At : Social History Observation Description Sex Assigned At Female Encounters Encounter Location Date Provider Diagnosis Seun Edwards III, MD [address] [place] [address] [place] [address] 11/24/2024 Seun Edwards Plan Of Treatment Referrals Referral Date Details 11/24/2024 11/24/2024, Evaluate and Treat Routine Gynecological Examination, [facility], [address] [place] [address], [phone], Next Appt Details Provider Name:Seun Edwards, 04/24/2025 04:00:00 PM, [address] [place] [address] [place], [address], Progress Notes * Pippa MARTINEZ ADOB:[birth year] (49 yo F)Acc No.[id number]:11/24/2024 Patient:?Pippa MARTINEZ :1975???Age:49 Y???Sex:Female Address:[address] [place] [phone] Subjective: * Chief Complaints: * ???Referral * Medical History:? * Surgical History:? * Hospitalization/Major Diagno stic Procedure:? * Medications:? Objective: * Vitals:? * Physical Examination:? Assessment: Plan: * Treatment: * Procedure Codes:? * true * Date:? Generated for Maria Luz fitzgerald/Tao/eTransmitting on:?01/09/2025 03:24 PM EDT Consultation Request Notes Referral Date Referring Provider Referred Provider Not es 11/24/2024 Seun Edwards, [facility] Evaluate and Treat Routine Gynecological Examination
--- OUTSIDE RECORDS SUMMARY | 2025-01-09 15:24 | XMS_ITS ---
Author Organization Seun Edwards III, MD Address [address] [place] [address] [place] [address] Care Team Providers Care Aircraft Power Plant Assembler Name Role Phone Seun Edwards Primary Care Provider Medications Medication SIG (Take, Route, Fr equency, Duration) Notes Start Date End Date Status Diflucan 150 MG 1 tablet Orally once for 1 days 11/23/2024 Active Social History Sex Assigned At : Social History Observation Description Sex Assigned At Female Encounters Encounter Location Date Provider Diagnosis Seun Edwards III, MD [address] [place] [address] [place] [address] 11/21/2024 Seun Edwards Plan Of Treatment Medication Medication Name Sig Start Date Stop Date Notes Diflucan 150 MG 1 tablet Orally once for 1 days 11/21/2024 11/23/2024 Next Appt Details Provider Name:Seun Edwards, 04/24/2025 04:00:00 PM, [address] [place] [address] [place], [address], Progress Notes * Pippa MARTINEZ ADOB:[birth year] (49 yo F)Acc No.[id number]:11/21/2024 Patient:?Pippa MARTINEZ :1975???Age:49 Y???Sex:Female Address:[address] [place] [address], [place] [address] * Refills? Start Diflucan Tablet, 150 MG, Orally, 1, 1 tablet, once, 1 days, Refills=1 * true * Date:? Generated for Maria Luz fitzgerald/Tao/Manolo on:?01/09/2025 03:24 PM EDT
--- OUTSIDE RECORDS SUMMARY | 2025-01-09 15:24 | XMS_ITS | Patient Health Record ---
Author Organization Seun Edwards III, MD Address [address] [place] [address] [place] [address] Care Team Providers Care Etcher Enameling Name Role Phone Seun Edwards Primary Care [...] date:04/21/2024 12:03:49 PM Interpretation: Performing Lab: Notes/Report: [address] [address] Ultrasound Report Signed Patient: Pippa Packer MR#: [id number] : 1975 Acct:[id number] Age/Sex: 48 / F ADM Date: 03/11/24 Loc: HO.US Attending Dr: Seun Edwards MD Ordering Physician: Seun Edwards MD Date of Service: 03/11/24 Procedure(s): US abdomen complete Accession Number(s): [id number] cc: Seun Edwards MD EXAMINATION: US ABDOMEN [...] in OV> 03/11/24 1023 DD/ 0924 TD/TT: Hot Billet Shear Operator: [place] [address] Ultrasound Report Signed Patient: Jong Packer MR#: [id number] : 1975 Acct:[id number] Age/Sex: 48 / F ADM Date: 03/11/24 Loc: HO.US Attending Dr: Seun Edwards MD Ordering Physician: Seun Edwards MD Date of Service: 03/11/24 Procedure(s): US abd omen complete Accession Number(s): [id number] cc: Seun Edwards MD EXAMINATION: US ABDOMEN [...] in OV> 03/11/24 1023 DD/ 0924 TD/TT: Hot Billet Shear Operator: Ur Preg Test Reviewed date:04/21/2024 12:03:49 PM Interpretation: Performing Lab:[facility], [address] [place] [address] Notes/Report: Urine NEGATIVE NEGATIVE This test was developed to detect early . False negative results may occur after the 5th - 7th week of when using this test method. If clinically indicated, consider a serum hCG. Pathology Reviewed date:04/23/2024 11:10:52 AM Interpretation: Performing Lab:[facility], [address] [place] [address] Notes/Report: ------ Name: Nico Packer constance Butt Age/Sex: 48/F : 1975 Unit#: [id number] Attend Dr: Abraham Barraza MD Re04/21/24 Status : [facility] Location: [facility] Disch: ------ SPEC : [id number] RECD : 04/21/24 STATUS: KATJA LOPEZ NUM: [id number] DARSHAN: 04/21/24 [facility] DR: Abraham Barraza MD ENTERED: 04/21/24- [...] Nico Packer Age/Sex: 48/F : 1975 Unit#: [id number] Attend Dr: Abraham Barraza MD Re04/21/24 Status : [facility] Location: [facility] Disch: ------ SPEC : [id number] RECD : 04/21/24 STATUS: KATJA LOPEZ NUM: [id number] DARSHAN: 04/21/24 [facility] DR: Abraham Barraza MD ENTERED: 04/21/24- [...] copic examination, 1 piece in cassette [facility] Copies To: Seun Edwards MD [address] [facility], [address] [place] [address] Abraham Barraza MD [facility] [address] [place] [address] ------ Signed (signature on file) Scooter Knott MD 04/22/24 1210 ------ END OF REPORT Urinalysis and Microscopic Reviewed date:10/19/2024 09:14:09 AM Interpretation: Performing Lab:[facility], [address] [place] [address] Notes/Report: Color Urine Yellow Appearance Urine Clear PH 6.5 5.0-9.0 Glucose Urine UA Negative Negative mg/dL Urine Blood Negative Negative Specific [place] - Urine <= 1.005 1.005-1.025 Urine Protein Negative Neg-Trace mg/dL Urine Ketones Negative Negative mg/dL Nitrite Urine Negative Negative Leukocyte Esterase Urine Small (1+) Negative RBC Urine 0-2 0-2 /HPF WBC Urine 0-5 0-5 /HPF Squamous Epithelial Cell Urine 0-2 0-2 /HPF Bacteria Urine None Seen None Seen Hyaline Casts Urine 0-2 0-2 /LPF Urine Culture Reviewed date:10/19/2024 09:14:09 AM Interpretation: Performing Lab:[facility], [address] [place] [address] Notes/Report: Urine Culture Report Result Urine Culture 50,000 to 100,000 cfu/ml Urine Culture Mixed bacterial luis a characteristic of Urine Culture urogenital contamination. Ur Preg Test Reviewed date:12/13/2024 07:21:39 AM Interpretation: Performing Lab:[facility], [address] [place] [address] Notes/Report: Urine NEGATIVE NEGATIVE This test was developed to detect early . False negative results may occur after the 5th - 7th week of when using this test method. If clinically indicated, consider a serum hCG. Urine Culture Reviewed date:12/13/2024 07:21:39 AM Interpretation: Performing Lab:[address] [address] Notes/Report: Urine Culture No growth. Urinalysis and Microscopic ( Not yet reviewed by provider) Interpretation: Performing Lab:[facility], [address] [place] [address] Notes/Report: Color Urine Yellow Appearance Urine Clear PH 7.0 5.0-9.0 Glucose Urine UA Negative Negative mg/dL Urine Blood Negative Negative Specific [place] - Urine <= 1.005 1.005-1.025 Urine Protein Negative Neg-Trace mg/dL Urine Ketones Negative Negative mg/dL Nitrite Urine Negative Negative Leukocyte Esterase Urine Negative Negative RBC Urine 0-2 0-2 /HPF WBC Urine 0-5 0-5 /HPF Squamous Epithelial Cell Urine 0-2 0-2 /HPF Bacteria Urine None Seen None Seen Hyaline Casts Urine 0-2 0-2 /LPF Urine Culture (Not yet revie wed by provider) Interpretation: Performing Lab:[facility], [address] [place] [address] Notes/Report: Urine Culture No growth. Reason For Referral Reason Consult and Treat Ph ysical Therapy Injections Diagnosis 1 Buttock pain (M79.18 ) Referral Organization Seun Edwards III, MD Referring Provider First Name Seun Referring Provider Last Name Jerry Referring Provider Speciality Internal M edicine [facility]erred Provider Specialty Physical Med icine [...] Referring Provider Speciality Internal edicine Referred Provider THALIA ISLAS Referred [...] Referring Provider Speciality Internal edicine Referred Provider [facility] er, Pain Management Referred Provider Specialty Pain Medicin e General Notes Rachel Cohen 2023 03:03:44 PM EDT > Faxed referral and progress note. Referral Priority Routine Referral Appointment Date 05/30/2024 Reason Evaluate and Treat Routine Gynecological Examination Diagnosis 1 Routine gynecologica l examination (Z01.419) Referral Organization Seun Edwards III, MD Referring Provider First Name Seun Referring Provider Last Name Jerry Referring Provider Speciality Internal edicine Referred Organization [facility] nter Referred Provider [facility] Referred Address [address] [place] [address],[place], [place],[id number], Referred Provider Specialty OB - Gynecol ogy General Notes Rachel Sepulveda 11/24/2024 04:39:14 PM > Referral faxed Referral Priority Routine Medications Medication SIG (Take, Route, Frequency, Duration) [...] day Active CoQ-10 Active Multivitamin Orally Active Cyclobenzaprine HCl 10 MG 1 tablet at be dtime as needed Orally 3 times a day 02/20/2024 Active Wellbutrin SR 150 MG 1 tablet Orally onc e a day in the afternoon for 30 days 10/05/2023 Active Fluconazole 150 MG TAKE 1 TABLET BY CORINNA TH ONCE for 1 Active Immunizations Vaccine Route Administration Date Status [...] Status W/U Status Risk Notes Problem Headache (68991828) Headache (R51) Active confirmed Her headac hes originate in the Chiari malformation. They have worsened lately. She has been referred back to neurosurgery for opinion and to pain management to consider analgesic procedures. Problem Syringomyelia and syringobulbia (022128359) Syringomyelia and syringobulbia (G95.0) Active confirmed She is going to have the neurostimulator. Her neurosurgeon has agreed to do a laminectomy of all else fails. Problem Gastro-esophagea l reflux disease without esophagitis (467901565) Gastro-esophage al reflux disease without esophagitis (K21.9) Active confirmed Her reflux is somewhat aggravated by the but she is finding it tolerable. Problem Displacement of cervical intervertebral disc without myelopathy (06288727) Other cervical disc displacement, unspecified cervical region (M50.20) Active confirmed The discomfort is much improved. We're waiting for the MRI report. Problem 016907185 Chiari I malformation (G93.5) Active confirmed The pain has worsened lately. She has seen her neurosurgeon, Dr. Islas, Who has offered to do a cervical laminectomy. She is uncertain about this and has declined that procedure so far. The pain management service has recommended a neurostimulator and she has an appointment to have a temporary wire inserted. Problem 523709228 Insomnia (G47.00) Active confirmed She has chronic difficulty sleeping, but lately has been doing well. No change in the pattern of her sleep has been noted lately. Problem History of irritable bowel syndrome (25602945191494) History of IBS (Z87.19) Active confirmed His abdominal pain is resolved at this time. She is quite comfortable in her daily life. Problem Venous insufficiency of leg (disorder) (137343335) Venous insufficiency (I87.2) Active confirmed An endovascular procedure to relieve the discomfort is being planned. Problem Irritable bowel syndrome (96900038) Other irritable bowel syndrome (K58.8) Active confirmed She occasionall y has abdominal discomfort from the IBS but this is become a minor problem in daily life. Problem 722474610 Chronic constipation (K59.09) Active confirmed She is doing well with the linzess. Problem 915484416 Recent weight loss (R63.4) Active confirmed One [...] Date Provider Diagnosis Seun Edwards III, MD [address] [place] [address] [place] [address] 01/11/2024 Seun Edwards Headache R51 ; Piriformis muscle pain M79.18 ; Gastro-esophageal reflux disease without esophagitis K21.9 ; 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 and 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 Seun Edwards III, MD [address] [place] [address] [place] [address] 01/29/2024 Seun Edwards Headache R51 ; Weigh t loss R63.4 ; Hypertension I10 ; Gastro-esophageal reflux disease without esophagitis K21.9 ; Other irritable bowel syndrome K58.8 and 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 Seun Edwards III, MD [address] [place] [address] [place] [address] 03/07/2024 Seun Edwards Headache R51 ; Abdominal pain R10.9 ; Insomnia G47.00 ; History of IBS Z87.19 ; Other irritable bowel syndrome K58.8 ; Gastro-esophageal reflux disease without esophagitis K21.9 ; 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 and 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 Seun Edwards III, MD [address] [place] [address] [place] [address] 04/22/2024 Seun Edwards Headache R51 ; Chiar i I malformation G93.5 ; 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 ; Gastro-esophageal reflux disease without esophagitis K21.9 ; Insomnia G47.00 ; History of IBS Z87.19 ; Chronic constipation K59.09 and Recent weight loss R63.4 Seun Edwards III, MD [address] [place] [address] [place] [address] 07/31/2024 Suen Edwards Chiari I malformatio n G93.5 ; 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 ; Gastro-esophageal reflux disease without esophagitis K21.9 ; Other irritable bowel syndrome K58.8 ; Insomnia G47.00 ; Chronic constipation K59.09 and Underweight R63.6 Seun Edwards III, MD [address] [place] [address] [place] [address] 08/15/2024 Seun Edwards 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 ; 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 ; Insomnia G47.00 ; Headache R51 ; Gastro-esophageal reflux disease without esophagitis K21.9 and Weight loss R63.4 Seun Edwards III, MD [address] [place] [address] [place] [address] 02/04/2024 Seun Edwards Chest pain R07.9 Seun Edwards III, MD [address] [place] [address] [place] [address] 02/20/2024 Seun Edwards III, MD [address] [place] [address] [place] [address] 02/20/2024 Seun Edwards III, MD [address] [place] [address] [place] [address] 03/26/2024 Seun Edwards Headache R51 Seun Edwards III, MD [address] [place] [address] [place] [address] 05/13/2024 Seun Edwards Headache R51 Seun Edwards III, MD [address] [place] [address] [place] [address] 08/02/2024 Seun Edwards III, MD [address] [place] [address] [place] [address] 09/16/2024 Seun Edwards III, MD [address] [place] [address] [place] [address] 11/14/2024 Seun Edwards III, MD [address] [place] [address] [place] [address] 11/14/2024 Seun Edwards III, MD [address] [place] [address] [place] [address] 11/21/2024 Seun Edwards III, MD [address] [place] [address] [place] [address] 11/21/2024 Seun Edwards III, MD [address] [place] [address] [place] [address] 11/24/2024 Seun Edwards Assessments Encounter Date Diagnosis (ICD Code) Assessment Notes Treatment Notes Treatment Clinical Notes 01/11/2024 Headache (ICD-10 - R51) She continues [...] have suggested that when she sees the service bar cashier in the near future she suggested an [...] to pain management to consider analgesic procedures. 01/11/2024 Gastro-esophageal reflux disease without esophagitis (ICD-10 [...] lately. 02/04/2024 Chest pain (ICD-10 - R07.9) 01/11/2024 Chiari I malformation (ICD-10 - G93.5) [...] to pain management to consider analgesic procedures. 01/11/2024 Syringomyelia and syringobulbia (ICD-10 - G95.0) [...] but she is finding it tolerable. 01/29/2024 Chiari I malformation (ICD-10 - G93.5) [...] 19. We discussed nutrition at length today. 03/07/2024 Chiari I malformation (ICD-10 - G93.5) [...] Stress Test 01/29/2024 CBC WITH AUTO DIFF 01/29/2024 CBC WITH AUTO DIFF 06/01/2023 COLOGUARD 08/08/2023 Urinalysis and Microscopic 12/25/2024 Lipid Panel 01/29/2024 Lipid Panel 08/08/2023 Vitamin D 25-OH Total 06/01/2023 Thyroid Peroxidase Antibodies 06/21/2022 Urine Culture 12/25/2024 Hemoglobin A1c 01/29/2024 Hemoglobin A1c 08/08/2023 ECG 7 day holter monitor 01/29/2024 ECG 7 day holter monitor 02/04/2024 Next Appt Details Provider Name:Seun Edwards, 04/24/2025 04:00:00 PM, [address] [place] [address] , [address], [place], [address], Insurance Providers Payer Name Payer Address Payer Phone Subscriber Number Group Number Insured Name Patient Relationship to Insured Coverage Start Date Coverage End Date [employer] [address] [address] [place] [address] [id number] Pippa Packer Self - patient is [...] mass upper outer left breast, benign, , [facility] 08/2016 endovenous laser ablation lower extremit y veins 2014 Hospitalization History Reason Date(Month/Year) No history
--- NOTE | 2025-01-09 15:28 | A.OFFVIS_ITS ---
Intake Visit Reasons: Bulkamid follow up Intake Note: Patient is present for bulkamid follow up Urology Med: none Antibiotic Allergy: none Blood Thinner: none PVR:0mL Lobby Attendant Required: No Accompanied by: Self / Same As Patient Allergies trazodone Adverse Reaction (Unknown, Verified 01/09/25 15:32) insomnia, nightmares tramadol Adverse Reaction (Verified 01/09/25 15:32) Nausea and Vomiting HPI Comments Details: 10/17/24--Pippa is here for urodynamics. The patient has complaints of urinary incontinence associated with sneezing and exercising. C/o's of some urge symptoms. Interpretation: Uroflow parameters were within normal limits. During the filling phase there was normal sensation, strong desire was noted at 352 mL. The patient felt that she was at capacity at 400 mL. Leakage was observed during cough and valsalva stress. Findings consistent with ISD as primary cause of urinary leakage symptoms. EMG- Appropriate changes in the waveforms were noted through out the study. I have discussed sling procedures and bulking agents for treatment of JOSH. I have discussed the risks of bulking injection to the proximal urethra to include but not limited to urine retention requiring a penny catheter, need to repeat the procedure, hematuria, and urgency. Plan Bulkamid. 15 minutes spent in review of records pertaining to this visit and including [id number] discussion with the patient regarding therapies risks and limitations, the patient has a h/o Chiari malformation and states that she has noted some symptoms of needing to push while voiding. I have discussed that in the future this may contribute to voiding dysfunction. 08/03/24--seen by Dr. Rodriguez 05/06/2024 who discussed Kegel exercises and vaginal weights and she is here for follow-up to evaluate improvement in symptoms and discuss other options as needed. Pippa states that she did order the vaginal weight is but was not able to even hold the 1st weight. She complains of leakage associated with activities including exercising in the morning as well as she sometimes gets a strong urge and will feel a sensation of bladder pressure. Discussed that there are many therapies for treatment of urinary incontinence based on etiology bladder spasms versus pelvic floor weakness and sometimes there is mixed picture. Starting conservatively with pelvic floor physical therapy, is recommended, I will schedule urodynamics for further evaluation. Review of diagnostics: [facility] 03/11/24- no acute finding, kidneys within normal limits. PFSH Medical History PONV (postoperative nausea and vomiting) Depression Uterine polyp Venous insufficiency of both lower extremities Peripheral venous insufficiency Varicose vein of leg 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, cervical History of torn meniscus of left knee IBS (irritable bowel syndrome) GERD (gastroesophageal reflux disease) Surgical History H/O colonoscopy History of surgery on lower extremity (06/25/23) History of lumpectomy of left breast (06/25/23) History of cervical discectomy (~2010) H/O left breast biopsy (~08/2016) Family History Maternal Aunt History of lung cancer Paternal Aunt History of breast cancer Paternal Grandfather History of lung cancer Social History Are you a primary ambulatory care coordinator to a significant other at home: No Do you presently have visiting nurse or other home services: No Alcohol intake: current Alcohol intake frequency: holidays/special occasions only Alcohol type: wine Patient Tobacco Use Status: Never used Tobacco Office Procedures Post Void Residual Post Residual Void Post Void Residual (PVR): 0 41839-Labx Void Residual by ultrasound Assessment & Plan Assessment & Plan Orders: Orders AMB Urinalysis Automated Today Z13.9 - Encounter for screening, unspecified Coding CPT Codes Post Residual Void - PVR CPT Code: 61164-Yvjp Void Residual by ultrasound ([id number])
== END 2025-01-09 16:02 | disposition home or self-care (01) ==
LOC: HO.HUSH 15:21
PROVIDERS: PCP Internal Medicine Medical Oncology; Visit Provider Urology
DX: Z13.9 Encounter for screening, unspecified (principal)

== ENCOUNTER → 2025-01-09 15:20 | Outpatient (BNVA) | payer OTHER, SELFPAY | PROVIDERS: PCP Internal Medicine Medical Oncology; Visit Provider Urology | DX: N36.42 Intrinsic sphincter deficiency (ISD) (principal) | CPT/HCPCS: 51798; 81003 ==

== ENCOUNTER 2025-04-17 09:47 | Outpatient (REF) | payer OTHER, SELFPAY ==
--- NOTE | ~2025-04-17 | XR_ITS ---
EXAMINATION: XR CHEST CLINICAL INFORMATION: PLEURITIC CHEST PAIN COMPARISON: None available. TECHNIQUE: 2 views of the chest were obtained. FINDINGS: Lungs: No focal consolidation. No evidence of pulmonary edema. Pleura: No pleural effusion or pneumothorax. Heart/Mediastinum: Cardiomediastinal silhouette is within normal limits. Bones: No acute findings. XR/XR chest 2V IMPRESSION: No acute abnormality. Electronically signed by: Uzma Cortez MD 04/17/2025 10:40 AM EDT
--- OUTSIDE RECORDS SUMMARY | 2025-04-17 05:00 | XMS_ITS ---
Author Organization Seun Edwards III, MD Address [address] [place] [address] [place] [address] Care Team Providers Care Corrections Specialist Name Role Phone Seun Edwards Primary Care Provider [phone] Allergies Allergen (clinical drug ingredient) Drug/Non Drug Allergy documented on EMR Reaction Allergy Type Onset Date Status No Known Drug Allergy Unknown Drug Allergy Active trazodone Trazodone night terrors Drug Allergy Act montse tramadol Tramadol nausea, vomiting Drug Allergy Active REASON FOR VISIT RU Chest pain x 11 days, Hurts when breathing, walking fast and changing positions while laying down. Medications Medication SIG (Take, Route, Frequency, Duration) Notes Start Date End Date Status buPROPion HCl ER (SR) 100 MG 1 tablet in the morning Orally Once a day 02/20/2024 Active dexAMETHasone 1 MG 1 tablet Orally twic e a day 07/31/2024 Active Fluconazole 150 MG TAKE 1 TABLET BY CORINNA ONCE Active Fish Oil 1 capsule Orally [...] Tobacco Non-User Aggressive non-smoker Vital Signs Temperature 97.3 degrees Fahrenheit 04/17/20 25 Blood pressure systolic 116 mm Hg 04/17/20 25 Blood pressure diastolic 84 mm Hg 025 Heart Rate 76 /min 04/17/2025 Height 63 in 04/17/2025 Weight 114 lbs 04/17/2025 BMI 20.19 kg/m2 04/17/2025 Encounters Encounter Location Date Provider Diagnosis Seun Edwards III, MD [address] [place] [address] [place] [address] 04/17/2025 Seun Edwards Recent weight loss R63.4 ; Pleuritic chest pain R07.81 ; Other spondylosis, cervical region M47.892 and 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 Assessments Encounter Date Diagnosis (ICD Code) Assessment Notes Treat ment Notes Treatment Clinical Notes 04/17/2025 Recent weight loss (ICD-10 - R63.4) 04/17/2025 Pleuritic chest pain (ICD-10 - R07.81) 04/17/2025 Other spondylosis, cervical region (ICD-10 - M47.892) 04/17/2025 Syringomyelia and syringobulbia (ICD-10 - G95.0) Plan Of Treatment Medication Medication Name Sig [...] PA & LAT 04/17/2025 Next Appt Details Provider Name:Seun Edwards, 04/24/2025 03:45:00 PM, [address] [place] [address] DR, [address], [place], [address], Progress Notes * Pippa MARTINEZ ADOB:[birth year] (49 yo F)Acc No.[id number]:04/17/2025 Progress Notes Patient: Pippa CALVIN Provider: Andrés Edwards MD :1975 A ge:49 Y S ex:Female Date:04/17/2025 Address:[address] [place], [place] [address] Subjective: * Chief Complaints: * 1 . RU Chest pain x 11 days. 2. Hurts when breathing, walking fast and changing positions while laying down.. * HPI: C OVID-19 Screening: Questions H ave you had any new onset fever, chills, cough, congestion, sore throat, shortness of breath, muscle aches? N o * ROS: G eneral/Constitutional: pain o nly normal aches and pains. C hills d enies.?Fatigue a dmits. F ever d enies. E NT: Decreased hearing d enies. R [...] Muscle aches d enies. P ainful joints d enies. S ciatica d enies. W eakness d enies. S kin: Itching d enies. R pankaj d enies. S kin lesion(s)?denies. N eurologic: Difficulty speaking d enies. D izziness d enies.?Headache d enies. L ow back pain d enies. P sychiatric: Depressed mood d enies. * Medical History: I rritable bowel syndrome, GERD (gastroesophageal reflux disease), History of torn meniscus of left knee, HNP (herniated nucleus pulposus), cervical, Chiari I malformation, Varicose veins of lower extremity, Peripheral venous insufficiency, FH: blood disorder, Venous insufficiency lower extremities. * Surgical History: e ndovenous laser ablation lower extremity veins 2014, biopsy mass upper outer left breast, benign, , [facility] 08/2016, left breast lumopectomy by Dr Serna 06/26/2023, Colonoscopy Dr. Barraza 04/21/2024, No history . * Hospitalization/Major Diagno stic Procedure: N o history . * Family History: F ather: alive 56 yrs, hypertension, diagnosed with HTN. M other: alive 56 yrs, SVT, Hyperthyroidism, [place], diagnosed with CVD. P aternal Grand Father: 72 yrs, lung cancer, diagnosed with Cancer. M aternal Grand Mother: alive, alzheimer. 1 sister(s) - healthy. 1 son(s) , 2 daughter(s) - healthy. . There is no history of breast cancer on her mother's side. 2 of her father's sisters had breast cancer in the past in [place]. 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 * Medications: T aking Linzess 145 MCG Capsule 1 capsule at least 30 minutes before the first meal of the day on an empty stomach Orally Once a day , Taking CoQ-10 [...] 1 tablet Orally twice a day , Taking buPROPion HCl ER (SR) 100 MG Tablet Extended Release 12 Hour 1 tablet in the morning Orally Once a day , Taking Wellbutrin SR 150 MG Tablet Extended Release 12 Hour 1 tablet Orally once a day in the afternoon , Taking Fluconazole 150 MG Tablet TAKE 1 TABLET BY MOUTH ONCE , Discontinued Cyclobenzaprine HCl 10 MG Tablet 1 tablet Orally 3 times a day for neck pain and muscle spasm , Discontinued Cyclobenzaprine HCl 10 MG Tablet 1 tablet at bedtime as needed Orally 3 times a day , Medication List reviewed and reconciled with the patient * Allergies: N o Known Drug Allergy, Tramadol: nausea, vomiting, Trazodone: night terrors. Objective: * Vitals: H t: 63, Wt: 114, BMI:20.19, BP: 116/84, HR: 76, Temp: 97.3, Ht-cm: 160.02, Wt-k.71. * Examination: G eneral Examination: GENERAL APPEARANCE: p leasant, well nourished, well developed, in no acute distress, calm and relaxed. HEAD: a traumatic, normocephalic. EYES: e geraldine, perrla, anicteric, conjugate. EARS: n ormal. NOSE: s eptum intact. ORAL CAVITY: n ormal, unremarkable. NECK/THYROID: n o jugular venous distention, no carotid bruit, thyroid normal. LYMPH NODES: n o enlarged lymph nodes,spleen normal. SKIN: n o suspicious lesions, anicteric. HEART: n o clicks, gallops, murmurs, or rubs, regular rhythm, S1, S2 normal, no s3, or vascular bruits. LUNGS: c lear to auscultation . BREASTS: no masses palpable bilaterally. ABDOMEN: b [...] a lert, oriented. Assessment: * Assessment: 1. R ecent weight loss - R63.4 2 . P leuritic chest pain - R07.81 ? 3 . O ther spondylosis, cervical region - M47.892 4 . S yringomyelia and syringobulbia - G95.0 Plan: * Treatment: 2. P leuritic chest pain L AB: PROFILE, RANDOM (COMPREHENSIVE METABOLIC) L AB: CBC w DIFF L AB: D-DIMER I maging: XR CHEST 2 VIEW PA & LAT 3. O ther spondylosis, cervical region I maging: MRI CERVICAL SPINE W&WO CONTRAST I maging: MRI THORACIC SPINE W&WO CONTRAST 4. S yringomyelia and syringobulbia I maging: MRI CERVICAL SPINE W&WO CONTRAST I maging: MRI THORACIC SPINE W&WO CONTRAST 5. O thers Continue Fluconazole Tablet, 150 MG, [...] 1 tablet, Orally, twice a day. * Images: * The named appointment provid er may or may not be the originator of this progress note, and it is not deemed complete until electronically signed by the appointment provider. Sign off status: Pending * Provider: Andrés Edwards MD Date: 0 04/17/2025 Generated for Maria Luz fitzgerald/Tao/eTransmitting on: 0 04/17/2025 09:49 AM EDT History and Physical Notes * HPI (History of Present Illness) Category Sub-Category Detail Notes COVID-19 Screening Questions Have you had any new onset fever, chills, cough, congestion, sore throat, shortness of breath, muscle aches?: No Examination Category Sub-Category Detail Notes General Examination GENERAL APPEARANCE: pleasant , well nourished, well developed, in no acute distress, calm and relaxed HEAD: atraumatic, normocep halic EYES: eomi, perrla, anicte skyla, conjugate EARS: normal NOSE: septum intact NECK/THYROID: no jugular venous di stention, no carotid bruit, thyroid normal HEART: no clicks, gallops, murmurs, or rubs, [...]
--- OUTSIDE RECORDS SUMMARY | 2025-04-17 09:50 | XMS_ITS | Patient Health Record ---
Author Organization [facility] Address [address] [place] [address] Care Team Providers Care Testing Director Name Role Phone Seun Edwards MD Primary Care Provider Unavailab geneva LawierBen Unavailable [phone] Reason For Referral No Information Medications Medication SIG (Take, Route, Fr equency, Duration) Notes Start Date End Date Status Coenzyme Q-10 100 MG 1 capsule with a me al Orally Once a day 06/18/2014 Active Multivitamins Orally 06/18/2014 Activ e Fluorouracil 5 % 1 application to aff ected area Externally Twice a day under occlusion; Duration: 30 days 06/18/2014 Act montse Fish Oil 1000 MG 1 capsule Orally Once a day 06/18 Active Social History Tobacco use other than smoking: Question Answer Notes Are you an other tobacco user? No Problems Problem Type SNOMED Code ICD Code Onset Dates Problem Status W/U Status Risk Notes Problem Dermatitis (164211223) Dermatitis (692.9) Active confirmed Problem Keratoma (07264728) Keratoma (701.1) Active confirmed Problem Pain in limb (89614940) Pain in Limb (729.5) Active confirmed Problem Pruritic disorders (915986428) Pruritis (698.9) Active confirmed Problem Verruca plantaris (56717830) Verruca Plantaris (078.19) Active confirmed Confirmed by Bx Plan Of Treatment Pending Test Test Name Order Date [id number] Destruction, 1-14 07/09/2014 [id number] Biopsy 0.5cm 06/18/2014 Insurance Providers Payer Name Payer Address Payer Phone Subscriber Number Group Number Insured Name Patient Relationship to Insured Coverage Start Date Coverage End Date [id number] [place] [phone] [id number] Tristen Packer Spouse - patient is the spouse of the insured Medical (General) History Medical History History ICD Code Headaches Chicken pox Migraines Surgical History Surgery Date(Month/Year) herniated disk repair
[2025-04-17 10:10] LABS: MANUAL DIFF FLAG NO
[2025-04-17 10:25] LABS: Hematocrit 45.8 % (37.0-47.0); Hemoglobin 15.5 g/dl (12.0-16.0); Imm Gran Abs Auto 0.02 X10*3/uL (0.00-0.03); Imm Gran Pct Auto 0.4 % (0.0-0.4); Lymphocytes Absolute Auto 1.4 X10*3/uL (1.2-4.9); Mean Corpuscular HGB Conc 33.8 g/dl (31.0-35.0); Mean Corpuscular Hemoglobin 32.0 pg (27.0-33.0); Mean Corpuscular Volume 94.4 fL (80.0-98.0); NRBC Abs Auto 0.000 X10*3/uL (0.0-0.012); NRBC Pct Auto 0.0 /100WBC (0.0-0.2); Platelet Count 253 X10*3/uL (160-400); Red Blood Count 4.85 X10*6/uL (4.20-5.50); White Blood Count 4.8 X10*3/uL (4.8-10.8)
[2025-04-17 10:28] LABS: D Dimer High Sensitivity < 150 NG/ML
[2025-04-17 11:10] LABS: Alanine Aminotransferase 36 U/L (0-31); Albumin Level 4.5 g/dL (3.5-5.0); Alkaline Phosphatase 64 U/L (39-117); Anion Gap 11 (12-20); Aspartate Amino Transferase 28 U/L (5-31); Blood Urea Nitrogen 8 mg/dL (9-16); Calcium 8.7 mg/dL (8.4-10.2); Carbon Dioxide 28 mmol/L (22-29); Chloride 106 mmol/L (96-108); Estimated Glomerular Filt Rate > 60; Potassium 4.1 mmol/L (3.3-5.1); Sodium 141 mmol/L (135-145); Total Protein 6.8 g/dL (6.5-8.0)
== END 2025-04-17 09:48 | disposition home or self-care (01) ==
LOC: HO.LAB 09:47
PROVIDERS: PCP Internal Medicine Medical Oncology; Visit Provider Internal Medicine Medical Oncology
DX: R63.4 Abnormal weight loss (principal); R07.81 Pleurodynia
CPT/HCPCS: 36415; 71046; 80053; 85025; 85379

== ENCOUNTER → 2025-04-17 10:10 | Outpatient (BNV) | payer OTHER, SELFPAY | PROVIDERS: PCP Internal Medicine Medical Oncology; Visit Provider Radiology Body Imaging | DX: R07.89 Other chest pain (principal) | CPT/HCPCS: 71046 ==

== ENCOUNTER 2025-05-07 12:46 | Outpatient (REF) | payer OTHER, SELFPAY ==
--- OUTSIDE RECORDS SUMMARY | 2024-11-24 12:13 | XMS_ITS ---
Author Organization Seun Edwards III, MD Address [address] [place] [address] [place] [address] Care Team Providers Care Moisture Conditioner Operator Name Role Phone Seun Edwards Primary Care Provider [phone] Reason For Referral Reason Evaluate and Treat Routine Gynecological Examination Diagnosis 1 Routine gynecologica l examination (Z01.419) Referral Organization Seun Edwards III, MD Referring Provider First Name Seun Referring Provider Last Name Jerry Referring Provider Speciality Internal M edicine Referred Organization [facility] nter Referred Provider [facility] er, OXYGEN THERAPY TEACHER & Midwifery Referred Address [address] [place] [phone], Referred Provider Specialty OB - Gynecol ogy General Notes DRachel 11/24/2024 04:39:14 PM > Referral faxed Referral Priority Routine Referral Appointment Date 03/17/2025 REASON FOR VISIT Referral Social History Sex Assigned At : Social History Observation Description Sex Assigned At Female Encounters Encounter Location Date Provider Diagnosis Seun Edwards III, MD [address] [place] [address] [place] [address] 11/24/2024 Seun Edwards Plan Of Treatment Referrals Referral Date Details 11/24/2024 11/24/2024, Evaluate and Treat Routine Gynecological Examination, OXYGEN THERAPY TEACHER & Midwifery [facility], [address] [place] [address], [phone], Next Appt Details Provider Name:Seun Jerry, 05/15/2025 09:30:00 AM, [address] [place] [address] [address], [place], [phone], Provider Name:Seun Coughlinrne, 08/31/2025 04:00:00 PM, [address] [place] [address] [address], [place], [address], Progress Notes * Pippa MARTINEZ ADOB:[birth year] (49 yo F)Acc No.[id number]:11/24/2024 Patient: Pippa CALVIN :1975 A ge:49 Y S ex:Female Address:[address] [place] [address] [facility] [place] [address] Subjective: * Chief Complaints: * R eferral * Medical History: * Surgical History: * Hospitalization/Major Diagno stic Procedure: * Medications: Objective: * Vitals: * Physical Examination: Assessment: Plan: * Treatment: * Procedure Codes: * true * Date: Generated for Thomasi lia/Mernag/eTransmitting on: 0 05/07/2025 04:55 PM EDT Consultation Request Notes Referral Date Referring Provider Referred Provider Not es 11/24/2024 Seun Edwards [facility], OXYGEN THERAPY TEACHER & Midwifery Evaluate and Treat Routine Gynecological Examination
--- OUTSIDE RECORDS SUMMARY | 2025-04-16 09:16 | XMS_ITS ---
Author Organization Seun Edwards III, MD Address [address] [place] [address] [place] [address] Care Team Providers Care Refrigerated National Truck Driver Name Role Phone Seun Edwards Primary Care Provider REASON FOR VISIT new onset pleuritic chest discomfort Social History Sex Assigned At : Social History Observation Description Sex Assigned At Female Encounters Encounter Location Date Provider Diagnosis Seun Edwards III, MD [address] [place] [address] [place] [address] 04/16/2025 Seun Edwadrs Plan Of Treatment Next Appt Details Provider Name:Seun Edwards, 05/15/2025 09:30:00 AM, [address] [place] [address] [place], [address], Provider Name:Seun Edwards, 08/31/2025 04:00:00 PM, [address] [place] [address] [place], [address], Progress Notes * Pippa MARTINEZ ADOB:[birth year] (49 yo F)Acc No.[id number]:04/16/2025 Patient: Nhan Pippa DIA :1975 A ge:49 Y S ex:Female Address:[address] [place], [place] [address] [address] * true * Date: Generated for Maria Luz fitzgerald/Tao/Manolo on: 0 05/07/2025 04:56 PM EDT
--- OUTSIDE RECORDS SUMMARY | 2025-04-17 05:00 | XMS_ITS ---
Author Organization Seun Edwards III, MD Address [address] [place] [address] [place] [address] Care Team Providers Care Carbon Paper Interleafer Name Role Phone Seun Edwards Primary Care Provider [phone] Allergies Allergen (clinical drug ingredient) Drug/Non Drug [...] W/U Status Risk Notes Problem Pleuritic pain (6977092) Pleuritic chest pain (R07.81) Active confirmed This [...] Provider Diagnosis Seun Edwards III, MD [address] [place] [address] [place] [address] 04/17/2025 Seun Edwards Pleuritic chest pain R07.81 [...] 1 Week, Reason: o v Provider Name:Seun Edwards, 05/15/2025 09:30:00 AM, [address] [place] [address] [address], [place], [address], Provider Name:Seun Edwards, 08/31/2025 04:00:00 PM, [address] [place] [address] [place], [address], Progress Notes * Pippa MARTINEZ ADOB:[birth year] (49 yo F)Acc No.[id number]:04/17/2025 Progress Notes Patient: Pippa CALVIN Provider: Andrés Edwards MD :1975 A ge:49 Y S ex:Female Date:04/17/2025 Address:[address] [place], [place] [address] Subjective: * Chief Complaints: * P leuritic [...] mass upper outer left breast, benign, , [facility] 08/2016left breast lumopectomy by Dr Serna 06/26/2023olonoscopy Dr. Barraza 04/21/2024No history * Hospitalization/Major Diagno stic Procedure: N o history * Family History: F ather: alive 56 yrs, hypertension, diagnosed with HTN. M other: alive 56 yrs, SVT, Hyperthyroidism, [place], diagnosed with CVD. P aternal Grand Father: 72 yrs, lung cancer, diagnosed with Cancer. M aternal Grand Mother: alive, alzheimer. 1 sister(s) - healthy. 1 son(s) , 2 daughter(s) - healthy. . There is no history of breast cancer on her mother's side. 2 of her father's sisters had breast cancer in the past in [place]. * Social History: T obacco Use: T [...] Date: 0 04/17/2025 Generated for Maria Luz fitzgerald/Tao/Joseitting on: 0 05/07/2025 04:55 PM EDT History and Physical Notes * [...]
--- OUTSIDE RECORDS SUMMARY | 2025-04-21 11:09 | XMS_ITS ---
Author Organization Seun Edwards III, MD Address [address] [place] [address] [place] [address] Care Team Providers Care Industrial Relations Specialist Name Role Phone Seun Edwards Primary Care Provider REASON FOR VISIT FYI only Social History Sex Assigned At : Social History Observation Description Sex Assigned At Female Encounters Encounter Location Date Provider Diagnosis Seun Edawrds III, MD [address] [place] [address] [place] [address] 04/21/2025 Seun Edwards Plan Of Treatment Next Appt Details Provider Name:Seun Edwards, 05/15/2025 09:30:00 AM, [address] [place] [address] [place], [address], Provider Name:Seun Edwards, 08/31/2025 04:00:00 PM, [address] [place] [address] [place], [address], Progress Notes * Pippa MARTINEZ ADOB:[birth year] (49 yo F)Acc No.[id number]:04/21/2025 Patient: Nhan Pippa DIA :1975 A ge:49 Y S ex:Female Address:[address] [place], [place] [address] [address] * true * Date: Generated for Maria Luz fitzgerald/Tao/Manolo on: 0 05/07/2025 04:56 PM EDT
--- OUTSIDE RECORDS SUMMARY | 2025-04-24 13:00 | XMS_ITS ---
Author Organization Seun Edwards III, MD Address [address] [place] [address] [place] [address] Care Team Providers Care Genetic Scientist Name Role Phone Seun Edwards Primary Care [...] TAKE 1 TABLET BY CORINNA ONCE Active dexAMETHasone 1 MG 1 tablet [...] Provider Diagnosis Seun Edwards III, MD [address] [place] [address] [place] [address] 04/24/2025 Seun Edwards Plan Of Treatment Medication [...] oh as needed Orally Once a day Next Appt Details Provider Name:Seun Edwards, 05/15/2025 09:30:00 AM, [address] [place] [address] [address], [place], [address], Provider Name:Seun Edwards, 08/31/2025 04:00:00 PM, [address] [place] [address] [address], [place], [address], Progress Notes * Pippa MARTINEZ ADOB:[birth year] (49 yo F)Acc No.[id number]:04/24/2025 Progress Notes Patient: Nhan BROWNKAMININataliaPippa A Provider: Andrés Edwards MD :1975 A ge:49 Y S ex:Female Date:04/24/2025 Address:[address] [place], [place] [address] [id number] Subjective: * Chief Complaints: * 1 . [...] mass upper outer left breast, benign, , [facility] 08/2016, left breast lumopectomy by Dr Serna 06/26/2023, Colonoscopy Dr. Barraza 04/21/2024, No history . * Hospitalization/Major Diagno stic Procedure: N o history . * Family History: F ather: alive 56 yrs, hypertension, diagnosed with HTN. M other: alive 56 yrs, SVT, Hyperthyroidism, [place], diagnosed with CVD. P jamari Grand Father: 72 yrs, lung cancer, diagnosed with Cancer. M jamari Grand Mother: alive, alzheimer. 1 sister(s) - healthy. 1 son(s) , 2 daughter(s) - healthy. . There is no history of breast cancer on her mother's side. 2 of her father's sisters had breast cancer in the past in [place]. * Social History: T obacco Use: T [...] Edwards MD Date: 0 04/24/2025 Generated for Thomasi lia/Tao/Viviansmitting on: 0 05/07/2025 04:55 PM EDT History [...]
--- NOTE | ~2025-05-07 | MR_ITS ---
EXAMINATION: MR CERVICAL SPINE WITHOUT AND WITH CONTRAST CLINICAL INFORMATION: Neck pain. Headache. Bilateral, right greater than the left upper extremity pain. COMPARISON: July 20, 2023. TECHNIQUE: MRI of the cervical spine was obtained using routine sequences with and without contrast. Intravenous contrast: Gadolinium based (Gadavist) 5.0 mL. No reported immediate complications. FINDINGS: There is a 10 mm descensus of the cerebellar tonsils below foramen magnum. There is a 1 mm maximum diameter nonenhancing hyperintense T2/CSF signal within the center of the cervical spinal cord extending from C5 to T1. Paramagnetic field distortion secondary to metallic hardware plate at C5-6. No bone marrow STIR signal abnormality. No abnormal enhancement within the neural elements of the central spinal canal or the prevertebral compartment. Grade 1 anterolisthesis C6-7. C2-3: No central spinal canal or neuroforamina stenosis. C3-4: Broad-based disc osteophyte compresses formation. No compression upon neural elements. C4-5: Broad-based disc osteophyte compresses formation resulting in ventral deformity of the thecal sac. No cord compression. Right neuroforamina narrowing on a degenerative basis. C5-6: Postsurgical changes. No cord compression. No neuroforamina stenosis. C6-7: No cord compression. No neuroforamina stenosis. C7-T1: No disc herniation. No neuroforamina stenosis. Flow-void signal within the main vessels is normal. Right vertebral artery is dominant. 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 Cervical spondylosis C3-4 and C4-5 without cord compression and mild right neuroforamina stenosis. Electronically signed by: Abdi Florence MD 05/07/2025 02:24 PM EDT
--- NOTE | ~2025-05-07 | MR_ITS ---
EXAMINATION: MR THORACIC SPINE WITHOUT AND WITH CONTRAST CLINICAL INFORMATION: Pain, both upper extremities. COMPARISON: August 08, 2023. TECHNIQUE: MRI of the thoracic spine was obtained using routine sequences with and without contrast. Intravenous contrast: Gadolinium based (Gadavist) 5.0 mL.. No reported immediate complications FINDINGS: There is a fusiform, expansile, thin septated, nonenhancing, CSF signal abnormality extending from T5 to T10 pronounced at T6 8 level with a maximum diameter of 4.4 mm. No abnormal enhancement within the spinal cord, the neural elements of the thecal sac or the prevertebral compartment. No bone marrow signal abnormality. Multilevel spondylosis without acute fracture or listhesis. There is no cord compression from T1 to T12. There is no disc herniation. No prevertebral compartment hematoma, mass or fluid collections. 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 No abnormal enhancement. No acute fracture or listhesis or cord compression. Correlated to recent MRI cervical spine posterior Chiari type II. No gross change. Electronically signed by: Abdi Florence MD 05/07/2025 03:11 PM EDT
--- OUTSIDE RECORDS SUMMARY | 2025-05-07 16:56 | XMS_ITS | Patient Health Record ---
Author Organization Seun Edwards III, MD Address [address] [place] [address] [place] [address] Care Team Providers Care Programming Coordinator Name Role Phone Seun Edwards Primary Care Provider Allergies Allergen (clinical drug ingredient) Drug/Non Drug Allergy documented on EMR Reaction Allergy Type Onset Date Status No Known Drug Allergy Unknown Drug Allergy Active trazodone Trazodone night terrors Drug Allergy Act montse tramadol Tramadol nausea, vomiting Drug Allergy Active Results Component Value Reference Range Notes Urinalysis and Microscopic Reviewed date:10/19/2024 09:14:09 AM Interpretation: Performing Lab:[address] [address] Notes/Report: Color Urine Yellow Appearance Urine Clear PH 6.5 5.0-9.0 Glucose Urine UA Negative Negative mg/dL Urine Blood Negative Negative Specific [place] - Urine <= 1.005 1.005-1.025 Urine Protein Negative Neg-Trace mg/dL Urine Ketones Negative Negative mg/dL Nitrite Urine Negative Negative Leukocyte Esterase Urine Small (1+) Negative RBC Urine 0-2 0-2 /HPF WBC Urine 0-5 0-5 /HPF Squamous Epithelial Cell Urine 0-2 0-2 /HPF Bacteria Urine None Seen None Seen Hyaline Casts Urine 0-2 0-2 /LPF Urine Culture Reviewed date:10/19/2024 09:14:09 AM Interpretation: Performing Lab:[address] [place] [address] Notes/Report: Urine Culture Report Result Urine Culture 50,000 to 100,000 cfu/ml Urine Culture Mixed bacterial luis a characteristic of Urine Culture urogenital contamination. Ur Preg Test Reviewed date:12/13/2024 07:21:39 AM Interpretation: Performing Lab:[facility] [place], [address] [place] [phone] Notes/Report: Urine NEGATIVE NEGATIVE This test was developed to detect early . False negative results may occur after the 5th - 7th week of when using this test method. If clinically indicated, consider a serum hCG. Urine Culture Reviewed date:12/13/2024 07:21:39 AM Interpretation: Performing Lab:[address] [address] Notes/Report: Urine Culture No growth. Urinalysis and Microscopic Reviewed date:01/25/2025 08:15:48 PM Interpretation: Performing Lab:[facility] [place], [address] [place] [phone] Notes/Report: Color Urine Yellow Appearance Urine Clear PH 7.0 5.0-9.0 Glucose Urine UA Negative Negative mg/dL Urine Blood Negative Negative Specific [place] - Urine <= 1.005 1.005-1.025 Urine Protein Negative Neg-Trace mg/dL Urine Ketones Negative Negative mg/dL Nitrite Urine Negative Negative Leukocyte Esterase Urine Negative Negative RBC Urine 0-2 0-2 /HPF WBC Urine 0-5 0-5 /HPF Squamous Epithelial Cell Urine 0-2 0-2 /HPF Bacteria Urine None Seen None Seen Hyaline Casts Urine 0-2 0-2 /LPF Urine Culture Reviewed date:01/25/2025 08:15:48 PM Interpretation: Performing Lab:[facility] [place], [address] [place] [phone] Notes/Report: Urine Culture No growth. Complete Blood Count Auto Di ff Reviewed date:04/19/2025 05:05:46 AM Interpretation: Performing Lab:[address] [address] Notes/Report: White Blood Count 4.8 4.8-10.8 X10*3/uL Red Blood Count 4.85 4.20-5.50 X10*6/uL Hemoglobin 15.5 12.0-16.0 g/dl Hematocrit 45.8 37.0-47.0 % Mean Corpuscular Volume 94.4 80.0-98.0 fL Mean Corpuscular Hemoglobin 32.0 27.0-33.0 pg Mean Corpuscular HGB Conc 33.8 31.0-35.0 g/dl Red Cell Distribution Width 12.3 11.0-16.0 % Platelet Count 253 160-400 X10*3/uL Mean Platelet Volume 9.8 9.4-12.3 fL Neutrophils Percent Auto 59.7 45-73 % Imm Gran Pct Auto 0.4 0.0-0.4 % Lymphocytes Percent Auto 28.4 20-40 % Monocytes Percent Auto 7.9 2-11 % Eosinophils Percent Auto 1.7 0-4 % Basophils Percent Auto 1.9 0-2 % NRBC Pct Auto 0.0 0.0-0.2 /100WBC Neutrophils Absolute Auto 2.9 2.0-8.3 x10*3/uL Imm Gran Abs Auto 0.02 0.00-0.03 X10*3/uL Lymphocytes Absolute Auto 1.4 1.2-4.9 X10*3/uL Monocytes Absolute Auto 0.4 0.1-1.2 X10*3/uL Eosinophils Absolute Auto 0.1 0.0-0.4 X10*3/uL Basophils Absolute Auto 0.1 0.0-0.2 X10*3/uL NRBC Abs Auto 0.000 0.0-0.012 X10*3/uL Comprehensive Met. Panel Reviewed date:04/19/2025 05:05:46 AM Interpretation: Performing Lab:[facility] [place], [address] [place] [phone] Notes/Report: Sodium 141 135-145 mmol/L Potassium 4.1 3.3-5.1 mmol/L Chloride 106 96-108 mmol/L Carbon Dioxide 28 22-29 mmol/L Anion Gap 11 12-20 Blood Urea Nitrogen 8 9-16 mg/dL Creatinine 0.75 0.5-1.4 mg/dL Estimated Glomerular Filt Rate > 60 Chronic Kidney Disease: Estimated GFR < 60 mL/min/1.73m2 Severe Kidney Disease: Estimated GFR < 15 mL/min/1.73m2 Glucose Random 126 60-115 mg/dL Calcium 8.7 8.4-10.2 mg/dL Bilirubin Total 0.5 0.0-1.0 mg/dL Aspartate Amino Transferase 28 5-31 U/L Alanine Aminotransferase 36 0-31 U/L Total Protein 6.8 6.5-8.0 g/dL Albumin Level 4.5 3.5-5.0 g/dL Alkaline Phosphatase 64 39-117 U/L D Dimer High Sensitivity Reviewed date:04/19/2025 05:05:46 AM Interpretation: Performing Lab:[facility] [place], [address] [place] [phone] Notes/Report: D Dimer High Sensitivity < 150 D-DIMER HS REFERENCE RANGE Note: Our assay reports D-Dimer Units (D-DU). The cut-off value for venous thromboembolic (VTE) disease is 230 ng/mL. This value has a very high negative predictive value when the patient has a low to moderate clinical probability of VTE. The upper limit of normal is 243 ng/mL. XR chest 2V Reviewed date:04/19/2025 05:05:46 AM Interpretation: Performing Lab: Notes/Report: [address] [address] XRay Report Signed Patient: Pippa Martinez MR#: [id number] : 1975 Acct:[id number] Age/Sex: 49 / F ADM Date: 04/17/25 Loc: HO.LAB Attending Dr: Seun Edwards MD Ordering Physician: Seun Edwards MD Date of Service: 04/17/25 Procedure(s): XR chest 2V Accession Number(s): [id number] cc: Seun Edwards MD EXAMINATION: XR CHEST CLINICAL INFORMATION: PLEURITIC CHEST PAIN COMPARISON: None available. TECHNIQUE: 2 views of the chest were obtained. FINDINGS: Lungs: No focal consolidation. No evidence of pulmonary edema. Pleura: No pleural effusion or pneumothorax. Heart/Mediastinum: Cardiomediastinal silhouette is within normal limits. Bones: No acute findings. XR/XR chest 2V IMPRESSION: No acute abnormality. Electronically signed by: Uzma Cortez MD 04/17/2025 10:40 AM EDT RP Dictated By: Uzma Cortez MD Signed By: <Electronically signed by Uzma Cortez MD in OV> 04/17/25 1040 DD/ 1012 TD/TT: 04/17/25 1017 Pipeline Technician: [address] [address] XRay Report Signed Patient: Pippa Martinez MR#: [id number] : 1975 Acct:[id number] Age/Sex: 49 / F ADM Date: 04/17/25 Loc: HO.LAB Attending Dr: Seun Edwards MD Ordering Physician: Seun Edwards MD Date of Service: 04/17/25 Procedure(s): XR chest 2V Accession Number(s): [id number] cc: Seun Edwards MD EXAMINATION: XR CHEST CLINICAL INFORMATION: PLEURITIC CHEST PAIN COMPARISON: None available. TECHNIQUE: 2 views of the chest were obtained. FINDINGS: Lungs: No focal consolidation. No evidence of pulmonary edema. Pleura: No pleural effusion or pneumothorax. Heart/Mediastinum: Cardiomediastinal silhouette is within normal limits. Bones: No acute findings. X R/XR chest 2V IMPRESSION: No acute abnormality. Electronically kimberly d by: Uzma Cortez MD 04/17/2025 10:40 AM EDT RP Dictated By: Uzma Cortez MD Signed By: <Electronically signed by Uzam Cortez MD in OV> 04/17/25 1040 DD/ 1012 TD/TT: 04/17/25 1017 Pipeline Technician: MR thoracic spine wo/w con ( Not yet reviewed by provider) Interpretation: Performing Lab: Notes/Report: [address] [address] Magnetic Resonance Report Signed Patient: Pippa Martinez MR#: [id number] : 1975 Acct:[id number] Age/Sex: 49 / F ADM Date: 05/07/25 Loc: HO.MRI Attending Dr: Seun Edwards MD Ordering Physician: Seun Edwards MD Date of Service: 05/07/25 Procedure(s): MR thoracic spine wo/w con Accession Number(s): [id number] cc: Seun Edwards MD Reason for Exam: Status of syrinx. Syringomyelia + syringobulbia EXAMINATION: MR THORACIC SPINE WITHOUT AND WITH CONTRAST CLINICAL INFORMATION: Pain, both upper extremities. COMPARISON: August 08, 2023. TECHNIQUE: MRI of the thoracic spine was obtained using routine sequences with and without contrast. Intravenous contrast: Gadolinium based (Gadavist) 5.0 mL.. No reported immediate complications FINDINGS: There is a fusiform, expansile, thin septated, nonenhancing, CSF signal abnormality extending from T5 to T10 pronounced at T6 8 level with a maximum diameter of 4.4 mm. No abnormal enhancement within the spinal cord, the neural elements of the thecal sac or the prevertebral compartment. No bone marrow signal abnormality. Multilevel spondylosis without acute fracture or listhesis. There is no cord compression from T1 to T12. There is no disc herniation. No prevertebral compartment hematoma, mass or fluid collections. 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 No abnormal enhancement. No acute fracture or listhesis or cord compression. Correlated to recent MRI cervical spine posterior Chiari type II. No gross change. Electronically signed by: Abdi Florence MD 05/07/2025 03:11 PM EDT Dictated By: Abdi Marcum MD Signed By: <Electronically signed by Abdi Toscano MD in OV> 05/07/25 1511 DD/ 1317 TD/TT: 05/07/25 1345 Pipeline Technician: [address] [address] Magnetic Resonance Report Signed Patient: Pippa Martinez MR#: [id number] : 1975 Acct:[id number] Age/Sex: 49 / F ADM Date: 05/07/25 Loc: HO.MRI Attending Dr: Seun Edwards MD Ordering Physician: Seun Edwards MD Date of Service: 05/07/25 Procedure(s): MR haque spine wo/w con Accession Number(s): [id number] cc: Seun Edwards MD Reason for Exam: Sta tus of syrinx. Syringomyelia + syringobulbia EXAMINATION: MR THORACIC SPINE WI THOUT AND WITH CONTRAST CLINICAL INFORMATION: Pain, both upper extremities. COMPARISON: August 08, 2023. TECHNIQUE: MRI of the thoracic spine was obtained using routine sequences with and without contrast. Intravenous contrast: Gadolinium based (Gadavist) 5.0 mL.. No reported immediate complications FINDINGS: There is a fusiform, expansile, thin septated, nonenhancing, CSF signal abnormality extendin g from T5 to T10 pronounced at T6 8 level with a maximum diameter of 4.4 mm. No abnormal enhancem ent within the spinal cord, the neural elements of the thecal sac or th e prevertebral compartment. No bone marrow signa l abnormality. Multilevel spondylos is without acute fracture or listhesis. There is no cord compression from T1 to T12. There is no disc herniation. No prevertebral compartment hematoma, mass or fluid collections. 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 No abnormal enhancement. No acute fracture or listhesis or cord compression. Correlated to recent MRI cervical spine posterior Chiari type II. No gross change. Electronically kimberly d by: Abdi Florence MD 05/07/2025 03:11 PM EDT Dictated By: Abdi Hardin MD Signed By: <Electronically signed by Abdi Toscano MD in OV> 05/07/25 1511 DD/ 1317 TD/TT: 05/07/25 1345 Pipeline Technician: MR cervical spine wo/w con ( Not yet reviewed by provider) Interpretation: Performing Lab: Notes/Report: [address] [address] Magnetic Resonance Report Signed Patient: Pippa Martinez MR#: [id number] : 1975 Acct:[id number] Age/Sex: 49 / F ADM Date: 05/07/25 Loc: HO.MRI Attending Dr: Seun Edwards MD Ordering Physician: Seun Edwards MD Date of Service: 05/07/25 Procedure(s): MR cervical spine wo/w con Accession Number(s): [id number] cc: Seun Edwards MD Reason for Exam: Status of syrinx. Syringomyelia + syringobulbia EXAMINATION: MR CERVICAL SPINE WITHOUT AND WITH CONTRAST CLINICAL INFORMATION: Neck pain. Headache. Bilateral, right greater than the left upper extremity pain. COMPARISON: July 20, 2023. TECHNIQUE: MRI of the cervical spine was obtained using routine sequences with and without contrast. Intravenous contrast: Gadolinium based (Gadavist) 5.0 mL. No reported immediate complications. FINDINGS: There is a 10 mm descensus of the cerebellar tonsils below foramen magnum. There is a 1 mm maximum diameter nonenhancing hyperintense T2/CSF signal within the center of the cervical spinal cord extending from C5 to T1. Paramagnetic field distortion secondary to metallic hardware plate at C5-6. No bone marrow STIR signal abnormality. No abnormal enhancement within the neural elements of the central spinal canal or the prevertebral compartment. Grade 1 anterolisthesis C6-7. C2-3: No central spinal canal or neuroforamina stenosis. C3-4: Broad-based disc osteophyte compresses formation. No compression upon neural elements. C4-5: Broad-based disc osteophyte compresses formation resulting in ventral deformity of the thecal sac. No cord compression. Right neuroforamina narrowing on a degenerative basis. C5-6: Postsurgical changes. No cord compression. No neuroforamina stenosis. C6-7: No cord compression. No neuroforamina stenosis. C7-T1: No disc herniation. No neuroforamina stenosis. Flow-void signal within the main vessels is normal. Right vertebral artery is dominant. 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 Cervical spondylosis C3-4 and C4-5 without cord compression and mild right neuroforamina stenosis. Electronically signed by: Abdi Florence MD 05/07/2025 02:24 PM EDT Dictated By: Abdi Marcum MD Signed By: <Electronically signed by Abdi Toscano MD in OV> 05/07/25 1424 DD/ 1247 TD/TT: 05/07/25 1348 Pipeline Technician: [place] [address] Magnetic Resonance Report Signed Patient: Pippa Martinez MR#: [id number] : 1975 Acct:[id number] Age/Sex: 49 / F ADM Date: 05/07/25 Loc: HO.MRI Attending Dr: Seun Edwards MD Ordering Physician: Seun Edwards MD Date of Service: 05/07/25 Procedure(s): MR falcon vical spine wo/w con Accession Number(s): [id number] cc: Seun Edwards MD Reason for Exam: Sta tus of syrinx. Syringomyelia + syringobulbia EXAMINATION: MR CERVICAL SPINE WI THOUT AND WITH CONTRAST CLINICAL INFORMATION: Neck pain. Headache. Bilateral, right greater than the left upper extremity pain. COMPARISON: July 20, 2023. TECHNIQUE: MRI of the cervical spine was obtained using routine sequences with and without contrast. Intravenous contrast: Gadolinium based (Gadavist) 5.0 mL. No reported imme diate complications. FINDINGS: There is a 10 mm descensus of the cerebellar tonsils below foramen magnum. There is a 1 mm maxi mum diameter nonenhancing hyperintense T2/CSF signal within the ce nter of the cervical spinal cord extending from C5 to T1. Paramagnetic field distortion secondary to metallic hardware plate at C5-6. No bone marrow STIR signal abnormality. No abnormal enhancem ent within the neural elements of the central spinal canal or the prevertebral compartment. Grade 1 anterolisthe sis C6-7. C2-3: No central spinal ca nal or neuroforamina stenosis. C3-4: Broad-based disc osteophyte compresses formation. No compression upon neural elements. C4-5: Broad-based disc osteophyte compresses formation resulting in ventral deformity of the the shayne sac. No cord compression. Right neuroforamina narrowing on a degenerative basis. C5-6: Postsurgical changes . No cord compression. No neuroforamina stenosis. C6-7: No cord compression. No neuroforamina stenosis. C7-T1: No disc herniation. No neuroforamina stenosis. Flow-void signal wit hin the main vessels is normal. Right vertebral artery is dominant. M R/MR cervical spine wo/w con IMPRESSION: Chiari type I malformation with likely prominent/congenital central spinal cord canal fr om C5 to T1. Cervical spondylosis C3-4 and C4-5 without cord compression and mild right neuroforamina stenosis. Electronically kimberly d by: Abdi Florence MD 05/07/2025 02:24 PM EDT RP Dictated By: Abdi Hardin MD Signed By: <Electronically signed by Abdi Toscano MD in OV> 05/07/25 1424 DD/ 1247 TD/TT: 05/07/25 1348 Pipeline Technician: Reason For Referral Reason Evaluate and Treat Routine Gynecological Examination Diagnosis 1 Routine gynecologica l examination (Z01.419) Referral Organization Seun Edwards III, MD Referring Provider First Name Seun Referring Provider Last Name Edwards Referring Provider Speciality Internal M edicine Referred Organization [facility] nter Referred Provider [facility] er, [employer] Referred Address [address] [place] [id number], Referred Provider Specialty OB - Gynecol ogy General Notes Rachel Sepulveda 11/24/2024 04:39:14 PM > Referral faxed Referral Priority Routine Referral Appointment Date 03/17/2025 Reason Evaluate and Treat Annual Skin Exam Diagnosis 1 Encounter for screen ing for malignant neoplasm of skin (Z12.83) Referral Organization Seun Edwards III, MD Referring Provider First Name Seun Referring Provider Last Name Edwards Referring Provider Speciality Internal M edicine Referred Provider [facility] Referred Provider Specialty Dermatology General Notes Rachel Sepulveda 02/06/2025 04:08:34 PM > referral faxed per patient request, Rachel Sepulveda 02/10/2025 02:21:44 PM > patient has not reached out to the office to schedule an appointment at this time, Rachel Sepulveda 02/25/2025 02:40:12 PM > [facility] stated they have reached out to the patient to schedule an appointment. Dr. Edwards office has reached out to the patient to have them contact [facility] to schedule an appointment. Message was left. Referral Priority Routine Referral Appointment Date 05/13/2025 Reason Evaluate and Treat Diagnosis 1 Headache, unspecifie d (R51.9) Diagnosis 2 Chiari I malformatio n (G93.5) Referral Organization Seun Edwards III, MD Referring Provider First Name Seun Referring Provider Last Name Jerry Referring Provider Speciality Internal edicine Referred Provider Neurology [facility] Referred Provider Specialty Neurology General Notes D, Rachel 02/06/2025 04:08:10 PM > Per patient request referral faxed Referral Priority Routine Reason Evaluate and Treat Diagnosis 1 Seasonal allergies ( J30.2) Referral Organization Seun Edwards III, MD Referring Provider First Name Seun Referring Provider Last Name Jerry Referring Provider Speciality Internal edicine Referred Provider [facility] Referred Provider Specialty Allergy/Immu nology General Notes D, Rachel 02/06/2025 04:09:52 PM > Per patient request referral faxed., D, Rachel 02/25/2025 02:50:37 PM > [facility] has received the referral no clinicals attached. Need last progress note faxed. Last telehealth/progress note was faxed. Patient is advised to contact their office to schedule. Patient was made aware Referral Priority Routine Referral Appointment Date 07/08/2025 Medications Medication SIG (Take, Route, Frequency, Duration) [...] 1 TABLET BY CORINNA TH ONCE Active dexAMETHasone 1 MG 1 tablet [...] Status W/U Status Risk Notes Problem Headache (05831710) Headache (R51) Active confirmed Her headac hes originate in the Chiari malformation. They have worsened lately. She has been referred back to neurosurgery for opinion and to pain management to consider analgesic procedures. 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 Her neurosurgeon has agreed to do a laminectomy of all else fails.An MRI of the cervical and thoracic spine has been ordered for surveillance. Problem Gastro-esophagea l reflux disease without esophagitis (588980704) Gastro-esophage al reflux disease without esophagitis (K21.9) Active confirmed Her reflux is somewhat aggravated by the but she is finding it tolerable. Problem Cervical spondylosis without myelopathy (941742518) Other spondylosis, cervical region (M47.892) Active confirmed Problem Displacement of cervical intervertebral disc without myelopathy (30920155) Other cervical disc displacement, unspecified cervical region (M50.20) Active confirmed The discomfort is much improved. We're waiting for the MRI report. Problem 924278104 Chiari I malformation (G93.5) Active confirmed The pain has worsened lately. She has seen her neurosurgeon, Dr. Islas, Who has offered to do a cervical laminectomy. She is uncertain about this and has declined that procedure so far. The pain management service has recommended a neurostimulator and she has an appointment to have a temporary wire inserted. Problem 703708345 Insomnia (G47.00) Active confirmed She has chronic difficulty sleeping, but lately has been doing well. No change in the pattern of her sleep has been noted lately. Problem Seasonal allergy (225561574) Seasonal allergies (J30.2) Active confirmed Problem History of irritable bowel syndrome (65786610752876) History of IBS (Z87.19) Active confirmed His abdominal pain is resolved at this time. She is quite comfortable in her daily life. Problem Venous insufficiency of leg (disorder) (258499300) Venous insufficiency (I87.2) Active confirmed An endovascular procedure to relieve the discomfort is being planned. Problem Pleuritic pain (9968949) Pleuritic chest pain (R07.81) Active confirmed This appears t o be pleurisy and not pulmonary infarction or costochondritis. She is going to have a chest x-ray and blood work with a d-dimer. Problem Irritable bowel syndrome (62693890) Other irritable bowel syndrome (K58.8) Active confirmed She occasionall y has abdominal discomfort from the IBS but this is become a minor problem in daily life. Problem 302673689 Chronic constipation (K59.09) Active confirmed She is doing well with the linzess. Problem 366380515 Recent weight loss (R63.4) Active confirmed One [...] meals a day. Vital Signs Heart Rate 76 /min 04/17/2025 All Temperature 97.3 degrees Fahrenheit 04/17/2025 All Blood pressure diastolic 84 mm Hg 04/17/2025 All Height 63 in 04/17/2025 All Blood pressure systolic 116 mm Hg 04/17/2025 All Weight 114 lbs 04/17/2025 All BMI 20.19 kg/m2 04/17/2025 All Encounters Encounter Location Date Provider Diagnosis Seun Edwards III, MD [address] [place] [address] [place] [phone] 07/31/2024 Seun Edwards Chiari I malformatio n G93.5 ; 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 ; Gastro-esophageal reflux disease without esophagitis K21.9 ; Other irritable bowel syndrome K58.8 ; Insomnia G47.00 ; Chronic constipation K59.09 and Underweight R63.6 Seun Edwards III, MD [address] [place] [address] [place] [address] 08/15/2024 Seun Edwards 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 ; 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 ; Insomnia G47.00 ; Headache R51 ; Gastro-esophageal reflux disease without esophagitis K21.9 and Weight loss R63.4 Seun Edwards III, MD [address] [place] [address] [place] [address] 04/17/2025 Seun Edwards Pleuritic chest pain R07.81 ; 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 ; 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 ; Insomnia G47.00 and History of IBS Z87.19 Seun Edwards III, MD [address] [place] [address] [place] [address] 05/13/2024 Seun Edwards Headache R51 Seun Edwards III, MD [address] [place] [address] [place] [address] 08/02/2024 Seun Edwards III, MD [address] [place] [address] [place] [address] 09/16/2024 Seun Edwards III, MD [address] [place] [address] [place] [address] 11/14/2024 Seun Edwards III, MD [address] [place] [address] [place] [address] 11/14/2024 Seun Edwards III, MD [address] [place] [address] [place] [address] 11/21/2024 Seun Edwards III, MD [address] [place] [address] [place] [address] 11/21/2024 Seun Edwards III, MD [address] [place] [address] [place] [address] 11/24/2024 Seun Edwards III, MD [address] [place] [address] [place] [address] 04/16/2025 Seun Edwards III, MD [address] [place] [address] DR AVILEZ Yakov TERAN, MARGOTH [id number] 04/21/2025 Seun Edwards Assessments Encounter Date Diagnosis (ICD Code) Assessment Notes Treatment Notes Treatment Clinical Notes 07/31/2024 Syringomyelia and syringobulbia (ICD-10 - G95.0) [...] to have a temporary wire inserted. 04/17/2025 Chiari I malformation (ICD-10 - G93.5) The pain has worsened lately. She has seen her neurosurgeon, Dr. Islas, Who has offered to do a cervical laminectomy. She is uncertain about this and has declined that procedure so far. The pain management service has recommended a neurostimulator and she has an appointment to have a temporary wire inserted. 04/17/2025 Pleuritic chest pain (ICD-10 - R07.81) This appears to be pleurisy and not pulmonary infarction or costochondritis. She is going to have a chest x-ray and blood work with a d-dimer. 05/13/2024 Headache (ICD-10 - R51) Her headaches originate in the Chiari malformation. They have worsened lately. She has been referred back to neurosurgery for opinion and to pain management to consider analgesic procedures. 07/31/2024 Gastro-esophageal reflux disease without esophagitis (ICD-10 - K21.9) Her reflux is somewhat aggravated by the but she is finding it tolerable. 08/15/2024 Insomnia (ICD-10 - G47.00) She has chronic difficulty sleeping, but lately has been doing well. No change in the pattern of her sleep has been noted lately. 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 Her neurosurgeon has agreed to do a laminectomy of all else fails.An MRI of the cervical and thoracic spine has been ordered for surveillance. 07/31/2024 Other irritable bowel syndrome (ICD-10 - K58.8) She occasionally has abdominal discomfort from the IBS but this is become a minor problem in daily life. 08/15/2024 Headache (ICD-10 - R51) Her headaches originate in the Chiari malformation. They have worsened lately. She has been referred back to neurosurgery for opinion and to pain management to consider analgesic procedures. 04/17/2025 Insomnia (ICD-10 - G47.00) She has [...] the but she is finding it tolerable. 04/17/2025 History of IBS (ICD-10 - Z87.19) His abdominal pain is resolved at this time. She is quite comfortable in her daily life. 07/31/2024 Chronic constipation (ICD-10 - K59.09) She is doing well with the linzess. 08/15/2024 Weight loss (ICD-10 - R63.4) Her weight is stable with a body mass index of 19. We discussed nutrition at length today. 07/31/2024 Underweight (ICD-10 - R63.6) She is underweight with a body mass index of 19. Her weight is been stable since March of this year. We have discussed her weight and her nutrition and her diet. She was encouraged not to lose weight further and to consume 3 nourishing meals a day. Plan Of Treatment Pending Test Test Name Order Date PROFILE, FASTING (COMPREHENSIVE METABOLI C) 01/29/2024 PROFILE, FASTING (COMPREHENSIVE METABOLI C) 08/08/2023 PROFILE, FASTING (COMPREHENSIVE METABOLI C) 06/01/2023 PROFILE, RANDOM (COMPREHENSIVE METABOLIC ) 06/21/2022 PROFILE, RANDOM (COMPREHENSIVE METABOLIC ) 04/17/2025 LIPID PANEL 06/01/2023 FREE T4 (FT4) 06/21/2022 TSH (THYROID STIMULATING HORMONE) 2021 CBC w DIFF 04/17/2025 CBC w DIFF 06/21/2022 SED RATE (ESR) 06/01/2023 D-DIMER 04/17/2025 MRI BREAST BILATERAL 04/18/2023 MRI CERVICAL SPINE W&WO CONTRAST 025 MRI THORACIC SPINE W&WO CONTRAST 025 XR CHEST 2 VIEW PA & LAT 04/17/2025 US ABD 03/07/2024 Stress Test 01/29/2024 CBC WITH AUTO DIFF 06/01/2023 CBC WITH AUTO DIFF 01/29/2024 COLOGUARD 08/08/2023 Lipid Panel 01/29/2024 Lipid Panel 08/08/2023 Vitamin D 25-OH Total 06/01/2023 Thyroid Peroxidase Antibodies 06/21/2022 MR thoracic spine wo/w con 05/07/2025 MR cervical spine wo/w con 05/07/2025 Hemoglobin A1c 01/29/2024 Hemoglobin A1c 08/08/2023 ECG 7 day holter monitor 01/29/2024 ECG 7 day holter monitor 02/04/2024 Next Appt Details Provider Name:Seun Edwards, 05/15/2025 09:30:00 AM, [address] [facility] [address], [place], [address], Provider Name:Seun Edwards, 08/31/2025 04:00:00 PM, [address] [facility] [address], [place], [address], Insurance Providers Payer Name Payer Address Payer Phone Subscriber Number Group Number Insured Name Patient Relationship to Insured Coverage Start Date Coverage End Date [employer] [place] [address] [address] [place] [address] [id number] Pippa Martinez Self - patient is [...] mass upper outer left breast, benign, , [facility] 08/2016 endovenous laser ablation lower extremit y veins 2014 Hospitalization History Reason Date(Month/Year) No history
--- OUTSIDE RECORDS SUMMARY | 2025-05-07 16:56 | XMS_ITS | Patient Health Record ---
Author Organization [facility] Address [address] [facility] [place] [address] Care Team Providers Care Rope Machine Setter Name Role Phone Seun Edwards MD Primary Care Provider Unavailab geneva LawierBen Unavailable [phone] Reason For Referral No Information Medications Medication [...] Status W/U Status Risk Notes Problem Dermatitis (241276786) Dermatitis (692.9) Active confirmed Problem Keratoma (56195340) Keratoma (701.1) Active confirmed Problem Pain in limb (16789087) Pain in Limb (729.5) Active confirmed Problem Pruritic disorders (543765191) Pruritis (698.9) Active confirmed Problem Verruca plantaris (25614467) Verruca Plantaris (078.19) Active confirmed Confirmed by Bx Plan Of Treatment Pending Test Test Name Order Date [id number] Destruction, 1-14 07/09/2014 [id number] Biopsy 0.5cm 06/18/2014 Insurance Providers Payer Name Payer Address Payer Phone Subscriber Number Group Number Insured Name Patient Relationship to Insured Coverage Start Date Coverage End Date [employer] [place] [phone] [id number] Tristen Packer Spouse - patient is the spouse of the insured Medical (General) History Medical History History ICD Code Headaches Chicken pox Migraines Surgical History Surgery Date(Month/Year) herniated disk repair
== END 2025-05-07 12:47 | disposition home or self-care (01) ==
LOC: HO.MRI 12:46
PROVIDERS: PCP Internal Medicine Medical Oncology; Visit Provider Internal Medicine Medical Oncology
DX: G95.0 Syringomyelia and syringobulbia (principal)
CPT/HCPCS: 72156; 72157; A9585

== ENCOUNTER → 2025-05-07 12:47 | Outpatient (BNV) | payer OTHER, SELFPAY | PROVIDERS: PCP Internal Medicine Medical Oncology; Visit Provider Radiology Diagnostic Radiology | DX: M47.812 Spondylosis without myelopathy or radiculopathy, cervical region (principal); G95.0 Syringomyelia and syringobulbia | CPT/HCPCS: 72156; 72157 ==

== ENCOUNTER 2025-06-05 04:41 | Emergency (ER) | payer OTHER, SELFPAY ==
--- NOTE | ~2025-06-05 | CT_ITS ---
CLINICAL HISTORY: head trauma, severe headache CT head without IV contrast Comparison: None Findings: The ventricles are normal in configuration. Basilar cisterns intact. No intracranial hemorrhage, mass-effect or midline shift. No extra-axial fluid collections. The parenchyma is unremarkable in attenuation. Marx-white matter junction preserved. No evidence of acute large vessel or territorial ischemia. Partially imaged tonsillar ectopia. The calvarium is intact. The imaged portion of the paranasal sinuses are clear. No mastoid effusions. The orbital contents are unremarkable. Impression: 1. No CT evidence of acute intracranial pathology. Tonsillar ectopia. This document has been electronically signed by: Morgan Foster MD on 06/05/2025 06:41:32
[2025-06-05 04:50] VITALS: BP 147/78; PULSE 80; RESP 18; TEMP 36.3; O2SAT 100; BMI 18.9
[2025-06-05 04:57] VITALS: BP 131/84; PULSE 72; RESP 18; O2SAT 100
--- NOTE | 2025-06-05 05:21 | ED.HA ---
HPI - Headache General Chief Complaint: Headache Stated Complaint: Migraine Time Seen by Provider: 06/05/25 05:00 Source: patient and old records reviewed Mode of arrival: ambulatory Limitations: other (hard to obtain history from) History of Present Illness ED Provider: REBECCA ORTIZ Narrative: 49 yo female with PMH of Chiari I malformation follows with Dr. Cullen at [facility] and just had MRI here for possible decompression surgery. She comes in with c/o chronic headaches but much worse over 2 weeks and acutely worse after hitting her head 2 days ago with hot tub cover. No LOC reported. She reports she feels tired and weak. She takes naprosyn without relief. She notes nausea. She has not had a fever. no numbness/weakness. She has ringing in her R ear. She is not on blood thinners MD elicited complaint: migraine Pertinent past history: migraines and other Onset (ago): week(s) (2) Onset description: gradually Severity: severe Quality & Timing: throbbing Exacerbating factors: movement of head/neck, light and noise Relieving factors: nothing Context: occurred at rest Associated symptoms: nausea, photophobia, sensitivity to sound and weakness Treatments prior to arrival: other Related Data Home Medications ?Medication ?Instructions ?Recorded ?Confirmed bupropion HCl 100 mg tablet,12 hr 100 mg PO BID 08/24/20 12/05/24 sustained-release multivitamin 1 tab PO DAILY 06/21/23 12/05/24 Lactobacillus acidophilus 10 10,000 mmu cells PO DAILY 12/05/24 12/05/24 billion cell capsule (Probiotic) cyclobenzaprine 10 mg tablet 10 mg PO BEDTIME 12/05/24 12/05/24 linaclotide 145 mcg capsule 145 mcg PO DAILY PRN 12/05/24 12/05/24 (Linzess) Gastrointestinal Spasms Or Cramping famotidine 20 mg tablet (Pepcid) 20 mg PO DAILY 12/09/24 12/09/24 Previous Rx's ?Medication ?Instructions ?Recorded naproxen 500 mg tablet 500 mg PO BID #20 tabs 12/09/24 metoclopramide HCl 10 mg tablet 10 mg PO Q6H PRN Headache, nausea 06/05/25 (Reglan) and vomiting #14 tabs Allergies Allergy/AdvReac Type Severity Reaction Status Date / Time trazodone AdvReac Unknown insomnia, Verified 06/05/25 04:53 nightmares tramadol AdvReac Nausea and Verified 06/05/25 04:53 Vomiting Review of Systems Review of Systems: Constitutional : No Fever, No Chills Cardiovascular : No Chest Pain, No SOB Respiratory : No Cough, No Sputum Gastrointestinal : pos Nausea, No Diarrhea, No abdominal Pain Musculoskeletal : No joint pain, No Myalgias, No Joint Swelling Skin : No Skin Lesions, No rash Neuro : pos Weakness, No Numbness, No Dizziness, positive Headache All other systems reviewed and are negative Yes all other systems are reviewed and are negative [facility] Past Medical History Attestation statement: The following information was validated with the patient. Source: old records reviewed Medical History PONV (postoperative nausea and vomiting) Depression Uterine polyp Venous insufficiency of both lower extremities Peripheral venous insufficiency Varicose vein of leg 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, cervical History of torn meniscus of left knee IBS (irritable bowel syndrome) GERD (gastroesophageal reflux disease) Surgical History H/O colonoscopy History of surgery on lower extremity (06/25/23) History of lumpectomy of left breast (06/25/23) History of cervical discectomy (~2010) H/O left breast biopsy (~08/2016) Family History Family History Maternal Aunt History of lung cancer Paternal Aunt History of breast cancer Paternal Grandfather History of lung cancer Social History Social History Are you a primary rn care manager to a significant other at home: No Do you presently have visiting nurse or other home services: No Alcohol intake: current Alcohol intake frequency: holidays/special occasions only Alcohol type: wine Patient Tobacco Use Status: Never used Tobacco Smoked in Last 30 Days: No Use of substances other than those prescribed or required for medical reasons: No Advance Directives: Yes Advance Directives Information Provided: Yes Advance Directives on File: No Do you have a plan to hurt others: No Plan Physical Exam Vital Signs: Vital Signs: Last Vital Signs Temp 97.4 F 06/05/25 04:50 Pulse 78 06/05/25 07:20 Resp 18 06/05/25 07:20 BP 142/90 H 06/05/25 07:20 Pulse Ox 96 06/05/25 07:20 O2 Del Method Room Air 06/05/25 07:20 BMI result Body Mass Index 18.9 Medications Administered Discontinued Medications Generic Name Dose Route Start Last Admin Trade Name Temo PRN Reason Stop Dose Admin Diazepam 5 mg 06/05/25 05:11 06/05/25 05:22 Diazepam 10 Mg/2 Ml Cartridge IVPUSH 06/05/25 05:12 5 mg STAT STA Administration Lactated Ringer's 1,000 mls @ 999 mls/hr 06/05/25 05:11 06/05/25 07:28 Lr IV 06/05/25 06:11 Infused .Q1H1M ONE Infusion Ketorolac Tromethamine 15 mg 06/05/25 07:45 06/05/25 08:10 Ketorolac Tromethamine 15 Mg/Ml Vial IVPUSH 06/05/25 07:46 15 mg ONCE STA Administration Prochlorperazine Edisylate 5 mg 06/05/25 05:11 06/05/25 05:22 Prochlorperazine Edisylate 10 Mg/2 Ml Vial IVPUSH 06/05/25 05:12 5 mg ONCE ONE Administration Medical Decision Making Medical Decision Making MDM Narrative: 49 yo female with PMH of Chiari I malformation here with c/o worsening headache x 2 weeks and much worse after head injury 2 days ago at this time given injury will obtain CT head. Given her headache though no neuro symptoms she may need MRI - will provide analgesia as well. signed out to Dr. Ganesh oswald further work up Date: 06/05/25 Provider: Ganesh Fernando MD 08:03 I assumed care of this patient from my colleague, Dr. Bull at 07:00 hours, pending her CT head result. CT scan did not reveal any acute abnormalities. The patient states that her nausea has resolved and her headache has improved slightly from 10/10 to 7/10. Patient states she has chronic baseline headache but this headache as above her baseline pain level. My plan is to try to get the patient down to a tolerable pain level and then discharge her to home. Patient was ordered to get Toradol 15 mg IV. 10:47 Patient has pain did improve after your IV Toradol. Patient states she is feeling significantly better and wants to go home. Patient will be started on the migraine regimen: Reglan 10 mg, Benadryl 50 mg and Excedrin migraine 2 tablets every 6 hours as needed for pain. She was given printed and verbal instructions and discharged home. Differential Diagnosis Differential Diagnoses: The differential diagnosis associated with the presentation includes head injury, hydrocephalus, migraine Admission/Observation Consideration of admission/observation: Escalation of care including admission/observation considered signed out to Dr. Fernando pending work up Independent Interpretation I performed an independent interpretation of an: CT Scan (no ICH) Radiology Impression Discussion of test interpretation with radiology: I have reviewed the radiologist's reading. Radiologist Impression: CT head without IV contrast Comparison: None Findings: The ventricles are normal in configuration. Basilar cisterns intact. No intracranial hemorrhage, mass-effect or midline shift. No extra-axial fluid collections. The parenchyma is unremarkable in attenuation. Marx-white matter junction preserved. No evidence of acute large vessel or territorial ischemia. Partially imaged tonsillar ectopia. The calvarium is intact. The imaged portion of the paranasal sinuses are clear. No mastoid effusions. The orbital contents are unremarkable. Impression: 1. No CT evidence of acute intracranial pathology. Tonsillar ectopia. This document has been electronically signed by: Morgan Foster MD on 06/05/2025 06:41:32 External Record Review External record reviewed: Outpatient record and Prior outpatient radiology Prescription Management I considered prescription management with: Other (Anti migraine medication: Reglan) Discharge Plan Discharge Clinical Impression: Headache Qualifiers: Headache type: unspecified Headache chronicity pattern: acute headache Intractability: not intractable Qualified Code(s): R51.9 - Headache, unspecified Patient Disposition: Home, Self-Care Additional Instructions: The CT scan of your brain without IV contrast did not reveal any significant abnormalities which is reassuring. Your symptoms are consistent with a flare-up of your chronic headache syndrome I want you to take the following 3 medications together every 6 hours as needed for headache, nausea or vomiting. Reglan (metoclopramide) in 10 mg, 1 pill Benadry (diphenhydramine) l 25 mg, 2 pills Excedrin migraine (acetaminophen, aspirin, caffeine), 2 pills. After you take these medications, lie down in a dark quiet room and try to fall asleep. ?These medications will make you sleepy, do not drive or work after taking these medications. Continue taking your other medications as prescribed by your providers. Follow-up with your doctor in 2 days. Please return to the emergency department if your symptoms get worse or if you develop any symptoms that are concerning to you. Prescriptions: New metoclopramide HCl [Reglan] 10 mg tablet 10 mg PO Q6H PRN (Reason: Headache, nausea and vomiting) Qty: 14 0RF No Action multivitamin Tablet 1 tab PO DAILY cyclobenzaprine 10 mg tablet 10 mg PO BEDTIME Linzess 145 mcg capsule 145 mcg PO DAILY PRN (Reason: Gastrointestinal Spasms Or Cramping) Probiotic 10 billion cell Capsule 10,000 mmu cells PO DAILY famotidine [Pepcid] 20 mg Tablet 20 mg PO DAILY naproxen 500 mg tablet 500 mg PO BID Qty: 20 0RF bupropion HCl 100 mg tablet sustained-release 12 hr 100 mg PO BID Print Language: Syriac
[2025-06-05] MEDS: diazePAM 10 MG/2 ML CARTRIDGE 5 MG IVPUSH (05:22)
[2025-06-05] MEDS: Lactated Ringers 1,000 ML 999 ML IV (05:23)
--- NOTE | 2025-06-05 06:22 | HO.NURTONUR ---
RN went to check on pt after ct scan. Pt is resting comfortably while bolus of LR is infusing. Lights are off for comfort. Respirations are even and unlabored. No apparent distress. Able to make needs known. RN let pt sleep.
[2025-06-05 07:20] VITALS: BP 142/90; PULSE 78; RESP 18; O2SAT 96
--- NOTE | 2025-06-05 07:25 | PC.NURSE ---
Assumed care of patient, pt c/o 02/03 head pain, sts ringing in ears has stopped and denies dizziness at this time. A+Ox4, calm, cooperative. RR even and unlabored, denies CP or SOB.
[2025-06-05 10:56] VITALS: BP 131/88; PULSE 77; RESP 18; TEMP -17.7; TEMP 0; O2SAT 96
== END 2025-06-05 11:22 | disposition home or self-care (01) ==
PROVIDERS: Emergency Provider Emergency Medicine Emergency Medical Services; PCP Internal Medicine Medical Oncology
DX: R51.9 Headache, unspecified (principal); Z86.79 Personal history of other diseases of the circulatory system; Z79.899 Other long term (current) drug therapy; Z87.19 Personal history of other diseases of the digestive system; Z87.828 Personal history of other (healed) physical injury and trauma; Z86.69 Personal history of other diseases of the nervous system and sense organs
CPT/HCPCS: 70450; 96361; 96374; 96375; 99284; 99285; J0737; J1885; J3360; J7120

== ENCOUNTER → 2025-06-05 05:13 | Outpatient (BNV) | payer OTHER, SELFPAY | PROVIDERS: Emergency Provider Emergency Medicine Emergency Medical Services; PCP Internal Medicine Medical Oncology; Visit Provider Radiology Diagnostic Radiology | DX: S09.90XA Unspecified injury of head, initial encounter (principal); W19.XXXA Unspecified fall, initial encounter | CPT/HCPCS: 70450 ==

== ENCOUNTER 2025-06-26 12:57 | Outpatient (REF) | payer OTHER, SELFPAY ==
--- OUTSIDE RECORDS SUMMARY | 2025-06-23 23:59 | XMS_ITS | Continuity of Care Document ---
Author Organization [facility] y [address], [address] [place] [address]- Care Team Providers Care Real Estate Investor Name Role Phone Seun Edwards MD Primary Care Physician [phone] [facility] [id number] Date(s): 06/16/25 - 06/23/25 [facility] [address] [place] [address] Drive [address] [place], [place] [address] Attending Physician: Roshan CHRISTIANSON, Shari Ramirez Referring Physician: Seun Edwards MD Encounter Type: Office Visit Allergies, Adverse Reactions, Alerts Substance Criticality Severity Reaction Reaction Severity Status traMADol Unable to assess criticality Persistent Mild Active traZODone night terrors Active Immunizations Given and Recorded Vaccine Date Status Refusal Reason tetanus/diphtheria/pertussis, acel(Tdap) 1 08/09/11 Given 1Admin Note: vis 07/14/2008 Medications baclofen 5 mg oral tablet 0 Refills, Maintenance, 06/16/25 11:11:00 AM EDT, Partial fill upon patient request if the prescription is for a schedule II opioid drug. Start Date: 06/16/25 Status: Ordered Medication Dispense Status: Completed Total Allowed Fills: 1 Fills Dispensed: 0 BuPROPion (Eqv-Wellbutrin SR) 150 mg/12 hours oral tablet, extended release 0 Refills, Maintenance, 06/16/25 11:10:00 AM EDT, Partial fill upon patient request if the prescription is for a schedule II opioid drug. Start Date: 06/16/25 Status: Ordered Medication Dispense Status: Completed Total Allowed Fills: 1 Fills Dispensed: 0 Ira 0.35 mg oral tablet 1 tablet = 0.35 mg, By Mouth, Daily, # 84 tablet, 6 Refills, Maintenance, 09/07/20 12:04:00 PM EST, Tablet, [facility], Partial fill upon patient request if the prescription is for a schedule II opioid drug., 159, cm, 09/07/20 11:58:00 EST, Height, 54.5, kg, 09/07/20 11:58:00 EST, Dry Weight Start Date: 09/07/20 Stop Date: 04/18/22 Status: Ordered Medication Dispense Status: Completed Quantity: 84.0 Unit: tablet Total Allowed Fills: 7 Fills Dispensed: 0 Co-Q10 By Mouth, 0 Refills, Maintenance, 09/06/23 11:13:00 AM EST, Partial fill upon patient request if theprescription is for a schedule II opioid drug. Start Date: 09/06/23 Status: Ordered Medication Dispense Status: Completed Total Allowed Fills: 1 Fills Dispensed: 0 cyclobenzaprine 10 mg oral tablet Refills 0, Maintenance, 06/05/24 8:37:00 AM EDT, Partial fill upon patient request if the prescription is for a schedule II opioid drug. Start Date: 06/05/24 Status: Ordered Medication Dispense Status: Completed Total Allowed Fills: 1 Fills Dispensed: 0 Linzess 145 mcg oral capsule 0 Refills, Maintenance, 06/05/24 8:37:00 AM EDT, Partial fill upon patient request if the prescription is for a schedule II opioid drug. Start Date: 06/05/24 Status: Ordered Medication Dispense Status: Completed Total Allowed Fills: 1 Fills Dispensed: 0 Linzess 145 mcg oral capsule 0 Refills, Maintenance, 06/16/25 11:10:00 AM EDT, Partial fill upon patient request if the prescription is for a schedule II opioid drug. Start Date: 06/16/25 Status: Ordered Medication Dispense Status: Completed Total Allowed Fills: 1 Fills Dispensed: 0 magnesium (as citrate)-melatonin 71.5 mg-1 mg oral tablet 2 tablet, By Mouth, Daily, 0 Refills, Maintenance, 09/06/23 11:13:00 AM EST, Partial fill upon patient request if the prescription is for a schedule II opioid drug. Start Date: 09/06/23 Status: Ordered Medication Dispense Status: Completed Total Allowed Fills: 1 Fills Dispensed: 0 Senna By Mouth, 0 Refills, Maintenance, 09/06/23 11:13:00 AM EST, Partial fill upon patient request if theprescription is for a schedule II opioid drug. Start Date: 09/06/23 Status: Ordered Medication Dispense Status: Completed Total Allowed Fills: 1 Fills Dispensed: 0 Wellbutrin By Mouth, 0 Refills, Maintenance, 11/19/17 10:47:09 AM EDT Start Date: 11/19/17 Status: Ordered Medication Dispense Status: Completed Total Allowed Fills: 1 Fills Dispensed: 0 Problem List Condition Confirmation Course Effective Dates Status Health St atus Informant Common migraine Confirmed Active Depression Confirmed Active Vital Signs Most recent to oldest [Reference Range]: 1 Height 162 cm (06/16/25 11:08 AM) Weight 50 kg (06/16/25 11:08 AM) Body Mass Index [18.5-24.99 kg/m2] 19.05 kg/m2 (06/16/25 11:08 AM) Patient Care team information Care Team Personnel Name: Seun Edwards MD Position: [facility] Physician - Oncology Member Role: PCP Address: [address] [place] [address] [address] Seun Edwards III, MD [address] Telecom: Name: Mary Kerns Position: [facility] Associate Professional Member Role: Lif[employer] Consulting Provider Name: Davin Story MD Position: [facility] APPRENTICE COOK Member Role: [employer] APPRENTICE COOK Physician Address: [address] [place] [address] [facility] [employer] [place] [address]- Telecom: Care Team Related Persons Name: SOLO ROBLES Insurance Providers Guarantor name: HOWIE ROBLES Health Plan Information #: 1 Payer: [employer]UE [employer] PPO Payer Identifier: NICOLE Member Number: [id number] Group Number: [id number] Subscriber Identifier: [id number] Relationship to Subscriber: self Coverage Type: BLUE CROSS/BLUE SHIELD Coverage Verification Date: NA Telecom: NA Address: NA
== END 2025-06-26 12:58 | disposition home or self-care (01) ==
LOC: HO.LNP 12:57
PROVIDERS: PCP Internal Medicine Medical Oncology; Visit Provider Advanced Practice Midwife
DX: Z01.419 Encounter for gynecological examination (general) (routine) without abnormal findings (principal); N94.10 Unspecified dyspareunia; R10.12 Left upper quadrant pain; Z12.39 Encounter for other screening for malignant neoplasm of breast; Z12.31 Encounter for screening mammogram for malignant neoplasm of breast
CPT/HCPCS: 87626; 88175

== ENCOUNTER 2025-06-26 12:57 | Outpatient (AMB) | payer OTHER, SELFPAY ==
--- OUTSIDE RECORDS SUMMARY | 2024-11-14 07:10 | XMS_ITS ---
Author Organization Seun Edwards III, MD Address [address] [place] [address] [place] [address] Care Team Providers Care Oven Equipment Repairer Name Role Phone Dr. Seun Edwards III Primary Care Provider [phone] REASON FOR VISIT Rx Request Social History Sex Assigned At : Social History Observation Description Sex Assigned At Female Encounters Encounter Location Date Provider Diagnosis Seun Edwards III, MD [address] [place] [address] [place] [address] 11/14/2024 Seun Edwards Plan Of Treatment Next Appt Details Provider Name:Seun Edwards , 08/31/2025 04:00:00 PM, [address] [place] [address] [place], [address], Progress Notes * Pippa MARTINEZ ADOB:[birth year] (49 yo F)Acc No.[id number]:11/14/2024 Patient: Nhan Pippa DIA :1975 A ge:49 Y S ex:Female [facility] [place] [address] * true * Date: Generated for Printi ng/Faxing/eTransmitting on: 02:01 PM EDT
--- OUTSIDE RECORDS SUMMARY | 2024-11-14 07:49 | XMS_ITS ---
Author Organization Seun Edwards III, MD Address [address] [place] [address] [place] [address] Care Team Providers Care Shipping Support Clerk Name Role Phone Dr. Seun Edwards III Primary Care Provider Medications Medication SIG (Take, Route, Frequency, Duration) Notes Start Date End Date Status Amoxicillin-Pot Clavulanate 875-125 MG 1 tablet Orally every 12 hrs for 7 days 11/14/2024 11/21/2024 Active Social History Sex Assigned At : Social History Observation Description Sex Assigned At Female Encounters Encounter Location Date Provider Diagnosis Seun Edwards III, MD [address] [place] [address] [place] [address] 11/14/2024 Seun Edwards Plan Of Treatment Medication Medication Name Sig Start Date Stop Date Notes Amoxicillin-Pot Clavulanate 875-125 MG 1 tablet Orally every 12 hrs for 7 days 11/14/2024 11/21/2024 Next Appt Details Provider Name:Seun Edwards , 08/31/2025 04:00:00 PM, [address] [place] [address] [place], [address], Progress Notes * Pippa MARTINEZ ADOB:[birth year] (49 yo F)Acc No.[id number]:11/14/2024 Patient: Nhan Pippa DIA :1975 A ge:49 Y S ex:Female Address:[address] [place] [address], [place] [address] * Refills Start Amoxicillin-Pot Clavulanate Tablet, 875-125 MG, Orally, 14 Tablet, 1 tablet, every 12 hrs, 7 days, Refills=0 * true * Date: Generated for Maria Luz fitzgerald/Tao/Manolo on: 02:02 PM EDT
--- OUTSIDE RECORDS SUMMARY | 2024-11-21 05:42 | XMS_ITS ---
Author Organization Seun Edwards III, MD Address [address] [place] [address] [place] [address] Care Team Providers Care Fisher Trawl Net Name Role Phone Dr. Seun Edwards III Primary Care Provider [phone] REASON FOR VISIT Rx request Social History Sex Assigned At : Social History Observation Description Sex Assigned At Female Encounters Encounter Location Date Provider Diagnosis Seun Edwards III, MD [address] [place] [address] [place] [address] 11/21/2024 Seun Edwards Plan Of Treatment Next Appt Details Provider Name:Seun Edwards , 08/31/2025 04:00:00 PM, [address] [place] [address] [place], [address], Progress Notes * Pippa MARTINEZ ADOB:[birth year] (49 yo F)Acc No.[id number]:11/21/2024 Patient: Nhan Pippa DIA :1975 A ge:49 Y S ex:Female Address[facility] [place] [address] * true * Date: Generated for Printi ng/Faxing/eTransmitting on: 02:02 PM EDT
--- OUTSIDE RECORDS SUMMARY | 2024-11-21 06:45 | XMS_ITS ---
Author Organization Seun Edwards III, MD Address [address] [place] [address] [place] [address] Care Team Providers Care Product Safety Test Engineer Name Role Phone Dr. Seun Edwards III Primary Care Provider Medications Medication SIG (Take, Route, Fr equency, Duration) Notes Start Date End Date Status Diflucan 150 MG 1 tablet Orally once for 1 days 11/23/2024 Active Social History Sex Assigned At : Social History Observation Description Sex Assigned At Female Encounters Encounter Location Date Provider Diagnosis Seun Edwards III, MD [address] [place] [address] [place] [address] 11/21/2024 Seun Edwards Plan Of Treatment Medication Medication Name Sig Start Date Stop Date Notes Diflucan 150 MG 1 tablet Orally once for 1 days 11/21/2024 11/23/2024 Next Appt Details Provider Name:Seun Edwards , 08/31/2025 04:00:00 PM, [address] [place] [address] [place], [address], Progress Notes * Pippa MARTINEZ ADOB:[birth year] (49 yo F)Acc No.[id number]:11/21/2024 Patient: Nhan Pippa DIA :1975 A ge:49 Y S ex:Female Address:[address] [place] [address], [place] [address] * Refills Start Diflucan Tablet, 150 MG, Orally, 1, 1 tablet, once, 1 days, Refills=1 * true * Date: Generated for Maria Luz fitzgerald/Tao/Joseitting on: 02:02 PM EDT
--- OUTSIDE RECORDS SUMMARY | 2024-11-24 12:13 | XMS_ITS ---
Author Organization Seun Edwards III, MD Address [address] [place] [address] [place] [address] Care Team Providers Care Paving Contractor Name Role Phone Dr. Seun Edwards III Primary Care Provider [phone] Reason For Referral Reason Evaluate and Treat Routine Gynecological Examination Diagnosis 1 Routine gynecologica l examination (Z01.419) Referral Organization Seun Edwards III, MD Referring Provider First Name Seun Referring Provider Last Name Jerry Referring Provider Speciality Internal M edicine Referred Organization [facility] nter Referred Provider [facility] er, CARBON LAMP CLEANER & Midwifery Referred Address [address] [place] [phone], Referred Provider Specialty OB - Gynecol ogy General Notes DRachel 11/24/2024 04:39:14 PM > Referral faxed Referral Priority Routine Referral Appointment Date 03/17/2025 REASON FOR VISIT Referral Social History Sex Assigned At : Social History Observation Description Sex Assigned At Female Encounters Encounter Location Date Provider Diagnosis Seun Edwards III, MD [address] [place] [address] [place] [address] 11/24/2024 Seun Edwards Plan Of Treatment Referrals Referral Date Details 11/24/2024 11/24/2024, Evaluate and Treat Routine Gynecological Examination, CARBON LAMP CLEANER & Midwifery [facility], [address] [place] [address], [phone], Next Appt Details Provider Name:Seun Nikky Edwards , 08/31/2025 04:00:00 PM, [address] [place] [address] [place], [phone], Progress Notes * Pippa MARTINEZ ADOB:[birth year] (49 yo F)Acc No.[id number]:11/24/2024 Patient: Pippa CALVIN :1975 A ge:49 Y S ex:Female Address:[address] [place] [phone] Subjective: * Chief Complaints: * R eferral * Medical History: * Surgical History: * Hospitalization/Major Diagno stic Procedure: * Medications: Objective: * Vitals: * Physical Examination: Assessment: Plan: * Treatment: * Procedure Codes: * true * Date: Generated for Thomasi lia/Tao/eTransmitting on: 02:01 PM EDT Consultation Request Notes Referral Date Referring Provider Referred Provider Not es 11/24/2024 Seun Edwards [facility], CARBON LAMP CLEANER & Midwifery Evaluate and Treat Routine Gynecological Examination
--- OUTSIDE RECORDS SUMMARY | 2025-04-16 09:16 | XMS_ITS ---
Author Organization Seun Edwards III, MD Address [address] [place] [address] [place] [address] Care Team Providers Care Conference Organizer Name Role Phone Dr. Seun Edwards III Primary Care Provider [phone] REASON FOR VISIT new onset pleuritic chest discomfort Social History Sex Assigned At : Social History Observation Description Sex Assigned At Female Encounters Encounter Location Date Provider Diagnosis Seun Edwards III, MD [address] [place] [address] [place] [address] 04/16/2025 Seun Edwards Plan Of Treatment Next Appt Details Provider Name:Seun Edwards , 08/31/2025 04:00:00 PM, [address] [place] [address] [place], [address], Progress Notes * Pippa MARTINEZ ADOB:[birth year] (49 yo F)Acc No.[id number]:04/16/2025 Patient: Nhan Pippa DIA :1975 A ge:49 Y S ex:Female Address:[address] [place], [place] [address] [address] * true * Date: Generated for Printi ng/Faxing/eTransmitting on: 02:02 PM EDT
--- OUTSIDE RECORDS SUMMARY | 2025-04-17 05:00 | XMS_ITS ---
Author Organization Seun Edwards III, MD Address [address] [place] [address] [place] [address] Care Team Providers Care Ocean Fishing Guide Name Role Phone Dr. Seun Edwards III [...] W/U Status Risk Notes Problem Pleuritic pain (0876285) Pleuritic chest pain (R07.81) Active confirmed This [...] Date Provider Diagnosis Seun Edwards III, MD [address] [place] [address] [place] [address] 04/17/2025 Seun Edwards Pleuritic chest pain R07.81 [...] Provider Name:Seun Edwards , 08/31/2025 04:00:00 PM, [address] [place] [address] [address], [facility], [address], Progress Notes * Pippa MARTINEZ ADOB:[birth year] (49 yo F)Acc No.[id number]:04/17/2025 Progress Notes Patient: Nhan Pippa DIA Provider: [...] mass upper outer left breast, benign, , [facility] 08/2016left breast lumopectomy by Dr Serna 06/26/2023olonoscopy Dr. Barraza 04/21/2024No history * Hospitalization/Major Diagno stic Procedure: N o history * Family History: F ather: alive 56 yrs, hypertension, diagnosed with HTN. M other: alive 56 yrs, SVT, Hyperthyroidism, [place], diagnosed with CVD. P aternal Grand Father: 72 yrs, lung cancer, diagnosed with Cancer. M aternal Grand Mother: alive, alzheimer. 1 sister(s) - healthy. 1 son(s) , 2 daughter(s) - healthy. . There is no history of breast cancer on her mother's side. 2 of her father's sisters had breast cancer in the past in [place]. * Social History: T obacco Use: T [...] 04/17/2025 Generated for Maria Luz fitzgerald/Tao/Manolo on: 02:01 PM EDT History and Physical Notes * [...]
--- OUTSIDE RECORDS SUMMARY | 2025-04-21 11:09 | XMS_ITS ---
Author Organization Seun Edwards III, MD Address [address] [place] [address] [place] [address] Care Team Providers Care Education Diagnostician Name Role Phone Dr. Seun Edwards III Primary Care Provider REASON FOR VISIT FYI only Social History Sex Assigned At : Social History Observation Description Sex Assigned At Female Encounters Encounter Location Date Provider Diagnosis Seun Edwards III, MD [address] [place] [address] [place] [address] 04/21/2025 Seun Edwards Plan Of Treatment Next Appt Details Provider Name:Seun Edwards , 08/31/2025 04:00:00 PM, [address] [place] [address] [place], [address], Progress Notes * Pippa MARTINEZ ADOB:[birth year] (49 yo F)Acc No.[id number]:04/21/2025 Patient: Nhan Pippa DIA :1975 A ge:49 Y S ex:Female Address[facility] [place] [address] * true * Date: Generated for Printi ng/Faxing/eTransmitting on: 02:02 PM EDT
--- OUTSIDE RECORDS SUMMARY | 2025-04-24 13:00 | XMS_ITS ---
Author Organization Seun Edwards III, MD Address [address] [place] [address] [place] [address] Care Team Providers Care Spd Manager Name Role Phone Dr. Seun Edwards III Primary Care Provider [phone] Allergies Allergen (clinical drug ingredient) Drug/Non Drug [...] Laxative 8.6 MG 2 tablets at bedti wy as needed Orally Once a day Active [...] Date Provider Diagnosis Seun Edwards III, MD [address] [place] [address] [address] [place] [address] 04/24/2025 Seun Edwards Plan Of Treatment Medication [...] Provider Name:Seun Edwards , 08/31/2025 04:00:00 PM, [address] [place] [address] [address], [place], [address], Progress Notes * Pippa MARTINEZ ADOB:[birth year] (50 yo F)Acc No.[id number]:04/24/2025 Progress Notes Patient: Pippa CALVIN Provider: Andrés Edwards MD :1975 A ge:49 Y S ex:Female Date:04/24/2025 Address: [address] [id number] Subjective: * Chief Complaints: * 1 . [...] mass upper outer left breast, benign, , [facility] 08/2016, left breast lumopectomy by Dr Serna 06/26/2023, Colonoscopy Dr. Barraza 04/21/2024, No history . * Hospitalization/Major Diagno stic Procedure: N o history . * Family History: F ather: alive 56 yrs, hypertension, diagnosed with HTN. M other: alive 56 yrs, SVT, Hyperthyroidism, [place], diagnosed with CVD. P aternal Grand Father: 72 yrs, lung cancer, diagnosed with Cancer. M aternal Grand Mother: alive, alzheimer. 1 sister(s) - healthy. 1 son(s) , 2 daughter(s) - healthy. . There is no history of breast cancer on her mother's side. 2 of her father's sisters had breast cancer in the past in [place]. * Social History: T obacco Use: T [...] 04/24/2025 Generated for Maria Luz fitzgerald/Tao/Manolo on: 02:01 [...]
--- OUTSIDE RECORDS SUMMARY | 2025-05-15 05:45 | XMS_ITS ---
Author Organization Seun Edwards III, MD Address [address] [place] [address] [place] [address] Care Team Providers Care Start Up Specialist Name Role Phone Dr. Seun Edwards [...] Date Provider Diagnosis Seun Edwards III, MD [address] [place] [address] [place] [address] 05/15/2025 Seun Edwards Recent weight loss R63.4 [...] Provider Name:Seun Edwards , 08/31/2025 04:00:00 PM, [address] [place] [address] RAGHAV RUSH, MARGOTH TERAN, [phone], Progress Notes * Pippa MARTINEZ ADOB:[birth year] (49 yo F)Acc No.[id number]:05/15/2025 Progress Notes Patient: Pippa CALVIN Provider: Andrés Edwards MD :1975 A ge:49 Y S ex:Female Date:05/15/2025 Address:[address] [place] [address] [id number] Subjective: * Chief Complaints: * N osmany ppain from Chiari 1 syndromeCervicothoracic syrinxInsomniaGERD * HPI: C OVID-19 Screening: The neck pain has improved and is back at baseline, which is still significant. 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 The recent MRI of the [...] mass upper outer left breast, benign, , [facility] 08/2016left breast lumopectomy by Dr Serna [...] had breast cancer in the past in [place]. * Social History: T obacco Use: T [...] MD Date: 05/15/2025 Generated for Maria Luz fitzgerald/Tao/Joseitting on: 02:02 PM EDT History and Physical Notes * [...]
--- NOTE | 2025-06-26 13:16 | MHC.OFFVIS ---
Vital Signs 06/26/25 13:27 Height 5 ft 4 in Weight 117 lb BMI 20.1 Intake Visit Reasons: New patient Annual Intake Note: Patient here for byn annual. Former patient of [facility]. Pap smear 4 years ago [facility] Required: No Information Interpreted: non-clinical & clinical Engagement Liaison: Engagement Liaison Present (wes) Accompanied by: Self / Same As Patient Allergies trazodone Adverse Reaction (Unknown, Verified 06/26/25 13:18) insomnia, nightmares tramadol Adverse Reaction (Verified 06/26/25 13:18) Nausea and Vomiting Medication List - Last Reconciled 06/26/25 by Wanda Larkin CNM baclofen 5 mg PO DAILY bupropion HCl SR 100 mg PO BID famotidine (Pepcid) 20 mg PO DAILY Lactobacillus acidophilus (Probiotic) 10,000 mmu cells PO DAILY linaclotide (Linzess) 145 mcg PO DAILY PRN metoclopramide HCl (Reglan) 10 mg PO Q6H PRN multivitamin 1 tab PO DAILY naproxen 500 mg PO BID Is last menstrual period known: Yes (periods been irregular skipping months) Last menstrual period: 05/16/25 Do you need a note to return to daycare/school/sports/work: Yes HPI HPI New patient Annual: Details: 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 She tries to eat well and takes care of herself. She uses condoms for control she has started to miss periods and knows that she is in the brandy menopausal time. She has been having some pressure when she has intercourse in the last couple of months and this is new. She has had urological procedures in the past.. [facility] Medical History PONV (postoperative nausea and vomiting) Depression Uterine polyp Venous insufficiency of both lower extremities Peripheral venous insufficiency Varicose vein of leg 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, cervical History of torn meniscus of left knee IBS (irritable bowel syndrome) GERD (gastroesophageal reflux disease) Surgical History H/O colonoscopy History of surgery on lower extremity (06/25/23) History of lumpectomy of left breast (06/25/23) History of cervical discectomy (~2010) H/O left breast biopsy (~08/2016) Family History (Updated 06/26/25 @ 13:23 by Rosita Brunson LPN) Maternal Aunt History of lung cancer Paternal Aunt History of breast cancer Paternal Grandfather History of lung cancer Mother History of breast cancer Social History Are you a primary career coordinator to a significant other at home: No Do you presently have visiting nurse or other home services: No Alcohol intake: current Alcohol intake frequency: holidays/special occasions only Alcohol type: wine Patient Tobacco Use Status: Never used Tobacco Female Reproductive History Menstrual Age of Menarche: 13 Date of last menstrual period: 05/16/25 control method: condoms Total pregnancies: 8 Number of Living Children: 3 Ab spontaneous: 5 Date of last pap smear: 06/26/21 Date of Mammogram: 04/03/23 Physical Exam Const General: healthy appearing, comfortable, no acute distress, well developed and alert Nutritional Appearance: average body habitus Orientation/consciousness: patient oriented x3 Limitations: no limitations HEENT Head: Yes normocephalic Neck Neck: Yes normal visual inspection Chest Chest palpation & inspection: normal inspection of the chest Breast/axilla inspection: normal inspection of the breasts and normal inspection of the axillae Breast/axilla palpation: normal palpation of the breasts and normal palpation of the axillae Resp Effort & Inspection: normal respiratory effort GI Inspection: Yes normal to inspection, No Abdominal wall edema and No distended Palpation (GI): Soft to palpation and nontender Other: External exam within normal limits vagina is pink and moist but the some mild atrophic changes in mucosa noted. Cervix is long close thick parous mobile nontender slightly friable with Pap uterus is small feels midposition the patient says she has been told that is retroverted. It is nontender and I was not able to recreate the pressure sensation during the bimanual exam adnexa is nontender nonenlarged. We will obtain a pelvic ultrasound and have a follow-up visit after. General: Yes bladder normal to palpation External Female Exam: normal external appearance and normal appearance of the urethra Speculum Exam - Vagina: normal appearance of the vagina, normal palpation and normal vaginal discharge Speculum Exam - Cervix: normal appearance of the cervix, normal palpation and nontender Bimanual exam- vagina & uterus: normal bimanual exam, normal palpation, uterine size normal, bladder normal to palpation, consistency normal, normal palpation, uterine mobility normal, uterine shape normal, No Cervical tenderness present, non-tender and no cervical motion tenderness Bimanual Exam- Adnexa, other: normal adnexae, no masses, normal and No adnexal tenderness Neuro General: patient oriented x3 Assessment & Plan Assessment & Plan (1) Well woman exam with routine gynecological exam: Code(s): Z01.419 - Encounter for gynecological examination (general) (routine) without abnormal findings Category: Medical (2) Cervical cancer screening: Code(s): Z12.4 - Encounter for screening for malignant neoplasm of cervix Category: Medical (3) Dyspareunia in female: Code(s): N94.10 - Unspecified dyspareunia Category: Medical (4) Pelvic pressure in female: Code(s): R10.2 - Pelvic and perineal pain Category: Medical (5) Breast cancer screening: Code(s): Z12.39 - Encounter for other screening for malignant neoplasm of breast Category: Medical Plan -----Discussed in this visit the following: healthy balanced diet, regular and consistent exercise, getting recommended health screens, doing the best she can for her particular health concerns, kegel exercises, pap smear screening and followup recommendations, mammography screening and SBE, normal changes in cycles in her life stage--- . Discussed her concerns I do not feel anything abnormal with the exam but it would be totally acceptable to obtain a pelvic ultrasound to just see if there some explanation for why she feels pressure. She also believes that her mother recently had some issue with uterine cancer so it might be reassuring on that is score as well. I am ordering a mammogram for screening as well Pap smear. She is aware that she is in perimenopause at this time. She is doing excellent with self-care. Orders: Orders MM tomosynthesis screening BI Today Z12.31 - Encounter for screening mammogram for malignant neoplasm of breast US pelvic and transvaginal Today N94.10 - Unspecified dyspareunia, R10.2 - Pelvic and perineal pain, Z01.419 - Encounter for gynecological examination (general) (routine) without abnormal findings, Z12.4 - Encounter for screening for malignant neoplasm of cervix Coding Level of Care Code New Pt Prev Care 40-64y(26797) Diagnoses Well woman exam with routine gynecological exam Z01.419 Cervical cancer screening Z12.4 Dyspareunia in female N94.10 Pelvic pressure in female R10.2 Breast cancer screening Z12.39
[2025-06-26 13:27] VITALS: BMI 20.1
--- OUTSIDE RECORDS SUMMARY | 2025-06-26 14:02 | XMS_ITS | Patient Health Record ---
Author Organization [facility] Address [address] [place] [address] Care Team Providers Care Rn Trauma Name Role Phone Seun Edwards MD Primary Care Provider Unavailab geneva LawierBen Unavailable [phone] Reason For Referral No Information Medications Medication [...] Status W/U Status Risk Notes Problem Dermatitis (690562861) Dermatitis (692.9) Active confirmed Problem Keratoma (81709974) Keratoma (701.1) Active confirmed Problem Pain in limb (72361195) Pain in Limb (729.5) Active confirmed Problem Pruritic disorders (798716554) Pruritis (698.9) Active confirmed Problem Verruca plantaris (40477628) Verruca Plantaris (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.19) Active confirmed Confirmed by Bx Plan Of Treatment Pending Test Test Name Order Date [id number] Destruction, 1-14 07/09/2014 [id number] Biopsy 0.5cm 06/18/2014 Insurance Providers Payer Name Payer Address Payer Phone Subscriber Number Group Number Insured Name Patient Relationship to Insured Coverage Start Date Coverage End Date [address] [place]ENIG[place] Coll[place] [phone] [id number] Tristen Packer Spouse - patient is the spouse of the insured Medical (General) History Medical History History ICD Code Headaches Chicken pox Migraines Surgical History Surgery Date(Month/Year) herniated disk repair
--- OUTSIDE RECORDS SUMMARY | 2025-06-26 14:03 | XMS_ITS | Patient Health Record ---
Author Organization Seun Edwards III, MD Address [address] [place] [address] [place] [address] Care Team Providers Care Vice President Of Academic Affairs Name Role Phone Dr. Seun Edwards III [...] Microscopic Reviewed date:10/19/2024 09:14:09 AM Interpretation: Performing Lab:[address] [address] Notes/Report: Color Urine Yellow Appearance Urine Clear PH 6.5 5.0-9.0 Glucose Urine UA Negative Negative mg/dL Urine Blood Negative Negative Specific [place] - Urine <= 1.005 1.005-1.025 Urine Protein Negative Neg-Trace mg/dL Urine Ketones Negative Negative mg/dL Nitrite Urine Negative Negative Leukocyte Esterase Urine Small (1+) Negative RBC Urine 0-2 0-2 /HPF WBC Urine 0-5 0-5 /HPF Squamous Epithelial Cell Urine 0-2 0-2 /HPF Bacteria Urine None Seen None Seen Hyaline Casts Urine 0-2 0-2 /LPF Urine Culture Reviewed date:10/19/2024 09:14:09 AM Interpretation: Performing Lab:[facility] [address] Notes/Report: Urine Culture Report Result Urine Culture 50,000 to 100,000 cfu/ml Urine Culture Mixed bacterial luis a characteristic of Urine Culture urogenital contamination. Ur Preg Test Reviewed date:12/13/2024 07:21:39 AM Interpretation: Performing Lab:[facility], [address] [place] [address] Notes/Report: Urine NEGATIVE NEGATIVE This test was developed to detect early . False negative results may occur after the 5th - 7th week of when using this test method. If clinically indicated, consider a serum hCG. Urine Culture Reviewed date:12/13/2024 07:21:39 AM Interpretation: Performing Lab:[address] [address] Notes/Report: Urine Culture No growth. Urinalysis and Microscopic Reviewed date:01/25/2025 08:15:48 PM Interpretation: Performing Lab:[address] [address] Notes/Report: Color Urine Yellow Appearance Urine Clear PH 7.0 5.0-9.0 Glucose Urine UA Negative Negative mg/dL Urine Blood Negative Negative Specific [place] - Urine <= 1.005 1.005-1.025 Urine Protein Negative Neg-Trace mg/dL Urine Ketones Negative Negative mg/dL Nitrite Urine Negative Negative Leukocyte Esterase Urine Negative Negative RBC Urine 0-2 0-2 /HPF WBC Urine 0-5 0-5 /HPF Squamous Epithelial Cell Urine 0-2 0-2 /HPF Bacteria Urine None Seen None Seen Hyaline Casts Urine 0-2 0-2 /LPF Urine Culture Reviewed date:01/25/2025 08:15:48 PM Interpretation: Performing Lab:[address] [address] Notes/Report: Urine Culture No growth. Complete Blood Count Auto Di ff Reviewed date:04/19/2025 05:05:46 AM Interpretation: Performing Lab:[address] [address] Notes/Report: White Blood Count 4.8 4.8-10.8 X10*3/uL [...] Panel Reviewed date:04/19/2025 05:05:46 AM Interpretation: Performing Lab:[facility], [address] [place] [address] Notes/Report: Sodium 141 135-145 mmol/L Potassium 4.1 [...] Sensitivity Reviewed date:04/19/2025 05:05:46 AM Interpretation: Performing Lab:[facility], [address] [place] [address] Notes/Report: D Dimer High Sensitivity < 150 [...] date:04/19/2025 05:05:46 AM Interpretation: Performing Lab: Notes/Report: [address] [address] XRay Report Signed Patient: Pippa Martinez MR#: [id number] : 1975 Acct:[id number] Age/Sex: 49 / F ADM Date: 04/17/25 Loc: HO.LAB Attending Dr: Seun Edwards MD Ordering Physician: Seun Edwards MD Date of Service: 04/17/25 Procedure(s): XR chest 2V Accession Number(s): [id number] cc: Seun Edwards MD EXAMINATION: XR CHEST [...] 04/17/25 1040 DD/ 1012 TD/TT: 04/17/25 1017 Laminator Hand: [address] [address] XRay Report Signed Patient: Pippa Martinez MR#: [id number] : 1975 Acct:[id number] Age/Sex: 49 / F ADM Date: 04/17/25 Loc: HO.LAB Attending Dr: Seun Edwards MD Ordering Physician: Seun Edwards MD Date of Service: 04/17/25 Procedure(s): XR chest 2V Accession Number(s): [id number] cc: Seun Edwards MD EXAMINATION: XR CHEST [...] 04/17/25 1040 DD/ 1012 TD/TT: 04/17/25 1017 Laminator Hand: MR thoracic spine wo/w con Reviewed date:05/18/2025 05:45:57 AM Interpretation: Performing Lab: Notes/Report: [address] [address] Magnetic Resonance Report Signed Patient: Pippa Martinez MR#: [id number] : 1975 Acct:[id number] Age/Sex: 49 / F ADM Date: 05/07/25 Loc: HO.MRI Attending Dr: Seun Edwards MD Ordering Physician: Seun Edwards MD Date of Service: 05/07/25 Procedure(s): MR thoracic spine wo/w con Accession Number(s): [id number] cc: Seun Edwards MD Reason for Exam: [...] Marcum MD Signed By: <Electronically signed by Abid Toscano MD in OV> 05/07/25 1511 DD/ 1317 TD/TT: 05/07/25 1345 Laminator Hand: [address] [address] Magnetic Resonance Report Signed Patient: Pippa Martinez MR#: [id number] : 1975 Acct:[id number] Age/Sex: 49 / F ADM Date: 05/07/25 Loc: HO.MRI Attending Dr: Seun Edwards MD Ordering Physician: Seun Edwards MD Date of Service: 05/07/25 Procedure(s): MR haque spine wo/w con Accession Number(s): [id number] cc: Seun Edwards MD Reason for Exam: [...] 05/07/25 1511 DD/ 1317 TD/TT: 05/07/25 1345 Laminator Hand: MR cervical spine wo/w con Reviewed date:05/18/2025 05:45:57 AM Interpretation: Performing Lab: Notes/Report: [address] [address] Magnetic Resonance Report Signed Patient: Pippa Martinez MR#: [id number] : 1975 Acct:[id number] Age/Sex: 49 / F ADM Date: 05/07/25 Loc: HO.MRI Attending Dr: Seun Edwards MD Ordering Physician: Seun Edwards MD Date of Service: 05/07/25 Procedure(s): MR cervical spine wo/w con Accession Number(s): [id number] cc: Seun Edwards MD Reason for Exam: [...] 02:24 PM EDT RP Dictated By: Abdi Marcum MD Signed By: <Electronically signed by Abdi Toscano MD in OV> 05/07/25 1424 DD/ 1247 TD/TT: 05/07/25 1348 Laminator Hand: [place] [address] Magnetic Resonance Report Signed Patient: Pippa Martinez MR#: [id number] : 1975 Acct:[id number] Age/Sex: 49 / F ADM Date: 05/07/25 Loc: HO.MRI Attending Dr: Seun Edwards MD Ordering Physician: Seun Edwards MD Date of Service: 05/07/25 Procedure(s): MR cer vical spine wo/w con Accession Number(s): [id number] cc: Seun Edwards MD Reason for Exam: [...] 05/07/25 1424 DD/ 1247 TD/TT: 05/07/25 1348 Laminator Hand: CT head/brain wo con Reviewed date:06/08/2025 08:49:29 AM Interpretation: Performing Lab: Notes/Report: [place] [address] CT Scan Report Signed Patient: Pippa Martinez MR#: [id number] : 1975 Acct:[id number] Age/Sex: 49 / F ADM Date: 06/05/25 Loc: .ED Attending Dr: Ordering Physician: Makenzie Bull DO Date of Service: 06/05/25 Procedure(s): CT head/brain wo IV con Accession Number(s): [id number] cc: Seun Edwards MD; Makenzie Bull DO Report Number: [id number]: Total DLP = 498.00 mGy-cm Reason for Exam: head trauma, severe headache CLINICAL HISTORY: head trauma, severe headache CT head without IV contrast Comparison: None Findings: The ventricles are normal in configuration. Basilar cisterns intact. No intracranial hemorrhage, mass-effect or midline shift. No extra-axial fluid collections. The parenchyma is unremarkable in attenuation. Marx-white matter junction preserved. No evidence of acute large vessel or territorial ischemia. Partially imaged tonsillar ectopia. The calvarium is intact. The imaged portion of the paranasal sinuses are clear. No mastoid effusions. The orbital contents are unremarkable. Impression: 1. No CT evidence of acute intracranial pathology. Tonsillar ectopia. This document has been electronically signed by: Morgan Foster MD on 06/05/2025 06:41:32 Dictated By: Morgan Foster MD Signed By: <Electronically signed by Morgan Foster MD in OV> 06/05/[address] DD/ 0 TD/TT: 06/05/25640 Laminator Hand: [place] [address] CT Scan Report Signed Patient: Pippa Martinez MR#: [id number] : 1975 Acct:[id number] Age/Sex: 49 / F ADM Date: 06/05/25 Loc: HO.ED Attending Dr: Ordering Physician: Makenzie Bull DO Date of Service: 06/05/25 Procedure(s): CT head/brain wo IV con Accession Number(s): [id number] cc: Seun Edwards MD; Makenzie Bull DO Report Number: [id number]: Total DLP = 498.00 mGy-cm Reason for Exam: hea d trauma, severe headache CLINICAL HISTORY: he ad trauma, severe headache CT head without IV contrast Comparison: None Findings: The ventricles are n ormal in configuration. Basilar cisterns intact. No intracranial hemorrh age, mass-effect or midline shift. No extra-axial fluid collections. T he parenchyma is unremarkable in attenuation. Marx-white matter junction preserved. No evidence of acute large vessel or territorial ischemia . Partially imaged tonsillar ectopia. The calvarium is int act. The imaged portion of the paranasal sinuses are clear. No mastoid effusions. The orbital contents are unremarkable. Impression: 1. No CT evidence of acute intracranial pathology. Tonsillar ectopia. This document has be en electronically signed by: Morgan Foster MD on 06/05/2025 06:41:32 Dictated By: Morgan Foster MD Signed By: <Electronically signed by Morgan Foster MD in OV> 06/05/[address] DD/ 0 TD/TT: 06/05/25640 Laminator Hand: Reason For Referral Reason Evaluate and Treat Routine Gynecological Examination Diagnosis 1 Routine gynecologica l examination (Z01.419) Referral Organization Seun Edwards III, MD Referring Provider First Name Seun Referring Provider Last Name Jerry Referring Provider Speciality Internal edicine Referred Organization [facility] nter Referred Provider [facility] er, [facility] Midwifery Referred Address [address] [place] [address],[place], [place],[id number], Referred Provider Specialty OB - Gynecol ogy General Notes D, 11/24/2024 04:39:14 PM > Referral faxed Referral Priority Routine Referral Appointment Date 03/17/2025 Reason Evaluate and Treat Annual Skin Exam Diagnosis 1 Encounter for screen ing for malignant neoplasm of skin (Z12.83) Referral Organization Seun Edwards III, MD Referring Provider First Name Seun Referring Provider Last Name Jerry Referring Provider Speciality Internal edicine Referred Provider [facility] Referred Provider Specialty Dermatology General Notes D, 02/06/2025 04:08:34 PM > referral faxed per patient request, D, 02/10/2025 02:21:44 PM > patient has not reached out to the office to schedule an appointment at this time, D, 02/25/2025 02:40:12 PM > [facility] stated they have reached out to the patient to schedule an appointment. Dr. Edwards office has reached out to the patient to have them contact [facility] to schedule an appointment. Message was left. Referral Priority Routine Referral Appointment Date 05/13/2025 Reason Evaluate and Treat Diagnosis 1 Headache, unspecifie d (R51.9) Diagnosis 2 Chiari I malformatio n (G93.5) Referral Organization Seun Edwards III, MD Referring Provider First Name Seun Referring Provider Last Name Jerry Referring Provider Speciality Internal edicine Referred Provider Neurology [facility] Referred Provider Specialty Neurology General Notes D, 02/06/2025 04:08:10 PM > Per patient request referral faxed, D, 05/13/2025 03:08:57 PM > Patient does not need referral. She is in the system and was seen in 2023. Patient can call and scheduled appointment. Patient was made aware Referral Priority Routine Reason Evaluate and Treat Diagnosis 1 Seasonal allergies ( J30.2) Referral Organization Seun Edwards III, MD Referring Provider First Name Seun Referring Provider Last Name Jerry Referring Provider Speciality Internal M edicine Referred Provider [facility], Allergy Referred Provider Specialty Allergy/Immu nology General Notes Rachel Sepulveda 02/06/2025 04:09:52 PM > Per patient request referral faxed., Rachel Sepulveda 02/25/2025 02:50:37 PM > [facility] has received the referral no clinicals [...] e a day Active Multivitamin Orally Active Linzess 145 MCG TAKE 1 CAPSULE BY MOUTH AT LEAST 30 MINUTES BEFORE THE FIRST MEAL OF THE DAY ON AN EMPTY STOMACH for 30 Active Fluconazole 150 MG TAKE 1 TABLET BY CORINNA TH ONCE Active dexAMETHasone 1 MG 1 tablet Orally twic e a day 07/31/2024 Active Cyclobenzaprine HCl 10 MG as directed Or ally three times a day 05/13/2024 Active Flexeril Active CoQ-10 Active Baclofen 5 MG 1 tablet if needed Orally three times a day for 14 days 05/15/2025 08/06/2025 Active buPROPion HCl ER (SR) 100 MG 1 tablet in the morning Orally Once a day 02/20/2024 Active Wellbutrin SR 150 MG 1 tablet Orally onc e a day in the afternoon for 30 days Active Immunizations Vaccine Route Administration Date Status [...] Status W/U Status Risk Notes Problem Headache (78959793) Headache (R51) Active confirmed Her headac hes originate in the Chiari malformation. They have worsened lately. She has been referred back to neurosurgery for opinion and to pain management to consider analgesic procedures. Problem Syringomyelia and syringobulbia (325429522) Syringomyelia and syringobulbia (G95.0) Active confirmed She is going to have the neurostimulator. Her neurosurgeon has agreed to do a laminectomy of all else fails.An MRI of the cervical and thoracic spine has been ordered for surveillance. Problem Gastro-esophagea l reflux disease without esophagitis (563072825) Gastro-esophage al reflux disease without esophagitis (K21.9) Active confirmed Her reflux is somewhat aggravated by the but she is finding it tolerable. Problem Cervical spondylosis without myelopathy (854733983) Other spondylosis, cervical region (M47.892) Active confirmed Problem Displacement of cervical intervertebral disc without myelopathy (97916821) Other cervical disc displacement, unspecified cervical region (M50.20) Active confirmed The discomfort is much improved. We're waiting for the MRI report. Problem 238606949 Chiari I malformation (G93.5) Active confirmed The pain has worsened lately. She has seen her neurosurgeon, Dr. Islas, Who has offered to do a cervical laminectomy. She is uncertain about this and has declined that procedure so far. The pain management service has recommended a neurostimulator and she has an appointment to have a temporary wire inserted. Problem 222422516 Insomnia (G47.00) Active confirmed She has chronic difficulty sleeping, but lately has been doing well. No change in the pattern of her sleep has been noted lately. Problem Seasonal allergy (912006281) Seasonal allergies (J30.2) Active confirmed Problem History of irritable bowel syndrome (96351959804012) History of IBS (Z87.19) Active confirmed His abdominal pain is resolved at this time. She is quite comfortable in her daily life. Problem Peripheral venous insufficiency (81530731) Venous insufficiency (I87.2) Active confirmed An endovascular procedure to relieve the discomfort is being planned. Problem Pleuritic pain (1031519) Pleuritic chest pain (R07.81) Active confirmed This appears t o be pleurisy and not pulmonary infarction or costochondritis. She is going to have a chest x-ray and blood work with a d-dimer. Problem Irritable bowel syndrome (98334205) Other irritable bowel syndrome (K58.8) Active confirmed She occasionall y has abdominal discomfort from the IBS but this is become a minor problem in daily life. Problem 001950634 Chronic constipation (K59.09) Active confirmed She is doing well with the linzess. Problem 668602900 Recent weight loss (R63.4) Active confirmed She has gained 2 pounds and her weight is now in the normal range. We discussed her diet and nutrition at length today. Vital Signs Heart Rate 81 /min 05/15/2025 Temperature 97.4 degrees Fahrenheit 05/15/2025 Blood pressure diastolic 85 mm Hg 05/15/2025 Height 63 in 05/15/2025 Blood pressure systolic 113 mm Hg 05/15/2025 Weight 116 lbs 05/15/2025 BMI 20.55 kg/m2 05/15/2025 Encounters Encounter Location Date Provider Diagnosis Seun Edwards III, MD [address] [place] [address] [place] [address] 07/31/2024 Seun Edwards Chiari I malformatio n G93.5 ; 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 ; Gastro-esophageal reflux disease without esophagitis K21.9 ; Other irritable bowel syndrome K58.8 ; Insomnia G47.00 ; Chronic constipation K59.09 and Underweight R63.6 Seun Edwards III, MD [address] [place] [address] [place] [address] 08/15/2024 Seun Edwards 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 ; 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 ; Insomnia G47.00 ; Headache R51 ; Gastro-esophageal reflux disease without esophagitis K21.9 and Weight loss R63.4 Seun Edwards III, MD [address] [place] [address] [place] [address] 04/17/2025 Seun Edwards Pleuritic chest pain R07.81 ; 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 ; 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 ; Insomnia G47.00 and History of IBS Z87.19 Seun Edwards III, MD [address] [place] [address] [place] [address] 05/15/2025 Seun Edwards Recent weight loss R63.4 ; 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 ; Insomnia G47.00 ; History of IBS Z87.19 ; Venous insufficiency I87.2 ; Gastro-esophageal reflux disease without esophagitis K21.9 and 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 Seun Edwards III, MD [address] [place] [address] [place] [address] 08/02/2024 Seun Edwards III, MD [address] [place] [address] [place] [address] 09/16/2024 Seun Edwards III, MD [address] [place] [address] [place] [address] 11/14/2024 Seun Edwards III, MD [address] [place] [address] [place] [address] 11/14/2024 Seun Edwards III, MD [address] [place] [address] [place] [address] 11/21/2024 Seun Edwards III, MD [address] [place] [address] [place] [address] 11/21/2024 Seun Edwards III, MD [address] [place] [address] [place] [address] 11/24/2024 Seun Edwards III, MD [address] [place] [address] [place] [address] 04/16/2025 Seun Edwards III, MD [address] [place] [address] [place] [address] 04/21/2025 Seun Edwards Assessments Encounter Date Diagnosis [...] x-ray and blood work with a d-dimer. 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 Her neurosurgeon has agreed to do a laminectomy of all else fails.An MRI of the cervical and thoracic spine has been ordered for surveillance. 05/15/2025 Recent weight loss (ICD-10 - R63.4) She has gained 2 pounds and her weight is now in the normal range. We discussed her diet and nutrition at length today. 07/31/2024 Gastro-esophageal reflux disease without esophagitis (ICD-10 [...] her sleep has been noted lately. 07/31/2024 Other irritable bowel syndrome (ICD-10 - [...] quite comfortable in her daily life. 07/31/2024 Insomnia (ICD-10 - G47.00) [...] to relieve the discomfort is being planned. 07/31/2024 Chronic constipation (ICD-10 - K59.09) She is doing well with the linzess. 08/15/2024 Weight loss (ICD-10 - R63.4) Her weight is stable with a body mass index of 19. We discussed nutrition at length today. 05/15/2025 Gastro-esophageal reflux disease without esophagitis (ICD-10 - K21.9) Her reflux is somewhat aggravated by the but she is finding it tolerable. 07/31/2024 Underweight (ICD-10 - R63.6) She is underweight with a body mass index of 19. Her weight is been stable since March of this year. We have discussed her weight and her nutrition and her diet. She was encouraged not to lose weight further and to consume 3 nourishing meals a day. 05/15/2025 Chiari I malformation (ICD-10 - G93.5) The pain has worsened lately. She has seen her neurosurgeon, Dr. Islas, Who has offered to do a cervical laminectomy. She is uncertain about this and has declined that procedure so far. The pain management service has recommended a neurostimulator and she has an appointment to have a temporary wire inserted. Plan Of Treatment Pending Test Test Name Order Date PROFILE, FASTING (COMPREHENSIVE METABOLI C) 01/29/2024 PROFILE, FASTING (COMPREHENSIVE METABOLI C) 08/08/2023 PROFILE, FASTING (COMPREHENSIVE METABOLI C) 06/01/2023 PROFILE, FASTING (COMPREHENSIVE METABOLI C) 05/15/2025 PROFILE, RANDOM (COMPREHENSIVE METABOLIC ) 06/21/2022 PROFILE, RANDOM (COMPREHENSIVE METABOLIC ) 04/17/2025 LIPID PANEL 06/01/2023 FREE T4 (FT4) 06/21/2022 TSH (THYROID STIMULATING HORMONE) 2021 CBC w DIFF 04/17/2025 CBC w DIFF 05/15/2025 CBC w DIFF 06/21/2022 SED RATE (ESR) 06/01/2023 D-DIMER 04/17/2025 MRI BREAST BILATERAL 04/18/2023 MRI CERVICAL SPINE W&WO CONTRAST 025 MRI THORACIC SPINE W&WO CONTRAST 025 XR CHEST 2 VIEW PA & LAT 04/17/2025 US ABD 03/07/2024 Stress Test 01/29/2024 CBC WITH AUTO DIFF 01/29/2024 CBC WITH AUTO DIFF 06/01/2023 COLOGUARD 08/08/2023 Lipid Panel 01/29/2024 Lipid Panel 08/08/2023 Lipid Panel 05/15/2025 Vitamin D 25-OH Total 05/15/2025 Vitamin D 25-OH Total 06/01/2023 Thyroid Peroxidase Antibodies 06/21/2022 Hemoglobin A1c 01/29/2024 Hemoglobin A1c 08/08/2023 ECG 7 day holter monitor 02/04/2024 ECG 7 day holter monitor 01/29/2024 Next Appt Details Provider Name:Seun Edwards , 08/31/2025 04:00:00 PM, [address] [place] [address] [address], [place], [address], Insurance Providers Payer Name Payer Address Payer Phone Subscriber Number Group Number Insured Name Patient Relationship to Insured Coverage Start Date Coverage End Date [employer] [address] [address] [place] [address] [id number] Pippa Martinez Self - patient is [...] left breast, benign, , [facility] 08/2016 endovenous laser ablation lower extremit y veins 2014 Hospitalization History Reason Date(Month/Year) No history
== END 2025-06-26 14:16 | disposition home or self-care (01) ==
LOC: HO.HWS 12:58
PROVIDERS: PCP Internal Medicine Medical Oncology; Visit Provider Advanced Practice Midwife
DX: Z01.419 Encounter for gynecological examination (general) (routine) without abnormal findings (principal); N94.10 Unspecified dyspareunia; R10.20 Pelvic and perineal pain unspecified side; Z12.39 Encounter for other screening for malignant neoplasm of breast
CPT/HCPCS: 99386; 99459

== ENCOUNTER 2025-07-21 11:55 | Outpatient (AMB) | payer OTHER, SELFPAY ==
--- OUTSIDE RECORDS SUMMARY | 2024-11-14 06:10 | XMS_ITS ---
Author Organization Seun Edwards III, MD Address [address] [place] [address] [place] [address] Care Team Providers Care Machine Installer Name Role Phone Dr. Seun Edwards III Primary Care Provider [phone] REASON FOR VISIT Rx Request Social History Sex Assigned At : Social History Observation Description Sex Assigned At Female Encounters Encounter Location Date Provider Diagnosis Seun Edwards III, MD [address] [place] [address] [place] [address] 11/14/2024 Seun Edwards Plan Of Treatment Next Appt Details Provider Name:Seun Edwards , 08/31/2025 04:00:00 PM, [address] [place] [address] [place], [address], Progress Notes * Pippa MARTINEZ ADOB:[birth year] (49 yo F)Acc No.[id number]:11/14/2024 Patient: Nhan Pippa DIA :1975 A ge:49 Y S ex:Female Address[facility] [place] [address] * true * Date: Generated for Printi ng/Faxing/eTransmitting on: 09/20/2024 03:42 PM EST
--- OUTSIDE RECORDS SUMMARY | 2024-11-14 06:49 | XMS_ITS ---
Author Organization Seun Edwards III, MD Address [address] [place] [address] [place] [address] Care Team Providers Care Assistant Manager Pt Name Role Phone Dr. Seun Edwards III Primary Care Provider Medications Medication SIG (Take, Route, Frequency, Duration) Notes Start Date End Date Status Amoxicillin-Pot Clavulanate 875-125 MG 1 tablet Orally every 12 hrs for 7 days 11/14/2024 11/21/2024 Active Social History Sex Assigned At : Social History Observation Description Sex Assigned At Female Encounters Encounter Location Date Provider Diagnosis Seun Edwards III, MD [address] [place] [address] [place] [address] 11/14/2024 Seun Edwards Plan Of Treatment Medication Medication Name Sig Start Date Stop Date Notes Amoxicillin-Pot Clavulanate 875-125 MG 1 tablet Orally every 12 hrs for 7 days 11/14/2024 11/21/2024 Next Appt Details Provider Name:Seun Edwards , 08/31/2025 04:00:00 PM, [address] [place] [address] [place], [address], Progress Notes * Pippa MARTINEZ ADOB:[birth year] (49 yo F)Acc No.[id number]:11/14/2024 Patient: Nhan Pippa DIA :1975 A ge:49 Y S ex:Female Address:[address] [place] [address], [place] [address] * Refills Start Amoxicillin-Pot Clavulanate Tablet, 875-125 MG, Orally, 14 Tablet, 1 tablet, every 12 hrs, 7 days, Refills=0 * true * Date: Generated for Maria Luz fitzgerald/Tao/Manolo on: 09/20/2024 03:43 PM EST
--- OUTSIDE RECORDS SUMMARY | 2024-11-21 04:42 | XMS_ITS ---
Author Organization Seun Edwards III, MD Address [address] [place] [address] [place] [address] Care Team Providers Care Broadcast Field Supervisor Name Role Phone Dr. Seun Edwards III Primary Care Provider REASON FOR VISIT Rx request Social History Sex Assigned At : Social History Observation Description Sex Assigned At Female Encounters Encounter Location Date Provider Diagnosis Seun Edwards III, MD [address] [place] [address] [place] [address] 11/21/2024 Seun Edwards Plan Of Treatment Next Appt Details Provider Name:Seun Edwarsd , 08/31/2025 04:00:00 PM, [address] [place] [address] [place], [address], Progress Notes * Pippa MARTINEZ ADOB:[birth year] (49 yo F)Acc No.[id number]:11/21/2024 Patient: Nhan Pippa DIA :1975 A ge:49 Y S ex:Female [facility] [place] [address] * true * Date: Generated for Printi ng/Faxing/eTransmitting on: 09/20/2024 03:42 PM EST
--- OUTSIDE RECORDS SUMMARY | 2024-11-21 05:45 | XMS_ITS ---
Author Organization Seun Edwards III, MD Address [address] [place] [address] [place] [address] Care Team Providers Care Tower Loader Operator Name Role Phone Dr. Seun Edwards III Primary Care Provider Medications Medication SIG (Take, Route, Fr equency, Duration) Notes Start Date End Date Status Diflucan 150 MG 1 tablet Orally once for 1 days 11/23/2024 Active Social History Sex Assigned At : Social History Observation Description Sex Assigned At Female Encounters Encounter Location Date Provider Diagnosis Seun Edwards III, MD [address] [place] [address] [place] [address] 11/21/2024 Seun Edwards Plan Of Treatment Medication Medication Name Sig Start Date Stop Date Notes Diflucan 150 MG 1 tablet Orally once for 1 days 11/21/2024 11/23/2024 Next Appt Details Provider Name:Seun Edwards , 08/31/2025 04:00:00 PM, [address] [place] [address] [place], [address], Progress Notes * Pippa MARTINEZ ADOB:[birth year] (49 yo F)Acc No.[id number]:11/21/2024 Patient: Nhan Pippa DIA :1975 A ge:49 Y S ex:Female Address:[address] [place] [address], [place] [address] * Refills Start Diflucan Tablet, 150 MG, Orally, 1, 1 tablet, once, 1 days, Refills=1 * true * Date: Generated for Maria Luz fitzgerald/Tao/Manolo on: 09/20/2024 03:43 PM EST
--- OUTSIDE RECORDS SUMMARY | 2024-11-24 11:13 | XMS_ITS ---
Author Organization Seun Edwards III, MD Address [address] [place] [address] [place] [address] Care Team Providers Care Adult Care Provider Name Role Phone Dr. Seun Edwards III Primary Care Provider Reason For Referral Reason Evaluate and Treat Routine Gynecological Examination Diagnosis 1 Routine gynecologica l examination (Z01.419) Referral Organization Seun Edwards III, MD Referring Provider First Name Seun Referring Provider Last Name Jerry Referring Provider Speciality Internal M edicine Referred Organization [facility] nter Referred Provider [facility] er, REGISTERED VASCULAR TECHNOLOGIST (RVT) & Midwifery Referred Address [address] [place] [phone], Referred Provider Specialty OB - Gynecol ogy General Notes DRachel 11/24/2024 04:39:14 PM > Referral faxed Referral Priority Routine Referral Appointment Date 03/17/2025 REASON FOR VISIT Referral Social History Sex Assigned At : Social History Observation Description Sex Assigned At Female Encounters Encounter Location Date Provider Diagnosis Seun Edwards III, MD [address] [place] [address] [place] [address] 11/24/2024 Seun Edwards Plan Of Treatment Referrals Referral Date Details 11/24/2024 11/24/2024, Evaluate and Treat Routine Gynecological Examination, REGISTERED VASCULAR TECHNOLOGIST (RVT) & Midwifery [facility], [address] [place] [address], [phone], Next Appt Details Provider Name:Seun Nikky Edwards , 08/31/2025 04:00:00 PM, [address] [place] [address] [place], [phone], Progress Notes * Pippa MARTINEZ ADOB:[birth year] (49 yo F)Acc No.[id number]:11/24/2024 Patient: Pippa CALVIN :1975 A ge:49 Y S ex:Female Address:[address] [place] [phone] Subjective: * Chief Complaints: * R eferral * Medical History: * Surgical History: * Hospitalization/Major Diagno stic Procedure: * Medications: Objective: * Vitals: * Physical Examination: Assessment: Plan: * Treatment: * Procedure Codes: * true * Date: Generated for Thomasi lia/Tao/eTransmitting on: 09/20/2024 03:42 PM EST Consultation Request Notes Referral Date Referring Provider Referred Provider Not es 11/24/2024 [facility], REGISTERED VASCULAR TECHNOLOGIST (RVT) & Midwifery Evaluate and Treat Routine Gynecological Examination
--- OUTSIDE RECORDS SUMMARY | 2025-04-16 08:16 | XMS_ITS ---
Author Organization Seun Edwards III, MD Address [address] [place] [address] [place] [address] Care Team Providers Care Still Operator Gin Name Role Phone Dr. Seun Edwards III Primary Care Provider [phone] REASON FOR VISIT new onset pleuritic chest discomfort Social History Sex Assigned At : Social History Observation Description Sex Assigned At Female Encounters Encounter Location Date Provider Diagnosis Seun Edwards III, MD [address] [place] [address] [place] [address] 04/16/2025 Seun Edwards Plan Of Treatment Next Appt Details Provider Name:Seun Edwards , 08/31/2025 04:00:00 PM, [address] [place] [address] [place], [address], Progress Notes * Pippa MARTINEZ ADOB:[birth year] (49 yo F)Acc No.[id number]:04/16/2025 Patient: Nhan Pippa DIA :1975 A ge:49 Y S ex:Female Address:[address] [place], [place] [address] [address] * true * Date: Generated for Printi ng/Faxing/eTransmitting on: 09/20/2024 03:42 PM EST
--- OUTSIDE RECORDS SUMMARY | 2025-04-17 04:00 | XMS_ITS ---
Author Organization Seun Edwards III, MD Address [address] [place] [address] [place] [address] Care Team Providers Care Traffic Control Officer Name Role Phone Dr. Seun Edwards III [...] W/U Status Risk Notes Problem Pleuritic pain (2719606) Pleuritic chest pain (R07.81) Active confirmed This [...] Provider Diagnosis Seun Edwards III, MD [address] [place] [address] [place] [address] 04/17/2025 Seun Edwards Pleuritic chest pain R07.81 [...] Name:Seun Edwards , 08/31/2025 04:00:00 PM, [address] [place] [address] [place], [facility], [address], Progress Notes * Pippa MARTINEZ ADOB:[birth year] (49 yo F)Acc No.[id number]:04/17/2025 Progress Notes Patient: Nhan Pippa DIA Provider: [...] mass upper outer left breast, benign, , [facility] 08/2016left breast lumopectomy by Dr Serna 06/26/2023olonoscopy Dr. Barraza 04/21/2024No history * Hospitalization/Major Diagno stic Procedure: N o history * Family History: F ather: alive 56 yrs, hypertension, diagnosed with HTN. M other: alive 56 yrs, SVT, Hyperthyroidism, [place], diagnosed with CVD. P aternal Grand Father: 72 yrs, lung cancer, diagnosed with Cancer. M aternal Grand Mother: alive, alzheimer. 1 sister(s) - healthy. 1 son(s) , 2 daughter(s) - healthy. . There is no history of breast cancer on her mother's side. 2 of her father's sisters had breast cancer in the past in [place]. * Social History: T obacco Use: T [...] 04/17/2025 Generated for Maria Luz fitzgerald/Tao/Manolo on: 09/20/2024 03:42 PM EST History and Physical Notes * [...]
--- OUTSIDE RECORDS SUMMARY | 2025-04-21 10:09 | XMS_ITS ---
Author Organization Seun Edwards III, MD Address [address] [place] [address] [place] [address] Care Team Providers Care Consulting Solution Manager Name Role Phone Dr. Seun Edwards III Primary Care Provider REASON FOR VISIT FYI only Social History Sex Assigned At : Social History Observation Description Sex Assigned At Female Encounters Encounter Location Date Provider Diagnosis Seun Edwards III, MD [address] [place] [address] [place] [address] 04/21/2025 Seun Edwards Plan Of Treatment Next Appt Details Provider Name:Seun Edwards , 08/31/2025 04:00:00 PM, [address] [place] [address] [place], [address], Progress Notes * Pippa MARTINEZ ADOB:[birth year] (49 yo F)Acc No.[id number]:04/21/2025 Patient: Nhan Pippa DIA :1975 A ge:49 Y S ex:Female Address[facility] [place] [address] * true * Date: Generated for Printi ng/Faxing/eTransmitting on: 09/20/2024 03:43 PM EST
--- OUTSIDE RECORDS SUMMARY | 2025-04-24 12:00 | XMS_ITS ---
Author Organization Seun Edwards III, MD Address [address] [place] [address] [place] [address] Care Team Providers Care Director Digital Sales Name Role Phone Dr. Seun Edwards III Primary Care Provider Allergies Allergen (clinical drug ingredient) Drug/Non Drug Allergy documented on EMR Reaction Allergy Type Onset Date Status No Known Drug Allergy Unknown Drug Allergy Active trazodone Trazodone night terrors Drug Allergy Act montse tramadol Tramadol nausea, vomiting Drug Allergy Active REASON FOR VISIT Annual Exam Medications Medication SIG (Take, Route, Frequency, Duration) Notes Start Date End Date Status Fish Oil 1 capsule Orally Onc e a day Active Multivitamin Orally Active CoQ-10 Active Linzess 145 MCG 1 capsule at least 3 0 minutes before the first meal of the day on an empty stomach Orally Once a day 03/07/2024 Active Wellbutrin SR 150 MG 1 tablet Orally onc e a day in the afternoon 10/05/2023 Active buPROPion HCl ER (SR) 100 MG 1 tablet in the morning Orally Once a day 02/20/2024 Active Fluconazole 150 MG TAKE 1 TABLET BY ONCE Active dexAMETHasone 1 MG 1 tablet Orally twic e a day 07/31/2024 Active Cyclobenzaprine HCl 10 MG as directed Or ally three times a day 05/13/2024 Active Flexeril Active Senna Laxative 8.6 MG 2 tablets at bedti de as needed Orally Once a day Active [...] Provider Diagnosis Seun Edwards III, MD [address] [place] [address] [address] [place] [address] 04/24/2025 Seun Edwards Plan Of Treatment Medication Medication Name Sig Start Date Stop Date Notes Fish Oil 1 capsule Orally Once a day Multivitamin Orally CoQ-10 Linzess 145 MCG 1 capsule at least 3 0 minutes before the first meal of the day on an empty stomach Orally Once a day 03/07/2024 Wellbutrin SR 150 MG 1 tablet Orally onc e a day in the afternoon 10/05/2023 buPROPion HCl ER (SR) 100 MG 1 tablet in the morning Orally Once a day 02/20/2024 Fluconazole 150 MG TAKE 1 TABLET BY MOUTH ONCE dexAMETHasone 1 MG 1 tablet Orally twice a day 07/31/2024 Cyclobenzaprine HCl 10 MG as directed Or ally three times a day 05/13/2024 Flexeril Senna Laxative 8.6 MG 2 tablets at bedti me as needed Orally Once a day Next Appt Details Provider Name:Seun Edwards , 08/31/2025 04:00:00 PM, [address] [place] [address] [address], [place], [address], Progress Notes * Pippa MARTINEZ ADOB:[birth year] (50 yo F)Acc No.[id number]:04/24/2025 Progress Notes Patient: Pippa CALVIN Provider: Andrés Edwards MD :1975 A ge:49 Y S ex:Female Date:04/24/2025 Address: [address] [id number] Subjective: * Chief Complaints: * 1 . Annual Exam. * HPI: C OVID-19 Screening: Questions H [...] mass upper outer left breast, benign, , [facility] 08/2016, left breast lumopectomy by Dr Serna 06/26/2023, Colonoscopy Dr. Barraza 04/21/2024, No history . * Hospitalization/Major Diagno stic Procedure: N o history . * Family History: F ather: alive 56 yrs, hypertension, diagnosed with HTN. M other: alive 56 yrs, SVT, Hyperthyroidism, [place], diagnosed with CVD. P aternal Grand Father: 72 yrs, lung cancer, diagnosed with Cancer. M aternal Grand Mother: alive, alzheimer. 1 sister(s) - healthy. 1 son(s) , 2 daughter(s) - healthy. . There is no history of breast cancer on her mother's side. 2 of her father's sisters had breast cancer in the past in [place]. 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 * Medications: T aking Fluconazole 150 MG Tablet TAKE 1 TABLET BY MOUTH ONCE , Taking buPROPion HCl ER (SR) 100 MG Tablet Extended Release 12 Hour 1 tablet in the morning Orally Once a day , Taking Wellbutrin SR 150 MG Tablet Extended Release 12 Hour 1 tablet Orally once a day in the afternoon , Taking Linzess 145 MCG Capsule 1 [...] vomiting, Trazodone: night terrors. Objective: * Vitals: * Examination: G eneral Examination: GENERAL APPEARANCE: [...] exam intact. PSYCH: a lert, oriented. Assessment: Plan: * Treatment: * Images: * The named appointment provid er may or may not be the originator of this progress note, and it is not deemed complete until electronically signed by the appointment provider. Sign off status: Pending * Provider: Andrés Edwards MD Date: 0 04/24/2025 Generated for Maria Luz fitzgerald/Tao/Manolo on: 09/20/2024 [...]
--- OUTSIDE RECORDS SUMMARY | 2025-05-15 04:45 | XMS_ITS ---
Author Organization Seun Edwards III, MD Address [address] [place] [address] [place] [address] Care Team Providers Care Engineering Production Liaison Name Role Phone Dr. Seun Edwards III Primary Care Provider [phone] Allergies Allergen (clinical drug ingredient) Drug/Non Drug [...] Provider Diagnosis Seun Edwards III, MD [address] [place] [address] [place] [address] 05/15/2025 Seun Edwards Recent weight loss R63.4 [...] Name:Seun Edwards , 08/31/2025 04:00:00 PM, [address] [place] [address] RAGHAV RUSH, MARGOTH TERAN, [phone], Progress Notes * Pippa MARTINEZ ADOB:[birth year] (49 yo F)Acc No.[id number]:05/15/2025 Progress Notes Patient: Pippa CALVIN Provider: Andrés Edwards MD :1975 A ge:49 Y S ex:Female Date:05/15/2025 Address:[address] [place] [address] [id number] Subjective: * Chief Complaints: * N osmany ppain from Chiari 1 syndromeCervicothoracic syrinxInsomniaGERD * HPI: C OVID-19 Screening: The neck pain has improved and is back at baseline, which is still significant. 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 Barraza 04/21/2024No history * Hospitalization/Major Diagno stic Procedure: N o history * Family History: F ather: alive 56 yrs, hypertension, diagnosed with HTN. M other: alive 56 yrs, SVT, Hyperthyroidism, [place], diagnosed with CVD. P aternal Grand Father: 72 yrs, lung cancer, diagnosed with Cancer. M aternal Grand Mother: alive, alzheimer. 1 sister(s) - healthy. 1 son(s) , 2 daughter(s) - healthy. . There is no history of breast cancer on her mother's side. 2 of her father's sisters had breast cancer in the past in [place]. * Social History: T obacco Use: T [...] true * Provider: Andrés Edwards MD Date: 05/15/2025 Generated for Maria Luz fitzgerald/Tao/Viviansmitting on: 09/20/2024 03:42 PM EST History and [...]
--- OUTSIDE RECORDS SUMMARY | 2025-07-16 23:59 | XMS_ITS | Continuity of Care Document ---
Author Organization [facility] [address] [place] [address]- Care Team Providers Care Plant Operator Helper Name Role Phone Jerry CHRISTIANSON, Seun Knight Primary Care Physician Encounter [facility] ACCT R [id number] Date(s): 06/16/25 - 07/16/25 [facility] [address] [place] [address] Drive [address] [place], [place] [address] Attending Physician: Gómez Urbina Admitting Physician: Gómez Urbina Referring Physician: Gómez Urbina Encounter Type: Triage Allergies, Adverse Reactions, Alerts Substance Criticality Severity [...] Common migraine Confirmed Active Depression Confirmed Active Patient Care team information Care Team Personnel Name: Seun Edwards MD Position: [facility] Physician - Oncology Member Role: PCP Address: [address] [place] [address] [address] Seun Edwards III, MD [place], [place] [address] Telecom: Name: Mary Kerns Position: [facility] Associate Professional Member Role: Lifetime Consulting Provider Name: Davin Story MD Position: [facility] SHOT PACKER Member Role: Lifetime SHOT PACKER Physician Address: [address] [place], [place] [address]s [facility] [place] [address]- Telecom: Care Team Related Persons Name: SOLO ROBLES Insurance Providers Guarantor name: HOWIE ROBLES Health Plan Information #: 1 Payer: [employer]UE [employer] PPO Payer Identifier: NA Member Number: [id number] Group Number: [id number] Subscriber Identifier: NA Relationship to Subscriber: self Coverage Type: BLUE CROSS/BLUE SHIELD Coverage Verification Date: NA Telecom: NA Address: NA
--- NOTE | 2025-07-21 12:04 | MHC.OFFVIS ---
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 She tells me today that she has a history of migraine-type headaches and has had a longstanding history of headache in general. A proximally 15 years ago she was diagnosed with a Chiari 1 malformation which she believes was at 7 mm upon initial diagnosis and is now at 10 mm. She has been seen by Dr. Islas at [facility] for evaluation and potential Chiari decompression. She has a scheduled decompression appointment in August of 2025. Headaches are described as being daily fluctuating in intensity. Her pain is predominantly to the occipital area but radiates to the retro-orbital area bilaterally but worse on the left. When headaches become more intense she has a accompanying light and sound sensitivity, nausea, and tinnitus of the right ear with a high-pitched but sometimes whooshing sound. She has a associated trapezius pain on both sides. Her pain is worse with bending down and bearing down. Headaches are not significantly better when she is in the leg position and in fact she has a sleep at a slightly elevated position to avoid having pain at night. She has been getting acupuncture every 2 weeks which significantly improved her pain. Headache characteristics: Time of onset: Worse over the course of the last year but ongoing intermittently for many years Location: Occipital Radiation: Retro-orbital areas Positional component: Not significantly but headaches are worse if laying flat, bearing down, or with bending down Character: Pressure and throbbing Severity: Moderate Duration: For the greater part of the day Frequency: Daily Acute aggravating factors:[] Acute relieving factors:[] Associated symptoms:When headaches become intense she can have light and sound sensitivity as well as nausea and tinnitus to the right ear with high pitched and sometimes wooshy sounding. Aura:No Other related background information: Sleep:Sleeps well getting about 7hours per day Hydration:Hydrates well Caffeine intake:1 cup coffee per day Alcohol intake: Twice per week Substance use:No Tobacco use:No Last eye exam: About 1 year ago History of head injury:Fall 12yrs age and hit head with LOC Past medication trials: NSAIDS- Some improvement Cyclbenzaprine- Minimal benefit Propranolol- Worsening of reynauds Amitriptyline- Profound somnolence even at low dose Trigger point injections and acupuncture- Helpful in the past Baclofen- Significant improvement Prior workup: CT head 06/05/2025 Findings: The ventricles are normal in configuration. Basilar cisterns intact. No intracranial hemorrhage, mass-effect or midline shift. No extra-axial fluid collections. The parenchyma is unremarkable in attenuation. Marx-white matter junction preserved. No evidence of acute large vessel or territorial ischemia. Partially imaged tonsillar ectopia. The calvarium is intact. The imaged portion of the paranasal sinuses are clear. No mastoid effusions. The orbital contents are unremarkable. Impression: 1. No CT evidence of acute intracranial pathology. Tonsillar ectopia. 05/07/2025 IMPRESSION: Chiari type I malformation with likely prominent/congenital central spinal cord canal from C5 to T1. Cervical spondylosis C3-4 and C4-5 without cord compression and mild right neuroforamina stenosis. 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 No abnormal enhancement. No acute fracture or listhesis or cord compression. Correlated to recent MRI cervical spine posterior Chiari type II. [facility] Medical History (Updated 07/21/25 @ 13:18 by Leslie Case CNP) Tension headache PONV (postoperative nausea and vomiting) Depression Uterine polyp Venous insufficiency of both lower extremities Peripheral venous insufficiency Varicose vein of leg 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, cervical History of torn meniscus of left knee IBS (irritable bowel syndrome) GERD (gastroesophageal reflux disease) Surgical History H/O colonoscopy History of surgery on lower extremity (06/25/23) History of lumpectomy of left breast (06/25/23) History of cervical discectomy (~2010) H/O left breast biopsy (~08/2016) Family History (Updated 06/26/25 @ 13:23 by Rosita Brunson LPN) Maternal Aunt History of lung cancer Paternal Aunt History of breast cancer Paternal Grandfather History of lung cancer Mother History of breast cancer Social History Are you a primary daycare assistant to a significant other at home: No Do you presently have visiting nurse or other home services: No Alcohol intake: current Alcohol intake frequency: holidays/special occasions only Alcohol type: wine Patient Tobacco Use Status: Never used Tobacco Female Reproductive History Menstrual Age of Menarche: 13 Review of Systems Const All systems reviewed & are unremarkable except as noted in HPI and below Physical Exam Vital Signs: Last Vital Signs Pulse 76 07/21/25 12:09 Resp 16 07/21/25 12:09 BP 118/86 07/21/25 12:09 Pulse Ox 98 07/21/25 12:09 Oxygen Delivery Method Room Air 07/21/25 12:09 BMI result Body Mass Index 19.7 Const General: cooperative, healthy appearing, comfortable and no acute distress Nutritional Appearance: well nourished Orientation/consciousness: patient oriented x3 Limitations: no limitations HEENT Head: Yes normal to inspection and Yes normocephalic Eyes General: appearance normal, both eyes and all related structures Visual Randolph: normal visual randolph by confrontation Alignment and Position: alignment normal Periorbital: periorbital findings normal Eyelids: Yes eyelids normal Conjunctivae: conjunctivae normal Sclerae: sclerae normal Direct Ophthalmoscopy: normal light reflex, no papilledema and fundi normal bilaterally Neck Neck: Yes normal visual inspection and Yes full ROM General: Yes no CVA tenderness Back/Spine/Pelvis Other: Bilateral trapezius trigger points and tightening. Back: no CVA tenderness Cervical Spine: cervical spasm Thoracic/Lumbar Spine: thoracic and lumbar spine normal to inspection Neuro General: patient oriented x3, tone normal and deep tendon reflexes 2+ bilaterally Cranial nerves: Yes CN's II-XII intact bilaterally and Yes Facial sensation intact/muscles of mastication intact Cognition (Neuro): normal cognition Gait exam (Neuro): Normal gait present Motor exam (neuro): 5/5 motor strength present throughout and no tremor noted Sensory Exam: double simultaneous stimulation for sensation normal Romberg Test: Negative Pupils: Normal pupillary reactivity/response: bilateral Psych Appearance: grossly normal Mental Status: mental status grossly normal Speech and movement: Normal speech and movement present and Clear speech present Affect: normal affect Attitude: cooperative Thought process: Normal thought process present Thought content: Normal thought content present Insight: Good insight present (Psych) Judgement: Good judgement present (Psych) Assessment & Plan Assessment & Plan (1) Myofascial pain: Code(s): M79.18 - Myalgia, other site Category: Medical (2) Trigger point of shoulder region: Code(s): M25.519 - Pain in unspecified shoulder Category: Medical (3) Chronic migraine without aura without status migrainosus, not intractable: Code(s): G43.709 - Chronic migraine without aura, not intractable, without status migrainosus Category: Medical (4) Chiari I malformation: Code(s): G93.5 - Compression of brain Category: Medical Plan Pippa is a 50-year-old female patient with a past medical history of IBS, GERD, Chiari 1 malformation, constipation, and Raynaud's who is here today for headache evaluation. Based on her history, exam, and imaging, headaches are likely multifactorial including migraine-type headaches, trigger points of the trapezius area and likely myofascial component, as well as likely pain due to Chiari malformation. She is currently on baclofen which was recently started and she is having good effect with this. I will have her continue the baclofen. From a migraine standpoint, I would like to start a once monthly injection targeting CGRP. I would like to avoid the use of Aimovig due to history of constipation and avoid using Emgality due to a history of Raynaud's. I will start Ajovy 225 monthly. I did give her a sample injection today during the visit (lot number [id number], expiration December/2027) She has follow up with Dr. Islas at [facility] in August for decompression surgery. Her exam is grossly normal and without hyperreflexia or brainstem findings. Among the differentials is a low-pressure headache with possible sagging of intracranial structures. We have not had a recent MRI of the brain with contrast to confirm. This diagnosis however is less likely given the clinical presentation and positional component not supporting of low-pressure headache. -continue baclofen 5 mg daily -start Ajovy injections to 25 mg monthly - sample injection today during the visit (lot number [id number], expiration December/2027) -follow up with plan from Dr. Islas -continue with acupuncture every 2 weeks -follow up here in the office in 1 month Medications: New fremanezumab-vfrm (Ajovy) 225 mg (1.5 mL) subcut QMONTH 1.5 mL 5RF Coding Level of Care Code New Pt Level 4 (22294) Diagnoses Myofascial pain M79.18 Trigger point of shoulder region M25.519 Chronic migraine without aura without status migrainosus, not intractable G43.709 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
[2025-07-21 12:09] VITALS: BP 118/86; PULSE 76; RESP 16; O2SAT 98; BMI 19.7
--- OUTSIDE RECORDS SUMMARY | 2025-07-21 15:43 | XMS_ITS | Patient Health Record ---
Author Organization [facility] Address [address] [place] [address] Care Team Providers Care Bolt Header Name Role Phone Seun Edwards MD Primary Care Provider Unavailab geneva LawierBen Unavailable [phone] Reason For Referral No Information Medications Medication [...] Status W/U Status Risk Notes Problem Dermatitis (966236010) Dermatitis (692.9) Active confirmed Problem Keratoma (28149150) Keratoma (701.1) Active confirmed Problem Pain in limb (62491641) Pain in Limb (729.5) Active confirmed Problem Pruritic disorders (254741356) Pruritis (698.9) Active confirmed Problem Verruca plantaris (14089844) Verruca Plantaris (078.19) Active confirmed Confirmed by Bx Plan Of Treatment Pending Test Test Name Order Date [id number] Destruction, 1-14 07/09/2014 [id number] Biopsy 0.5cm 06/18/2014 Insurance Providers Payer Name Payer Address Payer Phone Subscriber Number Group Number Insured Name Patient Relationship to Insured Coverage Start Date Coverage End Date [id number] [place] [id number] Tristen Packer Spouse - patient is the spouse of the insured Medical (General) History Medical History History ICD Code Headaches Chicken pox Migraines Surgical History Surgery Date(Month/Year) herniated disk repair
--- OUTSIDE RECORDS SUMMARY | 2025-07-21 15:44 | XMS_ITS | Patient Health Record ---
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 Seun Edwards [...] Microscopic Reviewed date:10/19/2024 09:14:09 AM Interpretation: Performing Lab:[address] [address] Notes/Report: Color Urine Yellow Appearance Urine Clear PH 6.5 5.0-9.0 Glucose Urine UA Negative Negative mg/dL Urine Blood Negative Negative Specific [place] - Urine <= 1.005 1.005-1.025 Urine Protein Negative Neg-Trace mg/dL Urine Ketones Negative Negative mg/dL Nitrite Urine Negative Negative Leukocyte Esterase Urine Small (1+) Negative RBC Urine 0-2 0-2 /HPF WBC Urine 0-5 0-5 /HPF Squamous Epithelial Cell Urine 0-2 0-2 /HPF Bacteria Urine None Seen None Seen Hyaline Casts Urine 0-2 0-2 /LPF Urine Culture Reviewed date:10/19/2024 09:14:09 AM Interpretation: Performing Lab:[facility] [address] Notes/Report: Urine Culture Report Result Urine Culture 50,000 to 100,000 cfu/ml Urine Culture Mixed bacterial luis a characteristic of Urine Culture urogenital contamination. Ur Preg Test Reviewed date:12/13/2024 07:21:39 AM Interpretation: Performing Lab:[facility], [address] [place] [address] Notes/Report: Urine NEGATIVE NEGATIVE This test was developed to detect early . False negative results may occur after the 5th - 7th week of when using this test method. If clinically indicated, consider a serum hCG. Urine Culture Reviewed date:12/13/2024 07:21:39 AM Interpretation: Performing Lab:[address] [address] Notes/Report: Urine Culture No growth. Urinalysis and Microscopic Reviewed date:01/25/2025 08:15:48 PM Interpretation: Performing Lab:[address] [address] Notes/Report: Color Urine Yellow Appearance Urine Clear PH 7.0 5.0-9.0 Glucose Urine UA Negative Negative mg/dL Urine Blood Negative Negative Specific [place] - Urine <= 1.005 1.005-1.025 Urine Protein Negative Neg-Trace mg/dL Urine Ketones Negative Negative mg/dL Nitrite Urine Negative Negative Leukocyte Esterase Urine Negative Negative RBC Urine 0-2 0-2 /HPF WBC Urine 0-5 0-5 /HPF Squamous Epithelial Cell Urine 0-2 0-2 /HPF Bacteria Urine None Seen None Seen Hyaline Casts Urine 0-2 0-2 /LPF Urine Culture Reviewed date:01/25/2025 08:15:48 PM Interpretation: Performing Lab:[address] [address] Notes/Report: Urine Culture No growth. Complete Blood Count Auto Di ff Reviewed date:04/19/2025 05:05:46 AM Interpretation: Performing Lab:[address] [address] Notes/Report: White Blood Count 4.8 4.8-10.8 X10*3/uL [...] Panel Reviewed date:04/19/2025 05:05:46 AM Interpretation: Performing Lab:[facility], [address] [place] [address] Notes/Report: Sodium 141 135-145 mmol/L Potassium 4.1 [...] Sensitivity Reviewed date:04/19/2025 05:05:46 AM Interpretation: Performing Lab:[facility], [address] [place] [phone] Notes/Report: D Dimer High Sensitivity < 150 [...] date:04/19/2025 05:05:46 AM Interpretation: Performing Lab: Notes/Report: [address] [address] XRay Report Signed Patient: Pippa Martinez MR#: [id number] : 1975 Acct:[id number] Age/Sex: 49 / F ADM Date: 04/17/25 Loc: HO.LAB Attending Dr: Seun Edwards MD Ordering Physician: Seun Edwards MD Date of Service: 04/17/25 Procedure(s): XR chest 2V Accession Number(s): [id number] cc: Seun Edwards MD EXAMINATION: XR CHEST [...] 04/17/25 1040 DD/ 1012 TD/TT: 04/17/25 1017 Engineering Technician: [address] [address] XRay Report Signed Patient: Pippa Martinez MR#: [id number] : 1975 Acct:[id number] Age/Sex: 49 / F ADM Date: 04/17/25 Loc: HO.LAB Attending Dr: Seun Edwards MD Ordering Physician: Seun Edwards MD Date of Service: 04/17/25 Procedure(s): XR chest 2V Accession Number(s): [id number] cc: Seun Edwards MD EXAMINATION: XR CHEST [...] 04/17/25 1040 DD/ 1012 TD/TT: 04/17/25 1017 Engineering Technician: MR thoracic spine wo/w con Reviewed date:05/18/2025 05:45:57 AM Interpretation: Performing Lab: Notes/Report: [address] [address] Magnetic Resonance Report Signed Patient: Pippa Martinez MR#: [id number] : 1975 Acct:[id number] Age/Sex: 49 / F ADM Date: 05/07/25 Loc: HO.MRI Attending Dr: Seun Edwards MD Ordering Physician: Seun Edwards MD Date of Service: 05/07/25 Procedure(s): MR thoracic spine wo/w con Accession Number(s): [id number] cc: Seun Edwards MD Reason for Exam: [...] 05/07/25 1511 DD/ 1317 TD/TT: 05/07/25 1345 Engineering Technician: [address] [address] Magnetic Resonance Report Signed Patient: Pippa Martinez MR#: [id number] : 1975 Acct:[id number] Age/Sex: 49 / F ADM Date: 05/07/25 Loc: HO.MRI Attending Dr: Seun Edwards MD Ordering Physician: Seun Edwards MD Date of Service: 05/07/25 Procedure(s): MR haque spine wo/w con Accession Number(s): [id number] cc: Seun Edwards MD Reason for Exam: [...] 05/07/25 1511 DD/ 1317 TD/TT: 05/07/25 1345 Engineering Technician: MR cervical spine wo/w con Reviewed date:05/18/2025 05:45:57 AM Interpretation: Performing Lab: Notes/Report: [address] [address] Magnetic Resonance Report Signed Patient: Pippa Martinez MR#: [id number] : 1975 Acct:[id number] Age/Sex: 49 / F ADM Date: 05/07/25 Loc: HO.MRI Attending Dr: Seun Edwards MD Ordering Physician: Seun Edwards MD Date of Service: 05/07/25 Procedure(s): MR cervical spine wo/w con Accession Number(s): [id number] cc: Seun Edwards MD Reason for Exam: [...] 05/07/25 1424 DD/ 1247 TD/TT: 05/07/25 1348 Engineering Technician: [place] [address] Magnetic Resonance Report Signed Patient: Pippa Martinez MR#: [id number] : 1975 Acct:[id number] Age/Sex: 49 / F ADM Date: 05/07/25 Loc: HO.MRI Attending Dr: Seun Edwards MD Ordering Physician: Seun Edwards MD Date of Service: 05/07/25 Procedure(s): MR cer vical spine wo/w con Accession Number(s): [id number] cc: Seun Edwards MD Reason for Exam: [...] 05/07/25 1424 DD/ 1247 TD/TT: 05/07/25 1348 Engineering Technician: CT head/brain wo con Reviewed date:06/08/2025 08:49:29 AM Interpretation: Performing Lab: Notes/Report: [place] [address] CT Scan Report Signed Patient: Pippa Martinez MR#: [id number] : 1975 Acct:[id number] Age/Sex: 49 / F ADM Date: 06/05/25 Loc: .ED Attending Dr: Ordering Physician: Makenzie Bull DO Date of Service: 06/05/25 Procedure(s): CT head/brain wo IV con Accession Number(s): [id number] cc: Seun Edwards MD; Makenzie Bull DO Report Number: [id number]: Total DLP = 498.00 mGy-cm Reason for [...] in OV> 06/05/25641 DD/ 0 TD/TT: 06/05/25640 Engineering Technician: [place] [address] CT Scan Report Signed Patient: Pippa Martinez MR#: [id number] : 1975 Acct:[id number] Age/Sex: 49 / F ADM Date: 06/05/25 Loc: HO.ED Attending Dr: Ordering Physician: Makenzie Bull DO Date of Service: 06/05/25 Procedure(s): CT head/brain wo IV con Accession Number(s): [id number] cc: Seun Edwards MD; Makenzie Bull DO [...] in OV> 06/05/25641 DD/ 0 TD/TT: 06/05/25640 Engineering Technician: Pap Smear Reviewed date:07/03/2025 05:57:43 AM Interpretation: Performing Lab:[facility], [address] [place] [phone] Notes/Report: ----- Name: Nico Martinez constance Butt Age/Sex: 50/F : 1975 Unit#: [id number] Attend Dr: Wanda Larkin CNM Re06/26/25 Status : DEP REF Location: [facility] Disch: ----- SPEC : [id number] REC STATUS: VINNIEEugenia JESSICA NUM: [id number] DARSHAN: 06/26/25-1299 DR: Wanda Larkin CNM ENTERED: 06/29/25 SP TYPE: Pap Smr OTHR DR: Seun Edwards MD ORDERED: Pap Smear Interpretation Satisfactory for evaluation. Negative for intraepithelial lesion or malignancy. Mild inflammation. HPV High Risk: Negative HPV Genotyping 16: Negative HPV Genotyping 18: Negative Clinical Information LMP: Unk Previous PAP test: Unk Other surgery: Other history: Material Received ThinPrep-Cervical Copies To: Edwards,Seun MD [address] [place] [address] Wanda Larkin CNM [facility] [address] [place] [address] ----- Signed (signature on file) ELAN Mueller (ASCP) 07/02/25 1203 ----- END OF REPORT HPV High risk Reviewed date:07/03/2025 05:57:43 AM Interpretation: Performing Lab:[facility], [address] [place] [phone] Notes/Report: HPV High Risk Negative Negative HPV Genotype 16 Negative Negative HPV Genotype 18 Negative Negative HPV testing performed at [facility] (CLIA #[id number]) , [address] [place] [address]. Testing for HPV was performed using the Lorie SERGIO 6800 system. The presence of HPV in the female genital tract is associated with a number of diseases, including cervical carcinoma. The HPV DNA high risk pool tests for HPV 31, 33, 35, 39, 45, 51, 52, 56, 58, 59, 66 and 68. The testing for HPV 16 and 18 genotypes has also been performed. A positive result indicates detection of nucleic acid sequences from one or more subtypes, whereas a negative result indicates such sequences were not detected. Reason For Referral Reason Evaluate and Treat Routine Gynecological Examination Diagnosis 1 Routine gynecologica l examination (Z01.419) Referral Organization Seun Edwards III, MD Referring Provider First Name Seun Referring Provider Last Name Jerry Referring Provider Speciality Internal edicine Referred Organization [facility] nter Referred Provider [facility] er, [facility] Referred Address [address] [place] [address],[place], [id number], Referred Provider Specialty OB - Gynecol ogy General Notes D, 11/24/2024 04:39:14 PM > Referral faxed Referral Priority Routine Referral Appointment Date 03/17/2025 Reason Evaluate and Treat Annual Skin Exam Diagnosis 1 Encounter for screen ing for malignant neoplasm of skin (Z12.83) Referral Organization Seun Edwards III, MD Referring Provider First Name Seun Referring Provider Last Name Jerry [facility] Referred Provider [facility] Referred Provider Specialty Dermatology General Notes D, 02/06/2025 04:08:34 PM > referral faxed per patient request, D, 02/10/2025 02:21:44 PM > patient has not reached out to the office to schedule an appointment at this time, 02/25/2025 02:40:12 PM > [facility] stated they have reached out to the patient to schedule an appointment. Dr. Edwards office has reached out to the patient to have them contact [facility] to schedule an appointment. Message was left. Referral Priority Routine Referral Appointment Date 05/13/2025 Reason Evaluate and Treat 2nd referral Diagnosis 1 Headache, unspecifie d (R51.9) Diagnosis 2 Chiari I malformatio n (G93.5) Referral Organization Seun Edwards III, MD Referring Provider First Name Seun Referring Provider Last Name Jerry Referring Provider Speciality Internal edicine Referred Provider [facility] Referred Provider Specialty Neurology General Notes , 02/06/2025 04:08:10 PM > Per patient request referral faxed, 05/13/2025 03:08:57 PM > Patient does not [...] Provider Speciality Internal M edicine Referred Provider [facility], Allergy Referred Provider Specialty Allergy/Immu nology General Notes DRachel 02/06/2025 04:09:52 PM > Per patient request referral faxed., DRachel 02/25/2025 02:50:37 PM > [facility] has received the referral [...] Status W/U Status Risk Notes Problem Headache (63731760) Headache (R51) Active confirmed Her headac hes originate in the Chiari malformation. They have worsened lately. She has been referred back to neurosurgery for opinion and to pain management to consider analgesic procedures. Problem Syringomyelia and syringobulbia (658931496) Syringomyelia and syringobulbia (G95.0) Active confirmed She is going to have the neurostimulator. Her neurosurgeon has agreed to do a laminectomy of all else fails.An MRI of the cervical and thoracic spine has been ordered for surveillance. Problem Gastro-esophagea l reflux disease without esophagitis (332156799) Gastro-esophage al reflux disease without esophagitis (K21.9) Active confirmed Her reflux is somewhat aggravated by the but she is finding it tolerable. Problem Cervical spondylosis without myelopathy (863957206) Other spondylosis, cervical region (M47.892) Active confirmed Problem Displacement of cervical intervertebral disc without myelopathy (26894647) Other cervical disc displacement, unspecified cervical region (M50.20) Active confirmed The discomfort is much improved. We're waiting for the MRI report. Problem 445796358 Chiari I malformation (G93.5) Active confirmed The pain has worsened lately. She has seen her neurosurgeon, Dr. Islas, Who has offered to do a cervical laminectomy. She is uncertain about this and has declined that procedure so far. The pain management service has recommended a neurostimulator and she has an appointment to have a temporary wire inserted. Problem 053290572 Insomnia (G47.00) Active confirmed She has chronic difficulty sleeping, but lately has been doing well. No change in the pattern of her sleep has been noted lately. Problem Seasonal allergy (994286679) Seasonal allergies (J30.2) Active confirmed Problem History of irritable bowel syndrome (11874278640992) History of IBS (Z87.19) Active confirmed His abdominal pain is resolved at this time. She is quite comfortable in her daily life. Problem Peripheral venous insufficiency (65926456) Venous insufficiency (I87.2) Active confirmed An endovascular procedure to relieve the discomfort is being planned. Problem Pleuritic pain (3174281) Pleuritic chest pain (R07.81) Active confirmed This appears t o be pleurisy and not pulmonary infarction or costochondritis. She is going to have a chest x-ray and blood work with a d-dimer. Problem Irritable bowel syndrome (02654476) Other irritable bowel syndrome (K58.8) Active confirmed She occasionall y has abdominal discomfort from the IBS but this is become a minor problem in daily life. Problem 866315598 Chronic constipation (K59.09) Active confirmed She is doing well with the linzess. Problem 335589792 Recent weight loss (R63.4) Active confirmed She [...] Date Provider Diagnosis Seun Edwards III, MD [address] [place] [address] [place] [address] 07/31/2024 Seun Edwards Chiari I malformatio n G93.5 ; 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 ; Gastro-esophageal reflux disease without esophagitis K21.9 ; Other irritable bowel syndrome K58.8 ; Insomnia G47.00 ; Chronic constipation K59.09 and Underweight R63.6 Seun Edwards III, MD [address] [place] [address] [place] [address] 08/15/2024 Seun Edwards 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 ; 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 ; Insomnia G47.00 ; Headache R51 ; Gastro-esophageal reflux disease without esophagitis K21.9 and Weight loss R63.4 Seun Edwards III, MD [address] [place] [address] [place] [address] 04/17/2025 Seun Edwards Pleuritic chest pain R07.81 ; 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 ; 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 ; Insomnia G47.00 and History of IBS Z87.19 Seun Edwards III, MD [address] [place] [address] [place] [address] 05/15/2025 Seun Edwards Recent weight loss R63.4 ; 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 ; Insomnia G47.00 ; History of IBS Z87.19 ; Venous insufficiency I87.2 ; Gastro-esophageal reflux disease without esophagitis K21.9 and 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 Seun Edwards III, MD [address] [place] [address] [place] [address] 08/02/2024 Seun Edwards III, MD [address] [place] [address] [place] [address] 09/16/2024 Seun Edwards III, MD [address] [place] [address] [place] [address] 11/14/2024 Seun Edwards III, MD [address] [place] [address] [place] [address] 11/14/2024 Seun Edwards III, MD [address] [place] [address] [place] [address] 11/21/2024 Seun Edwards III, MD [address] [place] [address] [place] [address] 11/21/2024 Seun Edwards III, MD [address] [place] [address] [place] [address] 11/24/2024 Seun Edwards III, MD [address] [place] [address] [place] [address] 04/16/2025 Seun Edwards III, MD [address] [place] [address] [place] [address] 04/21/2025 Seun Edwards Assessments Encounter Date Diagnosis [...] monitor 02/04/2024 Next Appt Details Provider Name:Seun Edwards , 08/31/2025 04:00:00 PM, [address] [place] [address] [place], [place], [address], Insurance Providers Payer Name Payer Address Payer Phone Subscriber Number Group Number Insured Name Patient Relationship to Insured Coverage Start Date Coverage End Date [employer] [place] [address] [address] [place] [address] [id number] Pippa Martinez Self - patient is [...] mass upper outer left breast, benign, , [facility] 08/2016 endovenous laser ablation lower extremit y veins 2014 Hospitalization History Reason Date(Month/Year) No history
== END 2025-07-21 13:02 | disposition home or self-care (01) ==
LOC: HO.HSM 11:56
PROVIDERS: PCP Internal Medicine Medical Oncology; Visit Provider Nurse Practitioner
DX: M79.18 Myalgia, other site (principal); M25.519 Pain in unspecified shoulder; G43.709 Chronic migraine without aura, not intractable, without status migrainosus; G93.5 Compression of brain
CPT/HCPCS: 99204

== ENCOUNTER 2025-07-22 10:44 | Outpatient (AMB) | payer OTHER, SELFPAY ==
--- OUTSIDE RECORDS SUMMARY | 2024-11-14 06:10 | XMS_ITS ---
Author Organization Seun Edwards III, MD Address [address] [place] [address] [place] [address] Care Team Providers Care Continuous Process Tanner Rotary Drum Name Role Phone Dr. Seun Edwards III Primary Care Provider [phone] REASON FOR VISIT Rx Request Social History Sex Assigned At : Social History Observation Description Sex Assigned At Female Encounters Encounter Location Date Provider Diagnosis Seun Edwards III, MD [address] [place] [address] [place] [address] 11/14/2024 Seun Edwards Plan Of Treatment Next Appt Details Provider Name:Seun Edwards , 08/31/2025 04:00:00 PM, [address] [place] [address] [place], [address], Progress Notes * Pippa MARTINEZ ADOB:[birth year] (49 yo F)Acc No.[id number]:11/14/2024 Patient: hNan Pippa DIA :1975 A ge:49 Y S ex:Female [place] [place] [address] * true * Date: Generated for Printi ng/Faxing/eTransmitting on: 09/21/2024 12:59 PM EST
--- OUTSIDE RECORDS SUMMARY | 2024-11-14 06:49 | XMS_ITS ---
Author Organization Seun Edwards III, MD Address [address] [place] [address] [place] [address] Care Team Providers Care Tape Sewing Machine Operator Name Role Phone Dr. Seun Edwards III Primary Care Provider Medications Medication SIG (Take, Route, Frequency, Duration) Notes Start Date End Date Status Amoxicillin-Pot Clavulanate 875-125 MG 1 tablet Orally every 12 hrs for 7 days 11/14/2024 11/21/2024 Active Social History Sex Assigned At : Social History Observation Description Sex Assigned At Female Encounters Encounter Location Date Provider Diagnosis Seun Edwards III, MD [address] [place] [address] [place] [address] 11/14/2024 Seun Edwards Plan Of Treatment Medication Medication Name Sig Start Date Stop Date Notes Amoxicillin-Pot Clavulanate 875-125 MG 1 tablet Orally every 12 hrs for 7 days 11/14/2024 11/21/2024 Next Appt Details Provider Name:Seun Edwards , 08/31/2025 04:00:00 PM, [address] [place] [address] [place], [address], Progress Notes * Pippa MARTINEZ ADOB:[birth year] (49 yo F)Acc No.[id number]:11/14/2024 Patient: Nhan Pippa DIA :1975 A ge:49 Y S ex:Female Address:[address] [place] [address], [place] [address] * Refills Start Amoxicillin-Pot Clavulanate Tablet, 875-125 MG, Orally, 14 Tablet, 1 tablet, every 12 hrs, 7 days, Refills=0 * true * Date: Generated for Maria Luz fitzgerald/Tao/Manolo on: 09/21/2024 01:01 PM EST
--- OUTSIDE RECORDS SUMMARY | 2024-11-21 04:42 | XMS_ITS ---
Author Organization Seun Edwards III, MD Address [address] [place] [address] [place] [address] Care Team Providers Care Coating Operator Name Role Phone Dr. Seun Edwards III Primary Care Provider REASON FOR VISIT Rx request Social History Sex Assigned At : Social History Observation Description Sex Assigned At Female Encounters Encounter Location Date Provider Diagnosis Seun Edwards III, MD [address] [place] [address] [place] [address] 11/21/2024 Seun Edwards Plan Of Treatment Next Appt Details Provider Name:Seun Edwards , 08/31/2025 04:00:00 PM, [address] [place] [address] [place], [address], Progress Notes * Pippa MARTINEZ ADOB:[birth year] (49 yo F)Acc No.[id number]:11/21/2024 Patient: Nhan Pippa DIA :1975 A ge:49 Y S ex:Female [facility] [place] [address] * true * Date: Generated for Printi ng/Faxing/eTransmitting on: 09/21/2024 12:59 PM EST
--- OUTSIDE RECORDS SUMMARY | 2024-11-21 05:45 | XMS_ITS ---
Author Organization Seun Edwards III, MD Address [address] [place] [address] [place] [address] Care Team Providers Care Lokie Driver Name Role Phone Dr. Seun Edwards III Primary Care Provider Medications Medication SIG (Take, Route, Fr equency, Duration) Notes Start Date End Date Status Diflucan 150 MG 1 tablet Orally once for 1 days 11/23/2024 Active Social History Sex Assigned At : Social History Observation Description Sex Assigned At Female Encounters Encounter Location Date Provider Diagnosis Seun Edwards III, MD [address] [place] [address] [place] [address] 11/21/2024 Seun Edwards Plan Of Treatment Medication Medication Name Sig Start Date Stop Date Notes Diflucan 150 MG 1 tablet Orally once for 1 days 11/21/2024 11/23/2024 Next Appt Details Provider Name:Seun Edwards , 08/31/2025 04:00:00 PM, [address] [place] [address] [place], [address], Progress Notes * Pippa MARTINEZ ADOB:[birth year] (49 yo F)Acc No.[id number]:11/21/2024 Patient: Nhan Pippa DIA :1975 A ge:49 Y S ex:Female Address:[address] [place] [address], [place] [address] * Refills Start Diflucan Tablet, 150 MG, Orally, 1, 1 tablet, once, 1 days, Refills=1 * true * Date: Generated for Maria Luz fitzgerald/Tao/Manolo on: 09/21/2024 01:01 PM EST
--- OUTSIDE RECORDS SUMMARY | 2024-11-24 11:13 | XMS_ITS ---
Author Organization Seun Edwards III, MD Address [address] [place] [address] [place] [address] Care Team Providers Care Furnace Worker Name Role Phone Dr. Seun Edwards III Primary Care Provider Reason For Referral Reason Evaluate and Treat Routine Gynecological Examination Diagnosis 1 Routine gynecologica l examination (Z01.419) Referral Organization Seun Edwards III, MD Referring Provider First Name Seun Referring Provider Last Name Jerry Referring Provider Speciality Internal M edicine Referred Organization [facility] nter Referred Provider [facility] er, SHEET METAL ENGINEER & Midwifery Referred Address [address] [place] [phone], Referred Provider Specialty OB - Gynecol ogy General Notes DRachel 11/24/2024 04:39:14 PM > Referral faxed Referral Priority Routine Referral Appointment Date 03/17/2025 REASON FOR VISIT Referral Social History Sex Assigned At : Social History Observation Description Sex Assigned At Female Encounters Encounter Location Date Provider Diagnosis Seun Edwards III, MD [address] [place] [address] [place] [address] 11/24/2024 Seun Edwards Plan Of Treatment Referrals Referral Date Details 11/24/2024 11/24/2024, Evaluate and Treat Routine Gynecological Examination, SHEET METAL ENGINEER & Midwifery [facility], [address] [place] [address], [phone], Next Appt Details Provider Name:Seun Eugene Edwards , 08/31/2025 04:00:00 PM, [address] [place] [address] [place], [address], Progress Notes * Pippa MARTINEZ ADOB:[birth year] (49 yo F)Acc No.[id number]:11/24/2024 Patient: Pippa CALVIN :1975 A ge:49 Y S ex:Female Address:[address] [place] [address] Subjective: * Chief Complaints: * R eferral * Medical History: * Surgical History: * Hospitalization/Major Diagno stic Procedure: * Medications: Objective: * Vitals: * Physical Examination: Assessment: Plan: * Treatment: * Procedure Codes: * true * Date: Generated for Thomasi lia/Tao/eTransmitting on: 09/21/2024 01:00 PM EST Consultation Request Notes Referral Date Referring Provider Referred Provider Not es 11/24/2024 Jerry [facility], SHEET METAL ENGINEER & Midwifery Evaluate and Treat Routine Gynecological Examination
--- OUTSIDE RECORDS SUMMARY | 2025-04-16 08:16 | XMS_ITS ---
Author Organization Seun Edwards III, MD Address [address] [place] [address] [place] [address] Care Team Providers Care Locomotive Engineer Electric Name Role Phone Dr. Seun Edwards III Primary Care Provider REASON FOR VISIT new onset pleuritic chest discomfort Social History Sex Assigned At : Social History Observation Description Sex Assigned At Female Encounters Encounter Location Date Provider Diagnosis Seun Edwards III, MD [address] [place] [address] [place] [address] 04/16/2025 Seun Edwards Plan Of Treatment Next Appt Details Provider Name:Seun Edwards , 08/31/2025 04:00:00 PM, [address] [place] [address] [place], [address], Progress Notes * Pippa MARTINEZ ADOB:[birth year] (49 yo F)Acc No.[id number]:04/16/2025 Patient: Nhan Pippa DIA :1975 A ge:49 Y S ex:Female Address:[address] [place], [place] [address] [address] * true * Date: Generated for Printi ng/Faxing/eTransmitting on: 09/21/2024 12:59 PM EST
--- OUTSIDE RECORDS SUMMARY | 2025-04-17 04:00 | XMS_ITS ---
Author Organization Seun Edwards III, MD Address [address] [place] [address] [place] [address] Care Team Providers Care College Tutor Name Role Phone Dr. Seun Edwards III [...] W/U Status Risk Notes Problem Pleuritic pain (8951877) Pleuritic chest pain (R07.81) Active confirmed This [...] Provider Diagnosis Seun Edwards III, MD [address] [place] [address] [place] [address] 04/17/2025 Seun Edwards Pleuritic chest pain R07.81 [...] Name:Seun Edwards , 08/31/2025 04:00:00 PM, [address] [place] [address] RAG[place], [facility] [address], Progress Notes * Pippa MARTINEZ ADOB:[birth year] (49 yo F)Acc No.[id number]:04/17/2025 Progress Notes Patient: Nhan Pippa DIA Provider: [...] mass upper outer left breast, benign, , [facility] 08/2016left breast lumopectomy by Dr Serna 06/26/2023olonoscopy Dr. Barraza 04/21/2024No history * Hospitalization/Major Diagno stic Procedure: N o history * Family History: F ather: alive 56 yrs, hypertension, diagnosed with HTN. M other: alive 56 yrs, SVT, Hyperthyroidism, [place], diagnosed with CVD. P aternal Grand Father: 72 yrs, lung cancer, diagnosed with Cancer. M aternal Grand Mother: alive, alzheimer. 1 sister(s) - healthy. 1 son(s) , 2 daughter(s) - healthy. . There is no history of breast cancer on her mother's side. 2 of her father's sisters had breast cancer in the past in [place]. * Social History: T obacco Use: T [...] 04/17/2025 Generated for Maria Luz fitzgerald/Tao/Manolo on: 09/21/2024 01:00 PM EST History and Physical Notes * [...]
--- OUTSIDE RECORDS SUMMARY | 2025-04-21 10:09 | XMS_ITS ---
Author Organization Seun Edwards III, MD Address [address] [place] [address] [place] [address] Care Team Providers Care Housekeeping Staff Name Role Phone Dr. Seun Edwards III Primary Care Provider [phone] REASON FOR VISIT FYI only Social History Sex Assigned At : Social History Observation Description Sex Assigned At Female Encounters Encounter Location Date Provider Diagnosis Seun Edwards III, MD [address] [place] [address] [place] [address] 04/21/2025 Seun Edwards Plan Of Treatment Next Appt Details Provider Name:Seun Edwards , 08/31/2025 04:00:00 PM, [address] [place] [address] [place], [address], Progress Notes * Pippa MARTINEZ ADOB:[birth year] (49 yo F)Acc No.[id number]:04/21/2025 Patient: Nhan Pippa DIA :1975 A ge:49 Y S ex:Female Address[facility] [place] [address] * true * Date: Generated for Printi ng/Faxing/eTransmitting on: 09/21/2024 01:01 PM EST
--- OUTSIDE RECORDS SUMMARY | 2025-04-24 12:00 | XMS_ITS ---
Author Organization Seun Edwards III, MD Address [address] [place] [address] [place] [address] Care Team Providers Care Program Arranger Name Role Phone Dr. Seun Edwards III [...] Laxative 8.6 MG 2 tablets at bedti or as needed Orally Once a day Active [...] Provider Diagnosis Seun Edwards III, MD [address] [place] [address] [address] [place] [address] 04/24/2025 Seun Edwards Plan Of Treatment Medication [...] Name:Seun Edwards , 08/31/2025 04:00:00 PM, [address] [place] [address] [address], [place], [address], Progress Notes * Pippa MARTINEZ ADOB:[birth year] (50 yo F)Acc No.[id number]:04/24/2025 Progress Notes Patient: Pippa CALVIN Provider: Andrés Edwards MD :1975 A ge:49 Y S ex:Female Date:04/24/2025 Address: [address] [id number] Subjective: * Chief Complaints: * 1 . [...] mass upper outer left breast, benign, , [facility] 08/2016, left breast lumopectomy by Dr Serna 06/26/2023, Colonoscopy Dr. Barraza 04/21/2024, No history . * Hospitalization/Major Diagno stic Procedure: N o history . * Family History: F ather: alive 56 yrs, hypertension, diagnosed with HTN. M other: alive 56 yrs, SVT, Hyperthyroidism, [place], diagnosed with CVD. P aternal Grand Father: 72 yrs, lung cancer, diagnosed with Cancer. M aternal Grand Mother: alive, alzheimer. 1 sister(s) - healthy. 1 son(s) , 2 daughter(s) - healthy. . There is no history of breast cancer on her mother's side. 2 of her father's sisters had breast cancer in the past in [place]. * Social History: T obacco Use: T [...] 04/24/2025 Generated for Maria Luz fitzgerald/Tao/Manolo on: 09/21/2024 [...]
--- OUTSIDE RECORDS SUMMARY | 2025-05-15 04:45 | XMS_ITS ---
Author Organization Seun Edwards III, MD Address [address] [place] [address] [place] [address] Care Team Providers Care Traffic Representative Name Role Phone Dr. Seun Edwards III [...] Provider Diagnosis Seun Edwards III, MD [address] [place] [address] [place] [address] 05/15/2025 Seun Edwards Recent weight loss R63.4 [...] Provider Name:Seun Edwards , 08/31/2025 04:00:00 PM, [address] [place] [address] RAGHAV RUSH, MARGOTH TERAN, [phone], Progress Notes * Pippa MARTINEZ ADOB:[birth year] (49 yo F)Acc No.[id number]:05/15/2025 Progress Notes Patient: Pippa CALVIN Provider: Andrés Edwards MD :1975 A ge:49 Y S ex:Female Date:05/15/2025 Address:[address] [place] [address] [id number] Subjective: * Chief Complaints: * N osmany ppain from Chiari 1 syndromeCervicothoracic syrinxInsomniaGERD * HPI: C OVID-19 Screening: The neck pain has improved and is back at baseline, which is still significant. 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 The recent MRI of the [...] mass upper outer left breast, benign, , [facility] 08/2016left breast lumopectomy by Dr Serna 06/26/2023olonoscopy Dr. Barraza 04/21/2024No history * Hospitalization/Major Diagno stic Procedure: N o history * Family History: F ather: alive 56 yrs, hypertension, diagnosed with HTN. M other: alive 56 yrs, SVT, Hyperthyroidism, [place], diagnosed with CVD. P aternal Grand Father: 72 yrs, lung cancer, diagnosed with Cancer. M aternal Grand Mother: alive, alzheimer. 1 sister(s) - healthy. 1 son(s) , 2 daughter(s) - healthy. . There is no history of breast cancer on her mother's side. 2 of her father's sisters had breast cancer in the past in [place]. * Social History: T obacco Use: T [...] 05/15/2025 Generated for Maria Luz fitzgerald/Tao/Viviansmitting on: 09/21/2024 12:59 PM EST History and Physical Notes * [...]
[2025-07-22 10:56] VITALS: BP 128/94; PULSE 86; O2SAT 96; BMI 19.7
--- NOTE | 2025-07-22 10:56 | MHC.OFFVIS ---
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 Intake Note: Est pt for eval of GERD + dysphagia. CC: C/O difficulty with taking certain medications. Pt also reports having LUQ pain which varies in severity, and bloating. Pt has been seen by Allergy Specialists and determined to have no pertinent allergies. Pt does have neurological hx which they feel may be relevant. Last colo was w/ Dr. Barraza last year. 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 Patient reports that she has been having history of constipation and has been taking Linzess with good effect. Patient reports epigastric pain that radiates to left upper quadrant. Patient reports the pain sometimes is very sharp. Patient eats very carefully and food that does not aggravate her. She used to drink more coffee now she decreased the coffee intake. Has been on omeprazole for over a year. Feels like omeprazole is not helping her. Patient had colonoscopy last year in March. Patient had 1 tubular adenoma in sigmoid colon without high-grade dysplasia or carcinoma and hyperplastic polyp in her rectum. Melanosis coli was seen in the colon. Recommendation for colonoscopy in 3 to 5 years, sooner and clinically necessary. Patient reports that she usually eats the same food every single day except for dinner things may vary from day to day. Patient is very careful about what she eats. Patient eats clean and healthy. Patient never see GI specialist in the past. Patient was seen by Neurology yesterday for evaluation of her migraine headaches which have been more often. Patient has history of Chiari 1 malformation and has appointment with neurosurgeon in August for possible decompression. Patient reports that she recently was seen by culture manager and was told that her postnasal drip and trouble swallowing is not related to allergy, however it might be related to not well controlled GERD or leakage of the spinal fluid. Patient does report to have occasional dizziness which she has been dealing with pretty much every day. Patient reports occasional nausea. Patient denies melena, hematochezia, unintentional weight loss or ribbon like stools [facility] Medical History (Updated 07/22/25 @ 18:58 by Zaina Lowry, [facility]) Tension headache PONV (postoperative nausea and vomiting) Depression Uterine polyp Venous insufficiency of both lower extremities Peripheral venous insufficiency Varicose vein of leg 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, cervical History of torn meniscus of left knee IBS (irritable bowel syndrome) GERD (gastroesophageal reflux disease) Surgical History H/O colonoscopy History of surgery on lower extremity (06/25/23) History of lumpectomy of left breast (06/25/23) History of cervical discectomy (~2010) H/O left breast biopsy (~08/2016) Family History Maternal Aunt History of lung cancer Paternal Aunt History of breast cancer Paternal Grandfather History of lung cancer Mother History of breast cancer Social History Are you a primary day care worker to a significant other at home: No Do you presently have visiting nurse or other home services: No Alcohol intake: current Alcohol intake frequency: holidays/special occasions only Alcohol type: wine Patient Tobacco Use Status: Never used Tobacco Female Reproductive History Menstrual Age of Menarche: 13 Review of Systems Const Denies weight gain and Denies weight loss ENT Reports no additional complaints, Reports dysphagia and Denies odynophagia Card Reports no additional complaints Resp Reports no additional complaints GI Reports abdominal pain (LUQ), Denies belching, Denies melena, Denies bloating, Denies change in bowel habits, Reports constipation, Reports dysphagia, Denies excessive flatus, Denies dyspepsia, Denies heartburn, Denies diarrhea, Denies loose stools, Denies nausea, Denies odynophagia and Denies vomiting Reports no additional complaints Musc Reports no additional complaints Neuro Reports no additional complaints Psych Reports no additional complaints Endo Reports no additional complaints Physical Exam Vital Signs: Last Vital Signs Pulse 86 07/22/25 10:56 BP 128/94 H 07/22/25 10:56 Pulse Ox 96 07/22/25 10:56 Oxygen Delivery Method Room Air 07/22/25 10:56 BMI result Body Mass Index 19.7 Const General: healthy appearing, no acute distress and well developed Nutritional Appearance: well nourished Orientation/consciousness: patient oriented x3 Resp Effort & Inspection: normal respiratory effort, able to speak in complete sentences, no tracheal deviation and symmetric chest movement Auscultation: clear to auscultation bilaterally Cardio Rate: regular rate GI Inspection: Yes normal to inspection and No distended Palpation (GI): Soft to palpation, not firm, nontender and No hepatosplenomegaly present Auscultation: normal bowel sounds General: Yes no CVA tenderness Back/Spine/Pelvis Back: no CVA tenderness Skin General skin exam: elasticity normal, turgor normal and dry skin Neuro General: patient oriented x3 Psych Appearance: grossly normal Mental Status: mental status grossly normal Assessment & Plan Assessment & Plan (1) IBS (irritable bowel syndrome): Code(s): K58.9 - Irritable bowel syndrome, unspecified Category: Medical Qualifiers: Irritable bowel syndrome type: with constipation Qualified Code(s): K58.1 - Irritable bowel syndrome with constipation (2) Postprandial epigastric pain: Code(s): R10.13 - Epigastric pain (3) GERD (gastroesophageal reflux disease): Code(s): K21.9 - Gastro-esophageal reflux disease without esophagitis Qualifiers: Esophagitis presence: esophagitis presence not specified Qualified Code(s): K21.9 - Gastro-esophageal reflux disease without esophagitis (4) Chronic idiopathic constipation: Code(s): K59.04 - Chronic idiopathic constipation Plan We will rule out celiac, chronic pancreatitis, malabsorption. Patient will be sent for upper GI with barium swallow to check for hernia, esophageal narrowing, achalasia. Patient reports patient's mom was diagnosed with achalasia in the past. We will send her for upper endoscopy as patient might need dilation. Patient was encouraged to stop taking PPI for 2 weeks prior to procedure so we can check for H pylori. Patient will stop taking omeprazole and will start taking pantoprazole. Continue avoiding dietary triggers in late night snacking. Patient will be seen after the procedure, sooner on as needed basis. Patient is agreeable to current plan of care and verbalizes understanding of instructions. She was given the opportunity to ask questions and all questions answered. This thank you for allowing me to participate in her her care for Orders: Orders Transglutaminase IgA Today R10.9 - Unspecified abdominal pain Vitamin B12 and Folate Today R19.7 - Diarrhea, unspecified [place] upper GI w Ba Swallow Today K21.9 - Gastro-esophageal reflux disease without esophagitis Transglutaminase Ab IgG Today R10.9 - Unspecified abdominal pain Lipase Today R10.9 - Unspecified abdominal pain Vitamin D 25-OH (D2 and D3) Today E55.9 - Vitamin D deficiency, unspecified Referrals GI Procedure Notification K21.9 - Gastro-esophageal reflux disease without esophagitis, R13.10 - Dysphagia, unspecified Medications: New pantoprazole take one tablet half an hour before breakfast 40 mg PO DAILY 30 tabs 3RF K21.9 - Gastro-esophageal reflux disease without esophagitis Coding Level of Care Code New Pt Level 4 (46741) Diagnoses Irritable bowel syndrome with constipation K58.1 Irritable bowel syndrome type: with constipation Postprandial epigastric pain R10.13 Gastroesophageal reflux disease, unspecified whether esophagitis present K21.9 Esophagitis presence: esophagitis presence not specified Chronic idiopathic constipation K59.04 Time Spent (min) 50 Comment 35 minutes spent with patient and additional 15 minutes spent reviewing her records
--- OUTSIDE RECORDS SUMMARY | 2025-07-22 13:01 | XMS_ITS | Patient Health Record ---
Author Organization [facility] Address [address] [place] [address] Care Team Providers Care Childcare Director Name Role Phone Seun Edwards MD Primary Care Provider Unavailab geneva LawierBen Unavailable [phone] Reason For Referral No Information Medications Medication [...] Status W/U Status Risk Notes Problem Dermatitis (891750879) Dermatitis (692.9) Active confirmed Problem Keratoma (20248770) Keratoma (701.1) Active confirmed Problem Pain in limb (50092886) Pain in Limb (729.5) Active confirmed Problem Pruritic disorders (821602835) Pruritis (698.9) Active confirmed Problem Verruca plantaris (99690850) Verruca Plantaris (078.19) Active confirmed Confirmed by Bx Plan Of Treatment Pending Test Test Name Order Date [id number] Destruction, 1-14 07/09/2014 [id number] Biopsy 0.5cm 06/18/2014 Insurance Providers Payer Name Payer Address Payer Phone Subscriber Number Group Number Insured Name Patient Relationship to Insured Coverage Start Date Coverage End Date [id number] [place] [id number] Tristen Packer Spouse - patient is the spouse of the insured Medical (General) History Medical History History ICD Code Headaches Chicken pox Migraines Surgical History Surgery Date(Month/Year) herniated disk repair
--- OUTSIDE RECORDS SUMMARY | 2025-07-22 13:02 | XMS_ITS | Patient Health Record ---
Author Organization Seun Edwards III, MD Address [address] [place] [address] [place] [address] Care Team Providers Care Belt Tender Name Role Phone Dr. Seun Edwards III [...] Microscopic Reviewed date:10/19/2024 09:14:09 AM Interpretation: Performing Lab:[address] [address] Notes/Report: Color Urine Yellow Appearance Urine Clear PH 6.5 5.0-9.0 Glucose Urine UA Negative Negative mg/dL Urine Blood Negative Negative Specific [place] - Urine <= 1.005 1.005-1.025 Urine Protein Negative Neg-Trace mg/dL Urine Ketones Negative Negative mg/dL Nitrite Urine Negative Negative Leukocyte Esterase Urine Small (1+) Negative RBC Urine 0-2 0-2 /HPF WBC Urine 0-5 0-5 /HPF Squamous Epithelial Cell Urine 0-2 0-2 /HPF Bacteria Urine None Seen None Seen Hyaline Casts Urine 0-2 0-2 /LPF Urine Culture Reviewed date:10/19/2024 09:14:09 AM Interpretation: Performing Lab:[facility] [address] Notes/Report: Urine Culture Report Result Urine Culture 50,000 to 100,000 cfu/ml Urine Culture Mixed bacterial luis a characteristic of Urine Culture urogenital contamination. Ur Preg Test Reviewed date:12/13/2024 07:21:39 AM Interpretation: Performing Lab:[facility], [address] [place] [address] Notes/Report: Urine NEGATIVE NEGATIVE This test was developed to detect early . False negative results may occur after the 5th - 7th week of when using this test method. If clinically indicated, consider a serum hCG. Urine Culture Reviewed date:12/13/2024 07:21:39 AM Interpretation: Performing Lab:[address] [address] Notes/Report: Urine Culture No growth. Urinalysis and Microscopic Reviewed date:01/25/2025 08:15:48 PM Interpretation: Performing Lab:[address] [address] Notes/Report: Color Urine Yellow Appearance Urine Clear PH 7.0 5.0-9.0 Glucose Urine UA Negative Negative mg/dL Urine Blood Negative Negative Specific [place] - Urine <= 1.005 1.005-1.025 Urine Protein Negative Neg-Trace mg/dL Urine Ketones Negative Negative mg/dL Nitrite Urine Negative Negative Leukocyte Esterase Urine Negative Negative RBC Urine 0-2 0-2 /HPF WBC Urine 0-5 0-5 /HPF Squamous Epithelial Cell Urine 0-2 0-2 /HPF Bacteria Urine None Seen None Seen Hyaline Casts Urine 0-2 0-2 /LPF Urine Culture Reviewed date:01/25/2025 08:15:48 PM Interpretation: Performing Lab:[address] [address] Notes/Report: Urine Culture No growth. Complete Blood Count Auto Di ff Reviewed date:04/19/2025 05:05:46 AM Interpretation: Performing Lab:[address] [address] Notes/Report: White Blood Count 4.8 4.8-10.8 X10*3/uL [...] Panel Reviewed date:04/19/2025 05:05:46 AM Interpretation: Performing Lab:[facility], [address] [place] [address] Notes/Report: Sodium 141 135-145 mmol/L Potassium 4.1 [...] Sensitivity Reviewed date:04/19/2025 05:05:46 AM Interpretation: Performing Lab:[facility], [address] [place] [address] Notes/Report: D Dimer High Sensitivity < 150 [...] date:04/19/2025 05:05:46 AM Interpretation: Performing Lab: Notes/Report: [address] [address] XRay Report Signed Patient: Pippa Martinez MR#: [id number] : 1975 Acct:[id number] Age/Sex: 49 / F ADM Date: 04/17/25 Loc: HO.LAB Attending Dr: Seun Edwards MD Ordering Physician: Seun Edwarsd MD Date of Service: 04/17/25 Procedure(s): XR chest 2V Accession Number(s): [id number] cc: Seun Edwards MD EXAMINATION: XR CHEST [...] 04/17/25 1040 DD/ 1012 TD/TT: 04/17/25 1017 Supervisor Extrusion: [address] [address] XRay Report Signed Patient: Pippa Martinez MR#: [id number] : 1975 Acct:[id number] Age/Sex: 49 / F ADM Date: 04/17/25 Loc: HO.LAB Attending Dr: Seun Edwards MD Ordering Physician: Seun Edwards MD Date of Service: 04/17/25 Procedure(s): XR chest 2V Accession Number(s): [id number] cc: Seun Edwards MD EXAMINATION: XR CHEST [...] 04/17/25 1040 DD/ 1012 TD/TT: 04/17/25 1017 Supervisor Extrusion: MR thoracic spine wo/w con Reviewed date:05/18/2025 05:45:57 AM Interpretation: Performing Lab: Notes/Report: [address] [address] Magnetic Resonance Report Signed Patient: Pippa Martinez MR#: [id number] : 1975 Acct:[id number] Age/Sex: 49 / F ADM Date: 05/07/25 Loc: HO.MRI Attending Dr: Seun Edwards MD Ordering Physician: Seun Edwards MD Date of Service: 05/07/25 Procedure(s): MR thoracic spine wo/w con Accession Number(s): [id number] cc: Seun Edwards MD Reason for Exam: [...] 05/07/25 1511 DD/ 1317 TD/TT: 05/07/25 1345 Supervisor Extrusion: [address] [address] Magnetic Resonance Report Signed Patient: Pippa Martinez MR#: [id number] : 1975 Acct:[id number] Age/Sex: 49 / F ADM Date: 05/07/25 Loc: HO.MRI Attending Dr: Seun Edwards MD Ordering Physician: Seun Edwards MD Date of Service: 05/07/25 Procedure(s): MR haque spine wo/w con Accession Number(s): [id number] cc: Seun Edwards MD Reason for Exam: [...] 05/07/25 1511 DD/ 1317 TD/TT: 05/07/25 1345 Supervisor Extrusion: MR cervical spine wo/w con Reviewed date:05/18/2025 05:45:57 AM Interpretation: Performing Lab: Notes/Report: [address] [address] Magnetic Resonance Report Signed Patient: Pippa Martinez MR#: [id number] : 1975 Acct:[id number] Age/Sex: 49 / F ADM Date: 05/07/25 Loc: HO.MRI Attending Dr: Seun Edwards MD Ordering Physician: Seun Edwards MD Date of Service: 05/07/25 Procedure(s): MR cervical spine wo/w con Accession Number(s): [id number] cc: Seun Edwards MD Reason for Exam: [...] 05/07/25 1424 DD/ 1247 TD/TT: 05/07/25 1348 Supervisor Extrusion: [place] [address] Magnetic Resonance Report Signed Patient: Pippa Martinez MR#: [id number] : 1975 Acct:[id number] Age/Sex: 49 / F ADM Date: 05/07/25 Loc: HO.MRI Attending Dr: Seun Edwards MD Ordering Physician: Seun Edwards MD Date of Service: 05/07/25 Procedure(s): MR cer vical spine wo/w con Accession Number(s): [id number] cc: Seun Edwards MD Reason for Exam: [...] 05/07/25 1424 DD/ 1247 TD/TT: 05/07/25 1348 Supervisor Extrusion: CT head/brain wo con Reviewed date:06/08/2025 08:49:29 AM Interpretation: Performing Lab: Notes/Report: [place] [address] CT Scan Report Signed Patient: Pippa Martinez MR#: [id number] : 1975 Acct:[id number] Age/Sex: 49 / F ADM Date: 06/05/25 Loc: .ED Attending Dr: Ordering Physician: Makenzie Bull DO Date of Service: 06/05/25 Procedure(s): CT head/brain wo IV con Accession Number(s): [id number] cc: Seun Edwards MD; Makenzie Bull DO Report Number: [id number]: Total DLP = 498.00 mGy-cm Reason for [...] in OV> 06/05/25641 DD/ 0 TD/TT: 06/05/25640 Supervisor Extrusion: [place] [address] CT Scan Report Signed Patient: Pippa Martinez MR#: [id number] : 1975 Acct:[id number] Age/Sex: 49 / F ADM Date: 06/05/25 Loc: HO.ED Attending Dr: Ordering Physician: Makenzie Bull DO Date of Service: 06/05/25 Procedure(s): CT head/brain wo IV con Accession Number(s): [id number] cc: Seun Edwards MD; Makenzie Bull DO [...] in OV> 06/05/25641 DD/ 0 TD/TT: 06/05/25640 Supervisor Extrusion: Pap Smear Reviewed date:07/03/2025 05:57:43 AM Interpretation: Performing Lab:[facility], [address] [place] [address] Notes/Report: ----- Name: Nico Martinez constance Butt Age/Sex: 50/F : 1975 Unit#: [id number] Attend Dr: Wanda Larkin CNM Re06/26/25 Status : DEP REF Location: [facility] Disch: ----- SPEC : [id number] REC STATUS: VINNIEEugenia JESSICA NUM: [id number] DASRHAN: 06/26/25-1299 DR: Wanda Larkin CNM ENTERED: 06/29/25 SP TYPE: Pap Smr OTHR DR: Seun Edwards MD ORDERED: Pap Smear Interpretation Satisfactory for evaluation. Negative for intraepithelial lesion or malignancy. Mild inflammation. HPV High Risk: Negative HPV Genotyping 16: Negative HPV Genotyping 18: Negative Clinical Information LMP: Unk Previous PAP test: Unk Other surgery: Other history: Material Received ThinPrep-Cervical Copies To: Edwards,Seun MD [address], [address] [place] [address] Wanda Larkin CNM [facility] [address] [place] [address] ----- Signed (signature on file) ELAN Mueller (ASCP) 07/02/25 1203 ----- END OF REPORT HPV High risk Reviewed date:07/03/2025 05:57:43 AM Interpretation: Performing Lab:[facility], [address] [place] [phone] Notes/Report: HPV High Risk Negative Negative HPV Genotype 16 Negative Negative HPV Genotype 18 Negative Negative HPV testing performed at [facility] (CLIA #[id number]) , [address] [place] [address]. Testing for HPV was performed using the [...] Referring Provider Speciality Internal edicine Referred Organization [facility] nter Referred Provider [facility] er, [employer] [facility] Referred Address [address] [place] [address],[place], [id number], Referred Provider Specialty OB - Gynecol ogy General Notes D, 11/24/2024 04:39:14 PM > Referral faxed Referral Priority Routine Referral Appointment Date 03/17/2025 Reason Evaluate and Treat Annual Skin Exam Diagnosis 1 Encounter for screen ing for malignant neoplasm of skin (Z12.83) Referral Organization Seun Edwards III, MD Referring Provider First Name Seun Referring Provider Last Name Jerry [facility] Referred Provider [facility] Referred Provider Specialty Dermatology General Notes D, 02/06/2025 04:08:34 PM > referral faxed per patient request, D, 02/10/2025 02:21:44 PM > patient has not reached out to the office to schedule an appointment at this time, 02/25/2025 02:40:12 PM > [facility] stated they have reached out to the patient to schedule an appointment. Dr. Edwards office has reached out to the patient to have them contact [facility] to schedule an appointment. Message was left. Referral Priority Routine Referral Appointment Date 05/13/2025 Reason Evaluate and Treat 2nd referral Diagnosis 1 Headache, unspecifie d (R51.9) Diagnosis 2 Chiari I malformatio n (G93.5) Referral Organization Seun Edwards III, MD Referring Provider First Name Seun Referring Provider Last Name Jerry Referring Provider Speciality Internal edicine Referred Provider Neurology [facility] Referred Provider Specialty Neurology General Notes , [...] Provider Speciality Internal M edicine Referred Provider [facility], Allergy Referred Provider Specialty Allergy/Immu nology General Notes DRachel 02/06/2025 04:09:52 PM > Per patient request referral faxed., DRachel 02/25/2025 02:50:37 PM > [facility] has received the referral no [...] Status W/U Status Risk Notes Problem Headache (57296180) Headache (R51) Active confirmed Her headac hes originate in the Chiari malformation. They have worsened lately. She has been referred back to neurosurgery for opinion and to pain management to consider analgesic procedures. Problem Syringomyelia and syringobulbia (728262665) Syringomyelia and syringobulbia (G95.0) Active confirmed She is going to have the neurostimulator. Her neurosurgeon has agreed to do a laminectomy of all else fails.An MRI of the cervical and thoracic spine has been ordered for surveillance. Problem Gastro-esophagea l reflux disease without esophagitis (733589681) Gastro-esophage al reflux disease without esophagitis (K21.9) Active confirmed Her reflux is somewhat aggravated by the but she is finding it tolerable. Problem Cervical spondylosis without myelopathy (731417433) Other spondylosis, cervical region (M47.892) Active confirmed Problem Displacement of cervical intervertebral disc without myelopathy (86013190) Other cervical disc displacement, unspecified cervical region (M50.20) Active confirmed The discomfort is much improved. We're waiting for the MRI report. Problem 475172350 Chiari I malformation (G93.5) Active confirmed The pain has worsened lately. She has seen her neurosurgeon, Dr. Islas, Who has offered to do a cervical laminectomy. She is uncertain about this and has declined that procedure so far. The pain management service has recommended a neurostimulator and she has an appointment to have a temporary wire inserted. Problem 975938464 Insomnia (G47.00) Active confirmed She has chronic difficulty sleeping, but lately has been doing well. No change in the pattern of her sleep has been noted lately. Problem Seasonal allergy (018840764) Seasonal allergies (J30.2) Active confirmed Problem History of irritable bowel syndrome (02457482860056) History of IBS (Z87.19) Active confirmed His abdominal pain is resolved at this time. She is quite comfortable in her daily life. Problem Peripheral venous insufficiency (63984941) Venous insufficiency (I87.2) Active confirmed An endovascular procedure to relieve the discomfort is being planned. Problem Pleuritic pain (7964271) Pleuritic chest pain (R07.81) Active confirmed This appears t o be pleurisy and not pulmonary infarction or costochondritis. She is going to have a chest x-ray and blood work with a d-dimer. Problem Irritable bowel syndrome (93523987) Other irritable bowel syndrome (K58.8) Active confirmed She occasionall y has abdominal discomfort from the IBS but this is become a minor problem in daily life. Problem 868029347 Chronic constipation (K59.09) Active confirmed She is doing well with the linzess. Problem 796754476 Recent weight loss (R63.4) Active confirmed She [...] Date Provider Diagnosis Seun Edwards III, MD [address] [place] [address] [place] [address] 07/31/2024 Seun Edwards Chiari I malformatio n G93.5 ; 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 ; Gastro-esophageal reflux disease without esophagitis K21.9 ; Other irritable bowel syndrome K58.8 ; Insomnia G47.00 ; Chronic constipation K59.09 and Underweight R63.6 Seun Edwards III, MD [address] [place] [address] [place] [address] 08/15/2024 Seun Edwards 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 ; 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 ; Insomnia G47.00 ; Headache R51 ; Gastro-esophageal reflux disease without esophagitis K21.9 and Weight loss R63.4 Seun Edwards III, MD [address] [place] [address] [place] [address] 04/17/2025 Seun Edwards Pleuritic chest pain R07.81 ; 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 ; 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 ; Insomnia G47.00 and History of IBS Z87.19 Seun Edwards III, MD [address] [place] [address] [place] [address] 05/15/2025 Seun Edwards Recent weight loss R63.4 ; 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 ; Insomnia G47.00 ; History of IBS Z87.19 ; Venous insufficiency I87.2 ; Gastro-esophageal reflux disease without esophagitis K21.9 and 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 Seun Edwards III, MD [address] [place] [address] [place] [address] 08/02/2024 Seun Edwards III, MD [address] [place] [address] [place] [address] 09/16/2024 Seun Edwards III, MD [address] [place] [address] [place] [address] 11/14/2024 Seun Edwards III, MD [address] [place] [address] [place] [address] 11/14/2024 Seun Edwards III, MD [address] [place] [address] [place] [address] 11/21/2024 Seun Edwards III, MD [address] [place] [address] [place] [address] 11/21/2024 Seun Edwards III, MD [address] [place] [address] [place] [address] 11/24/2024 Seun Edwards III, MD [address] [place] [address] [place] [address] 04/16/2025 Seun Edwards III, MD [address] [place] [address] [place] [address] 04/21/2025 Seun Edwards Assessments Encounter Date Diagnosis [...] Provider Name:Seun Edwards , 08/31/2025 04:00:00 PM, [address] [place] [address] [address], [place], [address], Insurance Providers Payer Name Payer Address Payer Phone Subscriber Number Group Number Insured Name Patient Relationship to Insured Coverage Start Date Coverage End Date [employer] [place] [address] [address] [place] [address] [id number] Pippa Martinez Self - patient is [...] upper outer left breast, benign, , [facility] 08/2016 endovenous laser ablation lower extremit y veins 2014 Hospitalization History Reason Date(Month/Year) No history
== END 2025-07-22 11:30 | disposition home or self-care (01) ==
LOC: HO.HGI 10:44
PROVIDERS: PCP Internal Medicine Medical Oncology; Visit Provider Nurse Practitioner Family
DX: K58.1 Irritable bowel syndrome with constipation (principal); R10.13 Epigastric pain; K21.9 Gastro-esophageal reflux disease without esophagitis; K59.04 Chronic idiopathic constipation
CPT/HCPCS: 99204

== ENCOUNTER 2025-07-30 06:42 | Day surgery (SDC) | payer OTHER, SELFPAY ==
--- NOTE | 2025-07-27 14:44 | HO.ANESPROP2 ---
Documented by User: Meghan Isbell NP 07/27/25 14:45 HPI - Anesthesia Eval Consult details Narrative: 50 yr old female for upper endoscopy Chiari I malformation: scheduled for decompression [place] [facility] [place] PONV PMFSH Active Problems Active Problems: All Active Problems (Updated 07/22/25 @ 18:58 by Zaina Lowry, [facility]) GERD (gastroesophageal reflux disease) (Acute) IBS (irritable bowel syndrome) (Acute) Chronic migraine without aura without status migrainosus, not intractable (Acute) Trigger point of shoulder region (Acute) Myofascial pain (Acute) Breast cancer screening (Acute) Pelvic pressure in female (Acute) Dyspareunia in female (Acute) Cervical cancer screening (Acute) Well woman exam with routine gynecological exam (Acute) SHERLEY (stress urinary incontinence, female) (Acute) Intrinsic sphincter deficiency (ISD) (Acute) Urinary urgency (Acute) Sensation of pressure in bladder area (Acute) Urinary incontinence (Acute) Chronic neck pain (Acute) Cervical spondylosis (Acute) Cervical radiculitis (Acute) Postlaminectomy syndrome of cervical region (Acute) Stress incontinence (Acute) Nevus of left lower leg (Acute) Left breast mass (Acute) Chiari I malformation (Acute) Past Medical History Medical History Tension headache PONV (postoperative nausea and vomiting) Depression Uterine polyp Venous insufficiency of both lower extremities Peripheral venous insufficiency Varicose vein of leg 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, cervical History of torn meniscus of left knee IBS (irritable bowel syndrome) GERD (gastroesophageal reflux disease) Family History Family History Maternal Aunt History of lung cancer Paternal Aunt History of breast cancer Paternal Grandfather History of lung cancer Mother History of breast cancer Family history of problems with anesthesia: No Surgical History Surgical History H/O colonoscopy History of surgery on lower extremity (06/25/23) History of lumpectomy of left breast (06/25/23) History of cervical discectomy (~2010) H/O left breast biopsy (~08/2016) History of Problems with Anesthesia: Yes (PONV) Social History Social History Are you a primary manager critical care unit to a significant other at home: No Do you presently have visiting nurse or other home services: No Alcohol intake: current Alcohol intake frequency: holidays/special occasions only Alcohol type: wine Patient Tobacco Use Status: Never used Tobacco Use of substances other than those prescribed or required for medical reasons: No Advance Directives: No Advance Directives Information Provided: Yes Meds Allergies Allergy/AdvReac Type Severity Reaction Status Date / Time bisacodyl (From Dulcolax AdvReac Unknown Dizziness Verified 07/22/25 11:11 (bisacodyl)) trazodone AdvReac Unknown insomnia, Verified 07/22/25 10:57 nightmares tramadol AdvReac Nausea and Verified 07/22/25 10:57 Vomiting Home Medications ?Medication ?Instructions ?Recorded ?Confirmed ?Last Taken ?Type bupropion HCl 100 mg tablet,12 hr 100 mg PO BID 08/24/20 06/26/25 12/09/24 History sustained-release multivitamin 1 tab PO DAILY 06/21/23 06/26/25 12/08/24 History Lactobacillus acidophilus 10 10,000 mmu cells PO DAILY 12/05/24 06/26/25 12/08/24 History billion cell capsule (Probiotic) linaclotide 145 mcg capsule 145 mcg PO DAILY PRN 12/05/24 06/26/25 12/07/24 History (Linzess) Gastrointestinal Spasms Or Cramping famotidine 20 mg tablet (Pepcid) 20 mg PO DAILY 12/09/24 06/26/25 12/08/24 History baclofen 5 mg tablet 5 mg PO DAILY 06/26/25 06/26/25 Unknown History Assessment and Plan Final Anesthetic Review Family History of Problems with Anesthesia: No History of Problems with Anesthesia: Yes (PONV) Documented by User: Suleman Ruvalcaba MD 07/30/25 07:41 [facility] Past Medical History Medical History Tension headache PONV (postoperative nausea and vomiting) Depression Uterine polyp Venous insufficiency of both lower extremities Peripheral venous insufficiency Varicose vein of leg 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, cervical History of torn meniscus of left knee IBS (irritable bowel syndrome) GERD (gastroesophageal reflux disease) Functional capacity: independent ambulation Family History Family History Maternal Aunt History of lung cancer Paternal Aunt History of breast cancer Paternal Grandfather History of lung cancer Mother History of breast cancer Surgical History Surgical History H/O colonoscopy History of surgery on lower extremity (06/25/23) History of lumpectomy of left breast (06/25/23) History of cervical discectomy (~2010) H/O left breast biopsy (~08/2016) Social History Social History Are you a primary manager critical care unit to a significant other at home: No Do you presently have visiting nurse or other home services: No Alcohol intake: current Alcohol intake frequency: holidays/special occasions only Alcohol type: wine Patient Tobacco Use Status: Never used Tobacco Use of substances other than those prescribed or required for medical reasons: No Advance Directives: No Advance Directives Information Provided: Yes Meds Allergies Allergy/AdvReac Type Severity Reaction Status Date / Time bisacodyl (From Dulcolax AdvReac Unknown Dizziness Verified 07/22/25 11:11 (bisacodyl)) trazodone AdvReac Unknown insomnia, Verified 07/22/25 10:57 nightmares tramadol AdvReac Nausea and Verified 07/22/25 10:57 Vomiting Home Medications ?Medication ?Instructions ?Recorded ?Confirmed ?Last Taken ?Type bupropion HCl 100 mg tablet,12 hr 100 mg PO BID 08/24/20 06/26/25 12/09/24 History sustained-release multivitamin 1 tab PO DAILY 10/06/26/25 12/08/24 History Lactobacillus acidophilus 10 10,000 mmu cells PO DAILY 12/05/24 06/26/25 12/08/24 History billion cell capsule (Probiotic) linaclotide 145 mcg capsule 145 mcg PO DAILY PRN 12/05/24 06/26/25 12/07/24 History (Linzess) Gastrointestinal Spasms Or Cramping famotidine 20 mg tablet (Pepcid) 20 mg PO DAILY 12/09/24 06/26/25 12/08/24 History baclofen 5 mg tablet 5 mg PO DAILY 06/26/25 06/26/25 Unknown History Exam Exam Date and Time: 07/30/25 Airway Mallampati Class: II TM Dist: >3cm Neck ROM: Full Loose/Missing/Broken Teeth: No Heart: rrr Lungs: cta Other: normal Assessment and Plan Assessment Anesthesia Assessment: Anesthesia Plan Discussed Final Anesthetic Review NPO: Yes ASA Class: II Final Preanesthetic Review: No Changes in Pt Med Stat, Meds/Allgs Chart Reviewed, Consent Obtained/Reviewed and Anes Risks/Benef Reviewed Patient Risk: Low Procedure Risk: Low Anesthetic Plan Anesthetic Plan: MAC: Disposition: Standard PACU
[2025-07-30 07:21] VITALS: BMI 19.4
[2025-07-30 07:30] LABS: UPreg QC Valid YES
[2025-07-30 07:32] VITALS: BP 146/96; PULSE 78; RESP 16; TEMP 35.9; O2SAT 99
[2025-07-30] MEDS: Lactated Ringers 1,000 ML 100 ML IVCONT (07:42)
--- NOTE | 2025-07-30 07:54 | MHC.SHP ---
Pre-Procedural Eval Section A - 24 Hr Update-Section A only Date of Service: 07/30/25 The patient is an INPATIENT: No The patient has been examined within 24 hours of the surgical procedure. The History & Physical has been completed within 30 days and I have reviewed it.: Yes Section B - Complete if H&P > 30 days Chief Complaint: gerd, pill dysphagia Present Medications: see Short Stay Collaborative assessment Allergies: Allergies Allergy/AdvReac Type Severity Reaction Status Date / Time bisacodyl (From Dulcolax AdvReac Unknown Dizziness Verified 07/30/25 07:44 (bisacodyl)) trazodone AdvReac Unknown insomnia, Verified 07/22/25 10:57 nightmares tramadol AdvReac Nausea and Verified 07/22/25 10:57 Vomiting Plan Diagnosis/Plan: Unchanged I have reviewed the history and physical and performed a pertinent physical examination on my patient. No changes have occurred unless specified. Time Spent With Patient Time: Total time managing care of this patient today ____ minutes.
--- NOTE | 2025-07-30 07:56 | PC.NURSE ---
patient has a headache prior to arrival. ice pack given. applied to back of neck and lights off.
--- NOTE | 2025-07-30 09:19 | P.OP_ITS ---
Operative Note Operative Note Date of Service: 07/30/25 Narrative: Procedure: Esophagogastroduodenoscopy Endoscopist: Magdalene Briones MD Indication: GERD, pill dysphagia Anesthesia Provider: Dr Ruvalcaba Anesthesia Type: MAC EGD Procedure:?? The procedure, indications, preparation and potential complications were reviewed with the patient, who indicated understanding and gave written informed consent to proceed. A physical exam was performed. The endoscope was introduced through the mouth, and advanced to the second part of duodenum. The mucosa was carefully examined on slow withdrawal of the endoscope. The patient tolerated the procedure well. There were no immediate complications.? ? EGD Findings:? * Esophagus:? Normal mucosa noted in the entire esophagus. The Z line was at 38 cm displaced by a small hiatal hernia with a diaphragmatic hiatus at 40 cm. Middle and lower esophagus jumbo forceps biopsies were obtained to rule out eosinophilic esophagitis. * Stomach:? Normal mucosa was noted in the stomach. Retroflexion was performed in the cardia that showed Hill grade 2 hiatal hernia. Marked loss of gastric folds/rugae was noted. Jumbo forceps biopsies were taken from the gastric body and antrum to rule out atrophic gastritis. * Duodenum:? Normal mucosa was noted in the whole of the examined duodenum. Jumbo forceps iopsies were taken from duodenal bulb and second portion of the duodenum to rule out celiac sprue. Additional intervention: Soft tip Savary wire was introduced through the biopsy channel of the gastroscope and advanced to the antrum. ?The gastroscope was then backed out. ?Savary Cindy bougie was advanced over the guidewire and the esophagus was dilated from 16 to 17 mm with resistance felt. ?On relook, small was noted at the level of cricopharyngeus confirming successful dilation. ? ? EGD Impressions:? * UES stenosis (dilation) * Normal esophagus (biopsy) * Hiatal hernia * R/o atrophic gastritis (biopsy) * Normal duodenum (biopsy) ?? Recommendations:?? * Follow biopsy results. Our office will call or send a letter with results within 7-10 days. * If H pylori +, patient will be prescribed eradication therapy followed by test of cure. * Avoid NSAIDs. * If swallowing improves with dilation, this can be repeated as needed for recurrence of symptoms. Above has been reviewed with the patient.
[2025-07-30 09:25] VITALS: BP 110/80; PULSE 70; RESP 16; TEMP 36.3; O2SAT 95
[2025-07-30 09:40] VITALS: BP 124/90; PULSE 78; RESP 16; O2SAT 95
[2025-07-30 09:55] VITALS: BP 119/84; PULSE 68; RESP 16; O2SAT 95
== END 2025-07-30 10:21 | disposition home or self-care (01) ==
PROVIDERS: Nurse Practitioner; PCP Internal Medicine Medical Oncology; Visit Provider Internal Medicine
PROC: 0DJ08ZZ Inspection of Upper Intestinal Tract, Via Natural or Artificial Opening Endoscopic (ICD-10-PCS; CPT 43235; principal; 2025-07-30 08:20)
DX: R13.10 Dysphagia, unspecified (principal); K21.9 Gastro-esophageal reflux disease without esophagitis; K59.04 Chronic idiopathic constipation; R10.13 Epigastric pain; K44.9 Diaphragmatic hernia without obstruction or gangrene
CPT/HCPCS: 43239; 43248; 81025; 88305; 88313; 88342; C1769; J2003; J2704; J3010

== ENCOUNTER → 2025-07-30 06:42 | Outpatient (BNV) | payer OTHER, SELFPAY | PROVIDERS: PCP Internal Medicine Medical Oncology; Visit Provider Internal Medicine | DX: R13.10 Dysphagia, unspecified (principal); K29.70 Gastritis, unspecified, without bleeding | CPT/HCPCS: 43239; 43248 ==

== ENCOUNTER 2025-08-19 07:10 | Outpatient (REF) | payer OTHER, SELFPAY ==
--- OUTSIDE RECORDS SUMMARY | 2024-11-14 06:10 | XMS_ITS ---
Author Organization Seun Edwards III, MD Address [address] [place] [address] [place] [address] Care Team Providers Care Classroom Paraprofessional Name Role Phone Dr. Seun Edwards III Primary Care Provider REASON FOR VISIT Rx Request Social History Sex Assigned At : Social History Observation Description Sex Assigned At Female Encounters Encounter Location Date Provider Diagnosis Seun Edwards III, MD [address] [place] [address] [place] [address] 11/14/2024 Seun Edwards Plan Of Treatment Next Appt Details Provider Name:Seun Edwards , 08/31/2025 04:00:00 PM, [address] [place] [address] [place], [address], Progress Notes * Pippa MARTINEZ ADOB:[birth year] (49 yo F)Acc No.[id number]:11/14/2024 Patient: Nhan Pippa DIA :1975 A ge:49 Y S ex:Female [facility] [place] [address] * true * Date: Generated for Printi ng/Faxing/eTransmitting on: 10/20/2024 07:14 AM EST
--- OUTSIDE RECORDS SUMMARY | 2024-11-14 06:49 | XMS_ITS ---
Author Organization Seun Edwards III, MD Address [address] [place] [address] [place] [address] Care Team Providers Care Data Coordinator Name Role Phone Dr. Seun Edwards III Primary Care Provider [phone] Medications Medication SIG (Take, Route, Frequency, Duration) Notes Start Date End Date Status Amoxicillin-Pot Clavulanate 875-125 MG 1 tablet Orally every 12 hrs for 7 days 11/14/2024 11/21/2024 Active Social History Sex Assigned At : Social History Observation Description Sex Assigned At Female Encounters Encounter Location Date Provider Diagnosis Seun Edwards III, MD [address] [place] [address] [place] [address] 11/14/2024 Seun Edwards Plan Of Treatment Medication Medication Name Sig Start Date Stop Date Notes Amoxicillin-Pot Clavulanate 875-125 MG 1 tablet Orally every 12 hrs for 7 days 11/14/2024 11/21/2024 Next Appt Details Provider Name:Seun Edwards , 08/31/2025 04:00:00 PM, [address] [place] [address] [place], [address], Progress Notes * Pippa MARTINEZ ADOB:[birth year] (49 yo F)Acc No.[id number]:11/14/2024 Patient: Nhan Pippa DIA :1975 A ge:49 Y S ex:Female Address:[address] [place] [address], [place] [address] * Refills Start Amoxicillin-Pot Clavulanate Tablet, 875-125 MG, Orally, 14 Tablet, 1 tablet, every 12 hrs, 7 days, Refills=0 * true * Date: Generated for Maria Luz fitzgerald/Tao/Manolo on: 10/20/2024 07:15 AM EST
--- OUTSIDE RECORDS SUMMARY | 2024-11-21 04:42 | XMS_ITS ---
Author Organization Seun Edwards III, MD Address [address] [place] [address] [place] [address] Care Team Providers Care Manager Of Distribution Name Role Phone Dr. Seun Edwards III Primary Care Provider REASON FOR VISIT Rx request Social History Sex Assigned At : Social History Observation Description Sex Assigned At Female Encounters Encounter Location Date Provider Diagnosis Seun Edwards III, MD [address] [place] [address] [place] [address] 11/21/2024 Seun Edwards Plan Of Treatment Next Appt Details Provider Name:Seun Edwards , 08/31/2025 04:00:00 PM, [address] [place] [address] [place], [address], Progress Notes * Pippa MARTINEZ ADOB:[birth year] (49 yo F)Acc No.[id number]:11/21/2024 Patient: Nhan Pippa DIA :1975 A ge:49 Y S ex:Female Address: [place] [address] * true * Date: Generated for Printi ng/Faxing/eTransmitting on: 10/20/2024 07:15 AM EST
--- OUTSIDE RECORDS SUMMARY | 2024-11-21 05:45 | XMS_ITS ---
Author Organization Seun Edwards III, MD Address [address] [place] [address] [place] [address] Care Team Providers Care Senior Sales Director Name Role Phone Dr. Seun Edwards III Primary Care Provider [phone] Medications Medication SIG (Take, Route, Fr equency, Duration) Notes Start Date End Date Status Diflucan 150 MG 1 tablet Orally once for 1 days 11/23/2024 Active Social History Sex Assigned At : Social History Observation Description Sex Assigned At Female Encounters Encounter Location Date Provider Diagnosis Seun Edwards III, MD [address] [place] [address] [place] [address] 11/21/2024 Seun Edwards Plan Of Treatment Medication Medication Name Sig Start Date Stop Date Notes Diflucan 150 MG 1 tablet Orally once for 1 days 11/21/2024 11/23/2024 Next Appt Details Provider Name:Seun Edwards , 08/31/2025 04:00:00 PM, [address] [place] [address] [place], [address], Progress Notes * Pippa MARTINEZ ADOB:[birth year] (49 yo F)Acc No.[id number]:11/21/2024 Patient: Nhan Pippa DIA :1975 A ge:49 Y S ex:Female Address:[address] [place] [address], [place] [address] * Refills Start Diflucan Tablet, 150 MG, Orally, 1, 1 tablet, once, 1 days, Refills=1 * true * Date: Generated for Maria Luz fitzgerald/Tao/Manolo on: 10/20/2024 07:16 AM EST
--- OUTSIDE RECORDS SUMMARY | 2024-11-24 11:13 | XMS_ITS ---
Author Organization Seun Edwards III, MD Address [address] [place] [address] [place] [address] Care Team Providers Care Game Artist Name Role Phone Dr. Seun Edwards III Primary Care Provider Reason For Referral Reason Evaluate and Treat Routine Gynecological Examination Diagnosis 1 Routine gynecologica l examination (Z01.419) Referral Organization Seun Edwards III, MD Referring Provider First Name Seun Referring Provider Last Name Jerry Referring Provider Speciality Internal M edicine Referred Organization [facility] nter Referred Provider [facility] er, SALES SERVICE REP & Midwifery Referred Address [address] [place] [phone], Referred Provider Specialty OB - Gynecol ogy General Notes DRachel 11/24/2024 04:39:14 PM > Referral faxed Referral Priority Routine Referral Appointment Date 03/17/2025 REASON FOR VISIT Referral Social History Sex Assigned At : Social History Observation Description Sex Assigned At Female Encounters Encounter Location Date Provider Diagnosis Seun Edwards III, MD [address] [place] [address] [place] [address] 11/24/2024 Seun Edwards Plan Of Treatment Referrals Referral Date Details 11/24/2024 11/24/2024, Evaluate and Treat Routine Gynecological Examination, SALES SERVICE REP & Midwifery [facility], [address] [place] [address], [phone], Next Appt Details Provider Name:Seun Nikky Edwards , 08/31/2025 04:00:00 PM, [address] [place] [address] [place], [address], Progress Notes * Pippa MARTINEZ ADOB:[birth year] (49 yo F)Acc No.[id number]:11/24/2024 Patient: Pippa CALVIN :1975 A ge:49 Y S ex:Female Address:[address] [place] [phone] Subjective: * Chief Complaints: * R eferral * Medical History: * Surgical History: * Hospitalization/Major Diagno stic Procedure: * Medications: Objective: * Vitals: * Physical Examination: Assessment: Plan: * Treatment: * Procedure Codes: * true * Date: Generated for Thomasi lia/Tao/eTransmitting on: 10/20/2024 07:15 AM EST Consultation Request Notes Referral Date Referring Provider Referred Provider Not es 11/24/2024 Seun Edwards [facility], SALES SERVICE REP & Midwifery Evaluate and Treat Routine Gynecological Examination
--- OUTSIDE RECORDS SUMMARY | 2025-04-16 08:16 | XMS_ITS ---
Author Organization Seun Edwadrs III, MD Address [address] [place] [address] [place] [address] Care Team Providers Care Health Information Manager Name Role Phone Dr. Seun Edwards III Primary Care Provider REASON FOR VISIT new onset pleuritic chest discomfort Social History Sex Assigned At : Social History Observation Description Sex Assigned At Female Encounters Encounter Location Date Provider Diagnosis Seun Edwards III, MD [address] [place] [address] [place] [address] 04/16/2025 Seun Edwards Plan Of Treatment Next Appt Details Provider Name:Seun Edwards , 08/31/2025 04:00:00 PM, [address] [place] [address] [place], [address], Progress Notes * Pippa MARTINEZ ADOB:[birth year] (49 yo F)Acc No.[id number]:04/16/2025 Patient: Nhan Pippa DIA :1975 A ge:49 Y S ex:Female [place] [place] [address] * true * Date: Generated for Printi ng/Faxing/eTransmitting on: 10/20/2024 07:15 AM EST
--- OUTSIDE RECORDS SUMMARY | 2025-04-17 04:00 | XMS_ITS ---
Author Organization Seun Edwards III, MD Address [address] [place] [address] [place] [address] Care Team Providers Care Water Technician Name Role Phone Dr. Seun Edwards [...] W/U Status Risk Notes Problem Pleuritic pain (5501245) Pleuritic chest pain (R07.81) Active confirmed This [...] Date Provider Diagnosis Seun Edwards III, MD [address] [place] [address] [place] [address] 04/17/2025 Seun Edwards Pleuritic chest pain R07.81 [...] Provider Name:Seun Edwards , 08/31/2025 04:00:00 PM, [address] [place] [address] [address], [facility], [address], Progress Notes * Pippa MARTINEZ ADOB:[birth year] (49 yo F)Acc No.[id number]:04/17/2025 Progress Notes Patient: Nhan Pippa DIA Provider: [...] mass upper outer left breast, benign, , [facility] 08/2016left breast lumopectomy by Dr Serna 06/26/2023olonoscopy Dr. Barraza 04/21/2024No history * Hospitalization/Major Diagno stic Procedure: N o history * Family History: F ather: alive 56 yrs, hypertension, diagnosed with HTN. M other: alive 56 yrs, SVT, Hyperthyroidism, [place], diagnosed with CVD. P aternal Grand Father: 72 yrs, lung cancer, diagnosed with Cancer. M aternal Grand Mother: alive, alzheimer. 1 sister(s) - healthy. 1 son(s) , 2 daughter(s) - healthy. . There is no history of breast cancer on her mother's side. 2 of her father's sisters had breast cancer in the past in [place]. * Social History: T obacco Use: T [...] 04/17/2025 Generated for Maria Luz fitzgerald/Tao/Manolo on: 10/20/2024 07:15 AM EST History and Physical Notes * [...]
--- OUTSIDE RECORDS SUMMARY | 2025-04-21 10:09 | XMS_ITS ---
Author Organization Seun Edwards III, MD Address [address] [place] [address] [place] [address] Care Team Providers Care Policy Issue Clerk Name Role Phone Dr. Seun Edwards III Primary Care Provider REASON FOR VISIT FYI only Social History Sex Assigned At : Social History Observation Description Sex Assigned At Female Encounters Encounter Location Date Provider Diagnosis Seun Edwards III, MD [address] [place] [address] [place] [address] 04/21/2025 Seun Edwards Plan Of Treatment Next Appt Details Provider Name:Seun Edwards , 08/31/2025 04:00:00 PM, [address] [place] [address] [place], [address], Progress Notes * Pippa MARTINEZ ADOB:[birth year] (49 yo F)Acc No.[id number]:04/21/2025 Patient: Nhan Pippa DIA :1975 A ge:49 Y S ex:Female [place]: [place] [address] * true * Date: Generated for Printi ng/Faxing/eTransmitting on: 10/20/2024 07:16 AM EST
--- OUTSIDE RECORDS SUMMARY | 2025-04-24 12:00 | XMS_ITS ---
Author Organization Seun Edwards III, MD Address [address] [place] [address] [place] [address] Care Team Providers Care Customer Supply Chain Analyst Name Role Phone Dr. Seun Edwards III [...] Laxative 8.6 MG 2 tablets at bedti oh as needed Orally Once a day Active [...] Date Provider Diagnosis Seun Edwards III, MD [address] [place] [address] [address] [place] [address] 04/24/2025 Seun Edwards Plan Of Treatment Medication [...] Provider Name:Seun Edwards , 08/31/2025 04:00:00 PM, [address] [place] [address] [address], [place], [address], Progress Notes * Pippa MARTINEZ ADOB:[birth year] (50 yo F)Acc No.[id number]:04/24/2025 Progress Notes Patient: Ppipa CALVIN Provider: Andrés Edwards MD :1975 A ge:49 Y S ex:Female Date:04/24/2025 Address: [address] [id number] Subjective: * Chief Complaints: * 1 . [...] mass upper outer left breast, benign, , [facility] 08/2016, left breast lumopectomy by Dr Serna 06/26/2023, Colonoscopy Dr. Barraza 04/21/2024, No history . * Hospitalization/Major Diagno stic Procedure: N o history . * Family History: F ather: alive 56 yrs, hypertension, diagnosed with HTN. M other: alive 56 yrs, SVT, Hyperthyroidism, [place], diagnosed with CVD. P aternal Grand Father: 72 yrs, lung cancer, diagnosed with Cancer. M aternal Grand Mother: alive, alzheimer. 1 sister(s) - healthy. 1 son(s) , 2 daughter(s) - healthy. . There is no history of breast cancer on her mother's side. 2 of her father's sisters had breast cancer in the past in [place]. * Social History: T obacco Use: T [...] 04/24/2025 Generated for Maria Luz fitzgerald/Tao/Manolo on: 10/20/2024 [...]
--- OUTSIDE RECORDS SUMMARY | 2025-05-15 04:45 | XMS_ITS ---
Author Organization Seun Edwards III, MD Address [address] [place] [address] [place] [address] Care Team Providers Care Nematologist Name Role Phone Dr. Seun Edwards III Primary Care Provider Allergies Allergen (clinical drug ingredient) Drug/Non Drug Allergy documented on EMR Reaction Allergy Type Onset Date Status No Known Drug Allergy Unknown Drug Allergy Active trazodone Trazodone night terrors Drug Allergy Act montse tramadol Tramadol nausea, vomiting Drug Allergy Active REASON FOR VISIT Neck ppain from Chiari 1 syndrome, Cervicothoracic syrinx, Insomnia, GERD Medications Medication SIG (Take, Route, Frequency, Duration) Notes Start Date End Date Status Senna Laxative 8.6 MG 2 tablets at bedti me as needed Orally Once a day Active Fish Oil 1 capsule Orally Onc e a day Active dexAMETHasone 1 MG 1 tablet Orally twic e a day 07/31/2024 Active Cyclobenzaprine HCl 10 MG as directed Or ally three times a day 05/13/2024 Active Flexeril Active Multivitamin Orally Active CoQ-10 Active Baclofen 5 MG 1 tablet if needed Orally three times a day for 14 days 05/15/2025 08/06/2025 Active Linzess 145 MCG 1 capsule at least 3 0 minutes before the first meal of the day on an empty stomach Orally Once a day 03/07/2024 Active Wellbutrin SR 150 MG 1 tablet Orally onc e a day in the afternoon 10/05/2023 Active Fluconazole 150 MG TAKE 1 TABLET BY CORINNA TH ONCE Active buPROPion HCl ER (SR) 100 MG 1 tablet in the morning Orally Once a day 02/20/2024 Active Social History Tobacco Use: Social History Observation Description Date Details (start date - stop date) Never Smoker NA - NA Sex Assigned At : Social History Observation Description Sex Assigned At Female Tobacco Use/Smoking Question Answer Notes Patient is a nonsmoker Additional Findings: Tobacco Non-User Aggressive non-smoker Vital Signs Temperature 97.4 degrees Fahrenheit 05/15/20 25 Blood pressure systolic 113 mm Hg 05/15/20 25 Blood pressure diastolic 85 mm Hg 025 Heart Rate 81 /min 05/15/2025 Height 63 in 05/15/2025 Weight 116 lbs 05/15/2025 BMI 20.55 kg/m2 05/15/2025 Encounters Encounter Location Date Provider Diagnosis Seun Edwards III, MD [address] [place] [address] [place] [address] 05/15/2025 Seun Edwards Recent weight loss R63.4 ; 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 ; Insomnia G47.00 ; History of IBS Z87.19 ; Venous insufficiency I87.2 ; Gastro-esophageal reflux disease without esophagitis K21.9 and 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 Assessments Encounter Date Diagnosis (ICD Code) Assessment Notes Treatment Notes Treatment Clinical Notes 05/15/2025 Recent weight loss (ICD-10 - R63.4) She has gained 2 pounds and her weight is now in the normal range. We discussed her diet and nutrition at length today. 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 Her neurosurgeon has agreed to do a laminectomy of all else fails.An MRI of the cervical and thoracic spine has been ordered for surveillance. 05/15/2025 Insomnia (ICD-10 - G47.00) She has chronic difficulty sleeping, but lately has been doing well. No change in the pattern of her sleep has been noted lately. 05/15/2025 History of IBS (ICD-10 - Z87.19) His abdominal pain is resolved at this time. She is quite comfortable in her daily life. 05/15/2025 Venous insufficiency (ICD-10 - I87.2) An endovascular procedure to relieve the discomfort is being planned. 05/15/2025 Gastro-esophageal reflux disease without esophagitis (ICD-10 - K21.9) Her reflux is somewhat aggravated by the but she is finding it tolerable. 05/15/2025 Chiari I malformation (ICD-10 - G93.5) The pain has worsened lately. She has seen her neurosurgeon, Dr. Islas, Who has offered to do a cervical laminectomy. She is uncertain about this and has declined that procedure so far. The pain management service has recommended a neurostimulator and she has an appointment to have a temporary wire inserted. Plan Of Treatment Medication Medication Name Sig Start Date Stop Date Notes Senna Laxative 8.6 MG 2 tablets at bedti me as needed Orally Once a day Fish Oil 1 capsule Orally Once a day dexAMETHasone 1 MG 1 tablet Orally twice a day 07/31/2024 Cyclobenzaprine HCl 10 MG as directed Or ally three times a day 05/13/2024 Flexeril Multivitamin Orally CoQ-10 Baclofen 5 MG 1 tablet if needed O rally three times a day for 14 days 05/15/2025 08/06/2025 Linzess 145 MCG 1 capsule at least 3 0 minutes before the first meal of the day on an empty stomach Orally Once a day 03/07/2024 Wellbutrin SR 150 MG 1 tablet Orally onc e a day in the afternoon 10/05/2023 Fluconazole 150 MG TAKE 1 TABLET BY MOUTH ONCE buPROPion HCl ER (SR) 100 MG 1 tablet in the morning Orally Once a day 02/20/2024 Pending Test Test Name Order Date PROFILE, FASTING (COMPREHENSIVE METABOLI C) 05/15/2025 CBC w DIFF 05/15/2025 Lipid Panel 05/15/2025 Vitamin D 25-OH Total 05/15/2025 Next Appt Details Follow Up: As Scheduled, Edna son: Annual Exam Provider Name:Seun Edwards , 08/31/2025 04:00:00 PM, [address] [place] [address] [address], [place], [address], Progress Notes * Pippa MARTINEZ ADOB:[birth year] (49 yo F)Acc No.[id number]:05/15/2025 Progress Notes Patient: Pippa CALVIN Provider: Andrés Edwards MD :1975 A ge:49 Y S ex:Female Date:05/15/2025 Address:[address] [place] [address] [id number] Subjective: * Chief Complaints: * N osmany ppain from Chiari 1 syndromeCervicothoracic syrinxInsomniaGERD * HPI: C OVID-19 Screening: The neck pain has improved and is back at baseline, which is still significant. 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 The recent MRI of the neck and thoracic spinal cord shows no change in the Cervical and thoracic syrinx or the Chiari t ype I malformation.Her examination was unchanged. Her vital signs are stable.She has gained back 2 pounds and her weight is in the normal range with a body mass index of 20. Questions H ave you had any new onset fever, chills, cough, congestion, sore throat, shortness of breath, muscle aches? N o * ROS: G eneral/Constitutional: pain N osmany with motion, shoulders with elevation above the horizon. C hills d enies. F atigue a dmits. F ever d enies. E [...] mass upper outer left breast, benign, , [facility] 08/2016left breast lumopectomy by Dr Serna 06/26/2023olonoscopy Dr. Barraza 04/21/2024No history * Hospitalization/Major Diagno stic Procedure: N o history * Family History: F ather: alive 56 yrs, hypertension, diagnosed with HTN. M other: alive 56 yrs, SVT, Hyperthyroidism, NH, diagnosed with CVD. P aternal Grand Father: 72 yrs, lung cancer, diagnosed with Cancer. M aternal Grand Mother: alive, alzheimer. 1 sister(s) - healthy. 1 son(s) , 2 daughter(s) - healthy. . There is no history of breast cancer on her mother's side. 2 of her father's sisters had breast cancer in the past in [place]. 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 * Medications: T akingFluconazole 150 MG Tablet TAKE 1 TABLET BY MOUTH ONCE buPROPion HCl ER (SR) 100 MG Tablet Extended Release 12 Hour 1 tablet in the morning Orally Once a day Wellbutrin SR 150 MG Tablet Extended Release 12 Hour 1 tablet Orally once a day in the afternoon Linzess 145 MCG Capsule 1 capsule at [...] Tablet 1 tablet Orally twice a day Medication List reviewed and reconciled with the patientTaking Fluconazole 150 MG Tablet TAKE 1 TABLET BY MOUTH ONCE Taking buPROPion HCl ER (SR) 100 MG Tablet Extended Release 12 Hour 1 tablet in the morning Orally Once a day Taking Wellbutrin SR 150 MG Tablet Extended Release 12 Hour 1 tablet Orally once a day in the afternoon Taking Linzess 145 MCG Capsule 1 capsule [...] Tablet 1 tablet Orally twice a day Medication List reviewed and reconciled with the patient * Allergies: N o Known Drug AllergyTramadol: nausea, vomitingTrazodone: night terrorsno[Allergies Verified] Objective: * Vitals: H t: 63, Wt: 116, BMI:20.55, BP: 113/85, HR: 81, Temp: 97.4, Ht-cm: 160.02, Wt-k.62. * Examination: G eneral Examination: GENERAL APPEARANCE: [...] LUNGS: c lear to auscultation . BREASTS: n o masses palpable bilaterally: no drainage: no discharge: no dimpling: nontender: symmetrical. ABDOMEN: b owel sounds normal, no ascites, no organomegaly, no mass. RECTAL EXAM: n ot examined. MUSCULOSKELETAL: e xtremities unremarkable, no clubbing, cyanosis or edema, Pain to elevation of the shoulders, pain to range of motion of the neck in all directions. PERIPHERAL PULSES: n ormal. NEUROLOGIC: a lert and oriented, cranial nerves 2-12 grossly intact, deep tendon reflexes 2+ symmetrical, motor strength normal upper and lower extremities, sensory exam intact. PSYCH: a lert, oriented. Assessment: * Assessment: 1. S yringomyelia and syringobulbia - G95.0 (Primary) N otes :She is going to have the neurostimulator. Her neurosurgeon has agreed to do a laminectomy of all else fails.An MRI of the cervical and thoracic spine has been ordered for surveillance. 2 . R ecent weight loss - R63.4 N otes :She has gained 2 pounds and her weight is now in the normal range. We discussed her diet and nutrition at length today. 3 . I nsomnia - G47.00 N otes :She has chronic difficulty sleeping, but lately has been doing well. No change in the pattern of her sleep has been noted lately. 4 . H istory of IBS - Z87.19 N otes :His abdominal pain is resolved at this time. She is quite comfortable in her daily life. 5 . V enous insufficiency - I87.2 N otes :An endovascular procedure to relieve the discomfort is being planned. 6 . G robel-esophageal reflux disease without esophagitis - K21.9 ?Notes :Her reflux is somewhat aggravated by the but she is finding it tolerable. 7 . C hiari I malformation - G93.5 N otes :The pain has worsened lately. She has seen her neurosurgeon, Dr. Islas, Who has offered to do a cervical laminectomy. She is uncertain about this and has declined that procedure so far. The pain management service has recommended a neurostimulator and she has an appointment to have a temporary wire inserted. Plan: * Treatment: 2. G robel-esophageal reflux disease without esophagitis L AB: PROFILE, FASTING (COMPREHENSIVE METABOLIC) L AB: CBC w DIFF L AB: Lipid Panel L AB: Vitamin D 25-OH Total 3. O thers Continue Fluconazole Tablet, 150 [...] 1 MG, 1 tablet, Orally, twice a day; S tart Baclofen Tablet, 5 MG, 1 tablet if needed, Orally, three times a day, 14 days, 42 Tablet, Refills 5. * Procedure Codes: * Follow Up: A s Scheduled (Reason: Annual Exam) * Images: * Sign off status: Completed true * Provider: Andrés Edwards MD Date: 0 05/15/2025 Generated for Maria Luz fitzgerald/Tao/Joseitting on: 10/20/2024 07:14 AM EST History and Physical Notes * [...] PULSES: normal BREASTS: no masses palpable b ilaterally: no drainage: no discharge: no dimpling: nontender: symmetrical MUSCULOSKELETAL: extremities unremark able, no clubbing, cyanosis or edema, Pain to elevation of the shoulders, pain to range of motion of the neck in all directions LYMPH NODES: no enlarged lymph no beatriz,spleen normal RECTAL EXAM: not examined PSYCH: alert, oriented ORAL CAVITY: normal, unremarkable
--- OUTSIDE RECORDS SUMMARY | 2025-08-15 23:59 | XMS_ITS | Continuity of Care Document ---
Author Organization [facility] y [address] [place] [address]- Care Team Providers Care Ocular Care Aide Name Role Phone Jerry CHRISTIANSON, Seun Knight Primary [facility] Physician [id number] Date(s): 07/16/25 - 08/15/25 [facility] [address] [place] [address] Drive [address] [place], [place] [address] Encounter Type: Triage Allergies, Adverse Reactions, Alerts [...] Team Personnel Name: Seun Edwards MD Position: [facility] Physician - Oncology Member Role: PCP Address: [address] [place] [address] [address] Seun Edwards III, [place], [place] [address] Telecom: Name: Mary Kerns Position: [facility] Associate Professional Member Role: Lif[employer] Consulting Provider Name: Jez CHRISTIANSON, Davin Hunt Position: [facility] ACTIVITIES LEADER MD Member Role: [employer] ACTIVITIES LEADER Physician Address: [address] [place] [address]'s [facility] Office Executive - [place], [place] [address] Telecom: Care Team Related Persons Name: SOLO ROBLES Insurance Providers Guarantor name: HOWIE ROBLES Health Plan Information #: 1 Payer: [employer]UE [employer] PPO Payer Identifier: NA Member Number: [id number] Group Number: [id number] Subscriber Identifier: NA Relationship to Subscriber: self Coverage Type: BLUE CROSS/BLUE SHIELD Coverage Verification Date: NA Telecom: NA Address:
--- OUTSIDE RECORDS SUMMARY | 2025-08-19 07:16 | XMS_ITS | Patient Health Record ---
Author Organization Seun Edwards III, MD Address [address] [place] [address] DR [place] [address] Care Team Providers Care Staff Occupational Therapist Name Role Phone Dr. Seun Edwards III [...] Microscopic Reviewed date:10/19/2024 09:14:09 AM Interpretation: Performing Lab:[address] [address] Notes/Report: Color Urine Yellow Appearance Urine Clear PH 6.5 5.0-9.0 Glucose Urine UA Negative Negative mg/dL Urine Blood Negative Negative Specific [employer] - Urine <= 1.005 1.005-1.025 Urine Protein Negative Neg-Trace mg/dL Urine Ketones Negative Negative mg/dL Nitrite Urine Negative Negative Leukocyte Esterase Urine Small (1+) Negative RBC Urine 0-2 0-2 /HPF WBC Urine 0-5 0-5 /HPF Squamous Epithelial Cell Urine 0-2 0-2 /HPF Bacteria Urine None Seen None Seen Hyaline Casts Urine 0-2 0-2 /LPF Urine Culture Reviewed date:10/19/2024 09:14:09 AM Interpretation: Performing Lab:[facility] [address] Notes/Report: Urine Culture Report Result Urine Culture 50,000 to 100,000 cfu/ml Urine Culture Mixed bacterial luis a characteristic of Urine Culture urogenital contamination. Ur Preg Test Reviewed date:12/13/2024 07:21:39 AM Interpretation: Performing Lab:[facility], [address] [place] [address] Notes/Report: Urine NEGATIVE NEGATIVE This test was developed to detect early . False negative results may occur after the 5th - 7th week of when using this test method. If clinically indicated, consider a serum hCG. Urine Culture Reviewed date:12/13/2024 07:21:39 AM Interpretation: Performing Lab:[address] [address] Notes/Report: Urine Culture No growth. Urinalysis and Microscopic Reviewed date:01/25/2025 08:15:48 PM Interpretation: Performing Lab:[address] [address] Notes/Report: Color Urine Yellow Appearance Urine Clear PH 7.0 5.0-9.0 Glucose Urine UA Negative Negative mg/dL Urine Blood Negative Negative Specific [employer] - Urine <= 1.005 1.005-1.025 Urine Protein Negative Neg-Trace mg/dL Urine Ketones Negative Negative mg/dL Nitrite Urine Negative Negative Leukocyte Esterase Urine Negative Negative RBC Urine 0-2 0-2 /HPF WBC Urine 0-5 0-5 /HPF Squamous Epithelial Cell Urine 0-2 0-2 /HPF Bacteria Urine None Seen None Seen Hyaline Casts Urine 0-2 0-2 /LPF Urine Culture Reviewed date:01/25/2025 08:15:48 PM Interpretation: Performing Lab:[address] [address] Notes/Report: Urine Culture No growth. Complete Blood Count Auto Di ff Reviewed date:04/19/2025 05:05:46 AM Interpretation: Performing Lab:[address] [address] Notes/Report: White Blood Count 4.8 4.8-10.8 X10*3/uL [...] Panel Reviewed date:04/19/2025 05:05:46 AM Interpretation: Performing Lab:[facility], [address] [place] [address] Notes/Report: Sodium 141 135-145 mmol/L Potassium 4.1 [...] Sensitivity Reviewed date:04/19/2025 05:05:46 AM Interpretation: Performing Lab:[facility], [address] [place] [address] Notes/Report: D Dimer High Sensitivity < 150 [...] date:04/19/2025 05:05:46 AM Interpretation: Performing Lab: Notes/Report: [address] [address] XRay Report Signed Patient: Pippa Martinez MR#: [id number] : 1975 Acct:[id number] Age/Sex: 49 / F ADM Date: 04/17/25 Loc: HO.LAB Attending Dr: Seun Edwards MD Ordering Physician: Seun Edwards MD Date of Service: 04/17/25 Procedure(s): XR chest 2V Accession Number(s): [id number] cc: Seun Edwards MD EXAMINATION: XR CHEST [...] 04/17/25 1040 DD/ 1012 TD/TT: 04/17/25 1017 [employer]: [address] [address] XRay Report Signed Patient: Jong Martinez MR#: [id number] : 1975 Acct:[id number] Age/Sex: 49 / F ADM Date: 04/17/25 Loc: HO.LAB Attending Dr: Seun Edwards MD Ordering Physician: Seun Edwards MD Date of Service: 04/17/25 Procedure(s): XR chest 2V Accession Number(s): [id number] cc: Seun Edwards MD EXAMINATION: XR CHEST [...] Dictated By: Uzma Cortez MD Signed By: <Electron ically signed by Uzma Cortez MD in OV> 04/17/25 1040 DD/ 1012 TD/TT: 04/17/25 1017 [employer]: MR thoracic spine wo/w con Reviewed date:05/18/2025 05:45:57 AM Interpretation: Performing Lab: Notes/Report: [address] [address] Magnetic Resonance Report Signed Patient: Pippa Martinez MR#: [id number] : 1975 Acct:[id number] Age/Sex: 49 / F ADM Date: 05/07/25 Loc: HO.MRI Attending Dr: Seun Edwards MD Ordering Physician: Seun Edwards MD Date of Service: 05/07/25 Procedure(s): MR thoracic spine wo/w con Accession Number(s): [id number] cc: Seun Edwards MD Reason for Exam: [...] 05/07/25 1511 DD/ 1317 TD/TT: 05/07/25 1345 [employer]: [address] [address] Magnetic Resonance Report Signed Patient: Jong Martinez MR#: [id number] : 1975 Acct:[id number] Age/Sex: 49 / F ADM Date: 05/07/25 Loc: HO.MRI Attending Dr: Seun Edwards MD Ordering Physician: Seun Edwards MD Date of Service: 05/07/25 Procedure(s): MR haque spine wo/w con Accession Number(s): [id number] cc: Seun Edwards MD Reason for Exam: Sta tus of syrinx. Syringomyelia + syringobulbia EXAMINATION: MR THORACIC SPINE WI THOUT AND WITH CONTRAST CLINICAL INFORMATION: Pain, both upper extremities. COMPARISON: August 08, 2023. TECHNIQUE: MRI of the thoracic spine was obtained using routine sequences with and without contrast. Intravenous contrast: Gadolinium based (Gadavist) 5.0 mL.. No reported imm ediate complications FINDINGS: There is a fusiform, expansile, [...] 05/07/2025 03:11 PM EDT Dictated By: Abdi Hradin MD Signed By: <Electron ically signed by Abdi Toscano MD in OV> 05/07/25 1511 DD/ 1317 TD/TT: 05/07/25 1345 [employer]: MR cervical spine wo/w con Reviewed date:05/18/2025 05:45:57 AM Interpretation: Performing Lab: Notes/Report: [address] [address] Magnetic Resonance Report Signed Patient: Pippa Martinez MR#: [id number] : 1975 Acct:[id number] Age/Sex: 49 / F ADM Date: 05/07/25 Loc: HO.MRI Attending Dr: Seun Edwards MD Ordering Physician: Seun Edwards MD Date of Service: 05/07/25 Procedure(s): MR cervical spine wo/w con Accession Number(s): [id number] cc: Seun Edwards MD Reason for Exam: [...] 05/07/25 1424 DD/ 1247 TD/TT: 05/07/25 1348 [employer]ter: [place] [address] Magnetic Resonance Report Signed Patient: Jong Martinez MR#: [id number] : 1975 Acct:[id number] Age/Sex: 49 / F ADM Date: 05/07/25 Loc: HO.MRI Attending Dr: Seun Edwards MD Ordering Physician: Seun Edwards MD Date of Service: 05/07/25 Procedure(s): MR cer vical spine wo/w con Accession Number(s): [id number] cc: Seun Edwards MD Reason for Exam: [...] complications. FINDINGS: There is a 10 mm beatriz census of the cerebellar tonsils below foramen magnum. [...] compression. No neuroforamina stenosis. C7-T1: No disc herni ation. No neuroforamina stenosis. Flow-void signal wit hin the main vessels is normal. Right vertebral artery is dominant. M R/MR cervical spine wo/w con IMPRESSION: Chiari type I malfor mation with likely prominent/congenital central spinal cord canal fr om C5 to T1. Cervical spondylosis C3-4 and C4-5 without cord compression and mild right neuroforamina stenosis. Electronically kimberly d by: Abdi Florence MD 05/07/2025 02:24 PM EDT RP Dictated By: Abdi Hardin MD Signed By: <Electron ically signed by Abdi Toscano MD in OV> 05/07/25 1424 DD/ 1247 TD/TT: 05/07/25 1348 [employer] Painter: CT head/brain wo con Reviewed date:06/08/2025 08:49:29 AM Interpretation: Performing Lab: Notes/Report: [address] [address] [address] Scan Report Signed Patient: Pippa Martinez MR#: [id number] : 1975 Acct:[id number] Age/Sex: 49 / F ADM Date: 06/05/25 Loc: HO.ED Attending Dr: Ordering Physician: Makenzie Bull DO Date of Service: 06/05/25 Procedure(s): CT head/brain wo IV con Accession Number(s): [id number] cc: Seun Edwards MD; Makenzie Bull DO Report Number: [id number]: Total DLP = 498.00 mGy-cm Reason for [...] in OV> 06/05/25641 DD/ 0 TD/TT: 06/05/25640 [employer]ter: [place] [address] CT Scan Report Signed Patient: Jong Martinez MR#: [id number] : 1975 Acct:[id number] Age/Sex: 49 / F ADM Date: 06/05/25 Loc: HO.ED Attending Dr: Ordering Physician: Makenzie Bull DO Date of Service: 06/05/25 Procedure(s): CT head/brain wo IV con Accession Number(s): [id number] cc: Seun Edwards MD; Makenzie Bull DO [...] parenchyma is unremarkable in attenuation. Marx-white matter ju nction preserved. No evidence of acute large vessel [...] MD on 06/05/2025 06:41:32 Dictated By: Morgan Templeton MD Signed By: <Electron esther signed by Morgan Foster MD in OV> 06/05/25641 DD/ 0 TD/TT: 06/05/25640 [employer]: Pap Smear Reviewed date:07/03/2025 05:57:43 AM Interpretation: Performing Lab:[facility], [address] [place] [address] Notes/Report: ------ Name: Nico Martinez constance Butt Age/Sex: 50/F : 1975 Unit#: [id number] Attend Dr: Wanda Larkin CNM Re06/26/25 Status : DEP REF Location: [facility] Disch: ------ SPEC : [id number] REC STATUS: KATJA LOPEZ NUM: [id number] DARSHAN: 06/26/25-1299 DR: Wanda Larkin CNM ENTERED: 06/29/25 SP TYPE: Pap Smr OTHR DR: Seun Edwards MD ORDERED: Pap Smear Interpretation Satisfactory for evaluation. Negative for intraepithelial lesion or malignancy. Mild inflammation. HPV High Risk: Negative HPV Genotyping 16: Negative HPV Genotyping 18: Negative Clinical Information LMP: Unk Previous PAP test: Unk Other surgery: Other history: Material Received ThinPrep-Cervical Copies To: Seun Edwards MD [address], [address] [place] [address] Wanda Larkin CNM [facility] Women's Services [address] [facility] [place] [address] ------ Signed (signature on file) ELAN Mueller (ASCP) 07/02/25 1203 ------ END OF REPORT HPV High risk Reviewed date:07/03/2025 05:57:43 AM Interpretation: Performing Lab:[facility], [address] [place] [address] Notes/Report: HPV High Risk Negative Negative HPV Genotype 16 Negative Negative HPV Genotype 18 Negative Negative HPV testing performed at [facility] (CLIA #[id number]) , [address] [place] [address]. Testing for HPV was performed using the [...] result indicates such sequences were not detected. Ur Preg Test Reviewed date:07/30/2025 01:11:32 PM Interpretation: Performing Lab:[facility], [address] [place] [address] Notes/Report: Urine NEGATIVE NEGATIVE This test was developed to detect early . False negative results may occur after the 5th - 7th week of when using this test method. If clinically indicated, consider a serum hCG. Pathology Reviewed date:08/17/2025 05:45:42 AM Interpretation: Performing Lab:[facility], [address] [place] [address] Notes/Report: ------ Name: Nico Martinez constance Butt Age/Sex: 50/F : 1975 Unit#: [id number] Attend Dr: Magdalene Briones MD Re07/30/25 Status : [facility] Location: [facility] Disch: ------ SPEC : [id number] RECD : 07/30/25 STATUS: KATJA LOPEZ NUM: [id number] DARSHAN: 07/30/[address] [facility] [address]: Magdalene Briones MD ENTERED: 07/30/25 SP TYPE: Surgical OTHR DR: Seun Edwards MD ORDERED: HE Stain/15 , Gross Micro L4/5, IHC/2, Special st. 2/3, H. pylori/2, AB/PAS/3 Diagnosis A. Duodenum, biopsy: Duodenal mucosa within normal limits. B. Stomach, antrum, biopsy: Antral-type mucosa with mild chronic inactive inflammation; no atrophy identifie d; no Helicobacter organisms identified. C. Stomach, body, bi opsy: Oxyntic mucosa within normal limits; no atrophy identified; no Helicobacter orga nisms seen. D. Esophagus, lower, biopsy: Squamous epithelium within normal limits; no inflammation seen. E. Esophagus, middle , biopsy: Squamous epithelium within normal limits; no inflammation seen. Clinical History Pre-Op Dx: Pill, dysphagia, reflux Post-Op Dx: Hiatal h ernia, UES stenosis Microscopic Description A-E. Microscopic sec tions examined. No metaplastic changes are seen, supported by AB/PAS stains (A, B and C); no Helicobacter organisms are seen, supported by H. pylori immunostain (B and C). Material Received A. Duodenum bx B. Gastric antrum bx C. Gastric body bx D. Lower esophagus bx E. Middle esophagus bx Gross Description A. Received in forma cristal are 3 lowe 1-3 mm soft tissue fragments, totally submitted in cassette A1. B. Received in forma cristal are 3 lowe 2-3 mm soft tissue fragments, totally submitted in cassette B1. C. Received in forma cristal are 4 lowe 2-3 mm soft tissue fragments, totally submitted in cassette C1. D. Received in forma cristal are 4 white 2-3 mm soft tissue fragments, totally submitted in CONTINUED ON NEXT PAGE ------ Name: Nico Martinez constance Butt Age/Sex: 50/F : 1975 Unit#: [id number] Attend Dr: Magdalene Briones MD Re07/30/25 Status : [facility] Location: [facility] Disch: ------ SPEC : [id number] RECD : 07/30/25 STATUS: KATJA LOPEZ NUM: [id number] DARSHAN: 07/30/[address] [facility] [address]: Magdalene Briones MD ENTERED: 07/30/25 SP TYPE: Surgical OTHR DR: Seun Edwards MD ORDERED: HE Stain/15 , Gross Micro L4/5, IHC/2, Special st. 2/3, H. pylori/2, AB/PAS/3 Gross Description (Continued) cassette D1. E. Received in forma cristal are 3 white 1-3 mm soft tissue fragments, totally submitted in cassette E1. (DTL) Special studies orde red and performed: Immunostain for H. pylori on B and C; AB/PAS stains on A, B and C IHC S/NG Disclaimer NOTE: Unless otherwi se stated, all tissue is formalin-fixed and paraffin-embedded. Some or all of the immunohistochemical tests reported herein may have been developed and their performance characteristics determined by [facility]. They have not been cleared or appr tona by the U.S. Food and Drug Administration (FDA). However, the FDA has determined that such clearance or approval is not necessary. This laboratory is certified under the Clinical Laboratory Improvement Amendments of 1988 (CLIA) as qualified to perform high comp lexity clinical laboratory testing. Copies To: Seun Edwards MD [address] [place] [address] Magdalene Briones MD [facility] Gastroenterology Services [address] [place], [place] [id number] [email or web address] ------ Signed (signature on file) Scooter Knott MD 08/03/25 1522 ------ END OF REPORT Reason For Referral Reason Evaluate and Treat Routine Gynecological Examination Diagnosis 1 Routine gynecologica l examination (Z01.419) Referral Organization Seun Edwards III, MD Referring Provider First Name Seun Referring Provider Last Name Jerry Referring Provider Speciality Internal edicine Referred Organization [facility] nter Referred Provider [facility] er, [employer] [facility] Referred Address [address] [place] [address],[place], [id number], Referred Provider Specialty OB - Gynecol ogy [...] Referring Provider Speciality Internal edicine Referred Provider [facility] Referred Provider Specialty Dermatology General Notes Rachel Sepulveda 02/06/2025 04:08:34 PM > referral faxed per patient request, Derick 02/10/2025 02:21:44 PM > patient has not reached out to the office to schedule an appointment at this time, Rachel Sepulveda 02/25/2025 02:40:12 PM > [facility] stated they have reached out to the patient to schedule an appointment. Dr. Edwards office has reached out to the patient to have them contact [facility] to schedule an appointment. Message was left. Referral Priority Routine Referral Appointment Date 05/13/2025 Reason Evaluate and Treat 2nd referral Diagnosis 1 Headache, unspecifie d (R51.9) Diagnosis 2 Chiari I malformatio n (G93.5) Referral Organization Seun Edwards III, MD Referring Provider First Name Seun Referring Provider Last Name Jerry Referring Provider Speciality Internal edicine Referred Provider Neurology [facility] Referred Provider Specialty Neurology General Notes D, 02/06/2025 04:08:10 PM > Per patient request referral faxed, Derick, 05/13/2025 03:08:57 PM > Patient does not need referral. She is in the system and was seen in 2023. Patient can call and scheduled appointment. Patient was made aware Referral Priority Routine Referral Appointment Date 07/21/2025 Reason Evaluate and Treat Diagnosis 1 Seasonal allergies ( J30.2) Referral Organization Seun Edwards III, MD Referring Provider First Name Seun Referring Provider Last Name Jerry Referring Provider Speciality Internal edicine Referred Provider [facility], Allergy Referred Provider Specialty Allergy/Immu nology General Notes D, 02/06/2025 04:09:52 PM > Per patient request referral faxed., Derick, 02/25/2025 02:50:37 PM > [facility] has received the referral no clinicals [...] Linzess 145 MCG TAKE 1 CAPSULE BY MO UTH AT LEAST 30 MINUTES BEFORE THE FIRST MEAL OF THE DAY ON AN EMPTY STOMACH for 30 Active Fluconazole 150 MG TAKE 1 TABLET BY CORINNA TH ONCE Active dexAMETHasone 1 MG 1 tablet Orally twic e a day 07/31/2024 Active Cyclobenzaprine HCl 10 MG as directed Or ally three times a day 05/13/2024 Active Flexeril Active CoQ-10 Active buPROPion HCl ER (SR) 100 MG [...] Status W/U Status Risk Notes Problem Headache (53896149) Headache (R51) Active confirmed Her headac hes originate in the Chiari malformation. They have worsened lately. She has been referred back to neurosurgery for opinion and to pain management to consider analgesic procedures. 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 Her neurosurgeon has agreed to do a laminectomy of all else fails.An MRI of the cervical and thoracic spine has been ordered for surveillance. Problem Gastro-esophagea l reflux disease without esophagitis (526131052) Gastro-esophage al reflux disease without esophagitis (K21.9) Active confirmed Her reflux is somewhat aggravated by the but she is finding it tolerable. Problem Cervical spondylosis without myelopathy (648904389) Other spondylosis, cervical region (M47.892) Active confirmed Problem Displacement of cervical intervertebral disc without myelopathy (62205026) Other cervical disc displacement, unspecified cervical region (M50.20) Active confirmed The discomfort is much improved. We're waiting for the MRI report. Problem 282137721 Chiari I malformation (G93.5) Active confirmed The pain has worsened lately. She has seen her neurosurgeon, Dr. Islas, Who has offered to do a cervical laminectomy. She is uncertain about this and has declined that procedure so far. The pain management service has recommended a neurostimulator and she has an appointment to have a temporary wire inserted. Problem 498569449 Insomnia (G47.00) Active confirmed She has chronic difficulty sleeping, but lately has been doing well. No change in the pattern of her sleep has been noted lately. Problem Seasonal allergy (779166614) Seasonal allergies (J30.2) Active confirmed Problem History of irritable bowel syndrome (51948370787469) History of IBS (Z87.19) Active confirmed His abdominal pain is resolved at this time. She is quite comfortable in her daily life. Problem Peripheral venous insufficiency (12777579) Venous insufficiency (I87.2) Active confirmed An endovascular procedure to relieve the discomfort is being planned. Problem Pleuritic pain (5788979) Pleuritic chest pain (R07.81) Active confirmed This appears t o be pleurisy and not pulmonary infarction or costochondritis. She is going to have a chest x-ray and blood work with a d-dimer. Problem Irritable bowel syndrome (65711616) Other irritable bowel syndrome (K58.8) Active confirmed She occasionall y has abdominal discomfort from the IBS but this is become a minor problem in daily life. Problem 465738572 Chronic constipation (K59.09) Active confirmed She is doing well with the linzess. Problem 253043954 Recent weight loss (R63.4) Active confirmed She [...] Provider Diagnosis Seun Edwards III, MD [address] [place] [address] [place] [address] 04/17/2025 Seun Edwards Pleuritic chest pain R07.81 ; 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 ; 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 ; Insomnia G47.00 and History of IBS Z87.19 Seun Edwards III, MD [address] [place] [address] [place] [address] 05/15/2025 Seun Edwards Recent weight loss R63.4 ; 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 ; Insomnia G47.00 ; History of IBS Z87.19 ; Venous insufficiency I87.2 ; Gastro-esophageal reflux disease without esophagitis K21.9 and 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 Seun Edwards III, MD [address] [place] [address] [place] [address] 09/16/2024 Seun Edwards III, MD [address] [place] [address] [place] [address] 11/14/2024 Seun Edwards III, MD [address] [place] [address] [place] [address] 11/14/2024 Seun Edwards III, MD [address] [place] [address] [place] [address] 11/21/2024 Seun Edwarsd III, MD [address] [place] [address] [place] [address] 11/21/2024 Seun Edwards III, MD [address] [place] [address] [place] [address] 11/24/2024 Seun Edwards III, MD [address] [place] [address] [place] [address] 04/16/2025 Seun Edwards III, MD [address] [place] [address] [place] [address] 04/21/2025 Seun Edwards Assessments Encounter Date Diagnosis (ICD Code) Assessment Notes Treatment Notes Treatment Clinical Notes 04/17/2025 Chiari I malformation (ICD-10 - G93.5) [...] her diet and nutrition at length today. 04/17/2025 Syringomyelia and syringobulbia (ICD-10 - G95.0) [...] her sleep has been noted lately. 04/17/2025 Insomnia (ICD-10 - G47.00) She has chronic difficulty sleeping, but lately has been doing well. No change in the pattern of her sleep has been noted lately. 05/15/2025 History of IBS (ICD-10 - Z87.19) His abdominal pain is resolved at this time. She is quite comfortable in her daily life. 04/17/2025 History of IBS (ICD-10 - Z87.19) [...] Name:Seun Edwards , 08/31/2025 04:00:00 PM, [address] [place] [address] [address], [address], [place], [address], Insurance Providers Payer Name Payer Address Payer Phone Subscriber Number Group Number Insured Name Patient Relationship to Insured Coverage Start Date Coverage End Date [employer] [place] [address] [address] [place] [address] [id number] Pippa Martinez Self - patient is [...] upper outer left breast, benign, , [facility] 08/2016 endovenous laser ablation lower extremit y veins 2014 Hospitalization History Reason Date(Month/Year) No history
--- OUTSIDE RECORDS SUMMARY | 2025-08-19 07:16 | XMS_ITS | Patient Health Record ---
Author Organization [facility] Address [address] [facility] [place] [address] Care Team Providers Care Contracting Executive Name Role Phone Seun Edwards MD Primary Care Provider Unavailab geneva LawierBen Unavailable [phone] Reason For Referral No Information Medications Medication [...] Status W/U Status Risk Notes Problem Dermatitis (228377959) Dermatitis (692.9) Active confirmed Problem Keratoma (19210431) Keratoma (701.1) Active confirmed Problem Pain in limb (14403628) Pain in Limb (729.5) Active confirmed Problem Pruritic disorders (805287449) Pruritis (698.9) Active confirmed Problem Verruca plantaris (67082717) Verruca Plantaris (078.19) Active confirmed Confirmed by Bx Plan Of Treatment Pending Test Test Name Order Date 34814-Idmf Destruction, 1-14 07/09/2014 [id number] Biopsy 0.5cm 06/18/2014 Insurance Providers Payer Name Payer Address Payer Phone Subscriber Number Group Number Insured Name Patient Relationship to Insured Coverage Start Date Coverage End Date Dar[address]epatricio [address] BENIGNO Collado [phone] [id number] Tristen Packer Spouse - patient is the spouse of the insured Medical (General) History Medical History History ICD Code Headaches Chicken pox Migraines Surgical History Surgery Date(Month/Year) herniated disk repair
[2025-08-19 08:05] LABS: Lipase 29 U/L (8-78)
[2025-08-19 08:42] LABS: Folate 12.8 ng/mL (> or = 4.0); Vitamin B12 436 pg/mL (200-900)
[2025-08-19 10:07] LABS: Alanine Aminotransferase 54 U/L (0-31); Albumin Level 4.1 g/dL (3.5-5.0); Alkaline Phosphatase 60 U/L (39-117); Anion Gap 12 (12-20); Aspartate Amino Transferase 39 U/L (5-31); Blood Urea Nitrogen 7 mg/dL (9-16); Calcium 8.3 mg/dL (8.4-10.2); Carbon Dioxide 24 mmol/L (22-29); Chloride 109 mmol/L (96-108); Cholesterol 165 mg/dL (<200); Estimated Glomerular Filt Rate > 60; HDL Cholesterol 67 mg/dL (>40); Potassium 4.0 mmol/L (3.3-5.1); Sodium 141 mmol/L (135-145); Total Protein 6.0 g/dL (6.5-8.0); Triglycerides 104 mg/dL (<150)
[2025-08-21 21:43] LABS: Transglutaminase Ab IgG <1.0 U/mL
== END 2025-08-19 07:11 | disposition home or self-care (01) ==
LOC: HO.LAB 07:10
PROVIDERS: PCP Internal Medicine Medical Oncology; Visit Provider Nurse Practitioner Family
DX: Z13.6 Encounter for screening for cardiovascular disorders (principal); K21.9 Gastro-esophageal reflux disease without esophagitis; R63.4 Abnormal weight loss; R19.7 Diarrhea, unspecified; R10.9 Unspecified abdominal pain; E55.9 Vitamin D deficiency, unspecified
CPT/HCPCS: 36415; 80053; 80061; 82306; 82607; 82746; 83690; 86364

== ENCOUNTER 2025-08-21 14:48 | Outpatient (REF) | payer OTHER, SELFPAY ==
--- OUTSIDE RECORDS SUMMARY | 2024-11-14 06:49 | XMS_ITS ---
Author Organization Seun Edwards III, MD Address [address] [place] [address] [place] [address] Care Team Providers Care Mandolin Repairer Name Role Phone Dr. Seun Edwards III Primary Care Provider Medications Medication SIG (Take, Route, Frequency, Duration) Notes Start Date End Date Status Amoxicillin-Pot Clavulanate 875-125 MG 1 tablet Orally every 12 hrs for 7 days 11/14/2024 11/21/2024 Active Social History Sex Assigned At : Social History Observation Description Sex Assigned At Female Encounters Encounter Location Date Provider Diagnosis Seun Edwards III, MD [address] [place] [address] [place] [address] 11/14/2024 Seun Edwards Plan Of Treatment Medication Medication Name Sig Start Date Stop Date Notes Amoxicillin-Pot Clavulanate 875-125 MG 1 tablet Orally every 12 hrs for 7 days 11/14/2024 11/21/2024 Next Appt Details Provider Name:Seun Edwards , 08/31/2025 04:00:00 PM, [address] [place] [address] [place], [address], Progress Notes * Pippa MARTINEZ ADOB:[birth year] (49 yo F)Acc No.[id number]:11/14/2024 Patient: Nhan Pippa DIA :1975 A ge:49 Y S ex:Female Address:[address] [place] [address], [place] [address] * Refills Start Amoxicillin-Pot Clavulanate Tablet, 875-125 MG, Orally, 14 Tablet, 1 tablet, every 12 hrs, 7 days, Refills=0 * true * Date: Generated for Maria Luz fitzgerald/Tao/Manolo on: 10/22/2024 02:51 PM EST
--- OUTSIDE RECORDS SUMMARY | 2024-11-21 04:42 | XMS_ITS ---
Author Organization Seun Edwards III, MD Address [address] [place] [address] [place] [address] Care Team Providers Care Clay Pigeon Loader Name Role Phone Dr. Seun Edwards III Primary Care Provider [phone] REASON FOR VISIT Rx request Social History Sex Assigned At : Social History Observation Description Sex Assigned At Female Encounters Encounter Location Date Provider Diagnosis Seun Edwards III, MD [address] [place] [address] [place] [address] 11/21/2024 Seun Edwards Plan Of Treatment Next Appt Details Provider Name:Seun Edwards , 08/31/2025 04:00:00 PM, [address] [place] [address] [place], [address], Progress Notes * Pippa MARTINEZ ADOB:[birth year] (49 yo F)Acc No.[id number]:11/21/2024 Patient: Nhan Pippa DIA :1975 A ge:49 Y S ex:Female Address:[facility] [address] * true * Date: Generated for Printi ng/Faxing/eTransmitting on: 10/22/2024 02:51 PM EST
--- OUTSIDE RECORDS SUMMARY | 2024-11-21 05:45 | XMS_ITS ---
Author Organization Seun Edwards III, MD Address [address] [place] [address] [place] [address] Care Team Providers Care Investment Underwriter Name Role Phone Dr. Seun Edwards III Primary Care Provider Medications Medication SIG (Take, Route, Fr equency, Duration) Notes Start Date End Date Status Diflucan 150 MG 1 tablet Orally once for 1 days 11/23/2024 Active Social History Sex Assigned At : Social History Observation Description Sex Assigned At Female Encounters Encounter Location Date Provider Diagnosis Seun Edwards III, MD [address] [place] [address] [place] [address] 11/21/2024 Seun Edwards Plan Of Treatment Medication Medication Name Sig Start Date Stop Date Notes Diflucan 150 MG 1 tablet Orally once for 1 days 11/21/2024 11/23/2024 Next Appt Details Provider Name:Seun Edwards , 08/31/2025 04:00:00 PM, [address] [place] [address] [place], [address], Progress Notes * Pippa MARTINEZ ADOB:[birth year] (49 yo F)Acc No.[id number]:11/21/2024 Patient: Nhan Pippa DIA :1975 A ge:49 Y S ex:Female Address:[address] [place] [address], [place] [address] * Refills Start Diflucan Tablet, 150 MG, Orally, 1, 1 tablet, once, 1 days, Refills=1 * true * Date: Generated for Maria Luz fitzgerald/Tao/Manolo on: 10/22/2024 02:52 PM EST
--- OUTSIDE RECORDS SUMMARY | 2024-11-24 11:13 | XMS_ITS ---
Author Organization Seun Edwards III, MD Address [address] [place] [address] [place] [address] Care Team Providers Care Retail Store Associate Name Role Phone Dr. Seun Edwards III Primary Care Provider Reason For Referral Reason Evaluate and Treat Routine Gynecological Examination Diagnosis 1 Routine gynecologica l examination (Z01.419) Referral Organization Seun Edwards III, MD Referring Provider First Name Seun Referring Provider Last Name Jerry Referring Provider Speciality Internal M edicine Referred Organization [facility] nter Referred Provider [facility] er, HOISTER & Midwifery Referred Address [address] [place] [phone], Referred Provider Specialty OB - Gynecol ogy General Notes DRachel 11/24/2024 04:39:14 PM > Referral faxed Referral Priority Routine Referral Appointment Date 03/17/2025 REASON FOR VISIT Referral Social History Sex Assigned At : Social History Observation Description Sex Assigned At Female Encounters Encounter Location Date Provider Diagnosis Seun Edwards III, MD [address] [place] [address] [place] [address] 11/24/2024 Seun Edwards Plan Of Treatment Referrals Referral Date Details 11/24/2024 11/24/2024, Evaluate and Treat Routine Gynecological Examination, HOISTER & Midwifery [facility], [address] [place] [address], [phone], Next Appt Details Provider Name:Seun Eugene Edwards , 08/31/2025 04:00:00 PM, [address] [place] [address] [place], [address], Progress Notes * Pippa MARTINEZ ADOB:[birth year] (49 yo F)Acc No.[id number]:11/24/2024 Patient: Pippa CALVIN :1975 A ge:49 Y S ex:Female Address:[address] [place] [address] Subjective: * Chief Complaints: * R eferral * Medical History: * Surgical History: * Hospitalization/Major Diagno stic Procedure: * Medications: Objective: * Vitals: * Physical Examination: Assessment: Plan: * Treatment: * Procedure Codes: * true * Date: Generated for Thomasi lia/Tao/eTransmitting on: 10/22/2024 02:51 PM EST Consultation Request Notes Referral Date Referring Provider Referred Provider Not es 11/24/2024 Jerry [facility], HOISTER & Midwifery Evaluate and Treat Routine Gynecological Examination
--- OUTSIDE RECORDS SUMMARY | 2025-04-16 08:16 | XMS_ITS ---
Author Organization Seun Edwards III, MD Address [address] [place] [address] [place] [address] Care Team Providers Care Usps Letter Carrier Name Role Phone Dr. Seun Edwards III Primary Care Provider [phone] REASON FOR VISIT new onset pleuritic chest discomfort Social History Sex Assigned At : Social History Observation Description Sex Assigned At Female Encounters Encounter Location Date Provider Diagnosis Seun Edwards III, MD [address] [place] [address] [place] [address] 04/16/2025 Seun Edwards Plan Of Treatment Next Appt Details Provider Name:Seun Edwards , 08/31/2025 04:00:00 PM, [address] [place] [address] [place], [address], Progress Notes * Pippa MARTINEZ ADOB:[birth year] (49 yo F)Acc No.[id number]:04/16/2025 Patient: Nhan Pippa DIA :1975 A ge:49 Y S ex:Female Address:[address] [place], [place] [address] [address] * true * Date: Generated for Printi ng/Faxing/eTransmitting on: 10/22/2024 02:51 PM EST
--- OUTSIDE RECORDS SUMMARY | 2025-04-17 04:00 | XMS_ITS ---
Author Organization Seun Edwards III, MD Address [address] [place] [address] [place] [address] Care Team Providers Care Clinical Technician Name Role Phone Dr. Seun Edwards III Primary Care Provider Allergies Allergen (clinical drug ingredient) Drug/Non Drug Allergy documented on EMR Reaction Allergy Type Onset Date Status No Known Drug Allergy Unknown Drug Allergy Active trazodone Trazodone night terrors Drug Allergy Act montse tramadol Tramadol nausea, vomiting Drug Allergy Active REASON FOR VISIT Pleuritic right upper chest pain x 11 days, Continued neck pain with range of motion, Thoracic and cervical syrinx last image 2022 Medications Medication SIG (Take, Route, Frequency, Duration) Notes Start Date End Date Status buPROPion HCl ER (SR) 100 MG 1 tablet in the morning Orally Once a day 02/20/2024 Active dexAMETHasone 1 MG 1 tablet Orally twic e a day 07/31/2024 Active Fluconazole 150 MG TAKE 1 TABLET BY CORINNA TH ONCE Active Fish Oil 1 capsule Orally Onc e a day Active Senna Laxative 8.6 MG 2 tablets at bedti me as needed Orally Once a day Active Multivitamin Orally Active Flexeril Active Cyclobenzaprine HCl 10 MG as directed Or ally three times a day 05/13/2024 Active CoQ-10 Active Linzess 145 MCG 1 capsule at least 3 0 minutes before the first meal of the day on an empty stomach Orally Once a day 03/07/2024 Active Wellbutrin SR 150 MG 1 tablet Orally onc e a day in the afternoon 10/05/2023 Active Social History Tobacco Use: Social History Observation Description Date Details (start date - stop date) Never Smoker NA - NA Sex Assigned At : Social History Observation Description Sex Assigned At Female Tobacco Use/Smoking Question Answer Notes Patient is a nonsmoker Additional Findings: Tobacco Non-User Aggressive non-smoker Problems Problem Type SNOMED Code ICD Code Onset Dates Problem Status W/U Status Risk Notes Problem Pleuritic pain (5626782) Pleuritic chest pain (R07.81) Active confirmed This appears to be pleurisy and not pulmonary infarction or costochondrit is. She is going to have a chest x-ray and blood work with a d-dimer. 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 She is going to have a chest x-ray and blood work with a d-dimer. 04/17/2025 Chiari I malformation (ICD-10 - G93.5) The pain has worsened lately. She has seen her neurosurgeon, Dr. Islas, Who has offered to do a cervical laminectomy. She is uncertain about this and has declined that procedure so far. The pain management service has recommended a neurostimulator and she has an appointment to have a temporary wire inserted. 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 Her neurosurgeon has agreed to do a laminectomy of all else fails.An MRI of the cervical and thoracic spine has been ordered for surveillance. 04/17/2025 Insomnia (ICD-10 - G47.00) She has chronic difficulty sleeping, but lately has been doing well. No change in the pattern of her sleep has been noted lately. 04/17/2025 History of IBS (ICD-10 - Z87.19) His abdominal pain is resolved at this time. She is quite comfortable in her daily life. Plan Of Treatment Medication Medication Name Sig Start Date Stop Date Notes buPROPion HCl ER (SR) 100 MG 1 tablet in the morning Orally Once a day 02/20/2024 dexAMETHasone 1 MG 1 tablet Orally twice a day 07/31/2024 Fluconazole 150 MG TAKE 1 TABLET BY MOUTH ONCE Fish Oil 1 capsule Orally Once a day Senna Laxative 8.6 MG 2 tablets at bedti me as needed Orally Once a day Multivitamin Orally Flexeril Cyclobenzaprine HCl 10 MG as directed Or ally three times a day 05/13/2024 CoQ-10 Linzess 145 MCG 1 capsule at least 3 0 minutes before the first meal of the day on an empty stomach Orally Once a day 03/07/2024 Wellbutrin SR 150 MG 1 tablet Orally onc e a day in the afternoon 10/05/2023 Pending Test Test Name Order Date PROFILE, RANDOM (COMPREHENSIVE METABOLIC ) 04/17/2025 CBC w DIFF 04/17/2025 D-DIMER 04/17/2025 MRI CERVICAL SPINE W&WO CONTRAST 025 MRI THORACIC SPINE W&WO CONTRAST 025 XR CHEST 2 VIEW PA & LAT 04/17/2025 Next Appt Details Follow Up: 1 Week, Reason: o v Provider Name:Seun Edwards , 08/31/2025 04:00:00 PM, [address] [place] [address] [place], [facility], [address], Progress Notes * Pippa MARTINEZ ADOB:[birth year] (49 yo F)Acc No.[id number]:04/17/2025 Progress Notes Patient: Nhan Pippa DIA Provider: Andrés Edwards MD :1975 A ge:49 Y S ex:Female Date:04/17/2025 Address:[id number] Subjective: * Chief Complaints: * P leuritic right upper chest pain x 11 daysContinued neck pain with range of motionThoracic and cervical syrinx last image 2022 * HPI: C OVID-19 Screening: For the last 11 days she has had a pleuritic pain in the upper right anterior chest wall. On physical examination it was not reproduced by pressure on the ribs and sternum it is aggravated by lifting the shoulder coughing sneezing and deep inspiration. She has not had any cough or hemoptysis. She has no pain in the calf muscles. A chest x-ray done today was unremarkable. Comprehensive blood work was remarkable only for a random glucose of 126. The d-dimer was not detectable. There is no reason to think this is an embolism. He will be treated symptomatically with NSAIDs. The syrinx in the cervical and thoracic spine has not been imaged for 2 years. An MRI of the cervical and thoracic spine was ordered today. Questions H ave you had any new onset fever, chills, cough, congestion, sore throat, shortness of breath, muscle aches? N o * ROS: G eneral/Constitutional: pain P leuritic right upper anterior chest wall pain, Cervical spine. C hills d enies. F atigue a dmits. F ever d enies. ? E NT: Decreased hearing d enies. R espiratory: Cough d enies. C ardiovascular: Chest pain with exertion d enies. D yspnea on exertion?denies. S hortness of breath d enies. G astrointestinal: Constipation d enies. D ecreased appetite d enies.?Diarrhea d enies. H eartburn d enies. N ausea d enies. R ectal bleeding?denies. V omiting d enies. H ematology: bruising d enies. p etechiae d enies. S wollen glands n one have been noted. G enitourinary: Frequent urination d enies. M usculoskeletal: Muscle aches d enies. P ainful joints N osmany with range of motion. S ciatica d enies. W eakness d enies. S kin: Itching d enies. R pankaj d enies. S kin lesion(s)?denies. N eurologic: Difficulty speaking d enies. D izziness d enies.?Headache d enies. L ow back pain d enies. P sychiatric: Depressed mood d enies. * Medical History: * Surgical History: e ndovenous laser ablation lower extremity veins 2014biopsy mass upper outer left breast, benign, , [facility] 08/2016left breast lumopectomy by Dr Serna 06/26/2023olonoscopy Dr. Barraza 04/21/2024No history * Hospitalization/Major Diagno stic Procedure: N o history * Family History: F ather: alive 56 yrs, hypertension, diagnosed with HTN. M other: alive 56 yrs, SVT, Hyperthyroidism, [place], diagnosed with CVD. P aternal Grand Father: 72 yrs, lung cancer, diagnosed with Cancer. M aternal Grand Mother: alive, alzheimer. 1 sister(s) - healthy. 1 son(s) , 2 daughter(s) - healthy. . There is no history of breast cancer on her mother's side. 2 of her father's sisters had breast cancer in the past in [place]. 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 * Medications: T akingLinzess 145 MCG Capsule 1 capsule at least 30 minutes before the first meal of the day on an empty stomach Orally Once a day CoQ-10 Multivitamin Orally Fish Oil Capsule 1 capsule Orally Once a day Senna Laxative 8.6 MG Tablet 2 tablets at bedtime as needed Orally Once a day Flexeril Cyclobenzaprine HCl 10 MG Tablet as directed Orally three times a day dexAMETHasone 1 MG Tablet 1 tablet Orally twice a day buPROPion HCl ER (SR) 100 MG Tablet Extended Release 12 Hour 1 tablet in the morning Orally Once a day Wellbutrin SR 150 MG Tablet Extended Release 12 Hour 1 tablet Orally once a day in the afternoon Fluconazole 150 MG Tablet TAKE 1 TABLET BY MOUTH ONCE Taking Linzess 145 MCG Capsule 1 capsule at least 30 minutes before the first meal of the day on an empty stomach Orally Once a day Taking CoQ-10 Taking Multivitamin Orally Taking Fish Oil Capsule 1 capsule Orally Once a day Taking Senna Laxative 8.6 MG Tablet 2 tablets at bedtime as needed Orally Once a day Taking Flexeril Taking Cyclobenzaprine HCl 10 MG Tablet as directed Orally three times a day Taking dexAMETHasone 1 MG Tablet 1 tablet Orally twice a day Taking buPROPion HCl ER (SR) 100 MG Tablet Extended Release 12 Hour 1 tablet in the morning Orally Once a day Taking Wellbutrin SR 150 MG Tablet Extended Release 12 Hour 1 tablet Orally once a day in the afternoon Taking Fluconazole 150 MG Tablet TAKE 1 TABLET BY MOUTH ONCE DiscontinuedCyclobenzaprine HCl 10 MG Tablet 1 tablet Orally 3 times a day for neck pain and muscle spasm Cyclobenzaprine HCl 10 MG Tablet 1 tablet at bedtime as needed Orally 3 times a day Medication List reviewed and reconciled with the patientDiscontinued Cyclobenzaprine HCl 10 MG Tablet 1 tablet Orally 3 times a day for neck pain and muscle spasm Discontinued Cyclobenzaprine HCl 10 MG Tablet 1 tablet at bedtime as needed Orally 3 times a day Medication List reviewed and reconciled with the patient * Allergies: N o Known Drug AllergyTramadol: nausea, vomitingTrazodone: night terrorsno[Allergies Verified] Objective: * Vitals: H t: 63, Wt: 114, BMI:20.19, BP: 116/84, HR: 76, Temp: 97.3, Ht-cm: 160.02, Wt-k.71. All. * Examination: G eneral Examination: GENERAL APPEARANCE: p leasant, well nourished, well developed, in no acute distress, calm and relaxed: woman. HEAD: a traumatic, normocephalic. EYES: e geraldine, perrla, anicteric, conjugate. EARS: n ormal. NOSE: s eptum intact. ORAL CAVITY: n ormal, unremarkable. NECK/THYROID: n o jugular venous distention, no carotid bruit, thyroid normal, Limited range of motionn, pain with range of motion. LYMPH NODES: n o enlarged lymph nodes,spleen normal. SKIN: n o suspicious lesions, anicteric. HEART: n o clicks, gallops, murmurs, or rubs, regular rhythm, S1, S2 normal, no s3, or vascular bruits. LUNGS: c lear to auscultation, Mild pleural rub anterior right axilla, Compression of ribs and sternum does not reproduce the pain. BREASTS: no masses palpable bilaterally. ABDOMEN: b owel sounds normal, no ascites, no organomegaly, no mass. RECTAL EXAM: n ot examined. MUSCULOSKELETAL: e xtremities unremarkable, no clubbing, cyanosis or edema. PERIPHERAL PULSES: n ormal. NEUROLOGIC: a lert and oriented, cranial nerves 2-12 grossly intact, deep tendon reflexes 2+ symmetrical, motor strength normal upper and lower extremities, sensory exam intact. PSYCH: a lert, oriented. Assessment: * Assessment: 1. P leuritic chest pain - R07.81 (Primary) N otes :This appears to be pleurisy and not pulmonary infarction or costochondritis. She is going to have a chest x-ray and blood work with a d-dimer. 2 . C hiari I malformation - G93.5 N otes :The pain has worsened lately. She has seen her neurosurgeon, Dr. Islas, Who has offered to do a cervical laminectomy. She is uncertain about this and has declined that procedure so far. The pain management service has recommended a neurostimulator and she has an appointment to have a temporary wire inserted. 3 . S yringomyelia and syringobulbia - G95.0 N otes :She is going to have the neurostimulator. Her neurosurgeon has agreed to do a laminectomy of all else fails.An MRI of the cervical and thoracic spine has been ordered for surveillance. 4 . I nsomnia - G47.00 N otes :She has chronic difficulty sleeping, but lately has been doing well. No change in the pattern of her sleep has been noted lately. 5 . H istory of IBS - Z87.19 N otes :His abdominal pain is resolved at this time. She is quite comfortable in her daily life. Plan: * Treatment: 2. S yringomyelia and syringobulbia I maging: MRI CERVICAL SPINE W&WO CONTRAST I maging: MRI THORACIC SPINE W&WO CONTRAST 3. O thers Continue Fluconazole Tablet, 150 MG, TAKE 1 TABLET BY MOUTH ONCE; C ontinue buPROPion HCl ER (SR) Tablet Extended Release 12 Hour, 100 MG, 1 tablet in the morning, Orally, Once a day; C ontinue Wellbutrin SR Tablet Extended Release 12 Hour, 150 MG, 1 tablet, Orally, once a day in the afternoon; C ontinue Linzess Capsule, 145 MCG, 1 capsule at least 30 minutes before the first meal of the day on an empty stomach, Orally, Once a day; C ontinue CoQ-10; C ontinue Multivitamin, Orally; C ontinue Fish Oil Capsule, 1 capsule, Orally, Once a day; C ontinue Senna Laxative Tablet, 8.6 MG, 2 tablets at bedtime as needed, Orally, Once a day; C ontinue Flexeril; C ontinue Cyclobenzaprine HCl Tablet, 10 MG, as directed, Orally, three times a day; C ontinue dexAMETHasone Tablet, 1 MG, 1 tablet, Orally, twice a day. * Procedure Codes: * Follow Up: 1 Week (Reason: ov) * Images: * Sign off status: Completed true * Provider: Andrés Edwards MD Date: 0 04/17/2025 Generated for Maria Luz fitzgerald/Tao/Manolo on: 10/22/2024 02:51 PM EST History and Physical Notes * HPI (History of Present Illness) Category Sub-Category Detail Notes COVID-19 Screening Questions Have you had any new onset fever, chills, cough, congestion, sore throat, shortness of breath, muscle aches?: No Examination Category Sub-Category Detail Notes General Examination GENERAL APPEARANCE: pleasant , well nourished, well developed, in no acute distress, calm and relaxed: woman HEAD: atraumatic, normocep halic EYES: eomi, perrla, anicte skyla, conjugate EARS: normal NOSE: septum intact NECK/THYROID: no jugular venous di stention, no carotid bruit, thyroid normal, Limited range of motionn, pain with range of motion HEART: no clicks, gallops, murmurs, or rubs, regular rhythm, S1, S2 normal, no s3, or vascular bruits LUNGS: clear to auscultatio n, Mild pleural rub anterior right axilla, Compression of ribs and sternum does not reproduce the pain ABDOMEN: bowel sounds normal, no ascites, no organomegaly, no mass NEUROLOGIC: alert and oriented, cranial nerves 2-12 grossly intact, deep tendon reflexes 2+ symmetrical, motor strength normal upper and lower extremities, sensory exam intact SKIN: no suspicious lesion s, anicteric PERIPHERAL PULSES: normal BREASTS: no masses palpable b ilaterally MUSCULOSKELETAL: extremities unremark able, no clubbing, cyanosis or edema LYMPH NODES: no enlarged lymph no beatriz,spleen normal RECTAL EXAM: not examined PSYCH: alert, oriented ORAL CAVITY: normal, unremarkable
--- OUTSIDE RECORDS SUMMARY | 2025-04-21 10:09 | XMS_ITS ---
Author Organization Seun Edwards III, MD Address [address] [place] [address] [place] [address] Care Team Providers Care Manager Background Name Role Phone Dr. Seun Edwards III Primary Care Provider [phone] REASON FOR VISIT FYI only Social History Sex Assigned At : Social History Observation Description Sex Assigned At Female Encounters Encounter Location Date Provider Diagnosis Seun Edwards III, MD [address] [place] [address] [place] [address] 04/21/2025 Seun Edwards Plan Of Treatment Next Appt Details Provider Name:Seun Edwards , 08/31/2025 04:00:00 PM, [address] [place] [address] [place], [address], Progress Notes * Pippa MARTINEZ ADOB:[birth year] (49 yo F)Acc No.[id number]:04/21/2025 Patient: Nhan Pippa DIA :1975 A ge:49 Y S ex:Female Address[facility] [place] [address] * true * Date: Generated for Printi ng/Faxing/eTransmitting on: 10/22/2024 02:52 PM EST
--- OUTSIDE RECORDS SUMMARY | 2025-04-24 12:00 | XMS_ITS ---
Author Organization Seun Edwards III, MD Address [address] [place] [address] [place] [address] Care Team Providers Care Academic Dean Name Role Phone Dr. Seun Edwards III [...] Laxative 8.6 MG 2 tablets at bedti wi as needed Orally Once a day Active [...] Provider Diagnosis Seun Edwards III, MD [address] [place] [address] [address] [place] [address] 04/24/2025 Seun Edwards Plan Of Treatment Medication [...] Name:Seun Edwards , 08/31/2025 04:00:00 PM, [address] [place] [address] [address], [place], [address], Progress Notes * Pippa MARTINEZ ADOB:[birth year] (50 yo F)Acc No.[id number]:04/24/2025 Progress Notes Patient: Pippa CALVIN Provider: Andrés Edwards MD :1975 A ge:49 Y S ex:Female Date:04/24/2025 Address: [address] [id number] Subjective: * Chief Complaints: * 1 . [...] mass upper outer left breast, benign, , [facility] 08/2016, left breast lumopectomy by Dr [...] had breast cancer in the past in [place]. * Social History: T obacco Use: T [...] 04/24/2025 Generated for Maria Luz fitzgerald/Tao/Manolo on: 10/22/2024 [...]
--- OUTSIDE RECORDS SUMMARY | 2025-05-15 04:45 | XMS_ITS ---
Author Organization Seun Edwards III, MD Address [address] [place] [address] [place] [address] Care Team Providers Care Orthotic Aide Name Role Phone Dr. Seun Edwards III [...] Provider Diagnosis Seun Edwards III, MD [address] [place] [address] [place] [address] 05/15/2025 Seun Edwards Recent weight loss R63.4 [...] Provider Name:Seun Edwards , 08/31/2025 04:00:00 PM, [address] [place] [address] [address], [place], [address], Progress Notes * Pippa MARTINEZ ADOB:[birth year] (49 yo F)Acc No.[id number]:05/15/2025 Progress Notes Patient: Pippa CALVIN Provider: Andrés Edwards MD :1975 A ge:49 Y S ex:Female Date:05/15/2025 Address:[address] [place] [address] [id number] Subjective: * Chief Complaints: * N osmany ppain from Chiari 1 syndromeCervicothoracic syrinxInsomniaGERD * HPI: C OVID-19 Screening: The neck pain has improved and is back at baseline, which is still significant. 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 * Social History: T obacco Use: T [...] Date: 0 05/15/2025 Generated for Maria Luz fitzgerald/Tao/Viviansmitting on: 10/22/2024 02:50 PM EST History and Physical Notes * [...]
--- OUTSIDE RECORDS SUMMARY | 2025-08-19 04:51 | XMS_ITS ---
Author Organization Seun Edwards III, MD Address [address] [place] [address] [place] [address] Care Team Providers Care Full Charge Bookkeeper Name Role Phone Dr. Seun Edwards III Primary Care Provider REASON FOR VISIT Message Social History Sex Assigned At : Social History Observation Description Sex Assigned At Female Encounters Encounter Location Date Provider Diagnosis Seun Edwards III, MD [address] [place] [address] [place] [address] 08/19/2025 Seun Edwards Plan Of Treatment Next Appt Details Provider Name:Seun Edwards , 08/31/2025 04:00:00 PM, [address] [place] [address] [place], [phone], Progress Notes * Pippa MARTINEZ ADOB:[birth year] (50 yo F)Acc No.[id number]:08/19/2025 Patient: Nhan Pippa DIA :1975 A ge:50 Y S ex:Female Address:[address] [place], [place] [address] [address] * true * Date: Generated for Printi ng/Faxing/eTransmitting on: 10/22/2024 02:52 PM EST
--- OUTSIDE RECORDS SUMMARY | 2025-08-21 14:52 | XMS_ITS | Patient Health Record ---
Author Organization Seun Edwards III, MD Address [address] [place] [address] [address] [place] [address] Care Team Providers Care Bowling Ball Finisher Name Role Phone Dr. Seun Edwards III Primary Care Provider [phone] Allergies Allergen (clinical drug ingredient) Drug/Non Drug Allergy documented on EMR Reaction Allergy Type Onset Date Status No Known Drug Allergy Unknown Drug Allergy Active trazodone Trazodone night terrors Drug Allergy Act montse tramadol Tramadol nausea, vomiting Drug Allergy Active Results Component Value Reference Range Notes Urinalysis and Microscopic Reviewed date:10/19/2024 09:14:09 AM Interpretation: Performing Lab:[address] [address] Notes/Report: Color Urine Yellow Appearance Urine Clear PH 6.5 5.0-9.0 Glucose Urine UA Negative Negative mg/dL Urine Blood Negative Negative Specific Coy - Urine <= 1.005 1.005-1.025 Urine Protein Negative Neg-Trace mg/dL Urine Ketones Negative Negative mg/dL Nitrite Urine Negative Negative Leukocyte Esterase Urine Small (1+) Negative RBC Urine 0-2 0-2 /HPF WBC Urine 0-5 0-5 /HPF Squamous Epithelial Cell Urine 0-2 0-2 /HPF Bacteria Urine None Seen None Seen Hyaline Casts Urine 0-2 0-2 /LPF Urine Culture Reviewed date:10/19/2024 09:14:09 AM Interpretation: Performing Lab:[facility] [address] Notes/Report: Urine Culture Report Result Urine Culture 50,000 to 100,000 cfu/ml Urine Culture Mixed bacterial luis a characteristic of Urine Culture urogenital contamination. Ur Preg Test Reviewed date:12/13/2024 07:21:39 AM Interpretation: Performing Lab:[facility], [address] [place] [address] Notes/Report: Urine NEGATIVE NEGATIVE This test was developed to detect early . False negative results may occur after the 5th - 7th week of when using this test method. If clinically indicated, consider a serum hCG. Urine Culture Reviewed date:12/13/2024 07:21:39 AM Interpretation: Performing Lab:[address] [address] Notes/Report: Urine Culture No growth. Urinalysis and Microscopic Reviewed date:01/25/2025 08:15:48 PM Interpretation: Performing Lab:[address] [address] Notes/Report: Color Urine Yellow Appearance Urine Clear PH 7.0 5.0-9.0 Glucose Urine UA Negative Negative mg/dL Urine Blood Negative Negative Specific Coy - Urine <= 1.005 1.005-1.025 Urine Protein Negative Neg-Trace mg/dL Urine Ketones Negative Negative mg/dL Nitrite Urine Negative Negative Leukocyte Esterase Urine Negative Negative RBC Urine 0-2 0-2 /HPF WBC Urine 0-5 0-5 /HPF Squamous Epithelial Cell Urine 0-2 0-2 /HPF Bacteria Urine None Seen None Seen Hyaline Casts Urine 0-2 0-2 /LPF Urine Culture Reviewed date:01/25/2025 08:15:48 PM Interpretation: Performing Lab:[address] [address] Notes/Report: Urine Culture No growth. Complete Blood Count Auto Di ff Reviewed date:04/19/2025 05:05:46 AM Interpretation: Performing Lab:[address] [address] Notes/Report: White Blood Count 4.8 4.8-10.8 X10*3/uL [...] 05:05:46 AM Interpretation: Performing Lab:[facility], [address] [place] [address] Notes/Report: Sodium 141 135-145 mmol/L Potassium 4.1 [...] 05:05:46 AM Interpretation: Performing Lab:[facility], [address] [place] [address] Notes/Report: D Dimer High Sensitivity < 150 [...] date:04/19/2025 05:05:46 AM Interpretation: Performing Lab: Notes/Report: [address] [address] XRay Report Signed Patient: Pippa Martinez MR#: [id number] : 1975 Acct:[id number] Age/Sex: 49 / F ADM Date: 04/17/25 Loc: HO.LAB Attending Dr: Seun Edwards MD Ordering Physician: Seun Edwards MD Date of Service: 04/17/25 Procedure(s): XR chest 2V Accession Number(s): [id number] cc: Seun Edwards MD EXAMINATION: XR CHEST [...] 04/17/25 1040 DD/ 1012 TD/TT: 04/17/25 1017 Ad Taker: [address] [address] XRay Report Signed Patient: Pippa Martinez MR#: [id number] : 1975 Acct:[id number] Age/Sex: 49 / F ADM Date: 04/17/25 Loc: HO.LAB Attending Dr: Seun Edwards MD Ordering Physician: Seun Edwards MD Date of Service: 04/17/25 Procedure(s): XR chest 2V Accession Number(s): [id number] cc: Seun Edwards MD EXAMINATION: XR CHEST [...] 04/17/25 1040 DD/ 1012 TD/TT: 04/17/25 1017 Ad Taker: MR thoracic spine wo/w con Reviewed date:05/18/2025 05:45:57 AM Interpretation: Performing Lab: Notes/Report: [address] [address] Magnetic Resonance Report Signed Patient: Pippa Martinez MR#: [id number] : 1975 Acct:[id number] Age/Sex: 49 / F ADM Date: 05/07/25 Loc: HO.MRI Attending Dr: Seun Edwards MD Ordering Physician: Seun Edwards MD Date of Service: 05/07/25 Procedure(s): MR thoracic spine wo/w con Accession Number(s): [id number] cc: Seun Edwards MD Reason for Exam: [...] 05/07/25 1511 DD/ 1317 TD/TT: 05/07/25 1345 Ad Taker: [address] [address] Magnetic Resonance Report Signed Patient: Pippa Martinez MR#: [id number] : 1975 Acct:[id number] Age/Sex: 49 / F ADM Date: 05/07/25 Loc: HO.MRI Attending Dr: Seun Edwards MD Ordering Physician: Seun Edwards MD Date of Service: 05/07/25 Procedure(s): MR haque spine wo/w con Accession Number(s): [id number] cc: Seun Edwards MD Reason for Exam: [...] 05/07/25 1511 DD/ 1317 TD/TT: 05/07/25 1345 Ad Taker: MR cervical spine wo/w con Reviewed date:05/18/2025 05:45:57 AM Interpretation: Performing Lab: Notes/Report: [address] [address] Magnetic Resonance Report Signed Patient: Pippa Martinez MR#: [id number] : 1975 Acct:[id number] Age/Sex: 49 / F ADM Date: 05/07/25 Loc: HO.MRI Attending Dr: Seun Edwards MD Ordering Physician: Seun Edwards MD Date of Service: 05/07/25 Procedure(s): MR cervical spine wo/w con Accession Number(s): [id number] cc: Seun Edwards MD Reason for Exam: [...] 05/07/25 1424 DD/ 1247 TD/TT: 05/07/25 1348 Ad Taker: [place] [address] Magnetic Resonance Report Signed Patient: Pippa Martinez MR#: [id number] : 1975 Acct:[id number] Age/Sex: 49 / F ADM Date: 05/07/25 Loc: HO.MRI Attending Dr: Seun Edwards MD Ordering Physician: Seun Edwards MD Date of Service: 05/07/25 Procedure(s): MR cer vical spine wo/w con Accession Number(s): [id number] cc: Seun Edwards MD Reason for Exam: [...] 05/07/25 1424 DD/ 1247 TD/TT: 05/07/25 1348 Ad Taker: CT head/brain wo con Reviewed date:06/08/2025 08:49:29 AM Interpretation: Performing Lab: Notes/Report: [place] [address] CT Scan Report Signed Patient: Pippa Martinez MR#: [id number] : 1975 Acct:[id number] Age/Sex: 49 / F ADM Date: 06/05/25 Loc: .ED Attending Dr: Ordering Physician: Makenzie Bull DO Date of Service: 06/05/25 Procedure(s): CT head/brain wo IV con Accession Number(s): [id number] cc: Seun Edwards MD; Makenzie Bull DO Report Number: [id number]: Total DLP = 498.00 mGy-cm Reason for [...] in OV> 06/05/25641 DD/ 0 TD/TT: 06/05/25640 Ad Taker: [place] [address] CT Scan Report Signed Patient: Pippa Martinez MR#: [id number] : 1975 Acct:[id number] Age/Sex: 49 / F ADM Date: 06/05/25 Loc: HO.ED Attending Dr: Ordering Physician: Makenzie Bull DO Date of Service: 06/05/25 Procedure(s): CT head/brain wo IV con Accession Number(s): [id number] cc: Seun Edwards MD; Makenzie Bull DO [...] in OV> 06/05/25641 DD/ 0 TD/TT: 06/05/25640 Ad Taker: Pap Smear Reviewed date:07/03/2025 05:57:43 AM Interpretation: Performing Lab:[facility], [address] [place] [address] Notes/Report: ----- Name: Nico Martinez constance Butt Age/Sex: 50/F : 1975 Unit#: [id number] Attend Dr: Wanda Larkin CNM Re06/26/25 Status : DEP REF Location: [facility] Disch: ----- SPEC : [id number] REC STATUS: VINNIEEugenia JESSICA NUM: [id number] DARSHAN: 06/26/25-1299 DR: Wanda Larkin CNM ENTERED: [...] Received ThinPrep-Cervical Copies To: Edwards,Seun MD [address] [place] [address] Wanda Larkin CNM [facility] [address] [place] [address] ----- Signed (signature on file) ELAN Mueller (ASCP) 07/02/25 1203 ----- END OF REPORT HPV High risk Reviewed date:07/03/2025 05:57:43 AM Interpretation: Performing Lab:[facility], [address] [place] [address] Notes/Report: HPV High Risk Negative Negative HPV Genotype 16 Negative Negative HPV Genotype 18 Negative Negative HPV testing performed at [facility] (CLIA #[id number]), [address] [place] [address]. Testing for HPV was performed using the [...] 01:11:32 PM Interpretation: Performing Lab:[facility], [address] [place] [address] Notes/Report: Urine NEGATIVE NEGATIVE This test was developed to detect early . False negative results may occur after the 5th - 7th week of when using this test method. If clinically indicated, consider a serum hCG. Pathology Reviewed date:08/17/2025 05:45:42 AM Interpretation: Performing Lab:[facility], [address] [place] [address] Notes/Report: ----- Name: Nico Martinezque Butt Age/Sex: 50/F : 1975 Unit#: [id number] Attend Dr: Magdalene Briones MD Re07/30/25 Status : [facility] Location: [facility] Disch: ----- SPEC : [id number] RECD : 07/30/25 STATUS: KATJA LOPEZ NUM: [id number] DARSHAN: 07/30/25 [facility] DR: Magdalene Briones MD ENTERED: 07/30/25- 36 SP TYPE: Surgical OTHR DR: Seun Edwards [...] Dx: Pill, dysphagia, reflux Post-Op Dx: Hiatal hernia, UES stenosis Microscopic Description A-E. Microscopic sec [...] totally submitted in CONTINUED ON NEXT PAGE ----- Name: Nico Martinez constance Butt Age/Sex: 50/F : 1975 Unit#: [id number] Attend Dr: Magdalene Briones MD Re07/30/25 Status : [facility] Location: [facility] Disch: ----- SPEC : [id number] RECD : 07/30/25 STATUS: KATJA LOPEZ NUM: [id number] DARSHAN: 07/30/25 [facility] DR: Magdlaene Briones MD ENTERED: 07/30/25 36 SP TYPE: Surgical OTHR DR: Seun Edwards [...] developed and their performance characteristics determined by [facility]. They have not been cleared or appr tona by the U.S. Food and Drug Administration (FDA). However, the FDA has determined that such clearance or approval is not necessary. This laboratory is certified under the Clinical Laboratory Improvement Amendments of 1988 (CLIA) as qualified to perform high complexity clinical laboratory testing. Copies To: Seun Edwards MD [address] [address] Magdalene Briones MD [facility] [address] [place], [place] [id number] [email or web address] ----- Signed (signature on file) Scooter Knott MD 08/03/25 1522 ----- END OF REPORT Comprehensive Met. Panel Reviewed date:08/20/2025 06:58:25 AM Interpretation: Performing Lab:[facility], [address] [place] [address] Notes/Report: Sodium 141 135-145 mmol/L Potassium 4.0 3.3-5.1 mmol/L Chloride 109 96-108 mmol/L Carbon Dioxide 24 22-29 mmol/L Anion Gap 12 12-20 Blood Urea Nitrogen 7 9-16 mg/dL Creatinine 0.78 0.5-1.4 mg/dL Estimated Glomerular Filt Rate > 60 Chronic Kidney Disease: Estimated GFR < 60 mL/min/1.73m2 Severe Kidney Disease: Estimated GFR < 15 mL/min/1.73m2 Glucose Random 102 60-115 mg/dL Calcium 8.3 8.4-10.2 mg/dL Bilirubin Total 0.9 0.0-1.0 mg/dL Aspartate Amino Transferase 39 5-31 U/L Alanine Aminotransferase 54 0-31 U/L Total Protein 6.0 6.5-8.0 g/dL Albumin Level 4.1 3.5-5.0 g/dL Alkaline Phosphatase 60 39-117 U/L Lipid Panel Reviewed date:08/20/2025 06:58:25 AM Interpretation: Performing Lab:[facility], [address] [place] [address] Notes/Report: Triglycerides 104 <150 mg/dL Desirable Triglyceride: less than 150 mg/dL Borderline High Triglyceride 150-199 mg/dL High Triglyceride: 200-499 mg/dL Very High Triglyceride: greater than or equal to 5OO mg/dL Cholesterol 165 <200 mg/dL Desirable Cholesterol: less than 200 mg/dL Borderline High Cholesterol: 200-239 mg/dL High Cholesterol: greater than 239 mg/dL LDL Cholesterol Calculated 78 <100 mg/dL Desirable LDL: less than 100 mg/dL Near Optimal/Above Optimal LDL: 110-129 mg/dL Borderline High LDL: 130-159 mg/dL High LDL: 160-189 mg/dL Very High LDL: greater than or equal to 190 mg/dL HDL Cholesterol 67 >40 mg/dL Desirable HDL: greater than 40 mg/dL Note: This HDL assay may give artificially low results in patients with liver disease. Lipase Reviewed date:08/20/2025 06:58:25 AM Interpretation: Performing Lab:[facility], [address] [place] [address] Notes/Report: Lipase 29 8-78 U/L Vitamin B12 and Folate Reviewed date:08/20/2025 06:58:25 AM Interpretation: Performing Lab:[facility], [address] [place] [address] Notes/Report: Vitamin B12 436 200-900 pg/mL NORMAL 200-900 PG/ML INDETERMINATE 160-199 PG/ML DEFICIENT < 160 PG/ML Folate 12.8 > or = 4.0 ng/mL Reference Values: > or = 4.0 ng/mL < 4.0 ng/mL suggests folate deficiency Methotrexate, aminopterin and folinic acid (leucovorin) are chemotherapeutic agents whose molecular structures are similar to folate; therefore, the Tension Machine Operator folate assay cannot be used for patients using these drugs. Reason For Referral Reason Evaluate and Treat Routine Gynecological Examination Diagnosis 1 Routine gynecologica l examination (Z01.419) Referral Organization Seun Edwards III, MD Referring Provider First Name Seun Referring Provider Last Name Jerry Referring Provider Speciality Internal M edicine Referred Organization [facility] ntkirti Referred Provider [facility] er, [facility] Referred Address [address] [place] [address],[place], [place],[id number], Referred Provider Specialty OB - Gynecol ogy [...] Referring Provider Speciality Internal edicine Referred Provider [facility] Referred Provider Specialty Dermatology General Notes D, 02/06/2025 04:08:34 PM > referral faxed per patient request, D, 02/10/2025 02:21:44 PM > patient has not reached out to the office to schedule an appointment at this time, D, 02/25/2025 02:40:12 PM > [facility] stated they have reached out to the patient to schedule an appointment. Dr. Edwards office has reached out to the patient to have them contact [facility] to schedule an appointment. Message was left. Referral Priority Routine Referral Appointment Date 05/13/2025 Reason Evaluate and Treat 2nd referral Diagnosis 1 Headache, unspecifie d (R51.9) Diagnosis 2 Chiari I malformatio n (G93.5) Referral Organization Seun Edwards III, MD Referring Provider First Name Seun Referring Provider Last Name Jerry Referring Provider Speciality Internal edicine Referred Provider Neurology [facility] Referred Provider Specialty Neurology General Notes D, [...] Referring Provider Last Name Jerry [facility] Referred Provider Specialty Allergy/Immu nology General Notes D, 02/06/2025 04:09:52 PM > Per patient request referral faxed., D02/25/2025 02:50:37 PM > [facility] has received the referral no clinicals [...] Status W/U Status Risk Notes Problem Headache (04278565) Headache (R51) Active confirmed Her headac hes originate in the Chiari malformation. They have worsened lately. She has been referred back to neurosurgery for opinion and to pain management to consider analgesic procedures. Problem Syringomyelia and syringobulbia (017539132) Syringomyelia and syringobulbia (G95.0) Active confirmed She is going to have the neurostimulator. Her neurosurgeon has agreed to do a laminectomy of all else fails.An MRI of the cervical and thoracic spine has been ordered for surveillance. Problem Gastro-esophagea l reflux disease without esophagitis (090772885) Gastro-esophage al reflux disease without esophagitis (K21.9) Active confirmed Her reflux is somewhat aggravated by the but she is finding it tolerable. Problem Cervical spondylosis without myelopathy (029808717) Other spondylosis, cervical region (M47.892) Active confirmed Problem Displacement of cervical intervertebral disc without myelopathy (02828284) Other cervical disc displacement, unspecified cervical region (M50.20) Active confirmed The discomfort is much improved. We're waiting for the MRI report. Problem 630499928 Chiari I malformation (G93.5) Active confirmed The pain has worsened lately. She has seen her neurosurgeon, Dr. Islas, Who has offered to do a cervical laminectomy. She is uncertain about this and has declined that procedure so far. The pain management service has recommended a neurostimulator and she has an appointment to have a temporary wire inserted. Problem 422190979 Insomnia (G47.00) Active confirmed She has chronic difficulty sleeping, but lately has been doing well. No change in the pattern of her sleep has been noted lately. Problem Seasonal allergy (457694563) Seasonal allergies (J30.2) Active confirmed Problem History of irritable bowel syndrome (47956891609788) History of IBS (Z87.19) Active confirmed His abdominal pain is resolved at this time. She is quite comfortable in her daily life. Problem Peripheral venous insufficiency (66998125) Venous insufficiency (I87.2) Active confirmed An endovascular procedure to relieve the discomfort is being planned. Problem Pleuritic pain (1870832) Pleuritic chest pain (R07.81) Active confirmed This appears t o be pleurisy and not pulmonary infarction or costochondritis. She is going to have a chest x-ray and blood work with a d-dimer. Problem Irritable bowel syndrome (82379388) Other irritable bowel syndrome (K58.8) Active confirmed She occasionall y has abdominal discomfort from the IBS but this is become a minor problem in daily life. Problem 643838939 Chronic constipation (K59.09) Active confirmed She is doing well with the linzess. Problem 158352698 Recent weight loss (R63.4) Active confirmed She [...] 05/15/2025 Encounters Encounter Location Date Provider Diagnosis eSun Edwards III, MD [address] [place] [address] [place] [address] 04/17/2025 Seun Edwards Pleuritic chest pain R07.81 ; 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 ; 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 ; Insomnia G47.00 and History of IBS Z87.19 Seun Edwards III, MD [address] [place] [address] [place] [address] 05/15/2025 Seun Edwards Recent weight loss R63.4 ; 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 ; Insomnia G47.00 ; History of IBS Z87.19 ; Venous insufficiency I87.2 ; Gastro-esophageal reflux disease without esophagitis K21.9 and 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 Seun Edwards III, MD [address] [place] [address] [place] [address] 09/16/2024 Seun Edwards III, MD [address] [place] [address] [place] [address] 11/14/2024 Seun Edwards III, MD [address] [place] [address] [place] [address] 11/14/2024 Seun Edwards III, MD [address] [place] [address] [place] [address] 11/21/2024 Seun Edwards III, MD [address] [place] [address] [place] [address] 11/21/2024 Seun Edwards III, MD [address] [place] [address] [place] [address] 11/24/2024 Seun Edwards III, MD [address] [place] [address] [place] [address] 04/16/2025 Seun Edwards III, MD [address] [place] [address] [place] [address] 04/21/2025 Seun Edwards III, MD [address] [place] [address] [address] [place], [place] [address] 08/19/2025 Seun Edwards Assessments Encounter Date Diagnosis (ICD [...] Provider Name:Seun Edwards , 08/31/2025 04:00:00 PM, [address] [place] [address] [address], [place], [address], Insurance Providers Payer Name Payer Address Payer Phone Subscriber Number Group Number Insured Name Patient Relationship to Insured Coverage Start Date Coverage End Date [employer] [place] [address] [address] [place] [address] [id number] Pippa Martinez Self - patient is [...] left breast, benign, , [facility] 08/2016 endovenous laser ablation lower extremit y veins 2015 Hospitalization History Reason Date(Month/Year) No history
--- OUTSIDE RECORDS SUMMARY | 2025-08-21 14:52 | XMS_ITS | Patient Health Record ---
Author Organization [facility] Address [address] [place] [address] Care Team Providers Care Intellectual Property Legal Assistant Name Role Phone Seun Edwards MD Primary Care Provider Unavailab geneva LawierBen Unavailable [phone] Reason For Referral No Information Medications Medication [...] Status W/U Status Risk Notes Problem Dermatitis (289897530) Dermatitis (692.9) Active confirmed Problem Keratoma (68425518) Keratoma (701.1) Active confirmed Problem Pain in limb (75855284) Pain in Limb (729.5) Active confirmed Problem Pruritic disorders (586912142) Pruritis (698.9) Active confirmed Problem Verruca plantaris (76154649) Verruca Plantaris (078.19) Active confirmed Confirmed by Bx Plan Of Treatment Pending Test Test Name Order Date 92967-Chtt Destruction, 1-14 07/09/2014 96844-Ztmyd Biopsy 0.5cm 06/18/2014 Insurance Providers Payer Name Payer Address Payer Phone Subscriber Number Group Number Insured Name Patient Relationship to Insured Coverage Start Date Coverage End Date Darlenepatricio [address] [place] [phone] [id number] Tristen Packer Spouse - patient is the spouse of the insured Medical (General) History Medical History History ICD Code Headaches Chicken pox Migraines Surgical History Surgery Date(Month/Year) herniated disk repair
== END 2025-08-21 14:49 | disposition home or self-care (01) ==
LOC: HO.US 14:48
PROVIDERS: PCP Internal Medicine Medical Oncology; Visit Provider Advanced Practice Midwife
DX: Z01.419 Encounter for gynecological examination (general) (routine) without abnormal findings (principal); N94.10 Unspecified dyspareunia; R10.20 Pelvic and perineal pain unspecified side
CPT/HCPCS: 76830; 76856

== ENCOUNTER → 2025-08-21 14:50 | Outpatient (BNV) | payer OTHER, SELFPAY | PROVIDERS: PCP Internal Medicine Medical Oncology; Visit Provider Radiology Diagnostic Radiology | DX: R10.20 Pelvic and perineal pain unspecified side (principal); N94.10 Unspecified dyspareunia | CPT/HCPCS: 76830; 76856 ==

== ENCOUNTER 2025-08-24 07:48 | Outpatient (AMB) | payer OTHER, SELFPAY ==
--- OUTSIDE RECORDS SUMMARY | 2024-11-14 06:49 | XMS_ITS ---
Author Organization Seun Edwards III, MD Address [address] [place] [address] [place] [address] Care Team Providers Care School Photographer Name Role Phone Dr. Seun Edwards III Primary Care Provider [phone] Medications Medication SIG (Take, Route, Frequency, Duration) Notes Start Date End Date Status Amoxicillin-Pot Clavulanate 875-125 MG 1 tablet Orally every 12 hrs for 7 days 11/14/2024 11/21/2024 Active Social History Sex Assigned At : Social History Observation Description Sex Assigned At Female Encounters Encounter Location Date Provider Diagnosis Seun Edwards III, MD [address] [place] [address] [place] [address] 11/14/2024 Seun Edwards Plan Of Treatment Medication Medication Name Sig Start Date Stop Date Notes Amoxicillin-Pot Clavulanate 875-125 MG 1 tablet Orally every 12 hrs for 7 days 11/14/2024 11/21/2024 Next Appt Details Provider Name:Seun Edwards , 08/31/2025 04:00:00 PM, [address] [place] [address] [place], [address], Progress Notes * Pippa MARTINEZ ADOB:[birth year] (49 yo F)Acc No.[id number]:11/14/2024 Patient: Nhan Pippa DIA :1975 A ge:49 Y S ex:Female Address:[address] [place] [address], [place] [address] * Refills Start Amoxicillin-Pot Clavulanate Tablet, 875-125 MG, Orally, 14 Tablet, 1 tablet, every 12 hrs, 7 days, Refills=0 * true * Date: Generated for Maria Luz fitzgerald/Tao/Manolo on: 07:51 AM EST
--- OUTSIDE RECORDS SUMMARY | 2024-11-21 04:42 | XMS_ITS ---
Author Organization Seun Edwards III, MD Address [address] [place] [address] [place] [address] Care Team Providers Care Supervisor Prepress Name Role Phone Dr. Seun Edwards III Primary Care Provider REASON FOR VISIT Rx request Social History Sex Assigned At : Social History Observation Description Sex Assigned At Female Encounters Encounter Location Date Provider Diagnosis Seun Edwards III, MD [address] [place] [address] [place] [address] 11/21/2024 Seun Edwards Plan Of Treatment Next Appt Details Provider Name:Seun Edwards , 08/31/2025 04:00:00 PM, [address] [place] [address] [place], [address], Progress Notes * Pippa MARTINEZ ADOB:[birth year] (49 yo F)Acc No.[id number]:11/21/2024 Patient: Nhan Pippa DIA :1975 A ge:49 Y S ex:Female Address: [place] [address] * true * Date: Generated for Printi ng/Faxing/eTransmitting on: 07:52 AM EST
--- OUTSIDE RECORDS SUMMARY | 2024-11-21 05:45 | XMS_ITS ---
Author Organization Seun Edwards III, MD Address [address] [place] [address] [place] [address] Care Team Providers Care Reporting Specialist Name Role Phone Dr. Seun Edwards III Primary Care Provider Medications Medication SIG (Take, Route, Fr equency, Duration) Notes Start Date End Date Status Diflucan 150 MG 1 tablet Orally once for 1 days 11/23/2024 Active Social History Sex Assigned At : Social History Observation Description Sex Assigned At Female Encounters Encounter Location Date Provider Diagnosis Seun Edwards III, MD [address] [place] [address] [place] [address] 11/21/2024 Seun Edwards Plan Of Treatment Medication Medication Name Sig Start Date Stop Date Notes Diflucan 150 MG 1 tablet Orally once for 1 days 11/21/2024 11/23/2024 Next Appt Details Provider Name:Seun Edwards , 08/31/2025 04:00:00 PM, [address] [place] [address] [place], [address], Progress Notes * Pippa MARTINEZ ADOB:[birth year] (49 yo F)Acc No.[id number]:11/21/2024 Patient: Nhan Pippa DIA :1975 A ge:49 Y S ex:Female Address:[address] [place] [address], [place] [address] * Refills Start Diflucan Tablet, 150 MG, Orally, 1, 1 tablet, once, 1 days, Refills=1 * true * Date: Generated for Maria Luz fitzgerald/Tao/Manolo on: 07:52 AM EST
--- OUTSIDE RECORDS SUMMARY | 2024-11-24 11:13 | XMS_ITS ---
Author Organization Seun Edwards III, MD Address [address] [place] [address] [place] [address] Care Team Providers Care Professor Of Physical Education Name Role Phone Dr. Seun Edwards III Primary Care Provider Reason For Referral Reason Evaluate and Treat Routine Gynecological Examination Diagnosis 1 Routine gynecologica l examination (Z01.419) Referral Organization Seun Edwards III, MD Referring Provider First Name Seun Referring Provider Last Name Jerry Referring Provider Speciality Internal M edicine Referred Organization [facility] nter Referred Provider [facility] er, WATER FILTRATION TECHNICIAN & Midwifery Referred Address [address] [place] [phone], Referred Provider Specialty OB - Gynecol ogy General Notes DRachel 11/24/2024 04:39:14 PM > Referral faxed Referral Priority Routine Referral Appointment Date 03/17/2025 REASON FOR VISIT Referral Social History Sex Assigned At : Social History Observation Description Sex Assigned At Female Encounters Encounter Location Date Provider Diagnosis Seun Edwards III, MD [address] [place] [address] [place] [address] 11/24/2024 Seun Edwards Plan Of Treatment Referrals Referral Date Details 11/24/2024 11/24/2024, Evaluate and Treat Routine Gynecological Examination, WATER FILTRATION TECHNICIAN & Midwifery [facility], [address] [place] [address], [phone], Next Appt Details Provider Name:Seun Nikky Edwards , 08/31/2025 04:00:00 PM, [address] [place] [address] [place], [address], Progress Notes * Pippa MARTINEZ ADOB:[birth year] (49 yo F)Acc No.[id number]:11/24/2024 Patient: Pippa CALVIN :1975 A ge:49 Y S ex:Female Address:[address] [place] [address] Subjective: * Chief Complaints: * R eferral * Medical History: * Surgical History: * Hospitalization/Major Diagno stic Procedure: * Medications: Objective: * Vitals: * Physical Examination: Assessment: Plan: * Treatment: * Procedure Codes: * true * Date: Generated for Thomasi lia/Tao/eTransmitting on: 07:51 AM EST Consultation Request Notes Referral Date Referring Provider Referred Provider Not es 11/24/2024 Jerry [facility], WATER FILTRATION TECHNICIAN & Midwifery Evaluate and Treat Routine Gynecological Examination
--- OUTSIDE RECORDS SUMMARY | 2025-04-16 08:16 | XMS_ITS ---
Author Organization Seun Edwards III, MD Address [address] [place] [address] [place] [address] Care Team Providers Care Pencil Maker Name Role Phone Dr. Seun Edwards III Primary Care Provider REASON FOR VISIT new onset pleuritic chest discomfort Social History Sex Assigned At : Social History Observation Description Sex Assigned At Female Encounters Encounter Location Date Provider Diagnosis Seun Ewdards III, MD [address] [place] [address] [place] [address] 04/16/2025 Seun Edwards Plan Of Treatment Next Appt Details Provider Name:Seun Edwards , 08/31/2025 04:00:00 PM, [address] [place] [address] [place], [address], Progress Notes * Pippa MARTINEZ ADOB:[birth year] (49 yo F)Acc No.[id number]:04/16/2025 Patient: Nhan Pippa DIA :1975 A ge:49 Y S ex:Female Address:[address] [place], [place] [address] [address] * true * Date: Generated for Printi ng/Faxing/eTransmitting on: 07:52 AM EST
--- OUTSIDE RECORDS SUMMARY | 2025-04-17 04:00 | XMS_ITS ---
Author Organization Seun Edwards III, MD Address [address] [place] [address] [place] [address] Care Team Providers Care Melter Loader Name Role Phone Dr. Seun Edwards III Primary Care Provider [phone] Allergies Allergen (clinical drug ingredient) Drug/Non Drug [...] W/U Status Risk Notes Problem Pleuritic pain (7196691) Pleuritic chest pain (R07.81) Active confirmed This [...] Date Provider Diagnosis Seun Edwards III, MD [address] [place] [address] [place] [address] 04/17/2025 Seun Edwards Pleuritic chest pain R07.81 [...] Provider Name:Seun Edwards , 08/31/2025 04:00:00 PM, [address] [place] [address] [place], [facility], [address], Progress Notes * Pippa MARTINEZ ADOB:[birth year] (49 yo F)Acc No.[id number]:04/17/2025 Progress Notes Patient: Nhan Pippa DIA Provider: [...] mass upper outer left breast, benign, , [facility] 08/2016left breast lumopectomy by Dr Serna 06/26/2023olonoscopy Dr. Barraza 04/21/2024No history * Hospitalization/Major Diagno stic Procedure: N o history * Family History: F ather: alive 56 yrs, hypertension, diagnosed with HTN. M other: alive 56 yrs, SVT, Hyperthyroidism, [place], diagnosed with CVD. P aternal Grand Father: 72 yrs, lung cancer, diagnosed with Cancer. M aternal Grand Mother: alive, alzheimer. 1 sister(s) - healthy. 1 son(s) , 2 daughter(s) - healthy. . There is no history of breast cancer on her mother's side. 2 of her father's sisters had breast cancer in the past in [place]. * Social History: T obacco Use: T [...] 04/17/2025 Generated for Maria Luz fitzgerald/Tao/Manolo on: 07:51 AM EST History and Physical Notes * [...]
--- OUTSIDE RECORDS SUMMARY | 2025-04-21 10:09 | XMS_ITS ---
Author Organization Seun Edwards III, MD Address [address] [place] [address] [place] [address] Care Team Providers Care Casino Change Attendant Name Role Phone Dr. Seun Edwards III Primary Care Provider REASON FOR VISIT FYI only Social History Sex Assigned At : Social History Observation Description Sex Assigned At Female Encounters Encounter Location Date Provider Diagnosis Seun Edwards III, MD [address] [place] [address] [place] [address] 04/21/2025 Seun Edwards Plan Of Treatment Next Appt Details Provider Name:Seun Edwards , 08/31/2025 04:00:00 PM, [address] [place] [address] [place], [address], Progress Notes * Pippa MARTINEZ ADOB:[birth year] (49 yo F)Acc No.[id number]:04/21/2025 Patient: Nhan Pippa DIA :1975 A ge:49 Y S ex:Female Address: [place] [address] * true * Date: Generated for Printi ng/Faxing/eTransmitting on: 07:52 AM EST
--- OUTSIDE RECORDS SUMMARY | 2025-04-24 12:00 | XMS_ITS ---
Author Organization Seun Edwards III, MD Address [address] [place] [address] [place] [address] Care Team Providers Care Infusion Nurse Name Role Phone Dr. Seun Edwards III [...] Laxative 8.6 MG 2 tablets at bedti co as needed Orally Once a day Active [...] Provider Diagnosis Seun Edwards III, MD [address] [place] [address] [address] [place] [address] 04/24/2025 Seun Edwards Plan Of Treatment Medication [...] Name:Seun Edwards , 08/31/2025 04:00:00 PM, [address] [place] [address] [address], [place], [address], Progress Notes * Pippa MARTINEZ ADOB:[birth year] (50 yo F)Acc No.[id number]:04/24/2025 Progress Notes Patient: Pippa CALVIN Provider: Andrés Edwards MD :1975 A ge:49 Y S ex:Female Date:04/24/2025 Address: [address] [id number] Subjective: * Chief Complaints: * 1 . [...] mass upper outer left breast, benign, , [facility] 08/2016, left breast lumopectomy by Dr Serna 06/26/2023, Colonoscopy Dr. Barraza 04/21/2024, No history . * Hospitalization/Major Diagno stic Procedure: N o history . * Family History: F ather: alive 56 yrs, hypertension, diagnosed with HTN. M other: alive 56 yrs, SVT, Hyperthyroidism, [place], diagnosed with CVD. P aternal Grand Father: 72 yrs, lung cancer, diagnosed with Cancer. M aternal Grand Mother: alive, alzheimer. 1 sister(s) - healthy. 1 son(s) , 2 daughter(s) - healthy. . There is no history of breast cancer on her mother's side. 2 of her father's sisters had breast cancer in the past in [place]. * Social History: T obacco Use: T [...] 04/24/2025 Generated for Maria Luz fitzgerald/Tao/Manolo on: 07:51 [...]
--- OUTSIDE RECORDS SUMMARY | 2025-05-15 04:45 | XMS_ITS ---
Author Organization Senu Edwards III, MD Address [address] [place] [address] [place] [address] Care Team Providers Care Rag Room Supervisor Name Role Phone Dr. Seun Edwards [...] Date Provider Diagnosis Seun Edwards III, MD [address] [place] [address] [place] [address] 05/15/2025 Seun Edwards Recent weight loss R63.4 [...] Provider Name:Seun Edwards , 08/31/2025 04:00:00 PM, [address] [place] [address] [address], [place], [address], Progress Notes * Pippa MARTINEZ ADOB:[birth year] (49 yo F)Acc No.[id number]:05/15/2025 Progress Notes Patient: Pippa CALVIN Provider: Andrés Edwards MD :1975 A ge:49 Y S ex:Female Date:05/15/2025 Address:[address] [place] [address] [id number] Subjective: * Chief Complaints: * N osmany ppain from Chiari 1 syndromeCervicothoracic syrinxInsomniaGERD * HPI: C OVID-19 Screening: The neck pain has improved and is back at baseline, which is still significant. 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 The recent MRI of the [...] mass upper outer left breast, benign, , [facility] 08/2016left breast lumopectomy by Dr Serna [...] had breast cancer in the past in [place]. * Social History: T obacco Use: T [...] 05/15/2025 Generated for Maria Luz fitzgerald/Tao/Joseitting on: 07:51 AM EST History and Physical [...]
--- OUTSIDE RECORDS SUMMARY | 2025-08-19 04:51 | XMS_ITS ---
Author Organization Seun Edwards III, MD Address [address] [place] [address] [place] [address] Care Team Providers Care Library Circulation Clerk Name Role Phone Dr. Seun Edwards III Primary Care Provider REASON FOR VISIT Message Social History Sex Assigned At : Social History Observation Description Sex Assigned At Female Encounters Encounter Location Date Provider Diagnosis Seun Edwards III, MD [address] [place] [address] [place] [address] 08/19/2025 Seun Edwards Plan Of Treatment Next Appt Details Provider Name:Seun Edwards , 08/31/2025 04:00:00 PM, [address] [place] [address] [place], [phone], Progress Notes * Pippa MARTINEZ ADOB:[birth year] (50 yo F)Acc No.[id number]:08/19/2025 Patient: Nhan Pippa DIA :1975 A ge:50 Y S ex:Female [facility] [place] [address] * true * Date: Generated for Printi ng/Faxing/eTransmitting on: 07:52 AM EST
--- NOTE | 2025-08-24 07:48 | A.OFFVIS_ITS ---
Vital Signs 08/24/25 07:56 Height 5 ft 4 in Weight 115 lb BMI 19.7 BP 108/82 Blood Pressure Location Lt brachial Position Sitting Respiration 16 Pulse 76 Pulse Source Pulse Oximeter Pulse Oximetry (%) 99 Oxygen Delivery Method Room Air Intake Visit Reasons: 1M Bottle Packer Required: No Allergies bisacodyl (From Dulcolax (bisacodyl)) Adverse Reaction (Unknown, Verified 08/24/25 07:57) Dizziness trazodone Adverse Reaction (Unknown, Verified 08/24/25 07:57) insomnia, nightmares tramadol Adverse Reaction (Verified 08/24/25 07:57) Nausea and Vomiting HPI Comments Details: Pippa is a 50-year-old female patient with a past medical history of IBS, GERD, Chiari 1 malformation, constipation, and Raynaud's who is here today for a follow-up visit. She has a history of migraine-type headaches and has had a longstanding history of headache in general. A proximally 15 years ago she was diagnosed with a Chiari 1 malformation which she believes was at 7 mm upon initial diagnosis and is now at 10 mm. She has been seen by Dr. Islas at [facility] for evaluation and potential Chiari decompression. She has a scheduled decompression on September 09 2025. At the time of our initial visit, headaches were described as being daily fluctuating in intensity. Her pain was predominantly to the occipital area but radiating to the retro-orbital area bilaterally but worse on the left. When headaches became more intense she had accompanying light and sound sensitivity, nausea, and tinnitus of the right ear with a high-pitched but sometimes whooshing sound. She also noted associated trapezius pain on both sides. Her pain has historically been worse with bending down and bearing down. Headaches not significantly better when she is in the leg position and in fact she has to sleep at a slightly elevated position to avoid having pain at night. She has been getting acupuncture every 2 weeks which has significantly improved her pain. At the time of our last visit I started her on Ajovy 225mg monthly injections and advised that she continue the baclofen with more regular administration. She tells me it since the time of our last visit her headaches have improved significantly especially in regards to her retro-orbital pain which is often worse on the left. She does however note that a couple days after our last visit she broke her glasses and is now wearing her old ?nonprogressive? lenses. She feels that the switching glasses may also be a factor in her headache improvement. Overall, she is happy with the headache control she has had over the course of the last month and took her last Ajovy injection a couple of days ago. She does still plan to have Chiari decompression surgery on 09/09/2025. Headache characteristics: Time of onset: Worse over the course of the last year but ongoing intermittently for many years Location: Occipital Radiation: Retro-orbital areas Positional component: Not significantly but headaches are worse if laying flat, bearing down, or with bending down Character: Pressure and throbbing Severity: Moderate Duration: For the greater part of the day Frequency: Daily Acute aggravating factors:[] Acute relieving factors:[] Associated symptoms:When headaches become intense she can have light and sound sensitivity as well as nausea and tinnitus to the right ear with high pitched and sometimes wooshy sounding. Aura:No Other related background information: Sleep:Sleeps well getting about 7hours per day Hydration:Hydrates well Caffeine intake:1 cup coffee per day Alcohol intake: Twice per week Substance use:No Tobacco use:No Last eye exam: About 1 year ago History of head injury:Fall 12yrs age and hit head with LOC Past medication trials: NSAIDS- Some improvement Cyclbenzaprine- Minimal benefit Propranolol- Worsening of reynauds Amitriptyline- Profound somnolence even at low dose Trigger point injections and acupuncture- Helpful in the past Baclofen- Significant improvement Prior workup: CT head 06/05/2025 Findings: The ventricles are normal in configuration. Basilar cisterns intact. No intracranial hemorrhage, mass-effect or midline shift. No extra-axial fluid collections. The parenchyma is unremarkable in attenuation. Marx-white matter junction preserved. No evidence of acute large vessel or territorial ischemia. Partially imaged tonsillar ectopia. The calvarium is intact. The imaged portion of the paranasal sinuses are clear. No mastoid effusions. The orbital contents are unremarkable. Impression: 1. No CT evidence of acute intracranial pathology. Tonsillar ectopia. 05/07/2025 IMPRESSION: Chiari type I malformation with likely prominent/congenital central spinal cord canal from C5 to T1. Cervical spondylosis C3-4 and C4-5 without cord compression and mild right neuroforamina stenosis. 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 No abnormal enhancement. No acute fracture or listhesis or cord compression. Correlated to recent MRI cervical spine posterior Chiari type II. [facility] Medical History Tension headache PONV (postoperative nausea and vomiting) Depression Uterine polyp Venous insufficiency of both lower extremities Peripheral venous insufficiency Varicose vein of leg 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, cervical History of torn meniscus of left knee IBS (irritable bowel syndrome) GERD (gastroesophageal reflux disease) Surgical History H/O colonoscopy History of surgery on lower extremity (06/25/23) History of lumpectomy of left breast (06/25/23) History of cervical discectomy (~2010) H/O left breast biopsy (~08/2016) Family History Maternal Aunt History of lung cancer Paternal Aunt History of breast cancer Paternal Grandfather History of lung cancer Mother History of breast cancer Social History Are you a primary team primary care physician to a significant other at home: No Do you presently have visiting nurse or other home services: No Alcohol intake: current Alcohol intake frequency: holidays/special occasions only Alcohol type: wine Patient Tobacco Use Status: Never used Tobacco Female Reproductive History Menstrual Age of Menarche: 13 Review of Systems Const All systems reviewed & are unremarkable except as noted in HPI and below Physical Exam Vital Signs: Last Vital Signs Pulse 76 08/24/25 07:56 Resp 16 08/24/25 07:56 BP 108/82 08/24/25 07:56 Pulse Ox 99 08/24/25 07:56 Oxygen Delivery Method Room Air 08/24/25 07:56 BMI result Body Mass Index 19.7 Const General: cooperative, healthy appearing, comfortable and no acute distress Nutritional Appearance: well nourished Orientation/consciousness: patient oriented x3 Limitations: no limitations HEENT Head: Yes normal to inspection and Yes normocephalic Eyes General: appearance normal, both eyes and all related structures Visual Randolph: normal visual randolph by confrontation Alignment and Position: alignment normal Periorbital: periorbital findings normal Eyelids: Yes eyelids normal Conjunctivae: conjunctivae normal Sclerae: sclerae normal Direct Ophthalmoscopy: normal light reflex, no papilledema and fundi normal bilaterally Neck Neck: Yes normal visual inspection and Yes full ROM General: Yes no CVA tenderness Back/Spine/Pelvis Other: Bilateral trapezius trigger points and tightening. Back: no CVA tenderness Cervical Spine: cervical spasm Thoracic/Lumbar Spine: thoracic and lumbar spine normal to inspection Neuro General: patient oriented x3, tone normal and deep tendon reflexes 2+ bilaterally Cranial nerves: Yes CN's II-XII intact bilaterally and Yes Facial sensation intact/muscles of mastication intact Cognition (Neuro): normal cognition Gait exam (Neuro): Normal gait present Motor exam (neuro): 5/5 motor strength present throughout and no tremor noted Sensory Exam: double simultaneous stimulation for sensation normal Romberg Test: Negative Pupils: Normal pupillary reactivity/response: bilateral Psych Appearance: grossly normal Mental Status: mental status grossly normal Speech and movement: Normal speech and movement present and Clear speech present Affect: normal affect Attitude: cooperative Thought process: Normal thought process present Thought content: Normal thought content present Insight: Good insight present (Psych) Judgement: Good judgement present (Psych) Assessment & Plan Assessment & Plan (1) Myofascial pain: Code(s): M79.18 - Myalgia, other site Category: Medical (2) Trigger point of shoulder region: Code(s): M25.519 - Pain in unspecified shoulder Category: Medical (3) Chronic migraine without aura without status migrainosus, not intractable: Code(s): G43.709 - Chronic migraine without aura, not intractable, without status migrainosus Category: Medical (4) Chiari I malformation: Code(s): G93.5 - Compression of brain Category: Medical Plan Pippa is a 50-year-old female patient with a past medical history of IBS, GERD, Chiari 1 malformation, constipation, and Raynaud's who is here today for a follow up visit. Based on her initial history, exam, and imaging, headaches are likely multifactorial including migraine-type headaches, trigger points of the trapezius area and likely myofascial component, as well as likely pain due to Chiari malformation. She is currently on baclofen which was recently started and she is having good effect with this. At time of last visit, I did advise to continue this more regularly. For migraine management, I started her on Ajovy 225 mg monthly started with a sample injection here in the office at last visit. She took her 2nd injection couple of days ago. Headaches have improved significantly however she does still wished to proceed w ith her Chiari decompression surgery with Dr. Wilson at [facility] on 09/09/2024. I will plan to see her after her procedure. -continue baclofen 5 mg daily -continue Ajovy injections to 25 mg monthly -Chiari decompression surgery for his Dr. Islas 09/09/2025 -continue with acupuncture every 2 weeks -follow up here in about 6 weeks Coding Level of Care Code Est Pt Level 3 (19206) Diagnoses Myofascial pain M79.18 Trigger point of shoulder region M25.519 Chronic migraine without aura without status migrainosus, not intractable G43.709 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
--- OUTSIDE RECORDS SUMMARY | 2025-08-24 07:51 | XMS_ITS | Patient Health Record ---
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 Name Role Phone Seun Edwards MD Primary Care Provider Unavailab geneva LawierBen Unavailable [phone] Reason For Referral No Information Medications Medication [...] Status W/U Status Risk Notes Problem Dermatitis (552466926) Dermatitis (692.9) Active confirmed Problem Keratoma (49098882) Keratoma (701.1) Active confirmed Problem Pain in limb (82791094) Pain in Limb (729.5) Active confirmed Problem Pruritic disorders (907357777) Pruritis (698.9) Active confirmed Problem Verruca plantaris (75040409) Verruca Plantaris (078.19) Active confirmed Confirmed by Bx Plan Of Treatment Pending Test Test Name Order Date [id number] Destruction, 1-14 07/09/2014 [id number] Biopsy 0.5cm 06/18/2014 Insurance Providers Payer Name Payer Address Payer Phone Subscriber Number Group Number Insured Name Patient Relationship to Insured Coverage Start Date Coverage End Date [address] [place] [id number] [id number] Tristen Packer Spouse - patient is the spouse of the insured Medical (General) History Medical History History ICD Code Headaches Chicken pox Migraines Surgical History Surgery Date(Month/Year) herniated disk repair
--- OUTSIDE RECORDS SUMMARY | 2025-08-24 07:53 | XMS_ITS | Patient Health Record ---
Author Organization Seun Edwards III, MD Address [address] [place] [address] [address] [place] [address] Care Team Providers Care Staff Design Engineer Name Role Phone Dr. Seun Edwards [...] Microscopic Reviewed date:10/19/2024 09:14:09 AM Interpretation: Performing Lab:[address] [address] Notes/Report: Color Urine Yellow Appearance Urine Clear PH 6.5 5.0-9.0 Glucose Urine UA Negative Negative mg/dL Urine Blood Negative Negative Specific [place] - Urine <= 1.005 1.005-1.025 Urine Protein Negative Neg-Trace mg/dL Urine Ketones Negative Negative mg/dL Nitrite Urine Negative Negative Leukocyte Esterase Urine Small (1+) Negative RBC Urine 0-2 0-2 /HPF WBC Urine 0-5 0-5 /HPF Squamous Epithelial Cell Urine 0-2 0-2 /HPF Bacteria Urine None Seen None Seen Hyaline Casts Urine 0-2 0-2 /LPF Urine Culture Reviewed date:10/19/2024 09:14:09 AM Interpretation: Performing Lab:[facility] [address] Notes/Report: Urine Culture Report Result Urine Culture 50,000 to 100,000 cfu/ml Urine Culture Mixed bacterial luis a characteristic of Urine Culture urogenital contamination. Ur Preg Test Reviewed date:12/13/2024 07:21:39 AM Interpretation: Performing Lab:[facility], [address] [place] [phone] Notes/Report: Urine NEGATIVE NEGATIVE This test was developed to detect early . False negative results may occur after the 5th - 7th week of when using this test method. If clinically indicated, consider a serum hCG. Urine Culture Reviewed date:12/13/2024 07:21:39 AM Interpretation: Performing Lab:[address] [address] Notes/Report: Urine Culture No growth. Urinalysis and Microscopic Reviewed date:01/25/2025 08:15:48 PM Interpretation: Performing Lab:[address] [address] Notes/Report: Color Urine Yellow Appearance Urine Clear PH 7.0 5.0-9.0 Glucose Urine UA Negative Negative mg/dL Urine Blood Negative Negative Specific [place] - Urine <= 1.005 1.005-1.025 Urine Protein Negative Neg-Trace mg/dL Urine Ketones Negative Negative mg/dL Nitrite Urine Negative Negative Leukocyte Esterase Urine Negative Negative RBC Urine 0-2 0-2 /HPF WBC Urine 0-5 0-5 /HPF Squamous Epithelial Cell Urine 0-2 0-2 /HPF Bacteria Urine None Seen None Seen Hyaline Casts Urine 0-2 0-2 /LPF Urine Culture Reviewed date:01/25/2025 08:15:48 PM Interpretation: Performing Lab:[address] [address] Notes/Report: Urine Culture No growth. Complete Blood Count Auto Di ff Reviewed date:04/19/2025 05:05:46 AM Interpretation: Performing Lab:[address] [address] Notes/Report: White Blood Count 4.8 4.8-10.8 X10*3/uL [...] Panel Reviewed date:04/19/2025 05:05:46 AM Interpretation: Performing Lab:[facility], [address] [place] [address] Notes/Report: Sodium 141 135-145 mmol/L Potassium 4.1 [...] Sensitivity Reviewed date:04/19/2025 05:05:46 AM Interpretation: Performing Lab:[facility], [address] [place] [address] Notes/Report: D Dimer High Sensitivity < 150 [...] date:04/19/2025 05:05:46 AM Interpretation: Performing Lab: Notes/Report: [address] [address] XRay Report Signed Patient: Pippa Martinez MR#: [id number] : 1975 Acct:[id number] Age/Sex: 49 / F ADM Date: 04/17/25 Loc: HO.LAB Attending Dr: Seun Edwards MD Ordering Physician: Seun Edwards MD Date of Service: 04/17/25 Procedure(s): XR chest 2V Accession Number(s): [id number] cc: Seun Edwards MD EXAMINATION: XR CHEST [...] 04/17/25 1040 DD/ 1012 TD/TT: 04/17/25 1017 Barber Apprentice: [address] [address] XRay Report Signed Patient: Pippa Martinez MR#: [id number] : 1975 Acct:[id number] Age/Sex: 49 / F ADM Date: 04/17/25 Loc: HO.LAB Attending Dr: Seun Edwards MD Ordering Physician: Seun Edwards MD Date of Service: 04/17/25 Procedure(s): XR chest 2V Accession Number(s): [id number] cc: Seun Edwards MD EXAMINATION: XR CHEST [...] 04/17/25 1040 DD/ 1012 TD/TT: 04/17/25 1017 Barber Apprentice: MR thoracic spine wo/w con Reviewed date:05/18/2025 05:45:57 AM Interpretation: Performing Lab: Notes/Report: [address] [address] Magnetic Resonance Report Signed Patient: Pippa Martinez MR#: [id number] : 1975 Acct:[id number] Age/Sex: 49 / F ADM Date: 05/07/25 Loc: HO.MRI Attending Dr: Seun Edwards MD Ordering Physician: Seun Edwards MD Date of Service: 05/07/25 Procedure(s): MR thoracic spine wo/w con Accession Number(s): [id number] cc: Seun Edwards MD Reason for Exam: [...] 05/07/25 1511 DD/ 1317 TD/TT: 05/07/25 1345 Barber Apprentice: [address] [address] Magnetic Resonance Report Signed Patient: Pippa Martinez MR#: [id number] : 1975 Acct:[id number] Age/Sex: 49 / F ADM Date: 05/07/25 Loc: HO.MRI Attending Dr: Seun Edwards MD Ordering Physician: Seun Edwards MD Date of Service: 05/07/25 Procedure(s): MR haque spine wo/w con Accession Number(s): [id number] cc: Seun Edwards MD Reason for Exam: [...] 05/07/25 1511 DD/ 1317 TD/TT: 05/07/25 1345 Barber Apprentice: MR cervical spine wo/w con Reviewed date:05/18/2025 05:45:57 AM Interpretation: Performing Lab: Notes/Report: [address] [address] Magnetic Resonance Report Signed Patient: Pippa Martinez MR#: [id number] : 1975 Acct:[id number] Age/Sex: 49 / F ADM Date: 05/07/25 Loc: HO.MRI Attending Dr: Seun Edwards MD Ordering Physician: Seun Edwards MD Date of Service: 05/07/25 Procedure(s): MR cervical spine wo/w con Accession Number(s): [id number] cc: Seun Edwards MD Reason for Exam: [...] 05/07/25 1424 DD/ 1247 TD/TT: 05/07/25 1348 Barber Apprentice: [place] [address] Magnetic Resonance Report Signed Patient: Pippa Martinez MR#: [id number] : 1975 Acct:[id number] Age/Sex: 49 / F ADM Date: 05/07/25 Loc: HO.MRI Attending Dr: Seun Edwards MD Ordering Physician: Seun Edwards MD Date of Service: 05/07/25 Procedure(s): MR cer vical spine wo/w con Accession Number(s): [id number] cc: Seun Edwards MD Reason for Exam: [...] 05/07/25 1424 DD/ 1247 TD/TT: 05/07/25 1348 Barber Apprentice: CT head/brain wo con Reviewed date:06/08/2025 08:49:29 AM Interpretation: Performing Lab: Notes/Report: [place] [address] CT Scan Report Signed Patient: Pippa Martinez MR#: [id number] : 1975 Acct:[id number] Age/Sex: 49 / F ADM Date: 06/05/25 Loc: .ED Attending Dr: Ordering Physician: Makenzie Bull DO Date of Service: 06/05/25 Procedure(s): CT head/brain wo IV con Accession Number(s): [id number] cc: Seun Edwards MD; Makenzie Bull DO Report Number: [id number]: Total DLP = 498.00 mGy-cm Reason for [...] in OV> 06/05/25641 DD/ 0 TD/TT: 06/05/25640 Barber Apprentice: [place] [address] CT Scan Report Signed Patient: Pippa Martinez MR#: [id number] : 1975 Acct:[id number] Age/Sex: 49 / F ADM Date: 06/05/25 Loc: HO.ED Attending Dr: Ordering Physician: Makenzie Bull DO Date of Service: 06/05/25 Procedure(s): CT head/brain wo IV con Accession Number(s): [id number] cc: Seun Edwards MD; Makenzie Bull DO [...] in OV> 06/05/25641 DD/ 0 TD/TT: 06/05/25640 Barber Apprentice: Pap Smear Reviewed date:07/03/2025 05:57:43 AM Interpretation: Performing Lab:[facility], [address] [place] [phone] Notes/Report: ----- Name: Nico Martinez constance Butt Age/Sex: 50/F : 1975 Unit#: [id number] Attend Dr: Wanda Larkin CNM Re06/26/25 Status : DEP REF Location: [facility] Disch: ----- SPEC : [id number] REC STATUS: VINNIEEugenia JESSICA NUM: [id number] DARSHAN: 06/26/25-1299 DR: Wanda Larkin CNM ENTERED: [...] Received ThinPrep-Cervical Copies To: Edwards,Seun MD [address] [place] [address] Wanda Larkin CNM [facility] [address] [place] [address] ----- Signed (signature on file) ELAN Mueller (ASCP) 07/02/25 1203 ----- END OF REPORT HPV High risk Reviewed date:07/03/2025 05:57:43 AM Interpretation: Performing Lab:[facility], [address] [place] [phone] Notes/Report: HPV High Risk Negative Negative HPV Genotype 16 Negative Negative HPV Genotype 18 Negative Negative HPV testing performed at [facility] (CLIA #[id number]), [address] [place] [address]. Testing for HPV was performed using the [...] Test Reviewed date:07/30/2025 01:11:32 PM Interpretation: Performing Lab:[facility], [address] [place] [phone] Notes/Report: Urine NEGATIVE NEGATIVE This test was developed to detect early . False negative results may occur after the 5th - 7th week of when using this test method. If clinically indicated, consider a serum hCG. Pathology Reviewed date:08/17/2025 05:45:42 AM Interpretation: Performing Lab:[facility], [address] [place] [phone] Notes/Report: ----- Name: Nico Martinezque Butt Age/Sex: 50/F : 1975 Unit#: [id number] Attend Dr: Magdalene Briones MD Re07/30/25 Status : [facility] Location: [facility] Disch: ----- SPEC : [id number] RECD : 07/30/25 STATUS: KATJA LOPEZ NUM: [id number] DARSHAN: 07/30/[address] [address]: Magdalene Briones MD ENTERED: 07/30/25- 36 [...] constance Butt Age/Sex: 50/F : 1975 Unit#: [id number] Attend Dr: Magdalene Briones MD Re07/30/25 Status : [facility] Location: [facility] Disch: ----- SPEC : [id number] RECD : 07/30/25 STATUS: KATJA LOPEZ NUM: [id number] DARSHAN: 07/30/[address] [address]: Magdalene Briones MD ENTERED: 07/30/25 36 SP TYPE: [...] developed and their performance characteristics determined by [facility]. They have not been cleared or appr tona by the U.S. Food and Drug Administration (FDA). However, the FDA has determined that such clearance or approval is not necessary. This laboratory is certified under the Clinical Laboratory Improvement Amendments of 1988 (CLIA) as qualified to perform high complexity clinical laboratory testing. Copies To: Seun Edwards MD [address] [address] Magdalene Briones MD [facility] [address] [place], [place] [id number] [email or web address] ----- Signed (signature on file) Scooter Knott MD 08/03/25 1522 ----- END OF REPORT Vitamin D 25-OH (D2 and D3) (Not yet reviewed by provider) Interpretation: Performing Lab:[facility], [address] [place] [phone] Notes/Report: Vitamin D 25-OH, D2 <4 This test was developed and its analytical performance characteristics have been determined by [employer] [place], [place]. It has not been cleared or approved by the U.S. Food and Drug Administration. This assay has been validated pursuant to the CLIA regulations and is used for clinical purposes. THIS TEST WAS PERFORMED AT: [facility] [id number] [place] [address] CORBY MORGAN MD,PHD Vitamin D 25-OH, D3 36 This test was developed and its analytical performance characteristics have been determined by [employer] [place], [place]. It has not been cleared or approved by the U.S. Food and Drug Administration. This assay has been validated pursuant to the CLIA regulations and is used for clinical purposes. Vitamin D 25-OH, Total 36 30-100 ng/mL Vitamin D, 25-Hydroxy reports concentrations of two common forms, 25-OHD2 and 25-OHD3. 25-OHD3 indicates both endogenous production and supplementation. 25-OHD2 is an indicator of exogenous sources such as diet or supplementation. Therapy is based on measurement of Total 25-OHD, with levels <20 ng/mL indicative of Vitamin D deficiency, while levels between 20 ng/mL and 30 ng/mL suggest insufficiency. Optimal levels are > or = 30 ng/mL. For additional information, please refer to http://education.[employer]/faq/FA C145 (This link is being provided for informational/ educational purposes only.) Comprehensive Met. Panel Reviewed date:08/20/2025 06:58:25 AM Interpretation: Performing Lab:[address] [address] Notes/Report: Sodium 141 135-145 mmol/L Potassium 4.0 [...] Panel Reviewed date:08/20/2025 06:58:25 AM Interpretation: Performing Lab:[facility], [address] [place] [phone] Notes/Report: Triglycerides 104 <150 mg/dL Desirable Triglyceride: [...] Lipase Reviewed date:08/20/2025 06:58:25 AM Interpretation: Performing Lab:[facility], [address] [place] [phone] Notes/Report: Lipase 29 8-78 U/L Vitamin B12 and Folate Reviewed date:08/20/2025 06:58:25 AM Interpretation: Performing Lab:[facility], [address] [place] [phone] Notes/Report: Vitamin B12 436 200-900 pg/mL NORMAL 200-900 PG/ML INDETERMINATE 160-199 PG/ML DEFICIENT < 160 PG/ML Folate 12.8 > or = 4.0 ng/mL Reference Values: > or = 4.0 ng/mL < 4.0 ng/mL suggests folate deficiency Methotrexate, aminopterin and folinic acid (leucovorin) are chemotherapeutic agents whose molecular structures are similar to folate; therefore, the [employer] folate assay cannot be used for patients using these drugs. Transglutaminase Ab IgG Reviewed date:08/23/2025 11:35:00 AM Interpretation: Performing Lab:[facility], [address] [place] [phone] Notes/Report: Transglutaminase Ab IgG <1.0 Value Interpretation ----- <15.0 Antibody not detected > or = 15.0 Antibody detected THIS TEST WAS PERFORMED AT: [employer] [facility] [address] [place] [phone] ELISABETH HUGO MD Transglutaminase IgA Reviewed date:08/23/2025 11:35:00 AM Interpretation: Performing Lab:[facility], [address] [place] [phone] Notes/Report: Transglutaminase IgA <1.0 Value Interpretation ----- <15.0 Antibody not detected > or = 15.0 Antibody detected THIS TEST WAS PERFORMED AT: [facility] [employer] [facility] [address] [place] [phone] ELISABETH HUGO MD Reason For Referral Reason Evaluate and Treat Routine Gynecological Examination Diagnosis 1 Routine gynecologica l examination (Z01.419) Referral Organization Seun Edwards III, MD Referring Provider First Name Seun Referring Provider Last Name Jerry Referring Provider Speciality Internal edicine Referred Organization [facility] Referred Provider [facility] er, [facility] Referred Address [address] [place] [address],[place], [id number], Referred Provider Specialty OB - Gynecol ogy [...] Referring Provider Speciality Internal edicine Referred Provider [facility] Referred Provider Specialty Dermatology General Notes D, 02/06/2025 04:08:34 PM > referral faxed per patient request, D, 02/10/2025 02:21:44 PM > patient has not reached out to the office to schedule an appointment at this time, D02/25/2025 02:40:12 PM > [facility] stated they have reached out to the patient to schedule an appointment. Dr. Edwards office has reached out to the patient to have them contact [facility] to schedule an appointment. Message was left. Referral Priority Routine Referral Appointment Date 05/13/2025 Reason Evaluate and Treat 2nd referral Diagnosis 1 Headache, unspecifie d (R51.9) Diagnosis 2 Chiari I malformatio n (G93.5) Referral Organization Seun Edwards III, MD Referring Provider First Name Seun Referring Provider Last Name Jerry Referring Provider Speciality Internal edicine Referred Provider Neurology [facility] Referred Provider Specialty Neurology General Notes D, 02/06/2025 04:08:10 PM > Per patient request referral faxed, D05/13/2025 03:08:57 PM > Patient does not need [...] Provider Speciality Internal M edicine Referred Provider [facility] Referred Provider Specialty Allergy/Immu nology General Notes Rachel Sepulveda 02/06/2025 04:09:52 PM > Per patient request referral faxed., Rachel Sepulveda 02/25/2025 02:50:37 PM > [facility] has received the referral no [...] 145 MCG TAKE 1 CAPSULE BY [place] [facility] AT LEAST 30 MINUTES BEFORE THE FIRST [...] Status W/U Status Risk Notes Problem Headache (43351909) Headache (R51) Active confirmed Her headac hes originate in the Chiari malformation. They have worsened lately. She has been referred back to neurosurgery for opinion and to pain management to consider analgesic procedures. Problem Syringomyelia and syringobulbia (341753844) Syringomyelia and syringobulbia (G95.0) Active confirmed She is going to have the neurostimulator. Her neurosurgeon has agreed to do a laminectomy of all else fails.An MRI of the cervical and thoracic spine has been ordered for surveillance. Problem Gastro-esophagea l reflux disease without esophagitis (861317202) Gastro-esophage al reflux disease without esophagitis (K21.9) Active confirmed Her reflux is somewhat aggravated by the but she is finding it tolerable. Problem Cervical spondylosis without myelopathy (470155761) Other spondylosis, cervical region (M47.892) Active confirmed Problem Displacement of cervical intervertebral disc without myelopathy (49530269) Other cervical disc displacement, unspecified cervical region (M50.20) Active confirmed The discomfort is much improved. We're waiting for the MRI report. 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 She has seen her neurosurgeon, Dr. Islas, Who has offered to do a cervical laminectomy. She is uncertain about this and has declined that procedure so far. The pain management service has recommended a neurostimulator and she has an appointment to have a temporary wire inserted. Problem 129990622 Insomnia (G47.00) Active confirmed She has chronic difficulty sleeping, but lately has been doing well. No change in the pattern of her sleep has been noted lately. Problem Seasonal allergy (023324088) Seasonal allergies (J30.2) Active confirmed Problem History of irritable bowel syndrome (77711248768723) History of IBS (Z87.19) Active confirmed His abdominal pain is resolved at this time. She is quite comfortable in her daily life. Problem Peripheral venous insufficiency (50707929) Venous insufficiency (I87.2) Active confirmed An endovascular procedure to relieve the discomfort is being planned. Problem Pleuritic pain (8232193) Pleuritic chest pain (R07.81) Active confirmed This appears t o be pleurisy and not pulmonary infarction or costochondritis. She is going to have a chest x-ray and blood work with a d-dimer. Problem Irritable bowel syndrome (21022641) Other irritable bowel syndrome (K58.8) Active confirmed She occasionall y has abdominal discomfort from the IBS but this is become a minor problem in daily life. Problem 361710133 Chronic constipation (K59.09) Active confirmed She is doing well with the linzess. Problem 916894367 Recent weight loss (R63.4) Active confirmed She [...] Provider Diagnosis Seun Edwards III, MD [address] [place] [address] [place] [address] 04/17/2025 Seun Edwards Pleuritic chest pain R07.81 ; 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 ; 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 ; Insomnia G47.00 and History of IBS Z87.19 Seun Edwards III, MD [address] [place] [address] [place] [address] 05/15/2025 Seun Edwards Recent weight loss R63.4 ; 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 ; Insomnia G47.00 ; History of IBS Z87.19 ; Venous insufficiency I87.2 ; Gastro-esophageal reflux disease without esophagitis K21.9 and 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 Seun Edwards III, MD [address] [place] [address] [place] [address] 09/16/2024 Seun Edwards III, MD [address] [place] [address] [place] [address] 11/14/2024 Seun Edwards III, MD [address] [place] [address] [place] [address] 11/14/2024 Seun Edwards III, MD [address] [place] [address] [place] [address] 11/21/2024 Seun Edwards III MD [address] [place] [address] [place] [address] 11/21/2024 Seun Edwards III, MD [address] [place] [address] [place] [address] 11/24/2024 Seun Edwards III, MD [address] [place] [address] [place] [address] 04/16/2025 Seun Edwards III, MD [address] [place] [address] [place] [address] 04/21/2025 Seun Edwards III, MD [address] [place] [address] [place] [address] 08/19/2025 Seun Edwards Assessments Encounter Date Diagnosis [...] Total 05/15/2025 Vitamin D 25-OH Total 06/01/2023 Vitamin D 25-OH (D2 and D3) 08/19/2025 Thyroid Peroxidase Antibodies 06/21/2022 Hemoglobin A1c 01/29/2024 Hemoglobin A1c 08/08/2023 ECG 7 day holter monitor 02/04/2024 ECG 7 day holter monitor 01/29/2024 Next Appt Details Provider Name:Seun Coughlinrne , 08/31/2025 04:00:00 PM, [address] [place] [address] , [address], [place], [address], Insurance Providers Payer Name Payer Address Payer Phone Subscriber Number Group Number Insured Name Patient Relationship to Insured Coverage Start Date Coverage End Date [employer] [place] [address] [address] [place] [address] [id number] Pippa Martinez Self - patient is [...] mass upper outer left breast, benign, , [facility] 08/2016 endovenous laser ablation lower extremit y veins 2014 Hospitalization History Reason Date(Month/Year) No history
[2025-08-24 07:56] VITALS: BP 108/82; PULSE 76; RESP 16; O2SAT 99; BMI 19.7
== END 2025-08-24 08:11 | disposition home or self-care (01) ==
LOC: HO.HSM 07:48
PROVIDERS: PCP Internal Medicine Medical Oncology; Visit Provider Nurse Practitioner
DX: M79.18 Myalgia, other site (principal); M25.519 Pain in unspecified shoulder; G43.709 Chronic migraine without aura, not intractable, without status migrainosus; G93.5 Compression of brain
CPT/HCPCS: 99213